=== PATIENT | male | born 1990 | race Caucasian/White ===

== ENCOUNTER 2016-06-01 01:24 | Emergency (ER) | payer SELFPAY ==
[~2016-06-01] VITALS: Ht 172.7 cm; Wt 74.8 kg
[~2016-06-01 01:24] MED LIST: AMOX500C2 PO; CIPR500T78 PO; DOXY100C2 PO; FAMO20TA5 PO; HYDR-757 PO; IBP800T PO; IBUP800T26 PO; NAPR-689 PO; NAPR250T2 PO; NAPR550T PO; ONDA4TAB8 SL; ONDA8TAB13 PO; PHEN100T26 PO; SULF1TAB35 PO; SULF1TAB7 PO; TRAM50TA2 PO; TRIA16.5 NS
[2016-06-01] MEDS ORDERED: KETOROLAC 60 MG/2 ML VIAL IM ONE (02:45)
--- NOTE | 2016-06-01 02:52 | ED General ---
General Chief Complaint: Lower Extremity Stated Complaint: R LEG/KNEE PAIN Nursing Triage Note: C/O RIGHT POSTERIOR KNEE PAIN Nursing Sepsis Screen: No Definite Risk Source of Information: Patient Exam Limitations: No Limitations History of Present Illness Time Seen by Provider: : Initial Comments Patient reports stepping on a rock on May 30 and at that time feeling a pop behind the right knee. His knee became painful and swollen and is still bothering him today. He denies any prior injury. There is no twisting or torque of the knee or ankle. He has not taken any medications. He is ambulatory. Allergies and Home Medications Allergies Coded Allergies: No Known Drug Allergies (Unverified , 10/12/15) Home Medications No Active Prescriptions or Reported Meds Constitutional: no symptoms reported Musculoskeletal: see HPI Skin: no symptoms reported Psychiatric/Neurological: No Symptoms Reported Past Nfhnkiq-Qexfco-Fpfjcw Hx Patient Social History Alcohol Use: Denies Use Recreational Drug Use: No Smoking Status: Never a Smoker Recent Foreign Travel: No Contact w/Someone Who Travel: No Recent Infectious Disease Expo: No Recent Hopitalizations: No Immunizations Up To Date Tetanus Booster (TDap): Unknown Seasonal Allergies Seasonal Allergies: No Surgeries HX Surgeries: No Respiratory Hx Respiratory Disorders: No Cardiovascular Hx Cardiac Disorders: No Neurological Hx Neurological Disorders: No Reproductive System Hx Reproductive Disorders: No Sexually Transmitted Disease: No HIV/AIDS: No Genitourinary Hx Genitourinary Disorders: No Genitourinary Disorders: Kidney Infection Gastrointestinal Hx Gastrointestinal Disorders: No Musculoskeletal Hx Musculoskeletal Disorders: No Endocrine Hx Endocrine Disorders: No HEENT HX ENT Disorders: No Cancer Hx Cancer: No Psychosocial Hx Psychiatric Problems: No Integumentary HX Skin/Integumentary Disorder: No Blood Transfusions Hx Blood Disorders: No Adverse Reaction to a Blood Tr: No Family Medical History Significant Family History: No Pertinent Family Hx Family Medial History: Patient reports no known family medical history. Physical Exam Vital Signs Capillary Refill : Less Than 3 Seconds General Appearance: No Apparent Distress, WD/WN HEENT: Normal ENT Inspection Respiratory: No Respiratory Distress Extremity: Other (Minimal swelling behind the left knee. No tenderness. Mild pain with range of motion. Range of motion full. 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 Orthopedic follow-up was recommended. Diagnostic Imaging Diagonstic Imaging: Xray Plain Films/CT/US/NM/MRI: knee Comments X-ray of the right knee viewed by me. Report not yet available. No acute abnormalities appreciated. Diagonstic Imaging: Ultrasound Plain Films/CT/US/NM/MRI: leg Comments Ultrasound of the right lower extremity demonstrated a probable Kirkland cyst. No other acute abnormalities appreciated. Departure Impression Impression: Primary Impression: Synovial cyst of popliteal space [Kirkland], right knee Disposition: HOME, SELF-CARE Condition: Improved Departure-Patient Inst. Decision time for Depature: 02:30 Referrals: NO,LOCAL PHYSICIAN (PCP/Family) Primary Care Physician Patient Instructions: Kikrland's Cyst Add. Discharge Instructions: You may take ibuprofen up to 800 mg every 8 hours as needed for pain. Add Tylenol up to 1000 mg every 6 hours as needed for additional pain relief. Follow-up with a primary care provider or orthopedist for further evaluation. If you wish to follow-up at [facility], call [phone] for in appointment. Return to care if symptoms worsen or anything changes. All discharge instructions reviewed with patient and/or family. Voiced understanding. Scripts No Active Prescriptions or Reported Meds VIKA CONCEPCION MD Jun 01, 2016 02:52
[2016-06-01 02:56] VITALS: BP 115/70
--- NOTE | 2016-06-01 07:16 | Diagnostic Imaging Report ---
INDICATION: Pain behind right knee. TECHNIQUE: Limited real-time grayscale images were obtained in the popliteal fossa in various projections. FINDINGS: There is a hypoechoic mass in the right popliteal fossa measuring 2.7 x 0.9 x 3.7 cm. This is suspect for complicated Kirkland's cyst. There are no other fluid collections or masses. IMPRESSION: Hypoechoic mass in the popliteal fossa likely relate to popliteal cyst Dictated by: Dictated on workstation # [id number]
--- NOTE | 2016-06-01 07:47 | Diagnostic Imaging Report ---
INDICATION: Knee pain. Three views of the right knee were obtained. FINDINGS: The alignment is normal. There is no fracture or dislocation. The soft tissues are unremarkable. There appears to be a small knee joint effusion. IMPRESSION: Small knee joint effusion, otherwise unremarkable. Dictated by: Dictated on workstation # [id number]
--- OUTSIDE RECORDS SUMMARY | 2016-06-24 11:35 | XMS REPORT ---
Author Author JONES JOHNSON [facility] [place] e[employer] Address Unknown Phone Unavailable Care Team Providers Care Quality Head Name Role Phone JONES JOHNSON Unavailable Allergies No Known Allergies Problems Problem Type Condition Code Onset Dates Condition Status Problem Physical exam Z00.00 Active Medications No Known Medications Results No Known Results Summary Purpose eClinicalWorks Submission
--- OUTSIDE RECORDS SUMMARY | 2016-06-24 11:35 | XMS REPORT ---
Author Author JONES JOHNSON [facility] [place] [employer] Address Unknown Phone Unavailable Care Team Providers Care Field Sales Specialist Name Role Phone JONES JOHNSON CP Unavailable Allergies, Adverse Reactions, Alerts Substance Reaction Event Type N.K.D.A. Info Not Available Non Drug Allergy Problems Problem Type Condition Code Onset Dates Condition Status Assessment Physical exam Z00.00 Active Problem Physical exam Z00.00 Active Medications No Known Medications Procedures Procedure Coding System Code Date COMPREHEN METABOLIC PANEL CPT-4 96079 September 06, 2015 LIPID PANEL CPT-4 74576 September 06, 2015 COMPLETE CBC W/AUTO DIFF WBC CPT-4 10248 September 06, 2015 VENIPUNCT, ROUTINE* CPT-4 14609 September 06, 2015 Preventive Care New Pt. Age 18-39 CPT-4 97174 September 06, 2015 Vital Signs Date/Time: September 06, 2015 Cardiac Monitoring Heart Rate 78 bpm Weight 154.0 lbs Height 68 in Blood Pressure Diastolic 70 mmHg Blood Pressure Systolic 112 mmHg Results No Known Results Summary Purpose eClinicalWorks Submission
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
== END 2016-06-01 02:54 | disposition home or self-care (01) ==
LOC: EDUNIT# 01:24 → ER 01:29
DX: M71.21 Synovial cyst of popliteal space [Baker], right knee (principal); M25.461 Effusion, right knee
CPT/HCPCS: 73562; 76881; 96372; 99283

== ENCOUNTER 2016-06-14 19:18 | Emergency (ER) | payer SELFPAY ==
[~2016-06-14] VITALS: Ht 172.7 cm; Wt 74.8 kg
--- NOTE | 2016-06-14 19:41 | ED Lower Extremity ---
General Chief Complaint: Lower Extremity Stated Complaint: R LEG PAIN Nursing Triage Note: JUMPED A FENCE AND TWISTED FOOT INTO A POT HOLE TWISTING RIGHT KNEE. SAME INJURY 2 WEEKS AGO. C/O DECREASED ROM. Nursing Sepsis Screen: No Definite Risk Source: patient Exam Limitations: no limitations History of Present Illness Time seen by provider: 19:37 Initial Comments To ER with reports of right knee pain. Patient states that he was moving something at his house and he went to jump over a fence. In doing so he landed twisting the right knee he felt a popping sensation and is now unable to bear weight on the right knee. There is no swelling. He states he was here 2 weeks ago for a right knee injury as well. Old records indicate that a synovial cyst was diagnosed. Onset: just prior to arrival Severity: moderate Pain/Injury Location: right knee Modifying Factors: Worse With Movement Allergies and Home Medications Allergies Coded Allergies: No Known Drug Allergies (Unverified , 10/12/15) Home Medications No Active Prescriptions or Reported Meds Constitutional: see HPI EENTM: see HPI Respiratory: no symptoms reported Cardiovascular: no symptoms reported Genitourinary: no symptoms reported Musculoskeletal: see HPI Skin: no symptoms reported Psychiatric/Neurological: No Symptoms Reported Past Omloykp-Yodvpv-Zexzop Hx Patient Social History Alcohol Use: Occasionally Uses Recreational Drug Use: No Smoking Status: Never a Smoker Recent Foreign Travel: No Contact w/Someone Who Travel: No Recent Infectious Disease Expo: No Recent Hopitalizations: No Immunizations Up To Date Tetanus Booster (TDap): Unknown Seasonal Allergies Seasonal Allergies: No Surgeries HX Surgeries: No Respiratory Hx Respiratory Disorders: No Cardiovascular Hx Cardiac Disorders: No Neurological Hx Neurological Disorders: Yes Neurological Disorders: Headaches /Migraines Reproductive System Hx Reproductive Disorders: No Sexually Transmitted Disease: No HIV/AIDS: No Genitourinary Hx Genitourinary Disorders: No Genitourinary Disorders: Kidney Infection Gastrointestinal Hx Gastrointestinal Disorders: No Musculoskeletal Hx Musculoskeletal Disorders: No Endocrine Hx Endocrine Disorders: No HEENT HX ENT Disorders: No Cancer Hx Cancer: No Psychosocial Hx Psychiatric Problems: No Integumentary HX Skin/Integumentary Disorder: No Blood Transfusions Hx Blood Disorders: No Adverse Reaction to a Blood Tr: No Family Medical History Significant Family History: No Pertinent Family Hx Family Medial History: Patient reports no known family medical history. Physical Exam Vital Signs Vital Sign - Last 12Hours 06/14/16 19:24 Temp 97.8 Pulse 85 Resp 20 B/P (MAP) 110/72 Pulse Ox 96 O2 Delivery Room Air Capillary Refill : Less Than 3 Seconds General Appearance: WD/WN, no apparent distress HEENT: PERRL/EOMI, normal ENT inspection Neck: non-tender, full range of motion Respiratory: no respiratory distress, no accessory muscle use Hips: bilateral hip non-tender, bilateral hip normal inspection, bilateral hip normal range of motion Legs: bilateral leg non-tender, bilateral leg normal inspection, bilateral leg normal range of motion Knees: right knee pain, right knee soft tissue tenderness, right knee other ( limited range of motion but no obvious effusion, swelling, erythema or ecchymosis or deformity. Posterior tibial pulses +2.) Ankles: bilateral ankle non-tender, bilateral ankle normal inspection, bilateral ankle normal range of motion Feet: bilateral foot non-tender, bilateral foot normal inspection, bilateral foot normal range of motion Neurologic/Psychiatric: alert, normal mood/affect, oriented x 3 Skin: normal color, warm/dry Laceration Repair : Suture Size: 4-0 Progress/Results/Core Measures Results/Orders My Orders Orders - SHARON LUTHER APRN Knee, Right, 3 Views (06/14/16 19:36) Immobilizer Knee St 19 Inch (06/14/16 19:36) Vital Signs/I&O Vital Sign - Last 12Hours 06/14/16 19:24 Temp 97.8 Pulse 85 Resp 20 B/P (MAP) 110/72 Pulse Ox 96 O2 Delivery Room Air Blood Pressure Mean: 85 Departure Impression Impression: Primary Impression: Internal derangement of right knee Disposition: 01 HOME, SELF-CARE Condition: Stable Departure-Patient Inst. Decision time for Depature: 19:39 Referrals: PAUL LOPEZ MD, JONATHAN MD IPSEN,VALERIA LEDEZMA,LOCAL PHYSICIAN (PCP) Primary Care Physician GEOFFREY FAITH MD,CEDRICK HOGAN,ISAAC Farrell MD Patient Instructions: Ligament Injuries in the Knee (DC) Add. Discharge Instructions: Ice pack to the knee for 30 minutes every 2 hours for the next 1-2 days 2. Wear the knee immobilizer at all times when you're up moving around. Her sitting down or sleeping he may take it off 3. Follow-up with orthopedic surgeon of your choosing. A list of local orthopedic surgeons is been provided for you. Call him on Thursday to make an appointment to be seen All discharge instructions reviewed with patient and/or family. Voiced understanding. Scripts No Active Prescriptions or Reported Meds Work/School Note: Work Release Form Date Seen in the Emergency Department: Jun 15, 2016 Return to Work: Jun 14, 2016 Other Restrictions Listed Below: Must wear knee immobilizer when walking until cleared. 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
--- NOTE | 2016-06-14 19:49 | Diagnostic Imaging Report ---
INDICATION: Right knee pain. [place]inson a pop 3 views of the right knee show no fracture, dislocation or other abnormality. IMPRESSION: Normal right knee. The effusion has resolved since the prior study from 06/01/2016. Dictated by: Dictated on workstation # [id number]
[2016-06-14 20:24] VITALS: BP 110/72
== END 2016-06-14 20:24 | disposition home or self-care (01) ==
LOC: EDUNIT# 19:18 → ER 19:20
DX: M23.91 Unspecified internal derangement of right knee (principal)
CPT/HCPCS: 73562; 99283

== ENCOUNTER 2016-07-14 13:17 | Emergency (ER) | payer SELFPAY ==
[~2016-07-14] VITALS: Ht 172.7 cm; Wt 75.0 kg
[2016-07-14 14:18] VITALS: BP 135/76
[2016-07-14] MEDS ORDERED: HYDR-757 PO (14:46)
--- NOTE | 2016-07-14 14:46 | ED Lower Extremity ---
General Chief Complaint: Lower Extremity Stated Complaint: RIGHT KNEE PAIN Nursing Triage Note: PT REPORTS KNEE PAIN AFTER RUNNING YESTERDAY EVENING. Nursing Sepsis Screen: No Definite Risk Source: patient Exam Limitations: no limitations History of Present Illness Time seen by provider: 14:43 Initial Comments To ER with right knee pain after running yesterday evening. No pain initially but he was running and felt his knee seemed to get "stuck" which caused him to fall to the ground. He's been seen here 3 times for right knee pain. He's never had an MRI. Onset: other Severity: moderate Pain/Injury Location: right knee Modifying Factors: Worse With Movement Allergies and Home Medications Allergies Coded Allergies: No Known Drug Allergies (Unverified , 10/12/15) Home Medications No Active Prescriptions or Reported Meds Constitutional: see HPI EENTM: see HPI Respiratory: no symptoms reported Cardiovascular: no symptoms reported Genitourinary: no symptoms reported Musculoskeletal: see HPI Skin: no symptoms reported Psychiatric/Neurological: No Symptoms Reported Past Wignhhc-Yokuxz-Drvnvp Hx Patient Social History Alcohol Use: Occasionally Uses Recreational Drug Use: No Smoking Status: Never a Smoker 2nd Hand Smoke Exposure: No Recent Foreign Travel: No Contact w/Someone Who Travel: No Recent Infectious Disease Expo: No Recent Hopitalizations: No Immunizations Up To Date Tetanus Booster (TDap): Unknown Seasonal Allergies Seasonal Allergies: No Surgeries HX Surgeries: No Respiratory Hx Respiratory Disorders: No Cardiovascular Hx Cardiac Disorders: No Neurological Hx Neurological Disorders: Yes Neurological Disorders: Headaches /Migraines Reproductive System Hx Reproductive Disorders: No Sexually Transmitted Disease: No HIV/AIDS: No Genitourinary Hx Genitourinary Disorders: No Genitourinary Disorders: Kidney Infection Gastrointestinal Hx Gastrointestinal Disorders: No Musculoskeletal Hx Musculoskeletal Disorders: No Endocrine Hx Endocrine Disorders: No HEENT HX ENT Disorders: No Cancer Hx Cancer: No Psychosocial Hx Psychiatric Problems: No Integumentary HX Skin/Integumentary Disorder: No Blood Transfusions Hx Blood Disorders: No Adverse Reaction to a Blood Tr: No Family Medical History Significant Family History: No Pertinent Family Hx Family Medial History: Patient reports no known family medical history. Physical Exam Vital Signs Vital Sign - Last 12Hours 07/14/16 14:18 Temp 98.1 Pulse 75 Resp 16 B/P (MAP) 135/76 Pulse Ox 98 O2 Delivery Room Air Capillary Refill : Less Than 3 Seconds General Appearance: WD/WN, no apparent distress HEENT: PERRL/EOMI, normal ENT inspection Neck: non-tender, full range of motion Respiratory: no respiratory distress, no accessory muscle use Gastrointestinal: non tender, soft Hips: bilateral hip non-tender, bilateral hip normal inspection, bilateral hip normal range of motion Legs: bilateral leg non-tender, bilateral leg normal inspection, bilateral leg normal range of motion Knees: left knee non-tender, left knee normal inspection, left knee normal range of motion, right knee other (unable to fully extend the knee. There is no obvious joint effusion ecchymosis or erythema.) Ankles: bilateral ankle non-tender, bilateral ankle normal inspection, bilateral ankle normal range of motion Feet: bilateral foot non-tender, bilateral foot normal inspection, bilateral foot normal range of motion Neurologic/Psychiatric: alert, normal mood/affect, oriented x 3 Skin: normal color, warm/dry Laceration Repair : Suture Size: 4-0 Progress/Results/Core Measures Results/Orders Vital Signs/I&O Vital Sign - Last 12Hours 07/14/16 14:18 Temp 98.1 Pulse 75 Resp 16 B/P (MAP) 135/76 Pulse Ox 98 O2 Delivery Room Air Blood Pressure Mean: 95 Departure Impression Impression: Primary Impression: Internal derangement of right knee Disposition: 01 HOME, SELF-CARE Condition: Stable Departure-Patient Inst. Decision time for Depature: 14:44 Referrals: PAUL LOPEZ MD,VALERIA LEDEZMA,LOCAL PHYSICIAN (PCP) Primary Care Physician GEOFFREY FAITH MD,CEDRICK BROOKS,ELY HOGAN,ISAAC Farrell MD Patient Instructions: Meniscal Tear Add. Discharge Instructions: 1. Follow-up with one of the orthopedic surgeons. Call one of the orthopedic surgeons listed today to make an appointment to be seen 2. Crutches and knee immobilizer as needed for pain. You are to have both of these items at home 3. Pain medication as needed. All discharge instructions reviewed with patient and/or family. Voiced understanding. Scripts Hydrocodone/Acetaminophen ([place] 5-325 Tablet) 1 Each Tablet 1 EACH PO Q6H Y for PAIN-MODERATE TO SEVERE, #14 TAB Prov: SHARON LUTHER APRN 07/14/16 SHARON LUTHER APRN July 14, 2016 14:46
== END 2016-07-14 14:51 | disposition home or self-care (01) ==
LOC: EDUNIT# 13:17 → ER 13:20
DX: M23.91 Unspecified internal derangement of right knee (principal)
CPT/HCPCS: 99283

== ENCOUNTER → 2016-07-23 | Outpatient (CLI) | payer OTHER ==
--- NOTE | 2016-07-23 16:26 | Diagnostic Imaging Report ---
PROCEDURE: MRI right joint lower extremity without contrast. TECHNIQUE: Multiplanar, multisequence non contrast-enhanced MRI of the right lower extremity was accomplished. INDICATION: Right knee pain. FINDINGS: There is a small to moderate suprapatellar effusion. There is a Kirkland's cyst, measuring 1.8 x 2.1 x 3.8 cm. The extensor mechanism is intact. There is disruption of the ACL fibers compatible with a full-thickness tear. The PCL is intact. There is increased signal in the posterior horn of the medial meniscus which may relate to degenerative signal with questionable extension into the undersurface of the meniscus as seen on sagittal image numbers 19 raising possibility of a nondisplaced focal tear. The body and anterior horns of the medial meniscus appear intact. The lateral meniscus demonstrate no definite tear. The MCL and lateral collateral ligament complex appear intact. There is bone marrow contusion involving the posterior aspect of the tibial condyles, bilaterally, as well as the lateral and medial femoral condyles. IMPRESSION: 1. Full-thickness tear of the ACL. 2. Increased signal in the posterior horn of the medial meniscus with question of extension into the tibial surface of the meniscus raising possibility of a nondisplaced tear. 3. Kirkland's cyst. Report was faxed to the office of Chey Bee APRN at 4:23 p.m., by mitchel. Dictated by: Dictated on workstation # [id number]
== END ==
LOC: RAD 14:37
PROVIDERS: ATTEND Nurse Practitioner Family
DX: S83.511A Sprain of anterior cruciate ligament of right knee, initial encounter (principal); M71.21 Synovial cyst of popliteal space [Baker], right knee; M25.461 Effusion, right knee; X58.XXXA Exposure to other specified factors, initial encounter; Y99.8 Other external cause status
CPT/HCPCS: 73721

== ENCOUNTER 2017-02-21 13:33 | Emergency (ER) | payer SELFPAY ==
[~2017-02-21] VITALS: Ht 172.7 cm; Wt 80.9 kg
[~2017-02-21 13:33] MED LIST changes: -NAPR250T2 PO; +NAPR250T6 PO
--- NOTE | 2017-02-21 14:02 | ED Integumentary General ---
General Chief Complaint: Skin/Wound Problems Stated Complaint: ENTIRE BODY ITCHING POSS SCABIES Nursing Triage Note: c/o rash to bilat hands Source: patient Exam Limitations: no limitations History of Present Illness Time seen by provider: 14:02 Initial Comments 26-year-old male patient presents to the emergency department with complaints of rash to the bilateral hands. Reports a coworker had scabies several days ago and was not sent home. He is concerned that he has scabies now. Timing/Duration: yesterday, getting worse Location: hands Possible Cause: other (exposure to scabies) Modifying Factors: worse with scratching Allergies and Home Medications Allergies Coded Allergies: No Known Drug Allergies (Unverified , 10/12/15) Home Medications Hydrocodone/Acetaminophen 1 Each Tablet, 1 EACH PO Q6H PRN for PAIN-MODERATE TO SEVERE, #14 Prescribed by: SHARON LUTHER on 07/14/16 1446 Permethrin 60 Gm Cream..g., 60 GM TP ONCE, #1 Ref 1 apply 5% cream once x8h, then wash off. Repeat in 14 days. Prescribed by: JOHAN BELL on 02/21/17 1413 Constitutional: No chills, No fever, No malaise EENTM: no symptoms reported Respiratory: No cough, No short of breath Cardiovascular: no symptoms reported Gastrointestinal: no symptoms reported Musculoskeletal: no symptoms reported Skin: see HPI, pruritus, rash Psychiatric/Neurological: No Symptoms Reported All Other Systems Reviewed Negative Unless Noted: Yes (Negative excepted noted.) Past Xvsymlb-Gljljb-Rrfjro Hx Patient Social History Alcohol Use: Occasionally Uses Number of Drinks Today: AA Alcohol Beverage of Choice: Beer Recreational Drug Use: No Smoking Status: Never a Smoker 2nd Hand Smoke Exposure: No Recent Foreign Travel: No Contact w/Someone Who Travel: No Recent Infectious Disease Expo: No Recent Hopitalizations: No Physical Abuse: No Sexual Abuse: No Mistreated: No Fear: No Immunizations Up To Date Tetanus Booster (TDap): Unknown Seasonal Allergies Seasonal Allergies: No Surgeries History of Surgeries: No Respiratory History of Respiratory Disorde: No Cardiovascular History of Cardiac Disorders: No Neurological History of Neurological Disord: Yes Neurological Disorders: Headaches /Migraines Reproductive System Hx Reproductive Disorders: No Sexually Transmitted Disease: No HIV/AIDS: No Genitourinary Genitourinary Disorders: Kidney Infection Gastrointestinal History of Gastrointestinal Di: No Musculoskeletal History of Musculoskeletal Dis: No Endocrine History of Endocrine Disorders: No Cancer History of Cancer: No Psychosocial History of Psychiatric Problem: No Suicide Risk Score: 1 Integumentary History of Skin or Integumenta: No Blood Transfusions History of Blood Disorders: No Adverse Reaction to a Blood Tr: No Reviewed Nursing Assessment Reviewed/Agree w Nursing PMH: Yes Family Medical History Significant Family History: No Pertinent Family Hx Family Medial History: Patient reports no known family medical history. Physical Exam Vital Signs Vital Sign - Last 12Hours 02/21/17 13:35 Temp 98.8 Pulse 79 Resp 18 B/P (MAP) 140/94 (109) Pulse Ox 98 O2 Delivery Room Air Capillary Refill : Less Than 3 Seconds General Appearance: WD/WN, no apparent distress HEENT: PERRL/EOMI, pharynx normal Neck: supple, normal inspection Cardiovascular: normal peripheral pulses, regular rate, rhythm, no murmur Respiratory: lungs clear, normal breath sounds, no respiratory distress, no accessory muscle use Extremities: non-tender, normal capillary refill, other (linear papular rash of the bilateral hands with greatest focus in the webspaces between the fingers. ) Neurologic/Psychiatric: alert, normal mood/affect, oriented x 3 Skin: normal color, warm/dry, rash (linear papular rash of the hands with greatest focus in the webspaces between the fingers.) Laceration Repair : Suture Size: 4-0 Progress/Results/Core Measures Results/Orders Vital Signs/I&O Vital Sign - Last 12Hours 02/21/17 13:35 Temp 98.8 Pulse 79 Resp 18 B/P (MAP) 140/94 (109) Pulse Ox 98 O2 Delivery Room Air Blood Pressure Mean: 109 Departure Impression Impression: Primary Impression: Scabies Disposition: 01 HOME, SELF-CARE Condition: Improved Departure-Patient Inst. Decision time for Depature: 14:10 Referrals: [facility] (PCP/Family) Primary Care Physician Patient Instructions: Scabies (DC) Add. Discharge Instructions: All discharge instructions reviewed with patient and/or family. Voiced understanding. Medications as instructed. Itching may continue for several days after treatment is completed. Benadryl hyxb-sxt-dusdldt as directed for itching if needed. Wash all bedding and clothing in hot water. Follow-up with your primary care provider if no improvement in symptoms. Return to the emergency department for worsened symptoms or any other concerns. Scripts Permethrin (Permethrin) 60 Gm Cream..g. 60 GM TP ONCE, #1 TUBE 1 Refill apply 5% cream once x8h, then wash off. Repeat in 14 days. Prov: JOHAN BELL 02/21/17 Work/School Note: Work Release Form Date Seen in the Emergency Department: Feb 21, 2017 Return to Work: Feb 22, 2017 JOHAN BELL Feb 21, 2017 14:02
[2017-02-21] MEDS ORDERED: PERM60CR4 TP (14:13)
[2017-02-21 14:28] VITALS: BP 138/86
== END 2017-02-21 14:28 | disposition home or self-care (01) ==
LOC: EDUNIT# 13:33 → ER 13:35
DX: B86 Scabies (principal); G43.909 Migraine, unspecified, not intractable, without status migrainosus
CPT/HCPCS: 99282

== ENCOUNTER 2017-04-24 23:41 | Emergency (ER) | payer SELFPAY ==
[~2017-04-24] VITALS: Ht 172.7 cm; Wt 80.7 kg
[~2017-04-24 23:41] MED LIST changes: +PERM60CR4 TP
--- OUTSIDE RECORDS SUMMARY | 2017-04-24 23:46 | XMS REPORT ---
Author Author ANNIE ASHFORD Organization [facility] Address [address] [place] [address] Care Team Providers Care Dog And Cat Food Cook Name Role Phone ANNIE ASHFORD Unavailable PROBLEMS Type Condition ICD9-CM Code CQL71-NE Code Onset Dates Condition Status SNOMED Code Problem Physical exam Z00.00 Active 502083434 ALLERGIES No Known Allergies SOCIAL HISTORY Never Assessed PLAN OF CARE Activity Details Follow Up 2 Weeks Reason:follow up knee pain VITAL SIGNS Height 68 in 2016-07-14 Weight 170 lbs 2016-07-14 Temperature 98.3 degrees Fahrenheit 2016-07-14 Heart Rate 70 bpm 2016-07-14 Respiratory Rate 20 2016-07-14 BMI 25.85 kg/m2 2016-07-14 Blood pressure systolic 124 mmHg 2016-07-14 Blood pressure diastolic 70 mmHg 2016-07-14 MEDICATIONS Unknown Medications RESULTS Name Result Date Reference Range MRI : Knee, Right w/o contrast 2016-07-23 PROCEDURES No Known procedures IMMUNIZATIONS No Known Immunizations MEDICAL (GENERAL) HISTORY Type Description Date Medical History kidney infection Hospitalization History kidney infection [facility] 2014
--- OUTSIDE RECORDS SUMMARY | 2017-04-24 23:46 | XMS REPORT ---
Author Author JONES JOHNSON Organization [facility] [place] Address [address] [place] [address] Care Team Providers Care Cam Specialist Name Role Phone JONES JOHNSON Unavailable PROBLEMS Type Condition ICD9-CM Code [id number] Code Onset Dates Condition Status SNOMED Code Problem Gastroesophageal reflux disease with esophagitis K21.0 Active 863780742 Problem Physical exam Z00.00 Active [id number] ALLERGIES No Known Allergies SOCIAL HISTORY Never Assessed PLAN OF CARE Activity Details Follow Up 3 Months, prn Reason: VITAL SIGNS Height 68 in 2016-08-05 Weight 170 lbs 2016-08-05 Temperature 98.4 degrees Fahrenheit 2016-08-05 Heart Rate 72 bpm 2016-08-05 Respiratory Rate 18 2016-08-05 BMI 25.85 kg/m2 2016-08-05 Blood pressure systolic 100 mmHg 2016-08-05 Blood pressure diastolic 70 mmHg 2016-08-05 MEDICATIONS Medication Instructions Dosage Frequency Start Date End Date Duration Status Hydrocodone-Acetaminophen 5-325 MG Orally 3 times a day 1 tablet as needed 8h Jul, Active Ibuprofen 800 MG Orally Three times a day 1 tablet with food or milk 8h Jul, Aug, 30 day(s) Active RESULTS No Results PROCEDURES No Known procedures IMMUNIZATIONS No Known Immunizations MEDICAL (GENERAL) HISTORY Type Description Date Medical History kidney infection Hospitalization History kidney infection [facility] 2014
--- OUTSIDE RECORDS SUMMARY | 2017-04-24 23:47 | XMS REPORT ---
Author Author JONES JOHNSON [facility] Address [address] [place] [address] Care Team Providers Care Sleeve Ironer Name Role Phone JONES JOHNSON Unavailable PROBLEMS Type Condition ICD9-CM Code YSN71-MU Code Onset Dates Condition Status SNOMED Code Problem Physical exam Z00.00 Active 351660905 ALLERGIES No Information SOCIAL HISTORY Never Assessed PLAN OF CARE VITAL SIGNS MEDICATIONS Unknown Medications RESULTS No Results PROCEDURES No Known procedures IMMUNIZATIONS No Known Immunizations MEDICAL (GENERAL) HISTORY Type Description Date Medical History kidney infection Hospitalization History kidney infection [facility] 2015
--- OUTSIDE RECORDS SUMMARY | 2017-04-24 23:47 | XMS REPORT ---
Author Author ANNIE ASHFORD [facility] Address [address] [place] [address] Care Team Providers Care Foundry Engineer Name Role Phone ANNIE ASHFORD Unavailable PROBLEMS Type Condition ICD9-CM Code YOH21-OL Code Onset Dates Condition Status SNOMED Code Problem Physical exam Z00.00 Active 327476993 ALLERGIES No Information SOCIAL HISTORY Never Assessed PLAN OF CARE VITAL SIGNS MEDICATIONS Unknown Medications RESULTS No Results PROCEDURES No Known procedures IMMUNIZATIONS No Known Immunizations MEDICAL (GENERAL) HISTORY Type Description Date Medical History kidney infection Hospitalization History kidney infection [facility] 2014
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
[2017-04-25 00:25] LABS: BILIRUBIN,URINE NEGATIVE (NEGATIVE); CLARITY,URINE CLEAR; COLOR,URINE YELLOW; GLUCOSE, URINE (UA) NEGATIVE (NEGATIVE); KETONES,URINE NEGATIVE (NEGATIVE); LEUKOCYTE ESTERASE ,URINE NEGATIVE (NEGATIVE); NITRITE,URINE NEGATIVE (NEGATIVE); PH,URINE 6 (5-9); PROTEIN,URINE NEGATIVE (NEGATIVE); UROBILINOGEN,URINE 4 MG/DL (NORMAL)
[2017-04-25 00:42] LABS: BACTERIA,URINE NEGATIVE /HPF; SQUAMOUS EPITHELIAL CELL,UR RARE /HPF
[2017-04-25] MEDS ORDERED: AZITHROMYCIN 250 MG TAB (ZITHROMAX) PO ONE (01:30)
[2017-04-25] MEDS ORDERED: LIDOCAINE 1% INJ 20 ML (XYLOCAINE) VIAL INJ ONE (01:30)
[2017-04-25] MEDS ORDERED: cefTRIAXone 1 GM (ROCEPHIN) VIAL IM ONE (01:30)
[2017-04-25] MEDS ORDERED: LIDOCAINE 2% 20 ML (XYLOCAINE) VIAL ONE (01:57)
[2017-04-25 02:00] VITALS: BP 127/96
--- NOTE | 2017-04-25 02:00 | ED GU-Male ---
General Chief Complaint: -Male Stated Complaint: DIFFICULTY URINATING Nursing Triage Note: pt verbalized for 2 months having urinary issues. states hard to get starting then feels like hes not empting. Source: patient Exam Limitations: no limitations History of Present Illness Date Seen by Provider: Apr 24, 2017 Time Seen by Provider: 23:49 Initial Comments This 26-year-old young man presents to the emergency room with complaints of urinary symptoms for nearly 2 months. He has had difficulty getting stream started and feels like his weight is incomplete after he finishes. He has penile dysuria. He does sometimes have some urethral discharge as well. He is sexually active. He denies any hematuria. No fevers. He has had a prior history of pyelonephritis by his description. Allergies and Home Medications Allergies Coded Allergies: No Known Drug Allergies (Unverified , 10/12/15) Home Medications Hydrocodone/Acetaminophen 1 Each Tablet, 1 EACH PO Q6H PRN for PAIN-MODERATE TO SEVERE Prescribed by: SHARON LUTHER on 07/14/16 1446 Permethrin 60 Gm Cream..g., 60 GM TP ONCE apply 5% cream once x8h, then wash off. Repeat in 14 days. Prescribed by: JOHAN BELL on 02/21/17 1413 Constitutional: no symptoms reported EENTM: no symptoms reported Respiratory: no symptoms reported Cardiovascular: no symptoms reported Gastrointestinal: no symptoms reported Genitourinary: see HPI Musculoskeletal: no symptoms reported Skin: no symptoms reported Psychiatric/Neurological: No Symptoms Reported Endocrine: No Symptoms Reported Past Ktfauus-Xjtqhw-Rsifxz Hx Patient Social History Alcohol Beverage of Choice: Beer 2nd Hand Smoke Exposure: No Recent Foreign Travel: No Contact w/Someone Who Travel: No Recent Infectious Disease Expo: No Recent Hopitalizations: No Immunizations Up To Date Tetanus Booster (TDap): Unknown Seasonal Allergies Seasonal Allergies: No Surgeries History of Surgeries: No Respiratory History of Respiratory Disorde: No Cardiovascular History of Cardiac Disorders: No Neurological History of Neurological Disord: Yes Neurological Disorders: Headaches /Migraines Reproductive System Hx Reproductive Disorders: No Sexually Transmitted Disease: No HIV/AIDS: No Genitourinary Genitourinary Disorders: Kidney Infection Gastrointestinal History of Gastrointestinal Di: Yes Gastrointestinal Disorders: Gastroesophageal Reflux Musculoskeletal History of Musculoskeletal Dis: No Endocrine History of Endocrine Disorders: No HEENT History of HEENT Disorders: No Cancer History of Cancer: No Psychosocial History of Psychiatric Problem: No Integumentary History of Skin or Integumenta: No Blood Transfusions History of Blood Disorders: No Adverse Reaction to a Blood Tr: No Family Medical History Significant Family History: No Pertinent Family Hx Family Medial History: Patient reports no known family medical history. Physical Exam Vital Signs Vital Signs - First Documented 04/24/17 23:56 Temp 97.3 Pulse 76 Resp 20 B/P (MAP) 127/96 (106) Pulse Ox 98 O2 Delivery Room Air Capillary Refill : Less Than 3 Seconds General Appearance: WD/WN, no apparent distress HEENT: normal ENT inspection Cardiovascular: regular rate, rhythm, no edema, no murmur Respiratory: lungs clear, no respiratory distress Gastrointestinal: non tender, soft Male: normal genitalia, no hernia, No erythema, No inguinal tenderness, No testicular tenderness, other (no evidence of hernia. 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, no motor/sensory deficits, alert, normal mood/affect, oriented x 3 Skin: normal color, warm/dry Laceration Repair : Suture Size: 4-0 Progress/Results/Core Measures Suspected Sepsis Recent Fever Within 48 Hours: No Infection Criteria Present: None New/Unexplained Altered Menta: No Sepsis Screen: No Definite Risk Sepsis Diagnosis: SIRS Temperature:97.3 Pulse: 76 Respiratory Rate: 20 Blood Pressure 127 /96 Mean: 106 Results/Orders Lab Results Laboratory Tests Test 04/24/17 23:57 Range/Units Urine Color YELLOW Urine Clarity CLEAR Urine pH 6 5-9 Urine Specific [place] 1.020 1.016-1.022 Urine Protein NEGATIVE NEGATIVE Urine Glucose (UA) NEGATIVE NEGATIVE Urine Ketones NEGATIVE NEGATIVE Urine Nitrite NEGATIVE NEGATIVE Urine Bilirubin NEGATIVE NEGATIVE Urine Urobilinogen 4 H NORMAL MG/DL Urine Leukocyte Esterase NEGATIVE NEGATIVE Urine RBC (Auto) NEGATIVE NEGATIVE Urine RBC NONE /HPF Urine WBC NONE /HPF Urine Squamous Epithelial Cells RARE /HPF Urine Crystals NONE /LPF Urine Bacteria NEGATIVE /HPF Urine Casts NONE /LPF Urine Mucus NEGATIVE /LPF Urine Culture Indicated NO My Orders Orders - VIKA CONCEPCION MD Ua Culture If Indicated (04/24/17 23:49) Chlamydia Dna Urine Test (04/25/17 00:00) Neis Anival Dna Urine Test (04/25/17 00:00) Bladder Scan (04/25/17 01:23) Ceftriaxone Injection (Rocephin Injectio (04/25/17 01:30) Lidocaine 1% Injection (Xylocaine 1% Inj (04/25/17 01:30) Azithromycin Tablet (Zithromax Tablet) (04/25/17 01:30) Lidocaine 2% Injection 20 Ml (Xylocaine (04/25/17 01:57) Im Injection Antibiotic Ed (04/24/17 ) Vital Signs/I&O Vital Sign - Last 12Hours 04/24/17 04/25/17 23:56 02:00 Temp 97.3 97.3 Pulse 76 76 Resp 20 20 B/P (MAP) 127/96 (106) 127/96 (106) Pulse Ox 98 98 O2 Delivery Room Air Capillary Refill : Less Than 3 Seconds Blood Pressure Mean: 106 Progress Note : Progress Note UA was fairly unremarkable. There is no significant post void residual on bladder scan. Because patient describes pain in the penis with urination, he was treated empirically for urethritis. Rocephin and azithromycin were ordered. Departure Impression Impression: Primary Impression: Urethritis Additional Impression: Dysuria Disposition: 01 HOME, SELF-CARE Condition: Improved Departure-Patient Inst. Decision time for Depature: 01:59 [facility] (PCP/Family) Primary Care Physician Patient Instructions: Urethritis Add. Discharge Instructions: Return to care if symptoms worsen. Follow up with your primary care provider late next week to review culture results. No intercourse until culture results are reviewed with your doctor. All discharge instructions reviewed with patient and/or family. Voiced understanding. Work/School Note: Work Release Form Date Seen in the Emergency Department: Apr 25, 2017 Return to Work: Apr 25, 2017 Other Restrictions Listed Below: Return to work after sufficient rest. VIKA CONCEPCION MD Apr 25, 2017 02:00
== END 2017-04-25 02:10 | disposition home or self-care (01) ==
LOC: EDUNIT# 23:41 → ER 23:43
DX: N34.1 Nonspecific urethritis (principal); G43.909 Migraine, unspecified, not intractable, without status migrainosus; Z87.448 Personal history of other diseases of urinary system
CPT/HCPCS: 36415; 81000; 87491; 87591; 96372

== ENCOUNTER 2017-06-24 16:04 | Emergency (ER) | payer SELFPAY ==
[~2017-06-24] VITALS: Ht 172.7 cm; Wt 78.5 kg
--- OUTSIDE RECORDS SUMMARY | 2017-06-24 16:12 | XMS REPORT | Continuity of Care Document ---
Author Author [facility] Organization [facility] Address Unknown Phone Unavailable Allergies Active Description Code Type Severity Reaction Onset Reported/Identified Relationship to Patient Clinical Status Yes No Known Drug Allergies [id number] Drug Allergy Unknown N/A 10/12/2015 Medications There is no data. Problems Date Dx Coded Attending Type Code Diagnosis Diagnosed By 01/29/1149 JONES JOHNSON Ot Z31.69 ENCOUNTER FOR [facility] GENER[facility] CNSL AND ADVIC 11/07/2009 Ot [...] RENAL URETERAL DIS NOS 10/11/2013 SHARON LUTHER SWITCHBOARD OPERATOR RECEPTIONIST Ot 462 ACUTE PHARYNGITIS 10/11/2013 SHARON LUTHER SWITCHBOARD OPERATOR RECEPTIONIST Ot 780.79 OTH MALAISE FATIGUE 10/11/2013 SHARON LUTHER SWITCHBOARD OPERATOR RECEPTIONIST Ot 784.0 HEADACHE 10/11/2013 SHARON LUTHER SWITCHBOARD OPERATOR RECEPTIONIST Ot 789.09 ABDOMINAL PAIN, OTHER SPECIFIED SITE [...] PAINFUL RESPIRATION 04/04/2014 Ot 789.09 09/05/2014 RAMANDEEP LEIVN MD Ot 724.2 LUMBAGO 04/18/2015 JAMEY ECHOLS, [...] W/O FB OF R IDX FNGR W/O MRYON 07/03/2015 MEREDITH DO, YIFAN K Ot S61.210A [...] K Ot Z23 ENCOUNTER FOR IMMUNIZATION 09/26/2015 SHARNO LUTHER APRN Ot S43.401A UNSPECIFIED SPRAIN OF RIGHT SHOULDER KILLIAN 09/26/2015 SHARON LUTHER SWITCHBOARD OPERATOR RECEPTIONIST Ot X58.XXXA EXPOSURE TO OTHER SPECIFIED FACTORS, INI 09/26/2015 SHARON LUTHER SWITCHBOARD OPERATOR RECEPTIONIST Ot Y92.[address] 09/26/2015 SHARON [...] OTHER EXTERNAL CAUSE STATUS 10/12/2015 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 Ot Z31.69 ENCOUNTER FOR OTH GENERAL CNSL [...] OF POPLITEAL SPACE [GLEZ] 06/14/2016 SHARON LUTHER SWITCHBOARD OPERATOR RECEPTIONIST Ot M23.91 UNSPECIFIED INTERNAL DERANGEMENT OF RIGH 06/14/2016 SHARON LUTHER SWITCHBOARD OPERATOR RECEPTIONIST Ot S89.91XA UNSPECIFIED INJURY OF RIGHT LOWER LEG, I 06/16/2016 SHARON LUTHER SWITCHBOARD OPERATOR RECEPTIONIST Ot M23.91 UNSPECIFIED INTERNAL DERANGEMENT OF RIGH 06/16/2016 SHARON LUTHER SWITCHBOARD OPERATOR RECEPTIONIST Ot S89.91XA UNSPECIFIED INJURY OF RIGHT LOWER LEG, I 07/14/2016 SHARON LUTHER SWITCHBOARD OPERATOR RECEPTIONIST Ot M23.91 UNSPECIFIED INTERNAL DERANGEMENT OF RIGH 07/14/2016 SHARON LUTHER SWITCHBOARD OPERATOR RECEPTIONIST Ot M25.561 PAIN IN RIGHT KNEE 07/25/2016 ANNIE ASHFORD SWITCHBOARD OPERATOR RECEPTIONIST Ot M25.461 EFFUSION, RIGHT KNEE 07/25/2016 ANNIE ASHFORD SWITCHBOARD OPERATOR RECEPTIONIST Ot M71.21 SYNOVIAL CYST OF POPLITEAL SPACE [GLEZ] 07/25/2016 ANNIE ASHFORD SWITCHBOARD OPERATOR RECEPTIONIST Ot S83.511A SPRAIN OF ANTERIOR CRUCIATE LIGAMENT OF 07/25/2016 ANNIE ASHFORD SWITCHBOARD OPERATOR RECEPTIONIST Ot X58.XXXA EXPOSURE TO OTHER SPECIFIED FACTORS, INI 07/25/2016 ANNIE ASHFORD SWITCHBOARD OPERATOR RECEPTIONIST Ot Y99.8 OTHER EXTERNAL CAUSE STATUS 07/31/2016 ANNIE ASHFORD SWITCHBOARD OPERATOR RECEPTIONIST Ot M25.461 EFFUSION, RIGHT KNEE 07/31/2016 ANNIE ASHFORD SWITCHBOARD OPERATOR RECEPTIONIST Ot M71.21 SYNOVIAL CYST OF POPLITEAL SPACE [GLEZ] 07/31/2016 ANNIE ASHFORD SWITCHBOARD OPERATOR RECEPTIONIST Ot S83.511A SPRAIN OF ANTERIOR CRUCIATE LIGAMENT OF 07/31/2016 ANNIE ASHFORD SWITCHBOARD OPERATOR RECEPTIONIST Ot X58.XXXA EXPOSURE TO OTHER SPECIFIED FACTORS, INI 07/31/2016 ANNIE ASHFORD SWITCHBOARD OPERATOR RECEPTIONIST Ot Y99.8 OTHER EXTERNAL CAUSE STATUS 08/07/2016 SHARON LUTHER SWITCHBOARD OPERATOR RECEPTIONIST Ot M23.91 UNSPECIFIED INTERNAL DERANGEMENT OF RIGH 08/07/2016 SHARON LUTHER SWITCHBOARD OPERATOR RECEPTIONIST Ot S89.91XA UNSPECIFIED INJURY OF RIGHT LOWER LEG, I 02/21/2017 JOHAN CHRISTIANSON Ot B86 SCABIES 02/21/2017 JOHAN CHRISTIANSON Ot G43.909 MIGRAINE, UNSP, NOT INTRACTABLE, WITHOUT 02/21/2017 MARCELO CHRISTIANSONEN Jeremiah Ot R21 RASH AND OTHER NONSPECIFIC SKIN ERUPTION 02/24/2017 JOHAN CHRISTIANSON Ot B86 SCABIES 02/24/2017 JOHAN CHRISTIANSON Ot G43.909 MIGRAINE, UNSP, NOT INTRACTABLE, WITHOUT 02/24/2017 JOHAN CHRISTIANSON Ot R21 RASH AND OTHER NONSPECIFIC SKIN ERUPTION 04/16/2017 ANNIE ASHFORD SWITCHBOARD OPERATOR RECEPTIONIST Ot M25.461 EFFUSION, RIGHT KNEE 04/16/2017 ANNIE ASHFORD SWITCHBOARD OPERATOR RECEPTIONIST Ot M71.21 SYNOVIAL CYST OF POPLITEAL SPACE [GLEZ] 04/16/2017 ANNIE ASHFORD SWITCHBOARD OPERATOR RECEPTIONIST Ot S83.511A SPRAIN OF ANTERIOR CRUCIATE LIGAMENT OF 04/16/2017 ANNIE ASHFORD SWITCHBOARD OPERATOR RECEPTIONIST Ot X58.XXXA EXPOSURE TO OTHER SPECIFIED FACTORS, INI 04/16/2017 ANNIE ASHFORD SWITCHBOARD OPERATOR RECEPTIONIST Ot Y99.8 OTHER EXTERNAL CAUSE STATUS 04/25/2017 JAMEY ECHOLS, VIKA Saleh Ot G43.909 MIGRAINE, UNSP, NOT INTRACTABLE, WITHOUT 04/25/2017 JAMEY ECHOLS, VIKA Saleh Ot N34.1 NONSPECIFIC URETHRITIS 04/25/2017 JAMEY ECHOLS, VIKA Saleh Ot R30.0 DYSURIA 04/25/2017 JAMEY ECHOLS, VIKA Saleh Ot Z87.448 PERSONAL HISTORY OF OTHER DISEASES OF UR 04/27/2017 VIKA CONCEPCION MD Ot G43.909 MIGRAINE, UNSP, NOT INTRACTABLE, WITHOUT 04/27/2017 JAMEY ECHOLS, VIKA Saleh Ot N34.1 NONSPECIFIC URETHRITIS 04/27/2017 VIKA CONCEPCION MD, Ot R30.0 DYSURIA 04/27/2017 VIKA CONCEPCION MD, Ot Z87.448 PERSONAL HISTORY OF OTHER DISEASES OF UR 04/30/2017 VIKA CONCEPCION MD, Ot G43.909 MIGRAINE, UNSP, NOT INTRACTABLE, WITHOUT 04/30/2017 VIKA CONCEPCION MD, Ot N34.1 NONSPECIFIC URETHRITIS 04/30/2017 VIKA CONCEPCION MD, Ot R30.0 DYSURIA 04/30/2017 VIKA CONCEPCION MD, Ot Z87.448 PERSONAL HISTORY OF OTHER DISEASES OF UR Procedures There is no data. Results Test [...] - 02/24/16 14:54 Lipase 18 U/L 8-78 Complete urinalysis with reflex to culture - 04/24/17 23:57 Urine color determination YELLOW NRG Urine clarity [...] urobilinogen measurement by automated test strip (mass/volume) 4 mg/dL NORMAL Urine leukocyte esterase detection by dipstick [...] urinalysis with reflex to culture NO NRG Chlamydia DNA amp probe, urine - 04/24/17 23:57 Chlamydia DNA amp probe, urine Not Detected Not Detected Urine Neisseria gonorrhoeae DNA assay - 04/24/17 23:57 Gonorrhea amp DNA-urine Not Detected Not Detected Encounters ACCT No. Visit Date/Time Discharge Status Pt. Type Provider Facility Loc./Unit Complaint [id number] 04/24/2017 23:43:00 04/25/2017 02:10:00 DIS Outpatient JAMEY ECHOLS, VIKA Saleh [facility] ER DIFFICULTY URINATING [id number] 02/21/2017 13:35:00 02/21/2017 14:28:00 DIS Emergency JOHAN CHRISTIANSON [facility] ER ENTIRE BODY ITCHING POSS SCABIES [id number] 07/23/2016 14:37:00 07/23/2016 23:59:59 CLS Outpatient ANNIE ASHFORD SWITCHBOARD OPERATOR RECEPTIONIST [facility] RAD S89.91XA INJ OF RT KNEE [id number] 07/14/2016 13:20:00 07/14/2016 14:51:00 DIS Emergency SHARON LUTHER APRN [facility] ER RIGHT KNEE PAIN [id number] 06/14/2016 19:20:00 06/14/2016 20:24:00 DIS Emergency SHARON LUTHER APRN [facility] ER R LEG PAIN [id number] 06/01/2016 01:29:00 06/01/2016 02:54:00 DIS Emergency VIKA CONCEPCION MD [facility] ER R LEG/KNEE PAIN [id number] 02/24/2016 12:12:00 02/24/2016 16:06:00 DIS Emergency CHRISTINE ECHOLS, JORGE Rojo [facility] ER L LOWER ABD PAIN [id number] 01/22/2016 14:10:00 01/22/2016 15:26:00 DIS Emergency JOHAN CHRISTIANSON [facility] ER VOMITING/ABD PAIN DIARRHEA [id number] 10/12/2015 18:49:00 10/12/2015 19:47:00 DIS Emergency SHARON LUTHER APRN [facility] ER BURN [id number] 10/12/2015 11:33:00 10/12/2015 11:50:00 DIS Outpatient JONES JOHNSON [facility] LAB INFERTILITY COUNSELING [id number] 09/26/2015 11:12:00 09/26/2015 11:57:00 DIS Emergency SHARON LUTHER APRN [facility] ER RIGHT SHOULDER PAIN [id number] 06/23/2015 14:37:00 06/23/2015 14:45:00 DIS Emergency CHRISTINE ECHOLS, JORGE S [facility] ER SUTURE REMOVAL [id number] 06/14/2015 01:05:00 06/14/2015 02:54:00 DIS Emergency YIFAN HARPER DO [facility] ER LAC RT HAND INDEX FINGER [id number] 04/18/2015 16:34:00 04/18/2015 17:47:00 DIS Emergency JAMEY ECHOLS, VIKA Saleh [facility] ER VOMITING;BACK PAIN; DIARRHEA [id number] 09/05/2014 07:14:00 09/05/2014 08:53:00 DIS Emergency POONAM ECHOLS, RAMANDEEP Kraft [facility] ER SIDE/ABD PAIN HEADACHE NAUSEA [id number] 03/14/2014 08:12:00 03/14/2014 09:39:00 DIS Emergency ADRIANE ECOHLS, PAULIE Storm [facility] ER CHEST PAIN [id number] 12/04/2013 14:09:00 12/04/2013 14:58:00 DIS Emergency JOHAN CHRISTIANSON [facility] ER FINGER PAIN [id number] 11/25/2013 21:44:00 11/25/2013 23:03:00 DIS Emergency TY ECHOLS, BARRY Rdz [facility] ER ABD PAIN [id number] 11/20/2013 13:53:00 11/20/2013 15:11:00 DIS Emergency POONAM ECHOLS, RAMANDEEP Kraft [facility] ER R INDEX FINGER GROIN PAIN [id number] 10/11/2013 14:21:00 10/11/2013 17:46:00 DIS Emergency SHARON LUTHER APRN [facility] ER HEADACHE [id number] 09/04/2013 22:51:00 09/05/2013 15:27:00 DIS Inpatient MELA COPELAND DO S [facility] 4TH ACUTE PYELONEPHRITIS , GROSS HEMATURIA [id number] 07/31/2013 12:30:00 07/31/2013 14:29:00 DIS Emergency RAMANDEEP LEVIN MD [facility] ER CHEST PAIN HEADACHE [id number] 07/06/2013 23:15:00 07/07/2013 00:15:00 DIS Emergency YIFAN HARPER DO [facility] ER BLOODY NOSE [id number] 06/24/2017 16:05:00 ACT Emergency RAMANDEEP LEVIN MD [facility] ER CHEST PAIN;FEVER [id number] 05/12/2012 18:10:00 Document Registration [id number] 08/01/2011 15:41:00 Document Registration [id number] 07/27/2011 19:28:00 Document Registration [id number] 05/05/2011 21:38:00 Document Registration [id number] 01/28/2010 08:14:00 Document Registration [id number] 11/07/2009 14:18:00 Document Registration [id number] 05/01/2017 09:40:00 05/01/2017 23:59:59 [facility] Outpatient JONES JOHNSON [facility] F[id number] 09/05/2014 07:15:14 ACT Document Registration
[2017-06-24] MEDS ORDERED: FAMOTIDINE 20 MG (PEPCID) TABLET PO STA (19:10)
[2017-06-24] MEDS ORDERED: LIDOCAINE 2% VISCOUS 15 ML UDC PO ONE (19:15)
[2017-06-24] MEDS ORDERED: ANTACID SUSP 30 ML UDC (MYLANTA) PO ONE (19:15)
--- NOTE | 2017-06-24 19:16 | ED Chest Pain ---
General Chief Complaint: Fever-Adult/Adol Stated Complaint: CHEST PAIN;FEVER Nursing Triage Note: PT HERE WITH C/O FEVER AND FAST HEART RATE FOR 24 HOURS. Nursing Sepsis Screen: No Definite Risk Source: patient Exam Limitations: no limitations History of Present Illness Date Seen by Provider: Jun 24, 2017 Time Seen by Provider: 19:01 Initial Comments The patient presents to ER by private conveyance with a chief complaint that since last night he started experiencing some chest pains he describes as twinges of pressure and gripping in substernal that lasts for just a few seconds then go away and come back 30-60 seconds later and series of or 5. He has a history of GERD for which she uses his antacid daily medicine a PPI and he did take it this morning. He also took some ibuprofen 800 mg this morning and did not feel like it helped his short chest pains. He took 325 mg aspirin this afternoon and it didn't help either. He has not taken any antacids today other than his scheduled daily antacids the morning. He says the pain does not feel the same. He does not have a history of asthma or shortness of breath. He is having no fevers or chills. He has had a cough but is been nonproductive just the last couple days. He does not smoke cigarettes nor did he ever. He has not had any trauma. His pain is not reproduced when pressing on his chest. He has not used either by taking deep inspiration or coughing. He says he has an uncle who had early onset cardiac disease in his 40s as well as diabetes. Patient does not have any other significant medical history is aware of. He denies any nausea, chills, sweats, radiation of pain. Allergies and Home Medications Allergies Coded Allergies: No Known Drug Allergies (Unverified , 10/12/15) Home Medications Hydrocodone/Acetaminophen 1 Each Tablet, 1 EACH PO Q6H PRN for PAIN-MODERATE TO SEVERE Prescribed by: SHARON LUTHER on 07/14/16 1446 Permethrin 60 Gm Cream..g., 60 GM TP ONCE apply 5% cream once x8h, then wash off. Repeat in 14 days. Prescribed by: JOHAN BELL on 02/21/17 1413 Patient Home Medication List Home Medication List Reviewed: Yes Review of Systems Constitutional: No chills, No diaphoresis EENTM: No Blurred Vision, No Double Vision Respiratory: Denies Cough, Denies Shortness of Air Cardiovascular: See HPI, Chest Pain; Denies Edema, Denies Irregular Heart Rate , Denies Lightheadedness, Denies Palpitations, Denies Syncope Gastrointestinal: Denies Abdomen Distended, Denies Abdominal Pain, Denies Constipated, Denies Diarrhea, Denies Difficulty Swallowing, Denies Nausea Genitourinary: Denies Burning, Denies Discharge Musculoskeletal: No back pain, No joint pain Past Avyxtht-Byewtz-Pmswyk Hx Patient Social History Alcohol Use: Occasionally Uses Number of Drinks Today: AA Alcohol Beverage of Choice: Beer Recreational Drug Use: No Smoking Status: Never a Smoker 2nd Hand Smoke Exposure: No Recent Foreign Travel: No Contact w/Someone Who Travel: No Recent Infectious Disease Expo: No Recent Hopitalizations: No Immunizations Up To Date Tetanus Booster (TDap): Unknown Seasonal Allergies Seasonal Allergies: No Past Medical History Surgeries: No Respiratory: No Cardiac: No Neurological: Yes Headaches /Migraines Reproductive Disorders: No Sexually Transmitted Disease: No HIV/AIDS: No Kidney Infection Gastrointestinal: Yes Gastroesophageal Reflux Musculoskeletal: No Endocrine: No HEENT: No Cancer: No Psychosocial: No Integumentary: No Blood Disorders: No Adverse Reaction/Blood Tranf: No Family Medical History Patient reports no known family medical history. No Pertinent Family Hx Physical Exam Vital Signs Vital Signs - First Documented 06/24/17 17:14 Temp 99.3 Pulse 74 Resp 18 B/P (MAP) 113/72 (86) Pulse Ox 98 O2 Delivery Room Air Capillary Refill : Less Than 3 Seconds General Appearance: No Apparent Distress, WD/WN HEENT: PERRL/EOMI, TMs Normal, Normal ENT Inspection, Pharynx Normal Neck: Full Range of Motion, Normal Inspection, Non Tender, Supple Respiratory: Chest Non Tender, Lungs Clear, Normal Breath Sounds, No Accessory Muscle Use, No Respiratory Distress Cardiovascular: Regular Rate, Rhythm, No Edema Gastrointestinal: Normal Bowel Sounds, Non Tender, Soft Neurologic/Psychiatric: Alert, Oriented x3 Skin: Normal Color, Warm/Dry Procedures/Interventions Suture Size: 4-0 Progress/Results/Core Measures Lab Results Laboratory Tests Test 06/24/17 19:33 Range/Units Troponin I < 0.30 <0.30 NG/ML My Orders Orders - CHARY VERA Troponin I (4/25/18 19:10) Lidocaine 2% Viscous 15 Ml (Xylocaine Vi (06/24/17 19:15) Famotidine Tablet (Pepcid Tablet) (06/24/17 19:10) Antacid Suspension (Mylanta Suspension (06/24/17 19:15) Medications Given in ED Current Medications Medications Dose Ordered Sig/Samuel Route Start Time Stop Time Status Last Admin Dose Admin Al Hydrox/Mg Hydrox/Simethicone 30 ml ONCE ONCE PO 06/24/17 19:15 06/24/17 19:16 DC 06/24/17 19:25 30 ML Lidocaine HCl 15 ml ONCE ONCE PO 06/24/17 19:15 06/24/17 19:16 DC 06/24/17 19:25 15 ML Vital Signs/I&O 06/24/17 17:14 Temp 99.3 Pulse 74 Resp 18 B/P (MAP) 113/72 (86) Pulse Ox 98 O2 Delivery Room Air Blood Pressure Mean: 86 Progress Note #1: Time: 19:15 Progress Note Possibility of some cardiac palpitations may explain his symptoms. We'll give him a GI cocktail see if that makes a difference although is not having any symptoms presently. We'll get an EKG, 2 view chest x-ray is lung sound clear and a troponin. If this is unremarkable have him follow-up at [facility] where he sees routinely. Esophagitis, GERD, PUD, cardiac palpitations, chest wall pain. Progress Note #2: Time: 20:18 Progress Note No evidence of anything wrong with the heart. He said the GI cocktail did help his symptoms quite a bit. We'll have him follow up outpatient with [facility] to discuss possibility of antacid suppression or even endoscopy. Initial ECG Impression Date: Jun 24, 2017 Initial ECG Impression Time: 17:22 Initial ECG Rate: 74 Initial ECG Rhythm: Normal Sinus Initial ECG Intervals: Normal Initial ECG Impression: Normal Initial ECG Comparisson: No Previous ECG Available Comment No ST segment elevation or depression. No evidence of pericarditis. Diagonstic Imaging: Xray (2v) Plain Films/CT/US/NM/MRI: chest Comments %(RAD)RES..mtdd.print.filter("cj")[facility]IA [facility] %(RAD)RES..mtdd.print.filter("cj")[place] NAME: VIKA SULLIVAN [facility] REC#: [id number] PT STATUS: REG ER : 1990 PHYSICIAN: SHARON LUTHER APRN ADMIT DATE: 06/24/17/ER Draft Date of Exam:06/24/17 CHEST PA/LAT (2 VIEW) INDICATION: Fever and chest pain. EXAMINATION: Two-view chest dated 06/24/2017. COMPARISON: 03/14/2014. FINDINGS: Lungs are slightly hyperinflated. There are no infiltrates or effusions. No pneumothorax. The heart is unremarkable. Pulmonary vasculature is normal. IMPRESSION: 1. Mild hyperinflation of the lungs. Otherwise negative chest. Dictated on workstation # [id number] Dict: 06/24/171940 Trans: 06/24/171945 [id number] Interpreted by: JO ANN HATFIELD MD Electronically signed by: Reviewed: Reviewed by Me Departure Impression Primary Impression: Chest pain Qualified Codes: R07.9 - Chest pain, unspecified Additional Impression: GERD (gastroesophageal reflux disease) Qualified Codes: K21.9 - Gastro-esophageal reflux disease without esophagitis Disposition: HOME, SELF-CARE Condition: Improved Departure-Patient Inst. Decision time for Depature: 20:20 Referrals: [facility] (PCP/Family) Primary Care Physician Patient Instructions: Chest Pain That Is Not Caused by the Heart (DC) Add. Discharge Instructions: Avoid greasy spicy foods and use antacids as needed for your chest pain to see if this helps. Plan to follow up in 2-4 weeks with your primary care provider if her symptoms do not lalo. All discharge instructions reviewed with patient and/or family. Voiced understanding. Copy Copies To 1: LUBA PORRAS TITUS J Jun 24, 2017 19:16
--- NOTE | 2017-06-24 19:47 | Diagnostic Imaging Report ---
INDICATION: Fever and chest pain. EXAMINATION: Two-view chest dated 06/24/2017. COMPARISON: 03/14/2014. FINDINGS: Lungs are slightly hyperinflated. There are no infiltrates or effusions. No pneumothorax. The heart is unremarkable. Pulmonary vasculature is normal. IMPRESSION: 1. Mild hyperinflation of the lungs. Otherwise negative chest. Dictated by: Dictated on workstation # [id number]
[2017-06-24 20:25] VITALS: BP 115/63
== END 2017-06-24 20:25 | disposition home or self-care (01) ==
LOC: EDUNIT# 16:04 → ER 16:05
DX: K21.9 Gastro-esophageal reflux disease without esophagitis (principal); R07.9 Chest pain, unspecified; G43.909 Migraine, unspecified, not intractable, without status migrainosus; Z87.440 Personal history of urinary (tract) infections
CPT/HCPCS: 36415; 71046; 84484; 93005

== ENCOUNTER 2017-12-21 03:46 | Emergency (ER) | payer SELFPAY ==
[~2017-12-21] VITALS: Ht 172.7 cm; Wt 83.5 kg
[~2017-12-21 03:46] MED LIST changes: +HYDR-4226 PO; -HYDR-757 PO
[2017-12-21] MEDS ORDERED: HYDROcodone/APAP 5 MG/325 MG (LORTAB) TAB PO ONE (04:00)
--- NOTE | 2017-12-21 04:42 | ED Upper Extremity ---
General Chief Complaint: Upper Extremity Stated Complaint: RT THUMB SMASHED W/HAMMER Nursing Triage Note: right thumb pain Nursing Sepsis Screen: No Definite Risk History of Present Illness Date Seen by Provider: Dec 21, 2017 Time Seen by Provider: 03:52 Initial Comments This 27-year-old young man presents to the emergency room with injury to the right thumb. He smashed it with a hammer on a work site yesterday. The distal thumb is very painful, swollen, and erythematous. There is no break in the skin. Over the past several hours he has developed a subungual hematoma. Onset: yesterday Allergies and Home Medications Allergies Coded Allergies: No Known Drug Allergies (Unverified , 10/12/15) Home Medications Hydrocodone/Acetaminophen 1 Each Tablet, 1 EACH PO Q6H PRN for PAIN-MODERATE TO SEVERE Prescribed by: SHARON LUTHER on 07/14/16 1446 Patient Home Medication List Home Medication List Reviewed: Yes Review of Systems Constitutional: no symptoms reported EENTM: no symptoms reported Respiratory: no symptoms reported Cardiovascular: no symptoms reported Gastrointestinal: no symptoms reported Genitourinary: no symptoms reported Musculoskeletal: see HPI Skin: see HPI Psychiatric/Neurological: No Symptoms Reported Past Gfvdzko-Zyuzng-Nzmsqx Hx Past Med/Social Hx: Reviewed Nursing Past Med/Soc Hx Patient Social History Alcohol Use: Past History Number of Drinks Today: AA Alcohol Beverage of Choice: Beer Recreational Drug Use: No Smoking Status: Never a Smoker 2nd Hand Smoke Exposure: No Recent Foreign Travel: No Contact w/Someone Who Travel: No Recent Infectious Disease Expo: No Recent Hopitalizations: No Immunizations Up To Date Tetanus Booster (TDap): Unknown Seasonal Allergies Seasonal Allergies: No Past Medical History Surgeries: No Respiratory: No Cardiac: No Neurological: Yes Headaches /Migraines Reproductive Disorders: No Sexually Transmitted Disease: No HIV/AIDS: No Genitourinary: Yes Kidney Infection Gastrointestinal: Yes Gastroesophageal Reflux Musculoskeletal: No Endocrine: No HEENT: No Cancer: No Psychosocial: No Integumentary: No Blood Disorders: No Adverse Reaction/Blood Tranf: No Family Medical History Reviewed Nursing Family Hx Patient reports no known family medical history. No Pertinent Family Hx Physical Exam Vital Signs Vital Signs - First Documented 12/21/17 03:50 Temp 97.8 Pulse 68 Resp 16 B/P (MAP) 117/84 (95) Pulse Ox 99 O2 Delivery Room Air Capillary Refill : Less Than 3 Seconds Height, Weight, BMI Height: 5'8.00" Weight: 184lbs. 0oz. 83.282967gq; 21.28 BMI Method:Stated General Appearance: WD/WN, mild distress HEENT: normal ENT inspection Respiratory: normal breath sounds, no respiratory distress Wrist: Yes normal inspection, Yes no evidence of injury Hand: Right (The distal thumb is markedly swollen, erythematous, and tender. Sensation intact. There is subungual hematoma. 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 There appears to be very small distal tuft fracture. No other injuries identified on the x-ray. The nail of the thumb was cleaned with alcohol. 3 small holes were drilled into the nail with a 18- gauge hypodermic needle. Blood freely drained from these holes and provided him some relief of pressure. A hydrocodone tablet was given for treatment of pain. An AlumaFoam finger splint was given to help protect the finger. Diagnostic Imaging Diagonstic Imaging: Xray Plain Films/CT/US/NM/MRI: hand Comments X-rays of the thumb viewed by me. Report not yet available. There is suspicion of a small terminal tuft fracture. Departure Impression Primary Impression: Subungual hematoma of right thumb Qualified Codes: S60.111A - Contusion of right thumb with damage to nail, initial encounter Additional Impression: Closed fracture of tuft of distal phalanx of right thumb Disposition: 01 HOME, SELF-CARE Condition: Improved Departure-Patient Inst. Decision time for Depature: 04:41 Referrals: [facility] [place] Primary Care Physician Patient Instructions: Finger Fracture Add. Discharge Instructions: You may soak your thumb in lukewarm water to encourage drainage of the hematoma. Take ibuprofen up to 600 mg every 6 hours as needed for pain. Add Tylenol ( acetaminophen) up to 1000 mg every 6 hours as needed for additional pain relief. Elevation and gentle icing in 10 minute intervals may be helpful for reducing pain and swelling. Use the finger shield provided with an active after bleeding and swelling improves. Return to care if you have worsening symptoms. All discharge instructions reviewed with patient and/or family. Voiced understanding. 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 Wear finger shield. VIKA CONCEPCION MD Dec 21, 2017 04:42
[2017-12-21 04:45] VITALS: BP 117/84
--- NOTE | 2017-12-21 05:50 | Diagnostic Imaging Report ---
INDICATION: Right hand injury with pain AP, oblique and lateral views of the right hand are obtained. There is a probable nondisplaced fracture involving the terminal tuft of the first distal phalanx. Otherwise, no acute fracture or malalignment is identified. Thee is no abnormal lytic or sclerotic focus. IMPRESSION: Probable nondisplaced terminal tuft fracture of the first distal phalanx without other acute abnormality seen. Dictated by: Dictated on workstation # [id number]
== END 2017-12-21 04:44 | disposition home or self-care (01) ==
LOC: EDUNIT# 03:46 → ER 03:49
DX: S62.524A Nondisplaced fracture of distal phalanx of right thumb, initial encounter for closed fracture (principal); G43.909 Migraine, unspecified, not intractable, without status migrainosus; K21.9 Gastro-esophageal reflux disease without esophagitis; Z87.448 Personal history of other diseases of urinary system; W22.8XXA Striking against or struck by other objects, initial encounter
CPT/HCPCS: 73140

== ENCOUNTER 2018-03-27 13:28 | Emergency (ER) | payer SELFPAY ==
[~2018-03-27] VITALS: Ht 172.7 cm; Wt 72.6 kg
--- OUTSIDE RECORDS SUMMARY | 2018-03-27 13:33 | XMS REPORT ---
Author Author RENITA COLLADO Organization [facility] Address [address] [place] [address] Care Team Providers Care Bleach Maker Name Role Phone RENITA COLLADO Unavailable PROBLEMS Type Condition ICD9-CM Code HSY88-CE Code Onset Dates Condition Status SNOMED Code Problem Other chronic pain G89.29 Active 03795680 Problem Gastroesophageal reflux disease with esophagitis K21.0 Active 767963568 Problem Physical exam Z00.00 Active 935264466 ALLERGIES No Information ENCOUNTERS Encounter Location Date Diagnosis [place] [address] [address] 10 Oct, 2017 Other chronic pain G89.29 and Pain in right knee M25.561 [place] [address] [address] Oct, Other chronic pain G89.29 [place] [address] [address] Sep, [place] [address] [place] [id number] [place] [address] Sep, Other chronic pain G89.29 and Pain in right knee M25.561 [facility] [address] [place] [id number] [place] [address] 39371- 8[address] Sep, Other chronic pain G89.29 and Pain in right knee M25.561 [facility] [address] [place] [id number] [place] [address]34- [address]30 Aug, [facility] [address] [place] [id number] [place] [address] 43548- 4[address] Jul, Other chronic pain G89.29 ; Pain in right knee M25.561 ; Sprain of anterior cruciate ligament of right knee, initial encounter S83.511A and Unspecified tear of unspecified meniscus, current injury, right knee, initial encounter S83.206A [facility] [address] [place] [id number] [place] [address] Jul, Strep pharyngitis J02.0 [facility] [address] [place] [id number] [place] [address] 01866- 2550 Apr, Other chronic pain G89.29 and Pain in right knee M25.561 [facility] [address] [place] [id number] [place] [address] 25374- 4427 Apr, [facility] [address] [place] [id number] [place] [address] 99341- 1409 Jan, [facility] [address] [place] [id number] [place] [address] -5448 Dec, Gastroesophageal reflux disease with esophagitis K21.0 [facility] [address] [place] [id number] [place] [address] 84543- 9003 Nov, [facility] [address] [place] [id number] [place] [address] 07436- 1376 Nov, Ingrowing nail with infection L60.0 [facility] [address] [place] [id number] [place] [address] 73941- 3144 Oct, Ingrowing toenail with infection L60.0 [facility] [address] [place] [id number] [place] [address] 63132- 1531 Jul, [facility] [address] [place] [id number] [place] [address] 13469- 0529 Jul, [facility] [address] [place] [id number] [place] [address] 95188- 5931 Jul, Complete tear of anterior cruciate ligament of right knee, subsequent encounter S83.511D [facility] [address] [place] [address] 12000- 3180 June, [facility] [address] [place] [id number] [place] [address] [phone]- 6137 June, [place] [address] [address] June, Injury of right knee, initial encounter S89.91XA [place] [address] [place] [address] May, Normal physical examination Z00.00 [place] [address] [place] [address] 38256- 9135 Sep, [place] [address] [place] [address] 38668- 6767 Sep, Infertility counseling Z31.69 [place] [address] [address] Aug, Physical exam Z00.00 [place] [id number] [place] [address] Aug, IMMUNIZATIONS No Known Immunizations SOCIAL HISTORY Never Assessed REASON FOR VISIT question PLAN OF CARE VITAL SIGNS MEDICATIONS No Known Medications RESULTS No Results PROCEDURES No Known procedures INSTRUCTIONS MEDICATIONS ADMINISTERED No Known Medications MEDICAL (GENERAL) HISTORY Type Description Date Medical History kidney infection Medical History torn right ACL Surgical History No Surgical history information Hospitalization History kidney infection [facility] 2014
--- OUTSIDE RECORDS SUMMARY | 2018-03-27 13:33 | XMS REPORT ---
Author Author RENITA COLLADO Organization [facility] Address [address] [place] [address] Care Team Providers Care Meter Tester Name Role Phone RENITA COLLADO Unavailable PROBLEMS Type Condition ICD9-CM Code UHK07-EM Code Onset Dates Condition Status SNOMED Code Problem Other chronic pain G89.29 Active 97630762 Problem Gastroesophageal reflux disease with esophagitis K21.0 Active 562096174 Problem Physical exam Z00.00 Active 058808670 ALLERGIES No Information ENCOUNTERS Encounter Location Date Diagnosis [place] [address] [address] 10 Oct, 2017 Other chronic pain G89.29 and Pain in right knee M25.561 [place] [address] [address] Oct, Other chronic pain G89.29 [place] [address] [address] Sep, [place] [address] [place] [id number] [place] [address] 80720- [address] Sep, Other chronic pain G89.29 and Pain in right knee M25.561 [facility] [address] [place] [id number] [place] [address] 62415- 9[address] Sep, Other chronic pain G89.29 and Pain in right knee M25.561 [facility] [address] [place] [id number] [place] [address] 73428- 3[address] Aug, [facility] [address] [place] [id number] [place] [address] 97013- 9679 Jul, Other chronic pain G89.29 ; Pain in right knee M25.561 ; Sprain of anterior cruciate ligament of right knee, initial encounter S83.511A and Unspecified tear of unspecified meniscus, current injury, right knee, initial encounter S83.206A [facility] [address] [place] [id number] [place] [address]2369 -[address]8 Jul, Strep pharyngitis J02.0 [facility] [address] [place] [id number] [place] [address] 38536- 7687 Apr, Other chronic pain G89.29 and Pain in right knee M25.561 [facility] [address] [place] [id number] [place] [address] 23214- 9520 Apr, [facility] [address] [place] [id number] [place] [address] 84373- 8255 Jan, [facility] [address] [place] [id number] [place] [address] 86934 -[address] Dec, Gastroesophageal reflux disease with esophagitis K21.0 [facility] [address] [place] [id number] [place] [address] 76431- 5664 Nov, [facility] [address] [place] [id number] [place] [address] 24153- 3758 Nov, Ingrowing nail with infection L60.0 [facility] [address] [place] [id number] [place] [address] 59891- 0269 Oct, Ingrowing toenail with infection L60.0 [facility] [address] [place] [id number] [place] [address] 72178- 1041 Jul, [facility] [address] [place] [id number] [place] [address] 59221- 3797 Jul, [facility] [address] [place] [id number] [place] [address] 08886- 4904 Jul, Complete tear of anterior cruciate ligament of right knee, subsequent encounter S83.511D [facility] [address] [place] [address] 27843- 9762 June, [facility] [address] [place] [id number] [place] [address] 13233- 0721 June, [place] [address] [address] June, Injury of right knee, initial encounter S89.91XA [place] [address] [address] May, Normal physical examination Z00.00 [place] [address] [place] [address] 78205- 3376 Sep, [place] [address] [place] [address] 949546- 8381 Sep, Infertility counseling Z31.69 [place] [address] [address] Aug, Physical exam Z00.00 [place] [address] [place] [address] Aug, IMMUNIZATIONS No Known Immunizations SOCIAL HISTORY Never Assessed REASON FOR VISIT Refill request PLAN OF CARE VITAL SIGNS MEDICATIONS Medication Instructions Dosage Frequency Start Date End Date Duration Status Hydrocodone-Acetaminophen 7.5-325 MG Orally every 6 hrs 1 tablet as needed 6h Oct, Active RESULTS No Results PROCEDURES No Known procedures INSTRUCTIONS MEDICATIONS ADMINISTERED No Known Medications MEDICAL (GENERAL) HISTORY Type Description Date Medical History kidney infection Medical History torn right ACL Surgical History No Surgical history information Hospitalization History kidney infection [facility] 2015
--- OUTSIDE RECORDS SUMMARY | 2018-03-27 13:33 | XMS REPORT ---
Author Author RENITA COLLADO Organization [facility] Address [address] [place] [address] Care Team Providers Care Load Dispatcher Name Role Phone RENITA COLLADO Unavailable PROBLEMS Type Condition ICD9-CM Code LGZ18-HW Code Onset Dates Condition Status SNOMED Code Problem Other chronic pain G89.29 Active 84176320 Problem Gastroesophageal reflux disease with esophagitis K21.0 Active 425302470 Problem Physical exam Z00.00 Active 341716314 ALLERGIES No Information ENCOUNTERS Encounter Location Date Diagnosis [place] [address] [address] Nov, Other chronic pain G89.29 [facility] [address] [address]- 65[address] Nov, Other chronic pain G89.29 [facility] [address] 18751- 5290 Nov, Other chronic pain G89.29 [facility] [address] [place] [id number] [place] [address] 02570- 1176 Oct, Other chronic pain G89.29 and Pain in right knee M25.561 [facility] [address] [place] [id number] [place] [address] 37182- 5225 Oct, Other chronic pain G89.29 [facility] [address] [place] [id number] [place] [address] 21881- 9260 Sep, [facility] [address] 67885- 5082 Sep, Other chronic pain G89.29 and Pain in right knee M25.561 [facility] [address] 15608- 2457 Sep, Other chronic pain G89.29 and Pain in right knee M25.561 [facility] [address] [place] [address] 98376- 6600 Aug, [facility] [address] [place] [id number] [place] [address] 774287- 8448 Jul, Other chronic pain G89.29 ; Pain in right knee M25.561 ; Sprain of anterior cruciate ligament of right knee, initial encounter S83.511A and Unspecified tear of unspecified meniscus, current injury, right knee, initial encounter S83.206A [facility] [address] [place] [address] 16858 -0024 Jul, Strep pharyngitis J02.0 [place] [address] [place] [id number] [place] [address] 66952- 3918 Apr, Other chronic pain G89.29 and Pain in right knee M25.561 [facility] [address] [place] [id number] [place] [address] 37247- 2507 Apr, [facility] [address] [place] [id number] [place] [address] 83398- 5814 Jan, [facility] [address] [place] [id number] [place] [address] 29213 -7533 Dec, Gastroesophageal reflux disease with esophagitis K21.0 [place] [address] [place] [id number] [place] [address] 54922- 9552 Nov, [facility] [address] [place] [id number] [place] [address] 10866- 2400 Nov, Ingrowing nail with infection L60.0 [facility] [address] [place] [id number] [place] [address] 18572- 2132 Oct, Ingrowing toenail with infection L60.0 [facility] [address] [place] [id number] [place] [address] 90376- 3354 Jul, [facility] [address] [place] [id number] [address] Jul, [place] [address] [address] 9206 Jul, Complete tear of anterior cruciate ligament of right knee, subsequent encounter S83.511D [place] [address] [address] 3[address] June, [place] [address] [address] 7016 June, [place] [address] [place] [address] 77168- 7078 June, Injury of right knee, initial encounter S89.91XA [place] [address] [address] 2806 May, Normal physical examination Z00.00 [place] [address], [place] [address]- 7923 Sep, [place] [address] [address] Sep, Infertility counseling Z31.69 [place] [address], [place] [address] 1996 Aug, Physical exam Z00.00 [place] [address] [address]- 8876 Aug, IMMUNIZATIONS No Known Immunizations SOCIAL HISTORY Never Assessed REASON FOR VISIT Controlled Med Refill PLAN OF CARE VITAL SIGNS MEDICATIONS Medication Instructions Dosage Frequency Start Date End Date Duration Status Hydrocodone-Acetaminophen 7.5-325 MG Orally every 6 hrs 1 tablet as needed 6h Nov, Active RESULTS No Results PROCEDURES No Known procedures INSTRUCTIONS MEDICATIONS ADMINISTERED No Known Medications MEDICAL (GENERAL) HISTORY Type Description Date Medical History kidney infection Medical History torn right ACL Surgical History No Surgical history information Hospitalization History kidney infection [facility] 2014
--- OUTSIDE RECORDS SUMMARY | 2018-03-27 13:33 | XMS REPORT ---
Author Author RENITA COLLADO Organization [facility] Address [address] [place] [address] Care Team Providers Care Customer Service Sales Associate Name Role Phone RENITA COLLADO Unavailable PROBLEMS Type Condition ICD9-CM Code UVV80-IM Code Onset Dates Condition Status SNOMED Code Problem Other chronic pain G89.29 Active 17992835 Problem Gastroesophageal reflux disease with esophagitis K21.0 Active 885150501 Problem Physical exam Z00.00 Active 254346713 ALLERGIES No Information ENCOUNTERS Encounter Location Date Diagnosis [facility] [address] [address]- 1527 Jan, Other chronic pain G89.29 [facility] [address] 26357- 9036 Dec, Other chronic pain G89.29 [facility] [address] 48904- 6430 Nov, Other chronic pain G89.29 [facility] [address] [place] [id number] [place] [address] 21343- 6562 Nov, Other chronic pain G89.29 [facility] [address] 28813- 1698 Nov, Other chronic pain G89.29 [facility] [address] [place] [id number] [place] [address] 48328- 8448 Oct, Other chronic pain G89.29 and Pain in right knee M25.561 [facility] [address] [place] [id number] [place] [address] 67363- 7021 Oct, Other chronic pain G89.29 [facility] [address] [place] [id number] [place] [address] 79409- 4318 Sep, [facility] [address] [place] [address] 72584- 3587 Sep, Other chronic pain G89.29 and Pain in right knee M25.561 [facility] [address] [place] [id number] [place] [address] 619688- 8778 Sep, Other chronic pain G89.29 and Pain in right knee M25.561 [facility] [address] [place] [id number] [place] [address] 30440- 0515 Aug, [facility] [address] [place] [id number] [place] [address] 84689- 7622 Jul, Other chronic pain G89.29 ; Pain in right knee M25.561 ; Sprain of anterior cruciate ligament of right knee, initial encounter S83.511A and Unspecified tear of unspecified meniscus, current injury, right knee, initial encounter S83.206A [facility] [address] [place] [id number] [place] [address] 00536 -7901 Jul, Strep pharyngitis J02.0 [place] [address] [place] [id number] [place] [address] 85179- 8262 Apr, Other chronic pain G89.29 and Pain in right knee M25.561 [place] [address] [place] [id number] [place] [address] 90841- 0512 Apr, [facility] [address] [place] [id number] [place] [address] 63760- 4101 Jan, [facility] [address] [place] [id number] [place] [address] 44465 -0040 Dec, Gastroesophageal reflux disease with esophagitis K21.0 [place] [address] [place] [id number] [place] [address] 36086- 5602 Nov, [place] [address] [place] [id number] [place] [address] 27310- 2156 Nov, Ingrowing nail with infection L60.0 [place] [address] [place] [id number] [address]- 5537 Oct, Ingrowing toenail with infection L60.0 [place] [address] [place] [id number] [place] [address] 04487- 8171 Jul, [place] [address] [place] [address] 05334- 3662 Jul, [place] [address] [place] [id number] [place] [address] 54354- 9154 Jul, Complete tear of anterior cruciate ligament of right knee, subsequent encounter S83.511D [place] [address] [place] [id number] [place] [address] 89879- 0668 June, [place] [address] [place] [id number] [place] [address] 64217- 2870 June, [place] [address] [place] [id number] [place] [address] 31745- 7282 June, Injury of right knee, initial encounter S89.91XA [place] [address] [place] [id number] [place] [address] 09645- 2744 May, Normal physical examination Z00.00 [place] [address] [place] [address] 52089- 0133 Sep, [place] [address] [place] [address] 46545- 9282 Sep, Infertility counseling Z31.69 [place] [address] [place] [id number] [place] [address] 69446- 3519 Aug, Physical exam Z00.00 [place] [address] [place] [id number] [place] [address] 01402- 3767 Aug, IMMUNIZATIONS No Known Immunizations SOCIAL HISTORY Never Assessed REASON FOR VISIT Controlled Med Refill PLAN OF CARE VITAL SIGNS MEDICATIONS Medication Instructions Dosage Frequency Start Date End Date Duration Status Hydrocodone-Acetaminophen 7.5-325 MG Orally every 6 hrs 1 tablet as needed 6h Jan, Active RESULTS No Results PROCEDURES No Known procedures INSTRUCTIONS MEDICATIONS ADMINISTERED No Known Medications MEDICAL (GENERAL) HISTORY Type Description Date Medical History kidney infection Medical History torn right ACL Surgical History No Surgical history information Hospitalization History kidney infection [facility] [place] [address]
--- OUTSIDE RECORDS SUMMARY | 2018-03-27 13:33 | XMS REPORT ---
Author Author RENITA COLLADO Organization [facility] [place] Address [address] [place] [address] Care Team Providers Care Top Stop Attacher Name Role Phone RENITA COLLADO Unavailable PROBLEMS Type Condition ICD9-CM Code YML23-FS Code Onset Dates Condition Status SNOMED Code Problem Other chronic pain G89.29 Active 30711904 Problem Gastroesophageal reflux disease with esophagitis K21.0 Active 763787017 Problem Physical exam Z00.00 Active 628186046 ALLERGIES No Information ENCOUNTERS Encounter Location Date Diagnosis [place] [address] [address]- 6123 Nov, Other chronic pain G89.29 [facility] [place] [address] 15373- 5934 Nov, Other chronic pain G89.29 [facility] [place] [address] 57752- 8619 Nov, Other chronic pain G89.29 [facility] [place] [address] [place] [id number] [place] [address] 80313- 6409 Oct, Other chronic pain G89.29 and Pain in right knee M25.561 [facility] [place] [address] [place] [id number] [place] [address] 03055- 0459 Oct, Other chronic pain G89.29 [facility] [place] [address] [place] [id number] [place] [address] 91169- 0847 Sep, [facility] [place] [address] 95312- 8064 Sep, Other chronic pain G89.29 and Pain in right knee M25.561 [facility] [place] [address] 00081- 1415 Sep, Other chronic pain G89.29 and Pain in right knee M25.561 [facility] [place] [address] [place] [address] 63530- 0727 Aug, [facility] [place] [address] [place] [id number] [place] [address] 775961- 1621 Jul, Other chronic pain G89.29 ; Pain in right knee M25.561 ; Sprain of anterior cruciate ligament of right knee, initial encounter S83.511A and Unspecified tear of unspecified meniscus, current injury, right knee, initial encounter S83.206A [facility] [address] [place] [address] 78497 -9400 Jul, Strep pharyngitis J02.0 [place] [address] [place] [id number] [place] [address] 74245- 6107 Apr, Other chronic pain G89.29 and Pain in right knee M25.561 [facility] [place] [address] [place] [id number] [place] [address] 05827- 8954 Apr, [facility] [place] [address] [place] [id number] [place] [address] 39314- 2156 Jan, [facility] [address] [place] [id number] [place] [address] 30179 -0298 Dec, Gastroesophageal reflux disease with esophagitis K21.0 [place] [address] [place] [id number] [place] [address] 22511- 4066 Nov, [facility] [place] [address] [place] [id number] [place] [address] 47490- 3575 Nov, Ingrowing nail with infection L60.0 [facility] [place] [address] [place] [id number] [place] [address] 84712- 4011 Oct, Ingrowing toenail with infection L60.0 [facility] [place] [address] [place] [id number] [place] [address] 68013- 0127 Jul, [facility] [place] [address] [place] [address] [address]- 0406 Jul, [place] [address] [address]- 7366 Jul, Complete tear of anterior cruciate ligament of right knee, subsequent encounter S83.511D [place] [address] [address]- 9576 June, [place] [address] [address]- 2286 June, [place] [address] [place] [address] 35674- 5264 June, Injury of right knee, initial encounter S89.91XA [place] [address] [address]- 2716 May, Normal physical examination Z00.00 [place] [address] [address]- 9526 Sep, [place] [address] [address] Sep, Infertility counseling Z31.69 [place] [address] [address]- 0876 Aug, Physical exam Z00.00 [place] [address] [address]- 7376 Aug, IMMUNIZATIONS No Known Immunizations SOCIAL HISTORY [...]
--- OUTSIDE RECORDS SUMMARY | 2018-03-27 13:33 | XMS REPORT ---
Author Author RENITA COLLADO Organization [facility] Address [address] [place] [address] Care Team Providers Care Training And Development Coordinator Name Role Phone RENITA COLLADO Unavailable PROBLEMS Type Condition ICD9-CM Code EDM27-EM Code Onset Dates Condition Status SNOMED Code Problem Other chronic pain G89.29 Active 42851595 Problem Gastroesophageal reflux disease with esophagitis K21.0 Active 523901070 Problem Physical exam Z00.00 Active 526275412 ALLERGIES No Known Allergies ENCOUNTERS Encounter Location Date Diagnosis [place] [address] [address]- 130[address] 10 Oct, 2017 Other chronic pain G89.29 and Pain in right knee M25.561 [place] [address] [place] [id number] [place] [address] 32496- 4372 Oct, Other chronic pain G89.29 [place] [address] 18024- 1731 Sep, [place] [address] [place] [id number] [place] [address] 84016- 2837 Sep, Other chronic pain G89.29 and Pain in right knee M25.561 [facility] [address] [place] [id number] [place] [address] 01973- 9895 Sep, Other chronic pain G89.29 and Pain in right knee M25.561 [facility] [address] [place] [id number] [place] [address] 03113- 2522 Aug, [facility] [address] [place] [id number] [place] [address] 95221- 7275 Jul, Other chronic pain G89.29 ; Pain in right knee M25.561 ; Sprain of anterior cruciate ligament of right knee, initial encounter S83.511A and Unspecified tear of unspecified meniscus, current injury, right knee, initial encounter S83.206A [facility] [address] [place] [id number] [place] [address] 10917 -1357 Jul, Strep pharyngitis J02.0 [facility] [address] [place] [address] 79282- 3538 Apr, Other chronic pain G89.29 and Pain in right knee M25.561 [facility] [address] [place] [id number] [place] [address] 68325- 7737 Apr, [facility] [address] [place] [id number] [place] [address] 75856- 9030 Jan, [facility] [address] [place] [id number] [place] [address] 32124 -2015 Dec, Gastroesophageal reflux disease with esophagitis K21.0 [facility] [address] [place] [id number] [place] [address] 61732- 9206 Nov, [facility] [address] [place] [id number] [place] [address] 58066- 2510 Nov, Ingrowing nail with infection L60.0 [facility] [address] [place] [id number] [place] [address] 22915- 1059 Oct, Ingrowing toenail with infection L60.0 [facility] [address] [place] [address] 41814- 7880 Jul, [facility] [address] [place] [id number] [place] [address] 55445- 8314 Jul, [facility] [address] [place] [id number] [place] [address] 34709- 7964 Jul, Complete tear of anterior cruciate ligament of right knee, subsequent encounter S83.511D [facility] [address] [place] [address] 36805- 9880 June, [facility] [address] [place] [address] [address] June, [place] [address] [address]- 9817 June, Injury of right knee, initial encounter S89.91XA [place] [address] [address]- 2770 May, Normal physical examination Z00.00 [place] [address] [address]- 5493 16 Oct, 2015 [place] [address] [place] [address] 79395- 8905 12 Oct, 2015 Infertility counseling Z31.69 [place] [address] [place] [address] 65320- 6921 07 Aug, 2015 Physical exam Z00.00 [place] [address] [place] [address] 40282- 8203 06 Aug, 2015 IMMUNIZATIONS No Known Immunizations SOCIAL HISTORY Never Assessed REASON FOR VISIT injection, Right knee is getting an injection today -Carlito P[facility] PLAN OF CARE Activity Details Future/Pending Procedure JOINT INJECTION-LARGE JOINT VITAL SIGNS Height 68 in 2017-10-13 Weight 184 lbs 2017-10-13 Temperature 98.3 degrees Fahrenheit 2017-10-13 Heart Rate 96 bpm 2017-10-13 Respiratory Rate 20 2017-10-13 Oximetry 97 % 2017-10-13 BMI 27.97 kg/m2 2017-10-13 Blood pressure systolic 118 mmHg 2017-10-13 Blood pressure diastolic 72 mmHg 2017-10-13 MEDICATIONS Medication Instructions Dosage Frequency Start Date End Date Duration Status Hydrocodone-Acetaminophen 7.5-325 MG Orally every 6 hrs 1 tablet as needed 6h Sep, Active Ibuprofen 800 MG Orally Three times a day 1 tablet with food or milk as needed 8h Active RESULTS No Results PROCEDURES Procedure Date Ordered Result Body Site DRAIN/INJECT, JOINT/BURSA Oct 13, 2017 INSTRUCTIONS MEDICATIONS ADMINISTERED No Known Medications MEDICAL (GENERAL) HISTORY Type Description Date Medical History kidney infection Medical History torn right ACL Surgical History No Surgical history information Hospitalization History kidney infection [facility] 2014
--- OUTSIDE RECORDS SUMMARY | 2018-03-27 13:33 | XMS REPORT ---
Author Author RENITA COLLADO Organization [facility] Address [address] [place] [address] Care Team Providers Care Branch Employment Coordinator Name Role Phone RENITA COLLADO Unavailable PROBLEMS Type Condition ICD9-CM Code OVF97-CR Code Onset Dates Condition Status SNOMED Code Problem Other chronic pain G89.29 Active 60970614 Problem Gastroesophageal reflux disease with esophagitis K21.0 Active 547253401 Problem Physical exam Z00.00 Active 154637064 ALLERGIES No Known Allergies ENCOUNTERS Encounter Location Date Diagnosis [place] [address] [address] 10 Oct, 2017 Other chronic pain G89.29 and Pain in right knee M25.561 [place] [address] [place] [id number] [place] [address] 41528- 7591 Oct, Other chronic pain G89.29 [place] [address] 6[address]- 1025 Sep, [place] [address] [place] [id number] [place] [address] 84144- 7799 Sep, Other chronic pain G89.29 and Pain in right knee M25.561 [facility] [address] [place] [id number] [place] [address] 88149- 9164 Sep, Other chronic pain G89.29 and Pain in right knee M25.561 [facility] [address] [place] [id number] [place] [address] 01920- 8089 Aug, [facility] [address] [place] [id number] [place] [address] 92743- 8061 Jul, Other chronic pain G89.29 ; Pain in right knee M25.561 ; Sprain of anterior cruciate ligament of right knee, initial encounter S83.511A and Unspecified tear of unspecified meniscus, current injury, right knee, initial encounter S83.206A [facility] [address] [place] [id number] [place] [address] 87303 -2122 Jul, Strep pharyngitis J02.0 [facility] [address] [place] [address] 15824- 9438 Apr, Other chronic pain G89.29 and Pain in right knee M25.561 [facility] [address] [place] [id number] [place] [address] 96862- 7592 Apr, [facility] [address] [place] [id number] [place] [address] 23823- 8037 Jan, [facility] [address] [place] [id number] [place] [address] 63078 -2328 Dec, Gastroesophageal reflux disease with esophagitis K21.0 [facility] [address] [place] [id number] [place] [address] 70783- 7086 Nov, [facility] [address] [place] [id number] [place] [address] 20477- 6831 Nov, Ingrowing nail with infection L60.0 [facility] [address] [place] [id number] [place] [address] 71734- 1760 Oct, Ingrowing toenail with infection L60.0 [facility] [address] [place] [address] 71865- 3926 Jul, [facility] [address] [place] [id number] [place] [address] 41257- 5882 Jul, [facility] [address] [place] [id number] [place] [address] 06653- 5789 Jul, Complete tear of anterior cruciate ligament of right knee, subsequent encounter S83.511D [facility] [address] [place] [address] 08344- 8998 June, [facility] [address] [place] [id number] [address] 5326 June, [place] [address] [address]- 1086 June, Injury of right knee, initial encounter S89.91XA [place] [address] [address] 8443 May, Normal physical examination Z00.00 [place] [address] [place] [address] 95229- 1229 Sep, [place] [address] [place] [id number] [place] [address] 04123- 0380 Sep, Infertility counseling Z31.69 [place] [address] [place] [address] 95870- 9840 Aug, Physical exam Z00.00 [place] [address] [place] [address] 15761- 8485 Aug, IMMUNIZATIONS No Known Immunizations SOCIAL HISTORY Never Assessed REASON FOR VISIT Pain management (chronic), PT reports he was told he was only supposed to have his hydrocodone temporarily but wants it monthly. -Carlito PENNINGTON PLAN OF CARE VITAL SIGNS Height 68 in 2017-11-09 Weight 184.6 lbs 2017-11-09 Temperature 97.7 degrees Fahrenheit 2017-11-09 Heart Rate 72 bpm 2017-11-09 Respiratory Rate 20 2017-11-09 Oximetry 98 % 2017-11-09 BMI 28.07 kg/m2 2017-11-09 Blood pressure systolic 122 mmHg 2017-11-09 Blood pressure diastolic 72 mmHg 2017-11-09 MEDICATIONS Medication Instructions Dosage Frequency Start Date End Date Duration Status Hydrocodone-Acetaminophen 7.5-325 MG Orally every 6 hrs 1 tablet as needed 6h Oct, Active Ibuprofen 800 MG Orally Three times a day 1 tablet with food or milk as needed 8h Active RESULTS No Results PROCEDURES No Known procedures INSTRUCTIONS MEDICATIONS ADMINISTERED No Known Medications MEDICAL (GENERAL) HISTORY Type Description Date Medical History kidney infection Medical History torn right ACL Surgical History No Surgical history information Hospitalization History kidney infection [facility] 2014
--- OUTSIDE RECORDS SUMMARY | 2018-03-27 13:33 | XMS REPORT ---
Author Author RENITA COLLADO Organization [facility] Address [address] [place] [address] Care Team Providers Care Envelope Sealer Operator Name Role Phone RENITA COLLADO Unavailable PROBLEMS Type Condition ICD9-CM Code HCQ20-KA Code Onset Dates Condition Status SNOMED Code Problem Other chronic pain G89.29 Active 74914904 Problem Gastroesophageal reflux disease with esophagitis K21.0 Active 787282417 Problem Physical exam Z00.00 Active 889403416 ALLERGIES No Information ENCOUNTERS Encounter Location Date Diagnosis [place] [address] [address]- 79[address] Nov, Other chronic pain G89.29 [facility] [address] 46642- 0250 Nov, Other chronic pain G89.29 [facility] [address] 60727- 1533 Nov, Other chronic pain G89.29 [facility] [address] [place] [id number] [place] [address] 40681- 1713 Oct, Other chronic pain G89.29 and Pain in right knee M25.561 [facility] [address] [place] [id number] [place] [address] 23350- 1816 Oct, Other chronic pain G89.29 [facility] [address] [place] [id number] [place] [address] 97104- 7904 Sep, [facility] [address] 29884- 8813 Sep, Other chronic pain G89.29 and Pain in right knee M25.561 [facility] [address] 25477- 3081 Sep, Other chronic pain G89.29 and Pain in right knee M25.561 [facility] [address] [place] [address] 00640- 1785 Aug, [facility] [address] [place] [id number] [place] [address] 511961- 7472 Jul, Other chronic pain G89.29 ; Pain in right knee M25.561 ; Sprain of anterior cruciate ligament of right knee, initial encounter S83.511A and Unspecified tear of unspecified meniscus, current injury, right knee, initial encounter S83.206A [facility] [address] [place] [address] 22292 -1131 Jul, Strep pharyngitis J02.0 [place] [address] [place] [id number] [place] [address] 57867- 7123 Apr, Other chronic pain G89.29 and Pain in right knee M25.561 [facility] [address] [place] [id number] [place] [address] 93166- 0289 Apr, [facility] [address] [place] [id number] [place] [address] 78859- 1021 Jan, [facility] [address] [place] [id number] [place] [address] 47679 -5810 Dec, Gastroesophageal reflux disease with esophagitis K21.0 [place] [address] [place] [id number] [place] [address] 36728- 0305 Nov, [facility] [address] [place] [id number] [place] [address] 90898- 5629 Nov, Ingrowing nail with infection L60.0 [facility] [address] [place] [id number] [place] [address] 30053- 9364 Oct, Ingrowing toenail with infection L60.0 [facility] [address] [place] [id number] [place] [address] 06046- 9012 Jul, [facility] [address] [place] [id number] [address]- 1576 Jul, [facility] [address]- 9637 Jul, Complete tear of anterior cruciate ligament of right knee, subsequent encounter S83.511D [facility] [address], [place] [address]- 0244 June, [facility] [address], [place] [address]- 5950 June, [facility] [address], [place] [address]- 9112 June, Injury of right knee, initial encounter S89.91XA [place] [address] [address]- 2460 May, Normal physical examination Z00.00 [place] [address] 0[address] Sep, [place] [address]- 4684 Sep, Infertility counseling Z31.69 [place] [address] [address]281 Aug, Physical exam Z00.00 [place] [address]- 4661 Aug, IMMUNIZATIONS No Known Immunizations SOCIAL HISTORY Never Assessed REASON FOR VISIT Lab PLAN OF CARE Activity Details Pending Test PDM - 09 PANEL (PROFILE 1) VITAL SIGNS MEDICATIONS Unknown Medications RESULTS No Results PROCEDURES Procedure Date Ordered Result Body Site 09 PANEL (PROFILE 1) Dec 08, 2017 INSTRUCTIONS MEDICATIONS ADMINISTERED No Known Medications MEDICAL (GENERAL) HISTORY Type Description Date Medical History kidney infection Medical History torn right ACL Surgical History No Surgical history information Hospitalization History kidney infection [facility] 2014
--- OUTSIDE RECORDS SUMMARY | 2018-03-27 13:33 | XMS REPORT ---
Author Author RENITA COLLADO Organization [facility] Address [address] [place] [address] Care Team Providers Care Vision Therapist Name Role Phone RENITA COLLADO Unavailable PROBLEMS Type Condition ICD9-CM Code GCS99-QM Code Onset Dates Condition Status SNOMED Code Problem Other chronic pain G89.29 Active 05673890 Problem Gastroesophageal reflux disease with esophagitis K21.0 Active 828542050 Problem Physical exam Z00.00 Active 766070704 ALLERGIES No Information ENCOUNTERS Encounter Location Date Diagnosis [place] [address] [address]- [address] Dec, Other chronic pain G89.29 [facility] [address] 35[address]- 2660 Nov, Other chronic pain G89.29 [facility] [address] [place] [id number] [place] [address] 66930- 5314 Nov, Other chronic pain G89.29 [facility] [address] [place] [id number] [place] [address] 07291- 8159 Nov, Other chronic pain G89.29 [facility] [address] [place] [id number] [place] [address] 34487- 9409 Oct, Other chronic pain G89.29 and Pain in right knee M25.561 [facility] [address] [place] [id number] [place] [address] 90035- 4460 Oct, Other chronic pain G89.29 [facility] [address] [place] [id number] [place] [address] 63287- 9608 Sep, [facility] [address] [place] [id number] [place] [address] 33440- 0897 Sep, Other chronic pain G89.29 and Pain in right knee M25.561 [facility] [address] [place] [id number] [place] [address] 99166- 4896 Sep, Other chronic pain G89.29 and Pain in right knee M25.561 [facility] [address] [place] [id number] [place] [address] 93196 2546 Aug, [facility] [address] [place] [id number] [place] [address] 44633 2549 Jul, Other chronic pain G89.29 ; Pain in right knee M25.561 ; Sprain of anterior cruciate ligament of right knee, initial encounter S83.511A and Unspecified tear of unspecified meniscus, current injury, right knee, initial encounter S83.206A [facility] [address] [place] [address] 69442 -2116 Jul, Strep pharyngitis J02.0 [facility] [address] [place] [id number] [place] [address] 90091- 0297 Apr, Other chronic pain G89.29 and Pain in right knee M25.561 [facility] [address] [place] [id number] [place] [address] 22586- 1188 Apr, [facility] [address] [place] [id number] [place] [address] 81021- 7481 Jan, [facility] [address] [place] [address] 28334 -8388 Dec, Gastroesophageal reflux disease with esophagitis K21.0 [facility] [address] [place] [id number] [place] [address] 94365- 3098 Nov, [facility] [address] [place] [id number] [place] [address] 12683- 9575 Nov, Ingrowing nail with infection L60.0 [facility] [address] [place] [address] 09300- 5998 Oct, Ingrowing toenail with infection L60.0 [facility] [address] [address]- 7726 Jul, [place] [address], [place] [address]- 9496 Jul, [facility] [address], [place] [address]- 3546 Jul, Complete tear of anterior cruciate ligament of right knee, subsequent encounter S83.511D [place] [address], [place] [address]- 9769 June, [place] [address] [place] [address] 615491- 0567 June, [place] [address] [place] [id number] [place] [address] 744432- 7116 June, Injury of right knee, initial encounter S89.91XA [place] [address] [place] [id number] [place] [address] 577021- 1185 May, Normal physical examination Z00.00 [place] [address], [place] [address]- 5175 Sep, [place] [address] [place] [address] 508247- 6290 Sep, Infertility counseling Z31.69 [place] [address] 8731 Aug, Physical exam Z00.00 [place] [address] 4967 Aug, IMMUNIZATIONS No Known Immunizations SOCIAL HISTORY Never Assessed REASON FOR VISIT Medication refill request PLAN OF CARE VITAL SIGNS MEDICATIONS Medication Instructions Dosage Frequency Start Date End Date Duration Status Hydrocodone-Acetaminophen 7.5-325 MG Orally every 6 hrs 1 tablet as needed 6h Dec, Active RESULTS No Results PROCEDURES No Known procedures INSTRUCTIONS MEDICATIONS ADMINISTERED No Known Medications MEDICAL (GENERAL) HISTORY Type Description Date Medical History kidney infection Medical History torn right ACL Surgical History No Surgical history information Hospitalization History kidney infection [facility] 2014
--- OUTSIDE RECORDS SUMMARY | 2018-03-27 13:34 | XMS REPORT ---
Author Author HALIMA JURADO [facility] Address [address] [place] [address] Care Team Providers Care Trim Crew Supervisor Name Role Phone HALIMA JURADO Unavailable PROBLEMS Type Condition ICD9-CM Code WIG03-CT Code Onset Dates Condition Status SNOMED Code Problem Other chronic pain G89.29 Active 06452794 Problem Gastroesophageal reflux disease with esophagitis K21.0 Active 609162703 Problem Physical exam Z00.00 Active 843351177 ALLERGIES No Known Allergies ENCOUNTERS Encounter Location Date Diagnosis [facility] [address] [address]- 9521 Apr, Other chronic pain G89.29 and Pain in right knee M25.561 [facility] [address] [place] [id number] [place] [address] 71446- 7297 Apr, [facility] [address] 00276- 1742 Jan, [facility] [address] [place] [id number] [place] [address] 36483 -1409 Dec, Gastroesophageal reflux disease with esophagitis K21.0 [facility] [address] [place] [id number] [place] [address] 94184- 9674 Nov, [facility] [address] [place] [id number] [place] [address] 41012- 3470 Nov, Ingrowing nail with infection L60.0 [facility] [address] 42466- 9425 Oct, Ingrowing toenail with infection L60.0 [facility] [address] [place] [id number] [place] [address] 17199- 4772 Jul, [place] [address] [address]- 2586 Jul, [place] [address] [place] [id number] [place] [address] 96725- 2537 Jul, Complete tear of anterior cruciate ligament of right knee, subsequent encounter S83.511D [place] [address] [place] [id number] [place] [address] 38041- 8613 June, [place] [address] [place] [id number] [place] [address] 49444- 2846 June, [place] [address] [place] [id number] [place] [address] 98314- 9052 June, Injury of right knee, initial encounter S89.91XA [place] [address] [place] [id number] [place] [address] 88763- 6634 May, Normal physical examination Z00.00 [place] [address] [place] [id number] [place] [address] 64069- 1722 Sep, [place] [address] [place] [id number] [place] [address] 86132- 7730 Sep, Infertility counseling Z31.69 [place] [address] [place] [id number] [place] [address] 49328- 0460 Aug, Physical exam Z00.00 [place] [address] [place] [address] 41824- 6081 Aug, IMMUNIZATIONS No Known Immunizations SOCIAL HISTORY Never Assessed REASON FOR VISIT Right big toe swollen for a week- Juanito PENNINGTON PLAN OF CARE Activity Details Follow Up 5 d Reason: VITAL SIGNS Height 68 in 2016-11-27 Weight 176.5 lbs 2016-11-27 Temperature 98.3 degrees Fahrenheit 2016-11-27 Heart Rate 64 bpm 2016-11-27 Respiratory Rate 18 2016-11-27 BMI 26.83 kg/m2 2016-11-27 Blood pressure systolic 124 mmHg 2016-11-27 Blood pressure diastolic 86 mmHg 2016-11-27 MEDICATIONS Medication Instructions Dosage Frequency Start Date End Date Duration Status Bactrim DS 800-160 MG Orally 2 times a day 1 tablet 12h 28 Oct, 2016Nov 07 days Active RESULTS No Results PROCEDURES No Known procedures INSTRUCTIONS MEDICATIONS ADMINISTERED No Known Medications MEDICAL (GENERAL) HISTORY Type Description Date Medical History kidney infection Hospitalization History kidney infection [facility] 2014
--- OUTSIDE RECORDS SUMMARY | 2018-03-27 13:34 | XMS REPORT ---
Author Author RENITA COLLADO Organization [facility] Address [address] [place] [address] Care Team Providers Care Grid Trimmer Name Role Phone RENITA COLLADO Unavailable PROBLEMS Type Condition ICD9-CM Code FLD59-TN Code Onset Dates Condition Status SNOMED Code Problem Other chronic pain G89.29 Active 09729213 Problem Gastroesophageal reflux disease with esophagitis K21.0 Active 884791421 Problem Physical exam Z00.00 Active 511617198 ALLERGIES No Known Allergies ENCOUNTERS Encounter Location Date Diagnosis [place] [address] [address]- [address] 10 Oct, 2017 Other chronic pain G89.29 and Pain in right knee M25.561 [place] [address] [place] [id number] [place] [address] 16333- 1576 Oct, Other chronic pain G89.29 [place] [address] 98523- 1340 Sep, [place] [address] [place] [id number] [place] [address] 69586- 5397 Sep, Other chronic pain G89.29 and Pain in right knee M25.561 [facility] [address] [place] [id number] [place] [address] 48115- 7127 Sep, Other chronic pain G89.29 and Pain in right knee M25.561 [facility] [address] [place] [id number] [place] [address] 72539- 3786 Aug, [facility] [address] [place] [id number] [place] [address] 40797- 3868 Jul, Other chronic pain G89.29 ; Pain in right knee M25.561 ; Sprain of anterior cruciate ligament of right knee, initial encounter S83.511A and Unspecified tear of unspecified meniscus, current injury, right knee, initial encounter S83.206A [facility] [address] [place] [id number] [place] [address] 51148 -8827 Jul, Strep pharyngitis J02.0 [facility] [address] [place] [address] 38417- 9891 Apr, Other chronic pain G89.29 and Pain in right knee M25.561 [facility] [address] [place] [id number] [place] [address] 23902- 1752 Apr, [facility] [address] [place] [id number] [place] [address] 35538- 5379 Jan, [facility] [address] [place] [id number] [place] [address] 25934 -3746 Dec, Gastroesophageal reflux disease with esophagitis K21.0 [facility] [address] [place] [id number] [place] [address] 48767- 8666 Nov, [facility] [address] [place] [id number] [place] [address] 16033- 0747 Nov, Ingrowing nail with infection L60.0 [facility] [address] [place] [id number] [place] [address] 33316- 1610 Oct, Ingrowing toenail with infection L60.0 [facility] [address] [place] [address] 00039- 1287 Jul, [facility] [address] [place] [id number] [place] [address] 99142- 1588 Jul, [facility] [address] [place] [id number] [place] [address] 62991- 3763 Jul, Complete tear of anterior cruciate ligament of right knee, subsequent encounter S83.511D [facility] [address] [place] [address] 93998- 0862 June, [facility] [address] [place] [id number] [address]- 2133 June, [place] [address] [address]- 6406 June, Injury of right knee, initial encounter S89.91XA [place] [address] [address]- 4386 May, Normal physical examination Z00.00 [place] [address] [place] [id number] [place] [address] 84392- 8320 Sep, [place] [address] [place] [id number] [place] [address] 43172- 3147 Sep, Infertility counseling Z31.69 [place] [address] [place] [address] 51337- 1645 07 Aug, 2015 Physical exam Z00.00 [place] [address] [place] [address] 62954- 1062 Aug, IMMUNIZATIONS No Known Immunizations SOCIAL HISTORY Never Assessed REASON FOR VISIT Pain management (chronic)-GORGE stone, needs refill on pain meds PLAN OF CARE VITAL SIGNS Height 68 in 2017-10-07 Weight 179.5 lbs 2017-10-07 Temperature 98.6 degrees Fahrenheit 2017-10-07 Heart Rate 64 bpm 2017-10-07 Respiratory Rate 18 2017-10-07 BMI 27.29 kg/m2 2017-10-07 Blood pressure systolic 108 mmHg 2017-10-07 Blood pressure diastolic 80 mmHg 2017-10-07 MEDICATIONS Medication Instructions Dosage Frequency Start Date [...]
--- OUTSIDE RECORDS SUMMARY | 2018-03-27 13:34 | XMS REPORT ---
Author Author RENITA COLLADO Organization [facility] Address [address] [place] [address] Care Team Providers Care Consumer Educator Name Role Phone RENITA COLLADO Unavailable PROBLEMS Type Condition ICD9-CM Code QFU28-DK Code Onset Dates Condition Status SNOMED Code Problem Other chronic pain G89.29 Active 59975993 Problem Gastroesophageal reflux disease with esophagitis K21.0 Active 513032243 Problem Physical exam Z00.00 Active 678531750 ALLERGIES No Information ENCOUNTERS Encounter Location Date Diagnosis [place] [address] [address] Apr, Other chronic pain G89.29 and Pain in right knee M25.561 [facility] [address] [address] Apr, [facility] [address] [address] Jan, [facility] [address] [place] [id number] [place] [address]42 -3563 Dec, Gastroesophageal reflux disease with esophagitis K21.0 [facility] [address] [id number] [place] [address] 07769- 1351 Nov, [facility] [address] [id number] [place] [address] 21933- 6663 Nov, Ingrowing nail with infection L60.0 [facility] [address] [address] Oct, Ingrowing toenail with infection L60.0 [facility] [address] [id number] [place] [address] 19550- 4475 Jul, [facility] [address] [address] Jul, [place] [address] [address] 5[address] Jul, Complete tear of anterior cruciate ligament of right knee, subsequent encounter S83.511D [place] [address] [address] 8[address] June, [place] [address] [address] June, [place] [address] [address] 5690 June, Injury of right knee, initial encounter S89.91XA [place] [address] [address] 65[address] May, Normal physical examination Z00.00 [place] [address] [address] 7[address] 16 Oct, 2015 [place] [address] [address] Sep, Infertility counseling Z31.69 [place] [address] [address] Aug, Physical exam Z00.00 [place] [address] Aug, IMMUNIZATIONS No Known Immunizations SOCIAL HISTORY Never Assessed REASON FOR VISIT Requests return call PLAN OF CARE VITAL SIGNS MEDICATIONS Medication Instructions Dosage Frequency Start Date End Date Duration Status Keflex 500 mg Orally 4 times a day 1 capsule 6h Nov, Nov, 10 day(s) Active RESULTS No Results PROCEDURES No Known procedures INSTRUCTIONS MEDICATIONS ADMINISTERED No Known Medications MEDICAL (GENERAL) HISTORY Type Description Date Medical History kidney infection Hospitalization History kidney infection [facility] 2014
--- OUTSIDE RECORDS SUMMARY | 2018-03-27 13:34 | XMS REPORT ---
Author Author RENITA COLLADO Organization [facility] Address [address] [place] [address] Care Team Providers Care Shelving Supervisor Name Role Phone RENITA COLLADO Unavailable PROBLEMS Type Condition ICD9-CM Code GHT27-WI Code Onset Dates Condition Status SNOMED Code Problem Other chronic pain G89.29 Active 19169434 Problem Gastroesophageal reflux disease with esophagitis K21.0 Active 399647570 Problem Physical exam Z00.00 Active 592772545 ALLERGIES No Information ENCOUNTERS Encounter Location Date Diagnosis [place] [address] [address] Oct, [place] [address] [address] Oct, Other chronic pain G89.29 [place] [address] [place] [id number] [place] [address] 51582- 6927 Sep, [place] [address] [place] [id number] [place] [address] 47890- 0565 Sep, Other chronic pain G89.29 and Pain in right knee M25.561 [place] [address] [place] [id number] [place] [address] 96345- 9256 Sep, Other chronic pain G89.29 and Pain in right knee M25.561 [place] [address] [place] [id number] [place] [address] 42645- 0733 Aug, [place] [address] [place] [id number] [place] [address] 58123- 0392 Jul, Other chronic pain G89.29 ; Pain in right knee M25.561 ; Sprain of anterior cruciate ligament of right knee, initial encounter S83.511A and Unspecified tear of unspecified meniscus, current injury, right knee, initial encounter S83.206A [facility] [address] [place] [address] 17229 -7922 Jul, Strep pharyngitis J02.0 [facility] [address] [id number] [place] [address] 62542- 3265 Apr, Other chronic pain G89.29 and Pain in right knee M25.561 [facility] [address] [place] [id number] [place] [address] 26004- 6998 Apr, [facility] [address] [place] [id number] [place] [address] 87054- 2734 Jan, [facility] [address] [place] [address] [id number] [place] [address] 28700 -5988 Dec, Gastroesophageal reflux disease with esophagitis K21.0 [facility] [address] [place] [id number] [place] [address] 82279- 3644 Nov, [facility] [address] [id number] [place] [address] 92960- 9904 Nov, Ingrowing nail with infection L60.0 [facility] [address] [place] [address] [place] [address] 61413- 5343 Oct, Ingrowing toenail with infection L60.0 [facility] [address] [place] [address] 78634- 8731 Jul, [facility] [address] [place] [id number] [place] [address] 22908- 0499 Jul, [facility] [address] [place] [id number] [place] [address] 38334- 9252 Jul, Complete tear of anterior cruciate ligament of right knee, subsequent encounter S83.511D [facility] [address] [place] [address] 69066- 1666 June, [facility] [address] [place] [address] [place] [address] 22537- 7913 June, [place] [address], [place] [address] June, Injury of right knee, initial encounter S89.91XA [place] [address], [place] [address] 6[address] May, Normal physical examination Z00.00 [place] [address], [place] [address]- 2865 16 Oct, 2015 [place] [address] [place] [address] 54041- 1316 12 Oct, 2015 Infertility counseling Z31.69 [place] [address] [id number] [place] [address] 64254- 2164 07 Aug, 2015 Physical exam Z00.00 [place] [address], [place] [address] 06 Aug, 2015 IMMUNIZATIONS No Known Immunizations SOCIAL HISTORY Never Assessed REASON FOR VISIT refill request PLAN OF CARE VITAL SIGNS MEDICATIONS Unknown Medications RESULTS No Results PROCEDURES No Known procedures INSTRUCTIONS MEDICATIONS ADMINISTERED No Known Medications MEDICAL (GENERAL) HISTORY Type Description Date Medical History kidney infection Medical History torn right ACL Hospitalization History kidney infection [facility] 2014
--- OUTSIDE RECORDS SUMMARY | 2018-03-27 13:34 | XMS REPORT ---
Author Author RENITA COLLADO Organization [facility] Address [address] [place] [address] Care Team Providers Care Ware Tester Name Role Phone RENITA COLLDAO Unavailable PROBLEMS Type Condition ICD9-CM Code QIV23-FZ Code Onset Dates Condition Status SNOMED Code Problem Other chronic pain G89.29 Active 15488538 Problem Gastroesophageal reflux disease with esophagitis K21.0 Active 296564113 Problem Physical exam Z00.00 Active 839462787 ALLERGIES No Known Allergies ENCOUNTERS Encounter Location Date Diagnosis [facility] [address] [address] Apr, Other chronic pain G89.29 and Pain in right knee M25.561 [facility] [address] [address] 69[address] Apr, [facility] [address] [address]- [address]97 Jan, [facility] [address] [place] [id number] [place] [address]371 -4749 Dec, Gastroesophageal reflux disease with esophagitis K21.0 [facility] [address] [address]- 38[address] Nov, [facility] [address] [place] [id number] [place] [address] 31153- 0793 Nov, Ingrowing nail with infection L60.0 [facility] [address] [address]- 30[address] Oct, Ingrowing toenail with infection L60.0 [facility] [address] [id number] [place] [address]- 1076 Jul, [place] [address] [address]- [address] Jul, [place] [address] [place] [id number] [place] [address] 84657- 9171 Jul, Complete tear of anterior cruciate ligament of right knee, subsequent encounter S83.511D [place] [address] [address]- 28[address] June, [place] [address] [place] [id number] [place] [address] 12909- 6671 June, [place] [address] [place] [id number] [place] [address] 10517- 4816 June, Injury of right knee, initial encounter S89.91XA [place] [address] [address]- 4976 May, Normal physical examination Z00.00 [place] [address] [place] [id number] [place] [address] 42271- 5071 Sep, [place] [address] [place] [id number] [place] [address] 79183- 3034 Sep, Infertility counseling Z31.69 [place] [address] [place] [address] 41509- 1233 07 Aug, 2015 Physical exam Z00.00 [place] [address] [address]- 8566 Aug, IMMUNIZATIONS No Known Immunizations SOCIAL HISTORY Never Assessed REASON FOR VISIT Toe nail removal per robe right great toe. CBrumbackRN PLAN OF CARE VITAL SIGNS Height 68 in 2016-12-02 Weight 176.8 lbs 2016-12-02 Temperature 98.2 degrees Fahrenheit 2016-12-02 Heart Rate 76 bpm 2016-12-02 Respiratory Rate 16 2016-12-02 BMI 26.88 kg/m2 2016-12-02 Blood pressure systolic 114 mmHg 2016-12-02 Blood pressure diastolic 70 mmHg 2016-12-02 MEDICATIONS Medication Instructions Dosage Frequency Start Date End Date Duration Status Bactrim DS 800-160 MG Orally 2 times a day 1 tablet 12h 28 Oct, 2016Nov 07 days Active RESULTS No Results PROCEDURES Procedure Date Ordered Result Body Site NAIL REMOVAL PERMANENT (PARTIAL OR COMPLETE) 2016-12-02 N/A REMOVAL OF NAIL BED Dec 02, 2016 INSTRUCTIONS MEDICATIONS ADMINISTERED No Known Medications MEDICAL (GENERAL) HISTORY Type Description Date Medical History kidney infection Hospitalization History kidney infection [facility] 2014
--- OUTSIDE RECORDS SUMMARY | 2018-03-27 13:34 | XMS REPORT ---
Author Author RENITA COLLADO Organization [facility] [place] Address [address] [place] [address] Care Team Providers Care Wood Pile Driver Operator Name Role Phone RENITA COLLADO Unavailable PROBLEMS Type Condition ICD9-CM Code LRM11-PB Code Onset Dates Condition Status SNOMED Code Problem Other chronic pain G89.29 Active 61737328 Problem Gastroesophageal reflux disease with esophagitis K21.0 Active 089581989 Problem Physical exam Z00.00 Active 754034781 ALLERGIES No Information ENCOUNTERS Encounter Location Date Diagnosis [place] [address] [address] Apr, Other chronic pain G89.29 and Pain in right knee M25.561 [facility] [place] [address] [address]- [address] Apr, [facility] [place] [address] [address]- 4798 Jan, [facility] [address] [place] [id number] [place] [address] 99335 -4574 Dec, Gastroesophageal reflux disease with esophagitis K21.0 [facility] [place] [address] [id number] [place] [address] 91180- 3104 Nov, [facility] [place] [address] [place] [id number] [place] [address] 41005- 4996 Nov, Ingrowing nail with infection L60.0 [facility] [place] [address] [address]- 7736 Oct, Ingrowing toenail with infection L60.0 [facility] [place] [address] [id number] [place] [address] 18043- 3131 Jul, [facility] [place] [address] [address]- 9666 Jul, [place] [address] [address]- 3043 Jul, Complete tear of anterior cruciate ligament of right knee, subsequent encounter S83.511D [facility] [place] [address] June, [place] [address] [place] [address] 098322- 4707 June, [place] [address] [address]- 5077 June, Injury of right knee, initial encounter S89.91XA [place] [address] [address]- 8789 May, Normal physical examination Z00.00 [place] [address] [address]- 9719 16 Oct, 2015 [place] [address] [address]- 7288 Sep, Infertility counseling Z31.69 [place] [address] [address]- 4483 Aug, Physical exam Z00.00 [place] [address] [address]- 8960 Aug, IMMUNIZATIONS No Known Immunizations SOCIAL HISTORY Never Assessed REASON FOR VISIT med refill PLAN OF CARE VITAL SIGNS MEDICATIONS No Known Medications RESULTS No Results PROCEDURES No Known procedures INSTRUCTIONS MEDICATIONS ADMINISTERED No Known Medications MEDICAL (GENERAL) HISTORY Type Description Date Medical History kidney infection Hospitalization History kidney infection [facility] 2014
--- OUTSIDE RECORDS SUMMARY | 2018-03-27 13:34 | XMS REPORT ---
Author Author KEATON CHRISTIANSEN [facility] Address [address] [place] [address] Care Team Providers Care Ditch Repairer Name Role Phone KEATON CHRISTIANSEN Unavailable PROBLEMS Type Condition ICD9-CM Code CPK60-TC Code Onset Dates Condition Status SNOMED Code Problem Other chronic pain G89.29 Active 45746907 Problem Gastroesophageal reflux disease with esophagitis K21.0 Active 987225437 Problem Physical exam Z00.00 Active 783718770 ALLERGIES No Known Allergies ENCOUNTERS Encounter Location Date Diagnosis [place] [address] [place] [id number] [place] [address] 17586- 1208 Sep, [place] [address] [place] [id number] [place] [address] 75811- 0029 Sep, Other chronic pain G89.29 and Pain in right knee M25.561 [place] [address] [place] [id number] [place] [address] 90048- 4320 Sep, Other chronic pain G89.29 and Pain in right knee M25.561 [place] [address] [place] [id number] [place] [address] 01035- 6401 Aug, [place] [address] [address]- 68[address] Jul, Other chronic pain G89.29 ; Pain in right knee M25.561 ; Sprain of anterior cruciate ligament of right knee, initial encounter S83.511A and Unspecified tear of unspecified meniscus, current injury, right knee, initial encounter S83.206A [facility] [address] [place] [address] 67840 -4961 Jul, Strep pharyngitis J02.0 [facility] [address] [place] [address] 23456- 3908 Apr, Other chronic pain G89.29 and Pain in right knee M25.561 [facility] [address] [place] [id number] [place] [address] 828649- 5326 Apr, [facility] [address] [place] [address] 32889- 0598 Jan, [facility] [address] [place] [id number] [place] [address] 83988 -1328 Dec, Gastroesophageal reflux disease with esophagitis K21.0 [facility] [address] [place] [id number] [place] [address] 12637- 9391 Nov, [facility] [address] [place] [id number] [place] [address] 63864- 5584 Nov, Ingrowing nail with infection L60.0 [facility] [address] [place] [id number] [place] [address] 79052- 6716 Oct, Ingrowing toenail with infection L60.0 [facility] [address] [place] [address] 40683- 3200 Jul, [facility] [address] [place] [id number] [place] [address] 55980- 7150 Jul, [facility] [address] [place] [address] 58408- 9972 Jul, Complete tear of anterior cruciate ligament of right knee, subsequent encounter S83.511D [facility] [address] [place] [address] 60962- 6511 June, [facility] [address] [place] [id number] [place] [address] 18709- 1536 June, [facility] [address] [place] [address] 67237- 9243 June, Injury of right knee, initial encounter S89.91XA [facility] [address] [place] [address] [address] 4526 May, Normal physical examination Z00.00 [facility] [address] [facility] [id number] [address]- 63[address] Sep, [facility] [address] [place] [id number] [address] 12 Oct, 2015 Infertility counseling Z31.69 [place] [address] [place] [id number], [place] [address]- 3371 Aug, Physical exam Z00.00 [place] [address] [facility] [id number] [address] 06 Aug, 2015 IMMUNIZATIONS Vaccine Route Administration Date Status BICILLIN LA/PENICILLIN G BENZATHINE IM Intramuscular August 24, 2017 Administered SOCIAL HISTORY Never Assessed REASON FOR VISIT Sore throat, Sore throat and cough x 2 days. Feels like he is going to throw up but can't. Girlfriend had strep last week._ _GORGE Martinez PLAN OF CARE Activity Details Follow Up prn Reason: VITAL SIGNS Height 68 in 2017-08-24 Weight 176.4 lbs 2017-08-24 Temperature 98.4 degrees Fahrenheit 2017-08-24 Heart Rate 76 bpm 2017-08-24 Respiratory Rate 18 2017-08-24 BMI 26.82 kg/m2 2017-08-24 Blood pressure systolic 110 mmHg 2017-08-24 Blood pressure diastolic 68 mmHg 2017-08-24 MEDICATIONS Unknown Medications RESULTS Name Result Date Reference Range STREP A (IN HOUSE) 2017-08-24 STREP A POSITIVE Control + Lot # [id number] Exp date 01/29/2018 PROCEDURES Procedure Date Ordered Result Body Site STREP A ASSAY W/OPTIC August 24, 2017 THER/PROPH/DIAG INJ, SC/IM August 24, 2017 BICILLIN LA/PENICILLIN G BENZATHINE August 24, 2017 INSTRUCTIONS MEDICATIONS ADMINISTERED No Known Medications MEDICAL (GENERAL) HISTORY Type Description Date Medical History kidney infection Medical History torn right ACL Hospitalization History kidney infection [facility] 2014
--- OUTSIDE RECORDS SUMMARY | 2018-03-27 13:34 | XMS REPORT ---
Author Author RENITA COLLADO Organization [facility] Address [address] [place] [address] Care Team Providers Care Apartment Manager Name Role Phone RENITA COLLADO Unavailable PROBLEMS Type Condition ICD9-CM Code NIN12-BI Code Onset Dates Condition Status SNOMED Code Problem Other chronic pain G89.29 Active 47232716 Problem Gastroesophageal reflux disease with esophagitis K21.0 Active 672729417 Problem Physical exam Z00.00 Active 869501096 ALLERGIES No Known Allergies ENCOUNTERS Encounter Location Date Diagnosis [place] [address] [address] Sep, [facility] [address] [address] Sep, Other chronic pain G89.29 and Pain in right knee M25.561 [place] [address] [address] Sep, Other chronic pain G89.29 and Pain in right knee M25.561 [place] [address] [address] Aug, [facility] [address] [address] Jul, Other chronic pain G89.29 ; Pain in right knee M25.561 ; Sprain of anterior cruciate ligament of right knee, initial encounter S83.511A and Unspecified tear of unspecified meniscus, current injury, right knee, initial encounter S83.206A [facility] [address] [place] [id number] [place] [address] Jul, Strep pharyngitis J02.0 [facility] [address] [address] Apr, Other chronic pain G89.29 and Pain in right knee M25.561 [facility] [address] [place] [id number] [place] [address]203[address] Apr, [facility] [address] [place] [id number] [place] [address] Jan, [facility] [address] [place] [id number] [place] [address] Dec, Gastroesophageal reflux disease with esophagitis K21.0 [facility] [address] [place] [id number] [place] [address] Nov, [facility] [address] [place] [id number] [place] [address] Nov, Ingrowing nail with infection L60.0 [facility] [address] [place] [id number] [place] [address] Oct, Ingrowing toenail with infection L60.0 [facility] [address] [place] [id number] [place] [address] Jul, [facility] [address] [place] [id number] [place] [address] Jul, [facility] [address] [place] [id number] [place] [address] Jul, Complete tear of anterior cruciate ligament of right knee, subsequent encounter S83.511D [facility] [address] [place] [address] June, [facility] [address] [place] [id number] [place] [address] June, [facility] [address] [place] [id number] [place] [address] [phone][address] June, Injury of right knee, initial encounter S89.91XA [facility] [address] [place] [id number] [place] [address] May, Normal physical examination Z00.00 [facility] [address] [facility] [id number] [place] [address] Sep, [facility] [address] [facility] [id number] [address] Sep, Infertility counseling Z31.69 [place] [address] [address] [facility] [id number] [address] 07 Aug, 2015 Physical exam Z00.00 [facility] [address] [facility] [id number] [address] 06 Aug, 2015 IMMUNIZATIONS No Known Immunizations SOCIAL HISTORY Never Assessed REASON FOR VISIT knee pain, has torn right ACL as of 2016, and is waiting on surgery SShidleNandoA/ CBrumbackRCaryn PLAN OF CARE VITAL SIGNS Height 68 in 2017-08-28 Weight 177.8 lbs 2017-08-28 Temperature 98.4 degrees Fahrenheit 2017-08-28 Heart Rate 70 bpm 2017-08-28 Respiratory Rate 20 2017-08-28 Oximetry 97 % 2017-08-28 BMI 27.03 kg/m2 2017-08-28 Blood pressure systolic 130 mmHg 2017-08-28 Blood pressure diastolic 68 mmHg 2017-08-28 MEDICATIONS Medication Instructions Dosage Frequency Start Date End Date Duration Status Ibuprofen 800 MG Orally Three times a day 1 tablet with food or milk as needed 8h Active RESULTS No Results PROCEDURES No Known procedures INSTRUCTIONS MEDICATIONS ADMINISTERED No Known Medications MEDICAL (GENERAL) HISTORY Type Description Date Medical History kidney infection Medical History torn right ACL Hospitalization History kidney infection [facility]
--- OUTSIDE RECORDS SUMMARY | 2018-03-27 13:34 | XMS REPORT ---
Author Author RENITA COLLADO Organization [facility] Address [address] [place] [address] Care Team Providers Care Compliance Aide Name Role Phone RENITA COLLADO Unavailable PROBLEMS Type Condition ICD9-CM Code YPH61-BB Code Onset Dates Condition Status SNOMED Code Problem Other chronic pain G89.29 Active 82376507 Problem Gastroesophageal reflux disease with esophagitis K21.0 Active 460004301 Problem Physical exam Z00.00 Active 966941450 ALLERGIES No Information ENCOUNTERS Encounter Location Date Diagnosis [place] [id number] [address] Jul, Other chronic pain G89.29 ; Pain in right knee M25.561 ; Sprain of anterior cruciate ligament of right knee, initial encounter S83.511A and Unspecified tear of unspecified meniscus, current injury, right knee, initial encounter S83.206A [facility] [address] [address] 25 Jul, 2017 Strep pharyngitis J02.0 [facility] [address] [address] Apr, Other chronic pain G89.29 and Pain in right knee M25.561 [facility] [address] [address] Apr, [facility] [address] [address] Jan, [facility] [address] [address] Dec, Gastroesophageal reflux disease with esophagitis K21.0 [facility] [address] [address] Nov, [facility] [address] [address] Nov, Ingrowing nail with infection L60.0 [facility] [address] [address] Oct, Ingrowing toenail with infection L60.0 [facility] [address] [place] [address] 9[address]102[address] Jul, [facility] [address] [place] [address] 938217- [address] Jul, [facility] [address] [place] [id number] [place] [address] 220335- [address] Jul, Complete tear of anterior cruciate ligament of right knee, subsequent encounter S83.511D [place] [address] [place] [address] 376710- [address] June, [facility] [address] [place] [id number] [place] [address]- [address] June, [facility] [address] [place] [id number] [place] [address] June, Injury of right knee, initial encounter S89.91XA [facility] [address] [address] May, Normal physical examination Z00.00 [place] [address] [address] Sep, [place] [address] [address] Sep, Infertility counseling Z31.69 [place] [address] [place] [address] 071325- [address] Aug, Physical exam Z00.00 [place] [address] [address] Aug, IMMUNIZATIONS No Known Immunizations SOCIAL HISTORY Never Assessed REASON FOR VISIT Medication refill request PLAN OF CARE VITAL SIGNS MEDICATIONS No Known Medications RESULTS No Results PROCEDURES No Known procedures INSTRUCTIONS MEDICATIONS ADMINISTERED No Known Medications MEDICAL (GENERAL) HISTORY Type Description Date Medical History kidney infection Medical History torn right ACL Hospitalization History kidney infection [facility] 2014
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
--- NOTE | 2018-03-27 13:43 | ED Abdominal Pain ---
General Chief Complaint: Abdominal/GI Problems Stated Complaint: PAIN AROUND [place] AREA Nursing Triage Note: ARRIVED VIA AMB TO ROOM 10 WITHOUT DIFFICULTY. COMPLAINS OF UMBILICAL PAIN THAT RADIATES TO LOWER ABD SINCE THU. Sepsis Screen: No Definite Risk Source of Information: Patient Exam Limitations: No Limitations History of Present Illness Date Seen by Provider: Mar 27, 2018 Time Seen by Provider: 13:32 Initial Comments The patient presents to ER by private conveyance walking in with chief complaint of abdominal pain starts around the umbilicus and radiates down to the suprapubic region. He says he feels it somewhat he is bearing a knife in his stomach. He has no dysuria but every time he eats it causes him to have some loose stools. Having stools do not make his pain any better or worse. He has no known medical history or surgical history. No recent trauma. No fevers chills nausea vomiting or constipation. He took some Tylenol for the pain but it did not help. The pain started on Thursday, 65 days ago and is only progressively gotten worse. Moving around makes it worse resting makes it better. He has not seen anybody about this yet. He denies any discharge or dyspareunia. He tried Pepto-Bismol several times with no relief of his symptoms. Allergies and Home Medications Allergies Coded Allergies: No Known Drug Allergies (Unverified , 10/12/15) Home Medications No Active Prescriptions or Reported Meds Patient Home Medication List Home Medication List Reviewed: Yes Review of Systems Review of Systems Constitutional: No chills, No diaphoresis EENTM: No Blurred Vision, No Double Vision Respiratory: Denies Cough, Denies Shortness of Air Gastrointestinal: See HPI; Denies Abdomen Distended; Abdominal Pain; Denies Constipated; Diarrhea; Denies Nausea, Denies Poor Appetite, Denies Poor Fluid Intake Genitourinary: Denies Burning, Denies Discharge Musculoskeletal: No back pain, No joint pain Past Bfmgnoc-Itcjtt-Skhciw Hx Patient Social History Alcohol Use: Denies Use Recreational Drug Use: No Smoking Status: Never a Smoker 2nd Hand Smoke Exposure: No Recent Foreign Travel: No Contact w/Someone Who Travel: No Recent Infectious Disease Expo: No Recent Hopitalizations: No Immunizations Up To Date Tetanus Booster (TDap): Unknown Seasonal Allergies Seasonal Allergies: No Past Medical History Surgeries: No Respiratory: No Cardiac: No Neurological: Yes Headaches /Migraines Reproductive Disorders: No Sexually Transmitted Disease: No HIV/AIDS: No Genitourinary: Yes Kidney Infection Gastrointestinal: Yes Gastroesophageal Reflux Musculoskeletal: No Endocrine: No HEENT: No Cancer: No Psychosocial: No Integumentary: No Blood Disorders: No Adverse Reaction/Blood Tranf: No Family Medical History Patient reports no known family medical history. No Pertinent Family Hx Physical Exam Vital Signs Vital Signs - First Documented 03/27/18 13:32 Temp 96.9 Pulse 80 Resp 16 B/P (MAP) 123/100 (108) Pulse Ox 99 O2 Delivery Room Air Capillary Refill : Less Than 3 Seconds Height/Weight/BMI Height: 8'8.00" Weight: 160lbs. 0oz. [id number]; 21.28 BMI Method:Estimated General Appearance: WD/WN, mild distress HEENT: PERRL/EOMI, normal ENT inspection, pharynx normal Respiratory: no respiratory distress, no accessory muscle use Cardiovascular: normal peripheral pulses, regular rate, rhythm, no edema Peripheral Pulses: 2+ Radial Pulses (R), 2+ Radial Pulses (L) Gastrointestinal: normal bowel sounds (quiescent), soft, no organomegaly, tenderness (mildly tender in the suprapubic region. No guarding or rebound tenderness. No Rovsing sign, psoas sign or tenderness over McBurney's point. Negative for Stearns sign.) Extremities: non-tender, no pedal edema, normal capillary refill Neurologic/Psychiatric: alert, normal mood/affect, oriented x 3 Skin: normal color, warm/dry Procedures/Interventions Suture Size: 4-0 Progress/Results/Core Measures Results/Orders Lab Results Laboratory Tests Test 03/27/18 13:41 03/27/18 14:06 Range/Units White Blood Count 5.3 4.3-11.0 10^3/uL Red Blood Count 5.13 4.35-5.85 10^6/uL Hemoglobin 14.7 13.3-17.7 G/DL Hematocrit 43 40-54 % Mean Corpuscular Volume 85 80-99 FL Mean Corpuscular Hemoglobin 29 25-34 PG Mean Corpuscular Hemoglobin Concent 34 32-36 G/DL Red Cell Distribution Width 13.4 10.0-14.5 % Platelet Count 308 130-400 10^3/uL Mean Platelet Volume 9.1 7.4-10.4 FL Neutrophils (%) (Auto) 56 42-75 % Lymphocytes (%) (Auto) 32 12-44 % Monocytes (%) (Auto) 11 0-12 % Eosinophils (%) (Auto) 1 0-10 % Basophils (%) (Auto) 1 0-10 % Neutrophils # (Auto) 3.0 1.8-7.8 X 10^3 Lymphocytes # (Auto) 1.7 1.0-4.0 X 10^3 Monocytes # (Auto) 0.6 0.0-1.0 X 10^3 Eosinophils # (Auto) 0.1 0.0-0.3 10^3/uL Basophils # (Auto) 0.0 0.0-0.1 10^3/uL Sodium Level 140 135-145 MMOL/L Potassium Level 3.9 3.6-5.0 MMOL/L Chloride Level 108 H 98-107 MMOL/L Carbon Dioxide Level 23 21-32 MMOL/L Anion Gap 9 5-14 MMOL/L Blood Urea Nitrogen 12 7-18 MG/DL Creatinine 1.08 0.60-1.30 MG/DL Estimat Glomerular Filtration Rate > 60 BUN/Creatinine Ratio 11 Glucose Level 92 70-105 MG/DL Calcium Level 9.2 8.5-10.1 MG/DL Corrected Calcium 9.0 8.5-10.1 MG/DL Magnesium Level 2.5 H 1.8-2.4 MG/DL Total Bilirubin 0.5 0.1-1.0 MG/DL Aspartate Amino Transf (AST/SGOT) 16 5-34 U/L Alanine Aminotransferase (ALT/SGPT) 14 0-55 U/L Alkaline Phosphatase 68 40-136 U/L C-Reactive Protein High Sensitivity 1.19 H 0.00-0.50 MG/DL Total Protein 7.2 6.4-8.2 GM/DL Albumin 4.3 3.2-4.5 GM/DL Urine Color YELLOW Urine Clarity CLEAR Urine pH 7 5-9 Urine Specific [place] 1.015 L 1.016-1.022 Urine Protein NEGATIVE NEGATIVE Urine Glucose (UA) NEGATIVE NEGATIVE Urine Ketones NEGATIVE NEGATIVE Urine Nitrite NEGATIVE NEGATIVE Urine Bilirubin NEGATIVE NEGATIVE Urine Urobilinogen NORMAL NORMAL MG/DL Urine Leukocyte Esterase NEGATIVE NEGATIVE Urine RBC (Auto) NEGATIVE NEGATIVE Urine RBC NONE /HPF Urine WBC NONE /HPF Urine Squamous Epithelial Cells NONE /HPF Urine Crystals PRESENT H /LPF Urine Amorphous Sediment LARGE AMANDA PHOSPHATE H /LPF Urine Bacteria MODERATE H /HPF Urine Casts NONE /LPF Urine Mucus NEGATIVE /LPF Urine Culture Indicated NO My Orders Orders - CHARY VERA Cbc With Automated Diff (03/27/18 13:38) Comprehensive Metabolic Panel (03/27/18 13:38) Hs C Reactive Protein (03/27/18 13:38) Magnesium (03/27/18 13:38) Ua Culture If Indicated (03/27/18 13:38) Ketorolac Injection (Toradol Injection) (03/27/18 13:45) Abdomen/Kub 1view (03/27/18 13:43) Medications Given in ED Current Medications Medications Dose Ordered Sig/Samuel Route Start Time Stop Time Status Last Admin Dose Admin Ketorolac Tromethamine 30 mg ONCE ONCE IM 03/27/18 13:45 03/27/18 13:46 DC 03/27/18 13:48 30 MG Vital Signs/I&O 03/27/18 13:32 Temp 96.9 Pulse 80 Resp 16 B/P (MAP) 123/100 (108) Pulse Ox 99 O2 Delivery Room Air Blood Pressure Mean: 108 Progress Progress Note #1: Time: 13:46 Progress Note KUB 1 view of the abdomen. Toradol for his pain. The lab draw to look at the electrolytes and leukocytes as well as a urinalysis. At this point he does not have an acute abdomen. If any of his lab work is out of range we can consider looking further with a CT. If his pain is not significantly improved with some Toradol and consider something more potent. Colitis, UTI, much less likely appendicitis. Progress Note #2: Time: 14:33 Progress Note Encourage him to get some MiraLAX cleanout over the next couple days and follow- up with a primary care provider next week if he's not seeing some improvement. We'll give him strict return precautions if he has intractable pain nausea vomiting or fever. Diagnostic Imaging Diagonstic Imaging: Xray Plain Films/CT/US/NM/MRI: abdomen ([id number]) Comments NAME: VIKA SULLIVAN [facility] REC#: [id number] PHYSICIAN: CHARY VERA MD CC: LISA OLVERA; CHARY VERA Page 1 of 1 RADIOLOGY REPORT [facility] [place], [place] CC: LISA OLVERA; CHARY VERA Page 1 of 1 RADIOLOGY REPORT NAME: VIKA SULLIVAN [facility] REC#: [id number] PT STATUS: REG ER : 1990 PHYSICIAN: CHARY VERA MD ADMIT DATE: 03/27/18/ER Signed Date of Exam: 03/27/18 ABDOMEN/KUB 1VIEW INDICATION: Abdominal pain, nausea, vomiting. COMPARISON: None. Two views of abdomen demonstrate nondistended bowel gas pattern. Minimal constipation is seen. There is no free air. Osseous structures normal. IMPRESSION: Minimal constipation. Dictated by: Dictated on workstation # [id number] Dict: 03/27/18 1419 Trans: 03/27/18 1425 Interpreted by: LISA OLVERA Electronically signed by: LISA OLVERA 03/27/18 1425 Reviewed: Reviewed by Me Departure Impression Primary Impression: Constipation Qualified Codes: K59.00 - Constipation, unspecified Additional Impression: Abdominal pain Qualified Codes: R10.33 - Periumbilical pain Disposition: 01 HOME, SELF-CARE Condition: Stable Departure-Patient Inst. Decision time for Depature: 14:35 Referrals: [facility] (PCP/Family) Primary Care Physician Patient Instructions: Constipation, Adult (DC) Add. Discharge Instructions: Drink plenty of fluids. Mix 1 capful of MiraLAX, polyethylene glycol in 6-8 ounces of fluids of your choice anywhere from 1-4 times a day until you feel you 've had adequate bowel movements. You can also use an enema once a day for the next 2-3 days to help break things loose. If by Thursday you are still having pain you should follow-up with your primary doctor at your scheduled appointment at 8 AM. If you have severe intractable pain, intractable nausea vomiting or other worrisome symptoms such as fever then you can return to the ER. Tylenol 1000 mg every 8 hours in addition to ibuprofen 800 mg every 8 hours in addition to warm heating pads or baths can be helpful. All discharge instructions reviewed with patient and/or family. Voiced understanding. Scripts No Active Prescriptions or Reported Meds CHARY VERA Mar 27, 2018 13:43
[2018-03-27] MEDS ORDERED: KETOROLAC 30 MG/ML VIAL IM ONE (13:45)
[2018-03-27 13:48] LABS: BASOPHILS % (AUTO) 1 % (0-10); EOSINOPHILS # (AUTO) 0.1 10^3/uL (0.0-0.3); EOSINOPHILS % (AUTO) 1 % (0-10); HEMATOCRIT 43 % (40-54); HEMOGLOBIN 14.7 G/DL (13.3-17.7); LYMPHOCYTES # (AUTO) 1.7 X 10^3 (1.0-4.0); LYMPHOCYTES % (AUTO) 32 % (12-44); MEAN CORPUSCULAR HEMOGLOBIN 29 PG (25-34); MEAN CORPUSCULAR HGB CONC 34 G/DL (32-36); MEAN CORPUSCULAR VOLUME 85 FL (80-99); MEAN PLATELET VOLUME 9.1 FL (7.4-10.4); MONOCYTES # (AUTO) 0.6 X 10^3 (0.0-1.0); MONOCYTES % (AUTO) 11 % (0-12); NEUTROPHILS % (AUTO) 56 % (42-75); PLATELET COUNT 308 10^3/uL (130-400); RED CELL DISTRIBUTION WIDTH 13.4 % (10.0-14.5); WHITE BLOOD COUNT 5.3 10^3/uL (4.3-11.0)
[2018-03-27 14:08] LABS: ALKALINE PHOSPHATASE 68 U/L (40-136); BILIRUBIN,TOTAL 0.5 MG/DL (0.1-1.0); BUN/CREATININE RATIO 11; CALCIUM 9.2 MG/DL (8.5-10.1); CARBON DIOXIDE 23 MMOL/L (21-32); CHLORIDE 108 MMOL/L (98-107); CREATININE SERUM 1.08 MG/DL (0.60-1.30); GFR ESTIMATED > 60; GLUCOSE 92 MG/DL (70-105); MAGNESIUM 2.5 MG/DL (1.8-2.4); POTASSIUM 3.9 MMOL/L (3.6-5.0); SODIUM 140 MMOL/L (135-145)
[2018-03-27 14:09] LABS: ALANINE AMINOTRANSFERASE 14 U/L (0-55); ALBUMIN 4.3 GM/DL (3.2-4.5); TOTAL PROTEIN 7.2 GM/DL (6.4-8.2)
[2018-03-27 14:11] LABS: BILIRUBIN,URINE NEGATIVE (NEGATIVE); CLARITY,URINE CLEAR; COLOR,URINE YELLOW; GLUCOSE, URINE (UA) NEGATIVE (NEGATIVE); KETONES,URINE NEGATIVE (NEGATIVE); LEUKOCYTE ESTERASE ,URINE NEGATIVE (NEGATIVE); NITRITE,URINE NEGATIVE (NEGATIVE); PH,URINE 7 (5-9); PROTEIN,URINE NEGATIVE (NEGATIVE); UROBILINOGEN,URINE NORMAL (NORMAL)
[2018-03-27 14:20] LABS: AMORPHOUS SEDIMENT,UR LARGE AMOR PHOSPHATE /LPF; BACTERIA,URINE MODERATE /HPF
--- NOTE | 2018-03-27 14:23 | Diagnostic Imaging Report ---
INDICATION: Abdominal pain, nausea, vomiting. COMPARISON: None. Two views of abdomen demonstrate nondistended bowel gas pattern. Minimal constipation is seen. There is no free air. Osseous structures normal. IMPRESSION: Minimal constipation. Dictated by: Dictated on workstation # [id number]
[2018-03-27 14:48] VITALS: BP 126/78
--- NOTE | 2018-03-27 14:48 | NUR ---
PT HAD COAT ON WHEN I WENT TO DISHCARGE HIM. ASKED HIM IF HE WOULD LIKE HIS VITALS RETAKEN ET HE STATED "NO".
== END 2018-03-27 14:48 | disposition home or self-care (01) ==
LOC: EDUNIT# 13:28 → ER 13:29
DX: K59.00 Constipation, unspecified (principal); G43.909 Migraine, unspecified, not intractable, without status migrainosus; K21.9 Gastro-esophageal reflux disease without esophagitis; Z87.448 Personal history of other diseases of urinary system
CPT/HCPCS: 36415; 74018; 80053; 81000; 83735; 85025; 86141; 96372

== ENCOUNTER 2018-06-05 22:30 | Emergency (ER) | payer SELFPAY ==
[~2018-06-05] VITALS: Ht 172.7 cm; Wt 83.0 kg
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
--- NOTE | 2018-06-05 22:47 | ED Chest Pain ---
General Stated Complaint: PAIN IN STERNUM Source: patient Exam Limitations: no limitations History of Present Illness Date Seen by Provider: Jun 05, 2018 Time Seen by Provider: 22:44 Initial Comments To ER with reports of left sternal border chest pain since awakening this morning. The pain is worsened by deep breathing and coughing sneezing or movement. Soak worsened by moving such as raising his arms up over his head. He has had a nonproductive cough since earlier today. The area is tender to push on he reports. He is a nonsmoker. No fevers or chills. No shortness of breath. He has ibuprofen and hydrocodone at home for a right anterior cruciate ligament injury and he took one of the hydrocodone for this pain in his chest and it didn 't seem to help much. Timing/Duration: 12 hours Severity/Quality: moderate Location: central Radiation: no radiation Activities at Onset: none ASA po LINUX SOLARIS ADMINISTRATOR: No NTG SL LINUX SOLARIS ADMINISTRATOR: No Associated Symptoms: shortness of breath Allergies and Home Medications Allergies Coded Allergies: No Known Drug Allergies (Unverified , 10/12/15) Home Medications No Active Prescriptions or Reported Meds Patient Home Medication List Home Medication List Reviewed: Yes Review of Systems Review of Systems Constitutional: see HPI; No chills, No fever EENTM: No Symptoms Reported Respiratory: See HPI, Cough; Denies Orthopnea, Denies Shortness of Air Cardiovascular: No Symptoms Reported Gastrointestinal: No Symptoms Reported Genitourinary: No Symptoms Reported Musculoskeletal: no symptoms reported Skin: no symptoms reported Psychiatric/Neurological: No Symptoms Reported Endocrine: No Symptoms Reported Hematologic/Lymphatic: No Symptoms Reported Past Nafdplt-Whtdny-Xikpmr Hx Patient Social History 2nd Hand Smoke Exposure: No Recent Foreign Travel: No Contact w/Someone Who Travel: No Recent Hopitalizations: No Immunizations Up To Date Tetanus Booster (TDap): Unknown Seasonal Allergies Seasonal Allergies: No Past Medical History Surgeries: No Respiratory: No Cardiac: No Neurological: Yes Headaches /Migraines Reproductive Disorders: No Sexually Transmitted Disease: No HIV/AIDS: No Genitourinary: Yes Kidney Infection Gastrointestinal: Yes Gastroesophageal Reflux Musculoskeletal: No Endocrine: No HEENT: No Cancer: No Psychosocial: No Integumentary: No Blood Disorders: No Adverse Reaction/Blood Tranf: No Family Medical History Patient reports no known family medical history. No Pertinent Family Hx Physical Exam Vital Signs Vital Signs - First Documented 06/05/18 22:49 Temp 97.6 Pulse 60 Resp 18 B/P (MAP) 117/84 (95) Pulse Ox 99 O2 Delivery Room Air Capillary Refill : Height, Weight, BMI Height: 5'8.00" Weight: 160lbs. 0oz. 72.529059ps; 21.28 BMI Method:Estimated General Appearance: No Apparent Distress, WD/WN HEENT: PERRL/EOMI, TMs Normal Neck: Full Range of Motion, Normal Inspection Respiratory: No Accessory Muscle Use, No Respiratory Distress, Other (left sternal border lower chest is tender to palpation) Cardiovascular: Regular Rate, Rhythm, Normal Peripheral Pulses Gastrointestinal: Non Tender, Soft Extremity: Normal Capillary Refill, Normal Inspection Neurologic/Psychiatric: Alert, Oriented x3 Skin: Normal Color, Warm/Dry Procedures/Interventions Suture Size: 4-0 Progress/Results/Core Measures Results/Orders My Orders Orders - SHARON LUTHER APRN Chest Pa/Lat (2 View) (06/05/18 22:43) Ekg Tracing (06/05/18 22:47) Vital Signs/I&O 06/05/18 22:49 Temp 97.6 Pulse 60 Resp 18 B/P (MAP) 117/84 (95) Pulse Ox 99 O2 Delivery Room Air Departure Impression Primary Impression: Chest wall pain Additional Impression: Pleuritic chest pain Disposition: 01 HOME, SELF-CARE Condition: Stable Departure-Patient Inst. Decision time for Depature: 22:47 Referrals: [facility] (PCP/Family) Primary Care Physician Patient Instructions: Chest Pain, Pleuritic Chest Pain (DC) Add. Discharge Instructions: 1. Continue with the ibuprofen 2. Steroids as directed 3. Follow-up with your doctor next week Scripts Prednisone (Prednisone) 20 Mg Tab 40 MG PO DAILY, #6 TAB Prov: SHARON LUTHER APRN 06/05/18 SHARON LUTHER APRN Jun 05, 2018 22:47
[2018-06-05] MEDS ORDERED: PRD20T PO (22:57)
[2018-06-05 23:07] VITALS: BP 117/84
--- NOTE | 2018-06-06 07:36 | Diagnostic Imaging Report ---
INDICATION: Chest pain. PA and lateral views were obtained. FINDINGS: The heart size, mediastinal configuration, and pulmonary vascularity are within normal limits. There is no pleural effusion, pneumothorax, or pneumonia. The osseous structures are unremarkable. IMPRESSION: No acute cardiopulmonary abnormality. Dictated by: Dictated on workstation # [id number]
== END 2018-06-05 23:07 | disposition home or self-care (01) ==
LOC: EDUNIT# 22:30 → ER 22:32
DX: R07.81 Pleurodynia (principal); G43.909 Migraine, unspecified, not intractable, without status migrainosus; K21.9 Gastro-esophageal reflux disease without esophagitis; Z87.448 Personal history of other diseases of urinary system
CPT/HCPCS: 71046; 93005

== ENCOUNTER 2018-07-03 20:22 | Emergency (ER) | payer SELFPAY ==
[~2018-07-03] VITALS: Ht 172.7 cm; Wt 81.2 kg
[~2018-07-03 20:22] MED LIST changes: +PRD20T PO
[2018-07-03] MEDS ORDERED: LIDOCAINE 2% VISCOUS 15 ML UDC PO ONE (20:45)
[2018-07-03] MEDS ORDERED: ANTACID SUSP 30 ML UDC (MYLANTA) PO ONE (20:45)
--- NOTE | 2018-07-03 20:48 | ED Abdominal Pain ---
General Chief Complaint: Abdominal/GI Problems Stated Complaint: LOSING WEIGHT, TIRED Nursing Triage Note: PT STATES HE HAS BEEN EXPERIENCING L & R UPPER QUAD. ABDOMINAL PAIN OVER THE LAST WEEK WITH INTERMITTENT NAUSEA, DENIES VOMITING. PT STATES HE HAS A HX OF GERD, STATES THIS PAIN FEELS SIMILAR TO PAST FLARE UPS. PT VERBALIZED A RECENT PERCIEVED LOSS IN WEIGHT AND INCREASED MALAISE Sepsis Screen: No Definite Risk Source of Information: Patient Exam Limitations: No Limitations History of Present Illness Date Seen by Provider: July 03, 2018 Time Seen by Provider: 20:46 Initial Comments To ER per private vehicle with reports of epigastric abdominal pain 1 week no nausea vomiting bowel changes. He reports general fatigue for the past week as well. Timing/Duration: 1 Week Severity/Quality: Moderate Location: Epigastric Radiation: No Radiation Activities at Onset: None Associated Symptoms: Denies Symptoms Allergies and Home Medications Allergies Coded Allergies: No Known Drug Allergies (Unverified , 10/12/15) Home Medications Prednisone 20 Mg Tab, 40 MG PO DAILY Prescribed by: SHARON LUTHER on 06/05/18 2782 Patient Home Medication List Home Medication List Reviewed: Yes Review of Systems Review of Systems Constitutional: see HPI, malaise EENTM: No Symptoms Reported Respiratory: No Symptoms Reported Cardiovascular: No Symptoms Reported Gastrointestinal: See HPI, Abdominal Pain Genitourinary: No Symptoms Reported Musculoskeletal: no symptoms reported Skin: no symptoms reported Psychiatric/Neurological: No Symptoms Reported Endocrine: No Symptoms Reported Hematologic/Lymphatic: No Symptoms Reported Past Bmapexn-Pyuibz-Fzcxef Hx Patient Social History Alcohol Use: Occasionally Uses Number of Drinks Today: AA Alcohol Beverage of Choice: Beer Recreational Drug Use: No 2nd Hand Smoke Exposure: No Recent Foreign Travel: No Contact w/Someone Who Travel: No Recent Infectious Disease Expo: No Recent Hopitalizations: No Immunizations Up To Date Tetanus Booster (TDap): Unknown PED Vaccines UTD: No Seasonal Allergies Seasonal Allergies: No Past Medical History Surgeries: No Respiratory: No Cardiac: No Neurological: Yes Headaches /Migraines Reproductive Disorders: No Sexually Transmitted Disease: No HIV/AIDS: No Genitourinary: Yes Kidney Infection Gastrointestinal: Yes Gastroesophageal Reflux Musculoskeletal: No (R ACL tear) Endocrine: No HEENT: No Cancer: No Psychosocial: No Integumentary: No Blood Disorders: No Adverse Reaction/Blood Tranf: No Family Medical History Patient reports no known family medical history. No Pertinent Family Hx Physical Exam Vital Signs Vital Signs - First Documented 07/03/18 20:27 Temp 98.6 Pulse 81 Resp 20 B/P (MAP) 119/78 (92) Pulse Ox 99 O2 Delivery Room Air Capillary Refill : Less Than 3 Seconds Height/Weight/BMI Height: 5'8.00" Weight: 179lbs. 0oz. 81.154805ow; 21.28 BMI Method:Stated General Appearance: WD/WN, no apparent distress, other (alert and oriented talking laughing and joking with us.) HEENT: PERRL/EOMI, normal ENT inspection Neck: non-tender, full range of motion; No lymphadenopathy (R), No lymphadenopathy (L) Respiratory: normal breath sounds, no respiratory distress, no accessory muscle use Cardiovascular: regular rate, rhythm, no murmur Gastrointestinal: normal bowel sounds, non tender, soft Extremities: normal range of motion, non-tender Neurologic/Psychiatric: alert, normal mood/affect, oriented x 3 Skin: normal color, warm/dry Procedures/Interventions Suture Size: 4-0 Progress/Results/Core Measures Results/Orders My Orders Orders - SHARON LUTHER APRN Cbc With Automated Diff (07/03/18 20:44) Comprehensive Metabolic Panel (07/03/18 20:44) Lipase (07/03/18 20:44) Ua Culture If Indicated (07/03/18 20:44) Antacid Suspension (Mylanta Suspension (07/03/18 20:45) Lidocaine 2% Viscous 15 Ml (Xylocaine Vi (07/03/18 20:45) Vital Signs/I&O 07/03/18 20:27 Temp 98.6 Pulse 81 Resp 20 B/P (MAP) 119/78 (92) Pulse Ox 99 O2 Delivery Room Air Blood Pressure Mean: 92 Departure Impression Primary Impression: Epigastric pain Disposition: 01 HOME, SELF-CARE Condition: Stable Departure-Patient Inst. Decision time for Depature: 20:48 Referrals: [facility] [place] (PCP/Family) Primary Care Physician Patient Instructions: No Instuctions Given Add. Discharge Instructions: 1. Follow-up with your doctor next week for recheck 2. Return to ER for any concerns. All discharge instructions reviewed with patient and/or family. Voiced understanding. SHARON LUTHER APRN July 03, 2018 20:48
[2018-07-03 20:50] LABS: BILIRUBIN,URINE NEGATIVE (NEGATIVE); CLARITY,URINE CLEAR; COLOR,URINE YELLOW; GLUCOSE, URINE (UA) NEGATIVE (NEGATIVE); KETONES,URINE NEGATIVE (NEGATIVE); LEUKOCYTE ESTERASE ,URINE NEGATIVE (NEGATIVE); NITRITE,URINE NEGATIVE (NEGATIVE); PH,URINE 7 (5-9); PROTEIN,URINE NEGATIVE (NEGATIVE); UROBILINOGEN,URINE NORMAL (NORMAL)
[2018-07-03 20:57] LABS: AMORPHOUS SEDIMENT,UR LARGE AMOR PHOSPHATE /LPF; BACTERIA,URINE NEGATIVE /HPF
[2018-07-03 21:00] LABS: BASOPHILS % (AUTO) 0 % (0-10); EOSINOPHILS # (AUTO) 0.1 10^3/uL (0.0-0.3); EOSINOPHILS % (AUTO) 1 % (0-10); HEMATOCRIT 48 % (40-54); LYMPHOCYTES # (AUTO) 2.3 X 10^3 (1.0-4.0); LYMPHOCYTES % (AUTO) 24 % (12-44); MEAN CORPUSCULAR HEMOGLOBIN 28 PG (25-34); MEAN CORPUSCULAR HGB CONC 33 G/DL (32-36); MEAN CORPUSCULAR VOLUME 85 FL (80-99); MEAN PLATELET VOLUME 9.4 FL (7.4-10.4); MONOCYTES # (AUTO) 0.8 X 10^3 (0.0-1.0); MONOCYTES % (AUTO) 8 % (0-12); NEUTROPHILS # (AUTO) 6.3 X 10^3 (1.8-7.8); NEUTROPHILS % (AUTO) 66 % (42-75); PLATELET COUNT 324 10^3/uL (130-400); WHITE BLOOD COUNT 9.6 10^3/uL (4.3-11.0)
[2018-07-03 21:17] LABS: ALANINE AMINOTRANSFERASE 16 U/L (0-55); ALBUMIN 4.9 GM/DL (3.2-4.5); ALKALINE PHOSPHATASE 78 U/L (40-136); BILIRUBIN,TOTAL 0.4 MG/DL (0.1-1.0); BUN/CREATININE RATIO 13; CALCIUM 10.1 MG/DL (8.5-10.1); CARBON DIOXIDE 22 MMOL/L (21-32); CHLORIDE 106 MMOL/L (98-107); CREATININE SERUM 1.19 MG/DL (0.60-1.30); GFR ESTIMATED > 60; GLUCOSE 91 MG/DL (70-105); LIPASE 26 U/L (8-78); POTASSIUM 4.1 MMOL/L (3.6-5.0); SODIUM 139 MMOL/L (135-145); TOTAL PROTEIN 8.2 GM/DL (6.4-8.2)
[2018-07-03 21:44] VITALS: BP 128/73
== END 2018-07-03 21:46 | disposition home or self-care (01) ==
LOC: EDUNIT# 20:22 → ER 20:24
DX: R10.13 Epigastric pain (principal); G43.909 Migraine, unspecified, not intractable, without status migrainosus; K21.9 Gastro-esophageal reflux disease without esophagitis; Z87.448 Personal history of other diseases of urinary system; Z79.52 Long term (current) use of systemic steroids
CPT/HCPCS: 36415; 80053; 81000; 83690; 85025

== ENCOUNTER 2018-07-11 23:32 | Emergency (ER) | payer SELFPAY ==
[~2018-07-11] VITALS: Ht 172.7 cm; Wt 80.3 kg
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
[2018-07-12] MEDS ORDERED: LIDOCAINE 2% VISCOUS 15 ML UDC PO ONE
[2018-07-12] MEDS ORDERED: ANTACID SUSP 30 ML UDC (MYLANTA) PO ONE
--- NOTE | 2018-07-12 00:06 | NUR ---
ROUNDED ON PT, PT STATES PAIN IS NOW A 5/10, PT DENIES ANY OTHER NEEDS AT THIS TIME, WILL CONTINUE TO MONITOR
[2018-07-12] MEDS ORDERED: OMEP20CA12 PO (00:40)
--- NOTE | 2018-07-12 00:41 | ED Abdominal Pain ---
General Chief Complaint: Abdominal/GI Problems Stated Complaint: WANTING TO CHECK FOR INFECTIONS Nursing Triage Note: PT STATES HE HAS HAD EPIGASTRIC PAIN X 2 WEEKS, STATES HE THOUGHT HE NEEDED TO GET IT CHECKED OUT TO MAKE SURE HE DOES NOT HAVE AN INFECTION, STATES LAST BM WAS TODAY Sepsis Screen: No Definite Risk Source of Information: Patient, Old Records Exam Limitations: No Limitations History of Present Illness Date Seen by Provider: July 11, 2018 Time Seen by Provider: 23:44 Initial Comments This 28-year-old young man presents to the emergency room with about 2 weeks of epigastric pain. Eating makes it worse. He has had a small about of diarrhea or loose stools associated with it. 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 He was seen here about one week ago with similar complaints. He was treated with a GI cocktail. He has not followed that with any antacid therapy or dietary changes. He reports a prior history of acid reflux which he treated with medications. He has not taken medications for acid reflux for 7 or 8 months by his report. He denies any nausea or vomiting. Allergies and Home Medications Allergies Coded Allergies: No Known Drug Allergies (Unverified , 10/12/15) Home Medications Omeprazole 20 Mg Capsule.dr, 20 MG PO BID Prescribed by: VIKA DE on 07/12/18 0040 Patient Home Medication List Home Medication List Reviewed: Yes Review of Systems Review of Systems Constitutional: no symptoms reported EENTM: No Symptoms Reported Respiratory: No Symptoms Reported Cardiovascular: No Symptoms Reported Gastrointestinal: See HPI Genitourinary: No Symptoms Reported Musculoskeletal: no symptoms reported Skin: no symptoms reported Psychiatric/Neurological: No Symptoms Reported Endocrine: No Symptoms Reported Hematologic/Lymphatic: No Symptoms Reported Past Insbwkk-Htkine-Nxuoaq Hx Patient Social History Alcohol Use: Denies Use Number of Drinks Today: AA Alcohol Beverage of Choice: Beer Recreational Drug Use: No 2nd Hand Smoke Exposure: No Recent Foreign Travel: No Contact w/Someone Who Travel: No Recent Infectious Disease Expo: No Recent Hopitalizations: No Immunizations Up To Date Tetanus Booster (TDap): Unknown PED Vaccines UTD: No Seasonal Allergies Seasonal Allergies: No Past Medical History Surgeries: No Respiratory: No Cardiac: No Neurological: Yes Headaches /Migraines Reproductive Disorders: No Sexually Transmitted Disease: No HIV/AIDS: No Genitourinary: Yes Kidney Infection Gastrointestinal: Yes Gastroesophageal Reflux Musculoskeletal: No (R ACL tear) Endocrine: No HEENT: No Cancer: No Psychosocial: No Integumentary: No Blood Disorders: No Adverse Reaction/Blood Tranf: No Family Medical History Patient reports no known family medical history. No Pertinent Family Hx Physical Exam Vital Signs Vital Signs - First Documented 07/11/18 23:42 Temp 97.9 Pulse 66 Resp 16 B/P (MAP) 130/79 (96) Pulse Ox 98 O2 Delivery Room Air Capillary Refill : Less Than 3 Seconds Height/Weight/BMI Height: 5'8.00" Weight: 177lbs. 0oz. 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, no motor/sensory deficits, alert, normal mood/affect, oriented x 3 Skin: normal color, warm/dry Procedures/Interventions Suture Size: 4-0 Progress/Results/Core Measures Results/Orders My Orders Orders - VIKA CONCEPCION MD Lidocaine 2% Viscous 15 Ml (Xylocaine Vi (07/12/18 00:00) Antacid Suspension (Mylanta Suspension (07/12/18 00:00) Medications Given in ED Current Medications Medications Dose Ordered Sig/Samuel Route Start Time Stop Time Status Last Admin Dose Admin Al Hydrox/Mg Hydrox/Simethicone 30 ml ONCE ONCE PO 07/12/18 00:00 07/12/18 00:01 DC 07/11/18 23:58 30 ML Lidocaine HCl 15 ml ONCE ONCE PO 07/12/18 00:00 07/12/18 00:01 DC 07/11/18 23:58 15 ML Vital Signs/I&O 07/11/18 07/12/18 23:42 00:46 Temp 97.9 98.0 Pulse 66 67 Resp 16 16 B/P (MAP) 130/79 (96) 128/80 (96) Pulse Ox 98 99 O2 Delivery Room Air Room Air Blood Pressure Mean: 96 Progress Progress Note : Progress Note Patient received a GI cocktail with improvement. We discussed taking an antacid medication until he follows up with Rui Pradhan. Dietary modifications were also suggested. See discharge instructions. Departure Impression Primary Impression: Epigastric pain Additional Impression: Gastroesophageal reflux Qualified Codes: K21.9 - Gastro-esophageal reflux disease without esophagitis Disposition: HOME, SELF-CARE Condition: Improved Departure-Patient Inst. Decision time for Depature: 00:38 Referrals: [facility] (PCP/Family) Primary Care Physician Patient Instructions: Acid Reflux (Gastroesophageal Reflux Disease) in Adults, Gastritis Add. Discharge Instructions: Take omeprazole twice daily as prescribed until you've follow-up with Rui Pradhan at [facility]. Avoid the following: Eating large meals, eating close to bedtime, caffeine, carbonation, chocolate, citrus fruits and juices, tomato products, alcohol, tobacco products, spicy foods, fatty or greasy foods, mints, NSAID medications such as ibuprofen or naproxen, or anything else that irritates your stomach. Return to care if you have worsening symptoms. If you follow the dietary guidelines above and take omeprazole as prescribed, your symptoms should gradually improve over the next 1-2 weeks. All discharge instructions reviewed with patient and/or family. Voiced understanding. Scripts Omeprazole (Omeprazole) 20 Mg Capsule. 20 MG PO BID, #60 CAP Prov: VIKA CONCEPCION MD 07/12/18 Copy Copies To 1: LUBA PORRAS JOSHUA T MD July 12, 2018 00:41
[2018-07-12 00:46] VITALS: BP 128/80
== END 2018-07-12 00:48 | disposition home or self-care (01) ==
LOC: EDUNIT# 23:32 → ER 23:34
DX: K21.9 Gastro-esophageal reflux disease without esophagitis (principal); G43.909 Migraine, unspecified, not intractable, without status migrainosus; Z87.448 Personal history of other diseases of urinary system
CPT/HCPCS: 99283

== ENCOUNTER 2018-07-17 07:10 | Emergency (ER) | payer SELFPAY ==
[~2018-07-17] VITALS: Ht 172.7 cm; Wt 80.3 kg
[~2018-07-17 07:10] MED LIST changes: +OMEP20CA12 PO
[2018-07-17] MEDS ORDERED: NS IV 1000 ML 1,000 ML IV SCH (07:30)
[2018-07-17] MEDS ORDERED: KETOROLAC 30 MG/ML VIAL IVP ONE (07:30)
[2018-07-17 07:34] LABS: BASOPHILS % (AUTO) 0 % (0-10); EOSINOPHILS # (AUTO) 0.1 10^3/uL (0.0-0.3); EOSINOPHILS % (AUTO) 2 % (0-10); HEMATOCRIT 47 % (40-54); HEMOGLOBIN 15.9 G/DL (13.3-17.7); LYMPHOCYTES # (AUTO) 2.1 X 10^3 (1.0-4.0); LYMPHOCYTES % (AUTO) 28 % (12-44); MEAN CORPUSCULAR HEMOGLOBIN 29 PG (25-34); MEAN CORPUSCULAR HGB CONC 34 G/DL (32-36); MEAN CORPUSCULAR VOLUME 86 FL (80-99); MEAN PLATELET VOLUME 9.6 FL (7.4-10.4); MONOCYTES # (AUTO) 0.6 X 10^3 (0.0-1.0); MONOCYTES % (AUTO) 7 % (0-12); NEUTROPHILS # (AUTO) 4.8 X 10^3 (1.8-7.8); NEUTROPHILS % (AUTO) 63 % (42-75); PLATELET COUNT 289 10^3/uL (130-400); RED CELL DISTRIBUTION WIDTH 13.8 % (10.0-14.5); WHITE BLOOD COUNT 7.6 10^3/uL (4.3-11.0)
--- NOTE | 2018-07-17 07:36 | ED Abdominal Pain ---
General Chief Complaint: Abdominal/GI Problems Stated Complaint: ABD PAIN Source of Information: Patient Exam Limitations: No Limitations History of Present Illness Date Seen by Provider: July 17, 2018 Time Seen by Provider: 07:30 Initial Comments 28-year-old male presents with a complaint of persistent epigastric pain. Patient was seen in the emergency department roughly 2 weeks ago and treated with a GI cocktail. Patient states that the medication did not improve his discomfort. The patient has not followed up with . The patient has taken no medications since. He denies associated nausea, vomiting, black or tarry stools, radiation of the sharp moderately severe epigastric pain, shortness of breath, cough, fever or chills, dysuria, frequency, or flank pain. Family history diabetes. The patient denies smoking drinking or drugs. Patient denies significant past medical history. He's had no previous surgery. Allergies and Home Medications Allergies Coded Allergies: No Known Drug Allergies (Unverified , 10/12/15) Home Medications Omeprazole 20 Mg Capsule.dr, 20 MG PO BID Prescribed by: VIKA DE on 07/12/18 0040 Patient Home Medication List Home Medication List Reviewed: Yes Review of Systems Review of Systems Constitutional: No chills, No fever EENTM: No Blurred Vision Respiratory: Denies Cough Cardiovascular: Denies Chest Pain Gastrointestinal: See HPI, Abdominal Pain; Denies Diarrhea, Denies Nausea, Denies Vomiting Genitourinary: Denies Drainage, Denies Frequency, Denies Flank Pain Musculoskeletal: No back pain Skin: No change in color Psychiatric/Neurological: No Symptoms Reported Endocrine: No Symptoms Reported Hematologic/Lymphatic: No Symptoms Reported Past Gqmuwvx-Osojqf-Hiwvtx Hx Past Med/Social Hx: Reviewed Nursing Past Med/Soc Hx Patient Social History Alcohol Beverage of Choice: Beer 2nd Hand Smoke Exposure: No Recent Foreign Travel: No Contact w/Someone Who Travel: No Recent Hopitalizations: No Immunizations Up To Date Tetanus Booster (TDap): Unknown PED Vaccines UTD: No Seasonal Allergies Seasonal Allergies: No Past Medical History Surgeries: No Respiratory: No Cardiac: No Neurological: Yes Headaches /Migraines Reproductive Disorders: No Sexually Transmitted Disease: No HIV/AIDS: No Genitourinary: Yes Kidney Infection Gastrointestinal: Yes Gastroesophageal Reflux Musculoskeletal: No (R ACL tear) Endocrine: No HEENT: No Cancer: No Psychosocial: No Integumentary: No Blood Disorders: No Adverse Reaction/Blood Tranf: No Family Medical History Patient reports no known family medical history. No Pertinent Family Hx Physical Exam Vital Signs Vital Signs - First Documented 07/17/18 07:48 Temp 96.9 Pulse 64 Resp 18 B/P (MAP) 114/85 (95) Pulse Ox 100 Capillary Refill : Height/Weight/BMI Height: 5'8.00" Weight: 177lbs. 0oz. 80.592736ck; 21.28 BMI Method:Stated General Appearance: WD/WN, no apparent distress HEENT: normal ENT inspection Neck: full range of motion, normal inspection Respiratory: lungs clear Cardiovascular: regular rate, rhythm, no murmur Gastrointestinal: normal bowel sounds, soft, tenderness (moderate) Extremities: normal range of motion, non-tender Back: normal inspection Neurologic/Psychiatric: no motor/sensory deficits, alert, normal mood/affect Skin: normal color, warm/dry Procedures/Interventions Suture Size: 4-0 Progress/Results/Core Measures Results/Orders Lab Results Laboratory Tests Test 07/17/18 07:26 07/17/18 09:01 Range/Units White Blood Count 7.6 4.3-11.0 10^3/uL Red Blood Count 5.52 4.35-5.85 10^6/uL Hemoglobin 15.9 13.3-17.7 G/DL Hematocrit 47 40-54 % Mean Corpuscular Volume 86 80-99 FL Mean Corpuscular Hemoglobin 29 25-34 PG Mean Corpuscular Hemoglobin Concent 34 32-36 G/DL Red Cell Distribution Width 13.8 10.0-14.5 % Platelet Count 289 130-400 10^3/uL Mean Platelet Volume 9.6 7.4-10.4 FL Neutrophils (%) (Auto) 63 42-75 % Lymphocytes (%) (Auto) 28 12-44 % Monocytes (%) (Auto) 7 0-12 % Eosinophils (%) (Auto) 2 0-10 % Basophils (%) (Auto) 0 0-10 % Neutrophils # (Auto) 4.8 1.8-7.8 X 10^3 Lymphocytes # (Auto) 2.1 1.0-4.0 X 10^3 Monocytes # (Auto) 0.6 0.0-1.0 X 10^3 Eosinophils # (Auto) 0.1 0.0-0.3 10^3/uL Basophils # (Auto) 0.0 0.0-0.1 10^3/uL Sodium Level 138 135-145 MMOL/L Potassium Level 4.2 3.6-5.0 MMOL/L Chloride Level 106 98-107 MMOL/L Carbon Dioxide Level 19 L 21-32 MMOL/L Anion Gap 13 5-14 MMOL/L Blood Urea Nitrogen 15 7-18 MG/DL Creatinine 1.16 0.60-1.30 MG/DL Estimat Glomerular Filtration Rate > 60 BUN/Creatinine Ratio 13 Glucose Level 92 70-105 MG/DL Calcium Level 9.8 8.5-10.1 MG/DL Corrected Calcium 8.5-10.1 MG/DL Total Bilirubin 0.6 0.1-1.0 MG/DL Aspartate Amino Transf (AST/SGOT) 20 5-34 U/L Alanine Aminotransferase (ALT/SGPT) 15 0-55 U/L Alkaline Phosphatase 60 40-136 U/L Total Protein 7.8 6.4-8.2 GM/DL Albumin 4.6 H 3.2-4.5 GM/DL Lipase 24 8-78 U/L Urine Color YELLOW Urine Clarity SLIGHTLY CLOUDY Urine pH 7 5-9 Urine Specific [place] 1.005 L 1.016-1.022 Urine Protein NEGATIVE NEGATIVE Urine Glucose (UA) NEGATIVE NEGATIVE Urine Ketones NEGATIVE NEGATIVE Urine Nitrite NEGATIVE NEGATIVE Urine Bilirubin NEGATIVE NEGATIVE Urine Urobilinogen NORMAL NORMAL MG/DL Urine Leukocyte Esterase NEGATIVE NEGATIVE Urine RBC (Auto) NEGATIVE NEGATIVE Urine RBC NONE /HPF Urine WBC RARE /HPF Urine Crystals NONE /LPF Urine Bacteria NEGATIVE /HPF Urine Casts NONE /LPF Urine Mucus NEGATIVE /LPF Urine Culture Indicated NO My Orders Orders - JORGE KING MD Cbc With Automated Diff (07/17/18 07:26) Comprehensive Metabolic Panel (07/17/18 07:26) Lipase (07/17/18 07:26) Ua Culture If Indicated (07/17/18 07:26) Ct Abdomen/Pelvis W (07/17/18 07:26) Ns Iv 1000 Ml (Sodium Chloride 0.9%) (07/17/18 07:30) Ketorolac Injection (Toradol Injection) (07/17/18 07:30) Helicobacter Pylori Maddi Igg (07/17/18 07:56) Medications Given in ED Current Medications Medications Dose Ordered Sig/Samuel Route Start Time Stop Time Status Last Admin Dose Admin Ketorolac Tromethamine 30 mg ONCE ONCE IVP 07/17/18 07:30 07/17/18 07:31 DC 07/17/18 07:48 30 MG Vital Signs/I&O 07/17/18 07:48 Temp 96.9 Pulse 64 Resp 18 B/P (MAP) 114/85 (95) Pulse Ox 100 Progress Progress Note : Time: 09:[address] Barajas looked at the patient's CAT scan and felt that it was potentially consistent with thickened gallbladder wall colitis. He will evaluate patient in the office early next week. Departure Impression Primary Impression: UNSPECIFIED ABDOMINAL PAIN Disposition: HOME, SELF-CARE Condition: Improved Departure-Patient Inst. Decision time for Depature: 09:42 Referrals: [facility] (PCP/Family) Primary Care Physician KATIE BARAJAS DO Patient Instructions: Acute Abdomen (Belly Pain), Adult (DC) Add. Discharge Instructions: All discharge instructions reviewed with patient and/or family. Voiced understanding. Follow-up with Dr. Alberto next week. Call the office Thursday morning. Return for any problems or questions. Given her pain. Scripts Hydrocodone/Acetaminophen (Vicodin 5-300 mg Tablet) 1 Each Tablet 1-2 EACH PO Q6H PRN for PAIN-MODERATE MDD 10 for 7 Days, TAB Prov: JORGE KING MD 07/17/18 JORGE KING MD July 17, 2018 07:36
[2018-07-17 07:57] LABS: ALANINE AMINOTRANSFERASE 15 U/L (0-55); ALBUMIN 4.6 GM/DL (3.2-4.5); ALKALINE PHOSPHATASE 60 U/L (40-136); BILIRUBIN,TOTAL 0.6 MG/DL (0.1-1.0); BUN/CREATININE RATIO 13; CALCIUM 9.8 MG/DL (8.5-10.1); CARBON DIOXIDE 19 MMOL/L (21-32); CHLORIDE 106 MMOL/L (98-107); CREATININE SERUM 1.16 MG/DL (0.60-1.30); GFR ESTIMATED > 60; GLUCOSE 92 MG/DL (70-105); LIPASE 24 U/L (8-78); POTASSIUM 4.2 MMOL/L (3.6-5.0); SODIUM 138 MMOL/L (135-145); TOTAL PROTEIN 7.8 GM/DL (6.4-8.2)
[2018-07-17 09:09] LABS: BILIRUBIN,URINE NEGATIVE (NEGATIVE); CLARITY,URINE SLIGHTLY CLOUDY; COLOR,URINE YELLOW; GLUCOSE, URINE (UA) NEGATIVE (NEGATIVE); KETONES,URINE NEGATIVE (NEGATIVE); LEUKOCYTE ESTERASE ,URINE NEGATIVE (NEGATIVE); NITRITE,URINE NEGATIVE (NEGATIVE); PH,URINE 7 (5-9); PROTEIN,URINE NEGATIVE (NEGATIVE); UROBILINOGEN,URINE NORMAL (NORMAL)
--- NOTE | 2018-07-17 09:12 | Diagnostic Imaging Report ---
PROCEDURE: CT abdomen and pelvis with contrast. TECHNIQUE: Multiple contiguous axial images were obtained through the abdomen and pelvis after administration of intravenous contrast. Auto Exposure Controls were utilized during the CT exam to meet ALARA standards for radiation dose reduction. INDICATION: Abdominal pain and chest pain. Comparison is made with CT abdomen and pelvis from 02/24/2016. FINDINGS: The visualized lung bases demonstrate no focal infiltrate or evidence of effusion. Liver demonstrates no evidence of a focal intrahepatic abnormality. The gallbladder is nondistended without radiodense gallstone or biliary dilatation. The portal veins are patent. Pancreas unremarkable. The spleen is normal in size. There is no adrenal mass. The kidneys enhance normally and are nonobstructed. Stomach unremarkable. There is a normal duodenal sweep. The small and large bowel are normal in caliber without evidence of obstruction. There is no focal abnormal bowel thickening demonstrated. There is no inflammatory induration or free fluid within the mesentery. There are no findings of appendicitis. There is no free air or abscess. There are no pathologically enlarged abdominopelvic lymph nodes. Urinary bladder unremarkable. Aorta is normal in caliber. There is no acute or suspicious osseous abnormality. IMPRESSION: 1. No CT evidence of an acute inflammatory or obstructive process within the abdomen or pelvis. 2. There is no bowel obstruction. The appendix is normal. 3. No focal inflammation within the omentum or mesentery. There is no free fluid. Dictated by: Dictated on workstation # [id number]
[2018-07-17 09:16] LABS: BACTERIA,URINE NEGATIVE /HPF; WBC,URINE RARE /HPF
[2018-07-17] MEDS ORDERED: HYDR-3455 PO (09:43)
[2018-07-17 09:57] VITALS: BP 120/87
== END 2018-07-17 09:57 | disposition home or self-care (01) ==
LOC: EDUNIT# 07:10 → ER 07:11
DX: R10.13 Epigastric pain (principal); G43.909 Migraine, unspecified, not intractable, without status migrainosus; K21.9 Gastro-esophageal reflux disease without esophagitis; Z87.448 Personal history of other diseases of urinary system
CPT/HCPCS: 36415; 74177; 80053; 81000; 83690; 85025; 86677

== ENCOUNTER 2018-07-20 21:51 | Emergency (ER) | payer SELFPAY ==
[~2018-07-20] VITALS: Ht 172.7 cm; Wt 78.9 kg
[~2018-07-20 21:51] MED LIST changes: +HYDR-3455 PO
[2018-07-20] MEDS ORDERED: PSEU-137 PO (22:20)
--- NOTE | 2018-07-20 22:20 | ED EENT ---
History of Present Illness General Chief Complaint: Oral/Throat Problems Stated Complaint: THROAT AND EAR PAIN Nursing Triage Note: sore throat/bilateral ear pain x2 days Source: patient Exam Limitations: no limitations History of Present Illness Date Seen by Provider: July 20, 2018 Time Seen by Provider: 22:18 Initial Comments Sore throat bilateral ear pain 3 days no fevers slight cough Timing/Duration: abrupt Severity: mild Associated Symptoms: cough Allergies and Home Medications Allergies Coded Allergies: No Known Drug Allergies (Unverified , 10/12/15) Home Medications Hydrocodone/Acetaminophen 1 Each Tablet, 1-2 EACH PO Q6H PRN for PAIN-MODERATE Prescribed by: JORGE KING MD on 07/17/18 0943 Omeprazole 20 Mg Capsule.dr, 20 MG PO BID Prescribed by: VIKA DE on 07/12/18 0040 Patient Home Medication List Home Medication List Reviewed: Yes Review of Systems Review of Systems Constitutional: see HPI Eyes: No Symptoms Reported Ears: No Symptoms Reported Nose: no symptoms reported Mouth: no symptoms reported Throat: see HPI Respiratory: no symptoms reported Cardiovascular: no symptoms reported Musculoskeletal: no symptoms reported Skin: no symptoms reported Past Fugnjvc-Dsxxqu-Vneojp Hx Patient Social History Alcohol Use: Denies Use Number of Drinks Today: AA Alcohol Beverage of Choice: Beer Recreational Drug Use: No Smoking Status: Never a Smoker 2nd Hand Smoke Exposure: No Recent Foreign Travel: No Contact w/Someone Who Travel: No Recent Infectious Disease Expo: No Recent Hopitalizations: No Immunizations Up To Date Tetanus Booster (TDap): Unknown PED Vaccines UTD: No Seasonal Allergies Seasonal Allergies: No Past Medical History Surgeries: No Respiratory: No Cardiac: No Neurological: Yes Headaches /Migraines Reproductive Disorders: No Sexually Transmitted Disease: No HIV/AIDS: No Genitourinary: Yes Kidney Infection Gastrointestinal: Yes Gastroesophageal Reflux Musculoskeletal: Yes (R ACL tear) Endocrine: No HEENT: No Cancer: No Psychosocial: No Integumentary: No Blood Disorders: No Adverse Reaction/Blood Tranf: No Family Medical History Patient reports no known family medical history. No Pertinent Family Hx Physical Exam Vital Signs Vital Signs - First Documented 07/20/18 22:00 Temp 97.6 Pulse 65 Resp 16 B/P (MAP) 127/75 (92) Pulse Ox 97 O2 Delivery Room Air Height, Weight, BMI Height: 5'8.00" Weight: 174lbs. 0oz. 78.910216ot; 21.28 BMI Method:Stated General Appearance: WD/WN, no apparent distress Eyes: bilateral eye normal inspection, bilateral eye PERRL, bilateral eye EOMI Ears: bilateral ear auricle normal, bilateral ear canal normal, bilateral ear TM normal Mouth/Throat: other (slight pharyngeal erythema) Neck: non-tender, full range of motion; No lymphadenopathy (R), No lymphadenopathy (L) Respiratory: no respiratory distress, no accessory muscle use Neurologic/Psychiatric: alert, normal mood/affect Skin: normal color, warm/dry Procedures/Interventions Suture Size: 4-0 Progress/Results/Core Measures Results/Orders My Orders Orders - SHARON LUTHER APRN Dexamethasone Injection (Decadron Inject (07/20/18 22:30) Vital Signs/I&O 07/20/18 22:00 Temp 97.6 Pulse 65 Resp 16 B/P (MAP) 127/75 (92) Pulse Ox 97 O2 Delivery Room Air Blood Pressure Mean: 92 Departure Impression Primary Impression: Viral URI Disposition: 01 HOME, SELF-CARE Condition: Stable Departure-Patient Inst. Decision time for Depature: 22:19 Referrals: [facility] (PCP/Family) Primary Care Physician Patient Instructions: Viral Upper Respiratory Infection, Adult (DC) Add. Discharge Instructions: All discharge instructions reviewed with patient and/or family. Voiced understanding. Scripts Pseudoephedrine HCl (Sudafed) 30 Mg Tablet 30 MG PO Q6H PRN for CONGESTION, #10 TAB Prov: SHARON LUTHER APRN 07/20/18 SHARON LUTHER APRN July 20, 2018 22:20
[2018-07-20 22:27] VITALS: BP 127/75
[2018-07-20] MEDS ORDERED: DEXAMETHASONE 10 MG/ML (DECADRON) 1 ML VIAL IM ONE (22:30)
== END 2018-07-20 22:26 | disposition home or self-care (01) ==
LOC: EDUNIT# 21:51 → ER 21:52
DX: J06.9 Acute upper respiratory infection, unspecified (principal); G43.909 Migraine, unspecified, not intractable, without status migrainosus; K21.9 Gastro-esophageal reflux disease without esophagitis; Z87.448 Personal history of other diseases of urinary system
CPT/HCPCS: 99284

== ENCOUNTER → 2018-07-28 | Outpatient (CLI) | payer OTHER ==
[~2018-07-28] MED LIST changes: +PSEU-137 PO
--- NOTE | 2018-07-28 08:27 | Diagnostic Imaging Report ---
PROCEDURE: US Gallbladder. TECHNIQUE: Multiple real-time grayscale images were obtained over the right upper quadrant in various projections. INDICATION: Epigastric pain Liver parenchyma is homogeneous with normal echotexture. Gallbladder is clear with no stones or wall thickening. The portal vein is patent with hepatopetal flow. Common duct is not dilated. Pancreas is obscured by bowel gas. Right kidney measures 10.6 cm in length and appears normal. There is no ascites. IMPRESSION: Negative gallbladder sonogram. Dictated by: Dictated on workstation # [id number]
== END ==
LOC: RAD 06:47
PROVIDERS: ATTEND Surgery
DX: R10.13 Epigastric pain (principal)
CPT/HCPCS: 76705

== ENCOUNTER → 2018-08-09 | Outpatient (CLI) | payer OTHER ==
[~2018-08-09] MED LIST changes: +CATHETER FLUSH 10 ML SYR IV PRN
--- NOTE | 2018-08-09 23:06 | Diagnostic Imaging Report ---
Hepatobiliary scan with ejection fraction. INDICATION: Abdominal pain. This study was performed following the administration of 5.48 mCi of Choletec and 8 ounces of Ensure. There are no prior nuclear medicine hepatobiliary scans available for comparison. FINDINGS: The gallbladder ultrasound exam of 07/28/2018 failed to show any sign of cholelithiasis or acute cholecystitis. On this exam, there is uptake of the radiotracer about the gallbladder before 30 minutes. This would weight against a diagnosis of acute cholecystitis. There is also extension of the radiotracer into the small bowel indicating the common duct is not obstructed. Ejection fraction is 8.8% (normal greater than 35%) IMPRESSION: 1. There is no evidence for acute cholecystitis or for obstruction of the common bile duct. 2. The ejection fraction is 80.8% and well within normal limits. Dictated by: Dictated on workstation # [id number]
== END ==
LOC: CARD 12:03
PROVIDERS: ATTEND Surgery
DX: R10.13 Epigastric pain (principal)
CPT/HCPCS: 78227

== ENCOUNTER 2018-08-24 05:31 | Outpatient (CLI) | payer OTHER ==
[~2018-08-24] VITALS: Ht 172.7 cm; Wt 79.8 kg
[~2018-08-24 05:31] MED LIST changes: -CATHETER FLUSH 10 ML SYR IV PRN
[2018-08-24] MEDS ORDERED: HYDR-3816 PO (14:21)
[2018-08-24] MEDS ORDERED: IBUP-1780 PO (14:21)
[2018-08-24] MEDS ORDERED: OMEP20TA7 PO (14:21)
== END 2018-08-24 14:27 | disposition home or self-care (01) ==
LOC: PREOP 05:31
PROVIDERS: ATTEND Surgery
DX: Z01.818 Encounter for other preprocedural examination (principal)

== ENCOUNTER 2018-09-01 06:28 | Day surgery (SDC) | payer OTHER ==
[~2018-09-01] VITALS: Ht 172.7 cm; Wt 79.8 kg
[2018-09-01] VITALS (11 sets, daily range): BP systolic 107–134; BP diastolic 55–92
[~2018-09-01 06:28] MED LIST changes: +HYDR-3816 PO; +IBUP-1780 PO; +OMEP20TA7 PO
--- OUTSIDE RECORDS SUMMARY | 2018-09-01 06:36 | XMS REPORT | Continuity of Care Document ---
Author Organization Unknown Address Unknown Allergies Active Description Code Type Severity Reaction Onset Reported/Identified Relationship to Patient Clinical Status Yes No Known Drug Allergies [id number] Drug Allergy Unknown N/A 10/12/2015 Medications There [...] RENAL URETERAL DIS NOS 10/11/2013 SHARON LUTHER SPARERIBS TRIMMER Ot 462 ACUTE PHARYNGITIS 10/11/2013 SHARON LUTHER SPARERIBS TRIMMER Ot 780.79 OTH MALAISE FATIGUE 10/11/2013 SHARON LUTHER SPARERIBS TRIMMER Ot 784.0 HEADACHE 10/11/2013 SHARON LUTHER SPARERIBS TRIMMER Ot 789.09 ABDOMINAL PAIN, OTHER SPECIFIED SITE [...] OF RIGHT SHOULDER KILLIAN 09/26/2015 SHARON LUTHER SPARERIBS TRIMMER Ot X58.XXXA EXPOSURE TO OTHER SPECIFIED FACTORS, INI 09/26/2015 SHARON LUTHER SPARERIBS TRIMMER Ot Y92.[address] 09/26/2015 SHARON LUTHER SPARERIBS TRIMMER Ot Y93.64 ACTIVITY, BASEBALL 09/26/2015 SHARON LUTHER [...] OTHER EXTERNAL CAUSE STATUS 10/12/2015 JONES JOHNSON 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 Ot Z31.69 ENCOUNTER FOR OTH GENERAL CNSL [...] OF POPLITEAL SPACE [GLEZ] 06/14/2016 SHARON LUTHER SPARERIBS TRIMMER Ot M23.91 UNSPECIFIED INTERNAL DERANGEMENT OF RIGH 06/14/2016 SHARON LUTHER SPARERIBS TRIMMER Ot S89.91XA UNSPECIFIED INJURY OF RIGHT LOWER LEG, I 06/16/2016 SHARON LUTHER SPARERIBS TRIMMER Ot M23.91 UNSPECIFIED INTERNAL DERANGEMENT OF RIGH 06/16/2016 SHARON LUTHER SPARERIBS TRIMMER Ot S89.91XA UNSPECIFIED INJURY OF RIGHT LOWER LEG, I 07/14/2016 SHARON LUTHER SPARERIBS TRIMMER Ot M23.91 UNSPECIFIED INTERNAL DERANGEMENT OF RIGH 07/14/2016 SHARON LUTHER SPARERIBS TRIMMER Ot M25.561 PAIN IN RIGHT KNEE 07/25/2016 ANNIE ASHFORD SPARERIBS TRIMMER Ot M25.461 EFFUSION, RIGHT KNEE 07/25/2016 ANNIE ASHFORD SPARERIBS TRIMMER Ot M71.21 SYNOVIAL CYST OF POPLITEAL SPACE [GLEZ] 07/25/2016 ANNIE ASHFORD SPARERIBS TRIMMER Ot S83.511A SPRAIN OF ANTERIOR CRUCIATE LIGAMENT OF 07/25/2016 ANNIE ASHFORD SPARERIBS TRIMMER Ot X58.XXXA EXPOSURE TO OTHER SPECIFIED FACTORS, INI 07/25/2016 ANNIE ASHFORD SPARERIBS TRIMMER Ot Y99.8 OTHER EXTERNAL CAUSE STATUS 07/31/2016 ANNIE ASHFORD SPARERIBS TRIMMER Ot M25.461 EFFUSION, RIGHT KNEE 07/31/2016 ANNIE ASHFORD SPARERIBS TRIMMER Ot M71.21 SYNOVIAL CYST OF POPLITEAL SPACE [GLEZ] 07/31/2016 ANNIE ASHFORD SPARERIBS TRIMMER Ot S83.511A SPRAIN OF ANTERIOR CRUCIATE LIGAMENT OF 07/31/2016 ANNIE ASHFORD SPARERIBS TRIMMER Ot X58.XXXA EXPOSURE TO OTHER SPECIFIED FACTORS, INI 07/31/2016 ANNIE ASHFORD SPARERIBS TRIMMER Ot Y99.8 OTHER EXTERNAL CAUSE STATUS 08/07/2016 SHARON LUTHER SPARERIBS TRIMMER Ot M23.91 UNSPECIFIED INTERNAL DERANGEMENT OF RIGH 08/07/2016 SHARON LUTHER SPARERIBS TRIMMER Ot S89.91XA UNSPECIFIED INJURY OF RIGHT LOWER [...] OTHER NONSPECIFIC SKIN ERUPTION 04/16/2017 ANNIE ASHFORD SPARERIBS TRIMMER Ot M25.461 EFFUSION, RIGHT KNEE 04/16/2017 ANNIE ASHFORD SPARERIBS TRIMMER Ot M71.21 SYNOVIAL CYST OF POPLITEAL SPACE [GLEZ] 04/16/2017 ANNIE ASHFORD SPARERIBS TRIMMER Ot S83.511A SPRAIN OF ANTERIOR CRUCIATE LIGAMENT OF 04/16/2017 ANNIE ASHFORD SPARERIBS TRIMMER Ot X58.XXXA EXPOSURE TO OTHER SPECIFIED FACTORS, INI 04/16/2017 ANNIE ASHFORD SPARERIBS TRIMMER Ot Y99.8 OTHER EXTERNAL CAUSE STATUS 04/25/2017 [...] Z87.440 PERSONAL HISTORY OF URINARY (TRACT) INFE 12/21/2017 HOLDEN CONCEPCION MD Ot G43.909 MIGRAINE, UNSP, NOT INTRACTABLE, WITHOUT 12/21/2017 HOLDEN CONCEPCION MD Ot K21.9 GASTRO-ESOPHAGEAL REFLUX DISEASE WITHOUT 12/21/2017 HOLDEN CONCEPCION MD Ot M79.644 PAIN IN RIGHT FINGER(S) 12/21/2017 HOLDEN CONCEPCION MD Ot S62.524A NONDISP FX OF DISTAL PHALANX OF RIGHT TH 12/21/2017 JAMEY ECHOLS, HOLDEN Saleh Ot W22.8XXA STRIKING AGAINST OR STRUCK BY OTHER OBJE 12/21/2017 JAMEY ECHOLS, HOLDEN Saleh Ot Z87.448 PERSONAL HISTORY OF OTHER DISEASES OF UR 03/27/2018 CHARY VERA MD Ot G43.909 MIGRAINE, UNSP, NOT INTRACTABLE, WITHOUT 03/27/2018 JODY ECHOLS, CHARY J Ot K21.9 GASTRO-ESOPHAGEAL REFLUX DISEASE WITHOUT 03/27/2018 JODY ECHOLS, CHARY J Ot K59.00 CONSTIPATION, UNSPECIFIED 03/27/2018 JODY ECHOLS, CHARY J Ot R10.33 PERIUMBILICAL PAIN 03/27/2018 JODY ECHOLS, CHARY Cotto Ot Z87.448 PERSONAL HISTORY OF OTHER DISEASES OF UR 03/30/2018 CHARY VERA MD J Ot G43.909 MIGRAINE, UNSP, NOT INTRACTABLE, WITHOUT 03/30/2018 BRIJESH VERA MDUS J Ot K21.9 GASTRO-ESOPHAGEAL REFLUX DISEASE WITHOUT 03/30/2018 CHARY VERA MD J Ot K59.00 CONSTIPATION, UNSPECIFIED 03/30/2018 CHARY VERA MD J Ot R10.33 PERIUMBILICAL PAIN 03/30/2018 CHARY VERA MD Ot Z87.448 PERSONAL HISTORY OF OTHER DISEASES OF UR 06/05/2018 SHARON LUTHER APRN Ot G43.909 MIGRAINE, UNSP, NOT INTRACTABLE, WITHOUT 06/05/2018 SHARON LUTHER SPARERIBS TRIMMER Ot K21.9 GASTRO-ESOPHAGEAL REFLUX DISEASE WITHOUT 06/05/2018 SHARON LUTHER SPARERIBS TRIMMER Ot R07.81 PLEURODYNIA 06/05/2018 SHARON LUTHER SPARERIBS TRIMMER Ot Z87.448 PERSONAL HISTORY OF OTHER DISEASES OF UR 06/08/2018 SHARON LUTHER SPARERIBS TRIMMER Ot G43.909 MIGRAINE, UNSP, NOT INTRACTABLE, WITHOUT 06/08/2018 SHARON LUTHER APRN Ot K21.9 GASTRO-ESOPHAGEAL REFLUX DISEASE WITHOUT 06/08/2018 SHARON LUTHER APRN Ot R07.81 PLEURODYNIA 06/08/2018 SHARON LUTHER SPARERIBS TRIMMER Ot Z87.448 PERSONAL HISTORY OF OTHER DISEASES OF UR 07/03/2018 SHARON LUTHER SPARERIBS TRIMMER Ot G43.909 MIGRAINE, UNSP, NOT INTRACTABLE, WITHOUT 07/03/2018 SHARON LUTHER APRN Ot K21.9 GASTRO-ESOPHAGEAL REFLUX DISEASE WITHOUT 07/03/2018 SHARON LUTHER APRN Ot R10.13 EPIGASTRIC PAIN 07/03/2018 SHARNO LUTHER APRN Ot Z79.52 ASSISTED (CURRENT) USE OF SYSTEMIC STER 07/03/2018 SHARON LUTHER APRN Ot Z87.448 PERSONAL HISTORY OF OTHER DISEASES OF UR 07/09/2018 SHARON LUTHER APRN Ot G43.909 MIGRAINE, UNSP, NOT INTRACTABLE, WITHOUT 07/09/2018 SHARON LUTHER APRN Ot K21.9 GASTRO-ESOPHAGEAL REFLUX DISEASE WITHOUT 07/09/2018 SHARON LUTHER APRN Ot R10.13 EPIGASTRIC PAIN 07/09/2018 SHARON LUTHER APRN Ot Z79.52 GILL BOX OPERATOR (CURRENT) USE OF SYSTEMIC STER 07/09/2018 SHARON LUTHER APRN Ot Z87.448 PERSONAL HISTORY OF OTHER DISEASES OF UR 07/12/2018 HOLDEN CONCEPCION MD Ot G43.909 MIGRAINE, UNSP, NOT INTRACTABLE, WITHOUT 07/12/2018 HOLDEN CONCEPCION MD Ot K21.9 GASTRO-ESOPHAGEAL REFLUX DISEASE WITHOUT 07/12/2018 HOLDEN CONCEPCION MD Ot R10.13 EPIGASTRIC PAIN 07/12/2018 HOLDEN CONCEPCION MD Ot Z87.448 PERSONAL HISTORY OF OTHER DISEASES OF UR 07/13/2018 HOLDEN CONCEPCION MD Ot G43.909 MIGRAINE, UNSP, NOT INTRACTABLE, WITHOUT 07/13/2018 HOLDEN CONCEPCION MD Ot K21.9 GASTRO-ESOPHAGEAL REFLUX DISEASE WITHOUT 07/13/2018 HOLDEN CONCEPCION MD Ot R10.13 EPIGASTRIC PAIN 07/13/2018 HOLDEN CONCEPCION MD Ot Z87.448 PERSONAL HISTORY OF OTHER DISEASES OF UR 07/17/2018 JORGE KING MD Ot G43.909 MIGRAINE, UNSP, NOT INTRACTABLE, WITHOUT 07/17/2018 JORGE KING MD Ot K21.9 GASTRO-ESOPHAGEAL REFLUX DISEASE WITHOUT 07/17/2018 JORGE KING MD Ot R10.13 EPIGASTRIC PAIN 07/17/2018 CHRISTINE ECHOLS, JORGE Rojo Ot Z87.448 PERSONAL HISTORY OF OTHER DISEASES OF UR 07/20/2018 JORGE KING MD Ot G43.909 MIGRAINE, UNSP, NOT INTRACTABLE, WITHOUT 07/20/2018 JORGE KING MD Ot K21.9 GASTRO-ESOPHAGEAL REFLUX DISEASE WITHOUT 07/20/2018 JORGE KING MD Ot R10.13 EPIGASTRIC PAIN 07/20/2018 JORGE KING MD Ot Z87.448 PERSONAL HISTORY OF OTHER DISEASES OF UR 07/20/2018 SHARON LUTHER APRN Ot G43.909 MIGRAINE, UNSP, NOT INTRACTABLE, WITHOUT 07/20/2018 SHARON LUTHER APRN Ot J02.9 ACUTE PHARYNGITIS, UNSPECIFIED 07/20/2018 SHARON LUTHER APRN Ot J06.9 ACUTE UPPER RESPIRATORY INFECTION, UNSPE 07/20/2018 SHARON LUTHER APRN Ot K21.9 GASTRO-ESOPHAGEAL REFLUX DISEASE WITHOUT 07/20/2018 SHARON LUTHER APRN Ot Z87.448 PERSONAL HISTORY OF OTHER DISEASES OF UR 07/22/2018 SHARON LUTHER APRN Ot G43.909 MIGRAINE, UNSP, NOT INTRACTABLE, WITHOUT 07/22/2018 SHARON LUTHER APRN Ot J02.9 ACUTE PHARYNGITIS, UNSPECIFIED 07/22/2018 SHARON LUTHER APRN Ot J06.9 ACUTE UPPER RESPIRATORY INFECTION, UNSPE 07/22/2018 SHARON LUTHER APRN Ot K21.9 GASTRO-ESOPHAGEAL REFLUX DISEASE WITHOUT 07/22/2018 SHARON LUTHER APRN Ot Z87.448 PERSONAL HISTORY OF OTHER DISEASES OF UR 07/28/2018 ANNIE ASHFORD SPARERIBS TRIMMER Ot M25.461 EFFUSION, RIGHT KNEE 07/28/2018 ANNIE ASHFORD SPARERIBS TRIMMER Ot M71.21 SYNOVIAL CYST OF POPLITEAL SPACE [GLEZ] 07/28/2018 ANNIE ASHFORD SPARERIBS TRIMMER Ot S83.511A SPRAIN OF ANTERIOR CRUCIATE LIGAMENT OF 07/28/2018 ANNIE ASHFORD SPARERIBS TRIMMER Ot X58.XXXA EXPOSURE TO OTHER SPECIFIED FACTORS, INI 07/28/2018 ANNIE ASHFORD SPARERIBS TRIMMER Ot Y99.8 OTHER EXTERNAL CAUSE STATUS 07/29/2018 CHARY VEAR MD Ot G43.909 MIGRAINE, UNSP, NOT INTRACTABLE, WITHOUT 07/29/2018 CHARY VERA MD Ot K21.9 GASTRO-ESOPHAGEAL REFLUX DISEASE WITHOUT 07/29/2018 CHARY VERA MD Ot R07.9 CHEST PAIN, UNSPECIFIED 07/29/2018 CHARY VERA MD Ot R50.9 FEVER, UNSPECIFIED 07/29/2018 CHARY VERA MD Ot Z87.440 PERSONAL HISTORY OF URINARY (TRACT) INFE 07/29/2018 HOLDEN CONCEPCION MD, Ot G43.909 MIGRAINE, UNSP, NOT INTRACTABLE, WITHOUT 07/29/2018 HOLDEN CONCEPCION MD, Ot K21.9 GASTRO-ESOPHAGEAL REFLUX DISEASE WITHOUT 07/29/2018 HOLDEN CONCEPCION MD, Ot M79.644 PAIN IN RIGHT FINGER(S) 07/29/2018 HOLDEN CONCEPCION MD, Ot S62.524A NONDISP FX OF DISTAL PHALANX OF RIGHT TH 07/29/2018 HOLDEN CONCEPCION MD, Ot W22.8XXA STRIKING AGAINST OR STRUCK BY OTHER OBJE 07/29/2018 HOLDEN CONCEPCION MD, Ot Z87.448 PERSONAL HISTORY OF OTHER DISEASES OF UR 07/29/2018 SHARON LUTHER APRN Ot G43.909 MIGRAINE, UNSP, NOT INTRACTABLE, WITHOUT 07/29/2018 SHARON LUTHER APRN Ot K21.9 GASTRO-ESOPHAGEAL REFLUX DISEASE WITHOUT 07/29/2018 SHARON LUTHER APRN Ot R10.13 EPIGASTRIC PAIN 07/29/2018 SHARON LUTHER APRN Ot Z79.52 GILL BOX OPERATOR (CURRENT) USE OF SYSTEMIC STER 07/29/2018 SHARON LUTHER APRN Ot Z87.448 PERSONAL HISTORY OF OTHER DISEASES OF UR 08/09/2018 KATIE BARAJAS DO B Ot R10.13 EPIGASTRIC PAIN 08/12/2018 DAVID BARAJAS DOIC B Ot R10.13 EPIGASTRIC PAIN 08/24/2018 KATIE BARAJAS DO B Ot Z01.818 ENCOUNTER FOR OTHER PREPROCEDURAL EXAMIN 08/25/2018 KATIE BARAJAS DO Ot Z01.818 ENCOUNTER FOR OTHER PREPROCEDURAL EXAMIN Procedures There is no data. Results Test [...] Automated erythrocyte mean corpuscular hemoglobin concentration measurement (mass/volume) 34 g/dL 32-36 Automated erythrocyte distribution width ratio 13.4 % 10.0- 14.5 Automated blood platelet count (count/volume) 257 10*3/uL [...] Blood monocytes automated count (number/volume) 0.8 10*3 0.0- 1.0 Automated eosinophil count 0.1 10*3/uL 0.0-0.3 Automated [...] Serum or plasma aspartate aminotransferase measurement (enzymatic activity/volume) 17 U/L 5-34 Serum or plasma alanine aminotransferase measurement (enzymatic activity/volume) 10 U/L 0-55 Serum or plasma protein [...] sediment leukocyte count by microscopy (number/high power field) NONE NRG Bacteria detection in urine sediment [...] sediment leukocyte count by microscopy (number/high power field) NONE NRG Bacteria detection in urine sediment [...] Automated erythrocyte mean corpuscular hemoglobin concentration measurement (mass/volume) 34 g/dL 32-36 Automated erythrocyte distribution width ratio 13.0 % 10.0- 14.5 Automated blood platelet count (count/volume) 245 10*3/uL [...] Blood monocytes automated count (number/volume) 0.6 10*3 0.0- 1.0 Automated eosinophil count 0.1 10*3/uL 0.0-0.3 Automated [...] Serum or plasma aspartate aminotransferase measurement (enzymatic activity/volume) 15 U/L 5-34 Serum or plasma alanine aminotransferase measurement (enzymatic activity/volume) 12 U/L 0-55 Serum or plasma protein [...] sediment leukocyte count by microscopy (number/high power field) NONE NRG Bacteria detection in urine sediment [...] or plasma troponin i.cardiac measurement (mass/volume) < ng/mL <0.30 PDM - 09 PANEL (PROFILE 1) [...] Automated erythrocyte mean corpuscular hemoglobin concentration measurement (mass/volume) 34 g/dL 32-36 Automated erythrocyte distribution width ratio 13.4 % 10.0- 14.5 Automated blood platelet count (count/volume) 308 10*3/uL [...] Blood monocytes automated count (number/volume) 0.6 10*3 0.0- 1.0 Automated eosinophil count 0.1 10*3/uL 0.0-0.3 Automated [...] Serum or plasma aspartate aminotransferase measurement (enzymatic activity/volume) 16 U/L 5-34 Serum or plasma alanine aminotransferase measurement (enzymatic activity/volume) 14 U/L 0-55 Serum or plasma protein measurement (mass/volume) 7.2 g/dL 6.4-8.2 Serum or plasma albumin measurement (mass/volume) 4.3 g/dL 3.2-4.5 CALCIUM CORRECTED 9.0 mg/dL 8.5-10.1 Magnesium - 03/27/18 13:41 Magnesium 2.5 mg/dL 1.8-2.4 Serum or plasma C reactive protein measurement (mass/volume) - 03/27/18 13:41 Serum or plasma C reactive protein measurement (mass/volume) 1.19 mg/dL 0.00-0.50 Complete urinalysis with reflex to culture [...] sediment leukocyte count by microscopy (number/high power field) NONE NRG Bacteria detection in urine sediment [...] sediment leukocyte count by microscopy (number/high power field) NONE NRG Bacteria detection in urine sediment [...] Automated erythrocyte mean corpuscular hemoglobin concentration measurement (mass/volume) 33 g/dL 32-36 Automated erythrocyte distribution width ratio 14.0 % 10.0- 14.5 Automated blood platelet count (count/volume) 324 10*3/uL [...] Blood monocytes automated count (number/volume) 0.8 10*3 0.0- 1.0 Automated eosinophil count 0.1 10*3/uL 0.0-0.3 Automated [...] Serum or plasma aspartate aminotransferase measurement (enzymatic activity/volume) 15 U/L 5-34 Serum or plasma alanine aminotransferase measurement (enzymatic activity/volume) 16 U/L 0-55 Serum or plasma protein measurement (mass/volume) 8.2 g/dL 6.4-8.2 Serum or plasma albumin measurement (mass/volume) 4.9 g/dL 3.2-4.5 Lipase - 07/03/18 20:50 Lipase 26 U/L 8-78 Complete blood count (CBC) with automated white blood cell (WBC) differential - 07/17/18 07:26 Blood leukocytes automated count (number/volume) 7.6 10*3/uL 4.3-11.0 Blood erythrocytes automated count (number/volume) 5.52 10*6/uL 4.35-5.85 Venous blood hemoglobin measurement (mass/volume) 15.9 g/dL 13.3-17.7 Blood hematocrit (volume fraction) 47 % 40-54 Automated erythrocyte mean corpuscular volume 86 [foz_us] 80-99 Automated erythrocyte mean corpuscular hemoglobin (mass per erythrocyte) 29 pg 25-34 Automated erythrocyte mean corpuscular hemoglobin concentration measurement (mass/volume) 34 g/dL 32-36 Automated erythrocyte distribution width ratio 13.8 % 10.0- 14.5 Automated blood platelet count (count/volume) 289 10*3/uL 130-400 Automated blood platelet mean volume measurement 9.6 [foz_us] 7.4-10.4 Automated blood neutrophils/100 leukocytes 63 % 42-75 Automated blood lymphocytes/100 leukocytes 28 % 12-44 Blood monocytes/100 leukocytes 7 % 0-12 Automated blood eosinophils/100 leukocytes 2 % 0-10 Automated blood basophils/100 leukocytes 0 % 0-10 Blood neutrophils automated count (number/volume) 4.8 10*3 1.8-7.8 Blood lymphocytes automated count (number/volume) 2.1 10*3 1.0-4.0 Blood monocytes automated count (number/volume) 0.6 10*3 0.0- 1.0 Automated eosinophil count 0.1 10*3/uL 0.0-0.3 Automated blood basophil count (count/volume) 0.0 10*3/uL 0.0-0.1 Comprehensive metabolic panel - 07/17/18 07:26 Serum or plasma sodium measurement (moles/volume) 138 mmol/L 135-145 Serum or plasma potassium measurement (moles/volume) 4.2 mmol/L 3.6-5.0 Serum or plasma chloride measurement (moles/volume) 106 mmol/L 98-107 Carbon dioxide 19 mmol/L 21-32 Serum or plasma anion gap determination (moles/volume) 13 mmol/L 5-14 Serum or plasma urea nitrogen measurement (mass/volume) 15 mg/dL 7-18 Serum or plasma creatinine measurement (mass/volume) 1.16 mg/dL 0.60-1.30 Serum or plasma urea nitrogen/creatinine mass ratio 13 NRG Serum or plasma creatinine measurement with calculation of estimated glomerular filtration rate > NRG Serum or plasma glucose measurement (mass/volume) 92 mg/dL 70-105 Serum or plasma calcium measurement (mass/volume) 9.8 mg/dL 8.5-10.1 Serum or plasma total bilirubin measurement (mass/volume) 0.6 mg/dL 0.1-1.0 Serum or plasma alkaline phosphatase measurement (enzymatic activity/volume) 60 U/L 40-136 Serum or plasma aspartate aminotransferase measurement (enzymatic activity/volume) 20 U/L 5-34 Serum or plasma alanine aminotransferase measurement (enzymatic activity/volume) 15 U/L 0-55 Serum or plasma protein measurement (mass/volume) 7.8 g/dL 6.4-8.2 Serum or plasma albumin measurement (mass/volume) 4.6 g/dL 3.2-4.5 Lipase - 07/17/18 07:26 Lipase 24 U/L 8-78 Serum Helicobacter pylori antibody assay (units/volume) - 07/17/18 07:26 Helicobacter pylori ab [units/volume] in serum 0.21 u[iU]/mL 0.00-0.79 Interpretation of Helicobacter pylori IgG antibody assay Negative Negative Complete urinalysis with reflex to culture - 07/17/18 09:01 Urine color determination YELLOW NRG Urine clarity determination SLIGHTLY CLOUDY NRG Urine pH measurement by test strip 7 5-9 Specific gravity of urine by test strip 1.005 1.016-1.022 Urine protein assay by test strip, [...] sediment leukocyte count by microscopy (number/high power field) RARE NRG Bacteria detection in urine sediment by light microscopy NEGATIVE NRG Crystals detection in urine sediment by light microscopy NONE NRG Casts detection in urine sediment by light microscopy NONE NRG Mucus detection in urine sediment by light microscopy NEGATIVE NRG Complete urinalysis with reflex to culture NO NRG Encounters ACCT No. Visit Date/Time Discharge Status Pt. Type Provider Facility Loc./Unit Complaint [id number] 07/15/2018 14:55:00 07/15/2018 23:59:59 [facility] Outpatient RENITA COLLADO APRN [facility] [id number] 12/08/2017 14:00:00 Document Registration [id number] 08/24/2018 05:31:00 08/24/2018 14:27:00 DIS Outpatient KATIE BARAJAS DO [facility] PREOP HYPER DYSKINESIA [id number] 08/09/2018 12:03:00 08/09/2018 23:59:59 [facility] Outpatient KATIE BARAJAS DO [facility] CARD EPIGASTRIC ABD PAIN [id number] 07/28/2018 06:47:00 07/28/2018 23:59:59 CLS Outpatient KATIE BARAJAS DO B [facility] RAD EPIGASTRIC ABDOMINAL PAIN [id number] 07/20/2018 21:52:00 07/20/2018 22:26:00 DIS Emergency SHARON LUTHER APRN [facility] ER THROAT AND EAR PAIN [id number] 07/17/2018 07:11:00 07/17/2018 09:57:00 DIS Emergency CHRISTINE ECHOLS, JORGE S [facility] ER ABD PAIN [id number] 07/11/2018 23:34:00 07/12/2018 00:48:00 DIS Emergency JAMEY ECHOLS, HOLDEN Saleh [facility] ER WANTING TO CHECK FOR INFECTIONS [id number] 07/03/2018 20:24:00 07/03/2018 21:46:00 DIS Emergency SHARON LUTHER APRN [facility] ER LOSING WEIGHT, TIRED [id number] 06/05/2018 22:32:00 06/05/2018 23:07:00 DIS Emergency SHARON LUTHER APRN [facility] ER PAIN IN STERNUM [id number] 03/27/2018 13:29:00 03/27/2018 14:48:00 DIS Emergency CHARY VERA MD [facility] ER PAIN AROUND BELLY BUTTON AREA [id number] 12/21/2017 03:49:00 12/21/2017 04:44:00 DIS Emergency JAMEY ECHOLS, HOLDEN Saleh [facility] ER RT THUMB SMASHED W/HAMMER [id number] 06/24/2017 16:05:00 06/24/2017 20:25:00 DIS Emergency CHARY VERA MD [facility] ER CHEST PAIN;FEVER [id number] 04/24/2017 23:43:00 04/25/2017 02:10:00 DIS Emergency HOLDEN CONCEPCION MD [facility] ER DIFFICULTY URINATING [id number] 02/21/2017 13:35:00 02/21/2017 14:28:00 DIS Emergency JOHAN CHRISTIANSON [facility] ER ENTIRE BODY ITCHING POSS SCABIES [id number] 07/23/2016 14:37:00 07/23/2016 23:59:59 CLS Outpatient ANNIE ASHFORD APRN [facility] RAD S89.91XA INJ OF RT KNEE [id number] 07/14/2016 13:20:00 07/14/2016 14:51:00 DIS Emergency SHARON LUTHER APRN [facility] ER RIGHT KNEE PAIN [id number] 06/14/2016 19:20:00 06/14/2016 20:24:00 DIS Emergency SHARON LUTHER APRN [facility] ER R LEG PAIN [id number] 06/01/2016 01:29:00 06/01/2016 02:54:00 DIS Emergency HOLDEN CONCECPION MD [facility] ER R LEG/KNEE PAIN [id number] 02/24/2016 12:12:00 02/24/2016 16:06:00 DIS Emergency JORGE KING MD [facility] ER L LOWER ABD PAIN [id number] 01/22/2016 14:10:00 01/22/2016 15:26:00 DIS Emergency JOHAN CHRISTIANSON [facility] ER VOMITING/ABD PAIN DIARRHEA [id number] 10/12/2015 18:49:00 10/12/2015 19:47:00 DIS Emergency SHARON LUTHER APRN [facility] ER BURN [id number] 10/12/2015 11:33:00 10/12/2015 11:50:00 DIS Outpatient JONES JOHNSON [facility] LAB INFERTILITY COUNSELING [id number] 09/26/2015 11:12:00 09/26/2015 11:57:00 DIS Emergency SHARON LUTHER APRN [facility] ER RIGHT SHOULDER PAIN [id number] 06/23/2015 14:37:00 06/23/2015 14:45:00 DIS Emergency JORGE KING MD [facility] ER SUTURE REMOVAL [id number] 06/14/2015 01:05:00 06/14/2015 02:54:00 DIS Emergency YIFAN HARPER DO [facility] ER LAC RT HAND INDEX FINGER [id number] 04/18/2015 16:34:00 04/18/2015 17:47:00 DIS Emergency HOLDEN CONCEPCION MD [facility] ER VOMITING;BACK PAIN;DIARRHEA [id number] 09/05/2014 07:14:00 09/05/2014 08:53:00 DIS Emergency POONAM ECHOLS, RAMANDEEP Kraft [facility] ER SIDE/ABD PAIN HEADACHE NAUSEA [id number] 03/14/2014 08:12:00 03/14/2014 09:39:00 DIS Emergency ADRINAE ECHOLS, PAULIE Storm [facility] ER CHEST PAIN [id number] 12/04/2013 14:09:00 12/04/2013 14:58:00 DIS Emergency JOHAN CHRISTIANSON [facility] ER FINGER PAIN [id number] 11/25/2013 21:44:00 11/25/2013 23:03:00 DIS Emergency TY ECHOLS, BARRY Rdz [facility] ER ABD PAIN [id number] 11/20/2013 13:53:00 11/20/2013 15:11:00 DIS Emergency POONAM ECHOLS, RAMANDEEP Kraft [facility] ER R INDEX FINGER GROIN PAIN [id number] 10/11/2013 14:21:00 10/11/2013 17:46:00 DIS Emergency SHARON LUTHER APRN [facility] ER HEADACHE [id number] 09/04/2013 22:51:00 09/05/2013 15:27:00 DIS Inpatient MELA COPELAND DO S [facility] 4TH ACUTE PYELONEPHRITIS, GROSS HEMATURIA [id number] 07/31/2013 12:30:00 07/31/2013 14:29:00 DIS Emergency RAMANDEEP LEVIN MD [facility] ER CHEST PAIN HEADACHE [id number] 07/06/2013 23:15:00 07/07/2013 00:15:00 DIS Emergency YIFAN HARPER DO [facility] ER BLOODY NOSE [id number] 09/01/2018 08:00:00 [facility] [id number] 05/12/2012 18:10:00 Document Registration [id number] 08/01/2011 15:41:00 Document Registration [id number] 07/27/2011 19:28:00 Document Registration [id number] 05/05/2011 21:38:00 Document Registration [id number] 01/28/2010 08:14:00 Document Registration [id number] 11/07/2009 14:18:00 Document Registration
[2018-09-01] MEDS ORDERED: BUP/EPI 0.5% 1:200,000 (SENSORCAINE) 30 ML VIAL ONE (06:50)
[2018-09-01] MEDS ORDERED: IOPAMIDOL 61% 30 ML (ISOVUE 300) VIAL IV ONE (06:50)
[2018-09-01] MEDS ORDERED: DEXAMETHASONE 10 MG/ML (DECADRON) 1 ML VIAL ONE (07:20)
[2018-09-01] MEDS ORDERED: proPOfol 200 MG/20 ML (DIPRIVAN) VIAL IV ONE (07:20)
[2018-09-01] MEDS ORDERED: LIDOCAINE PF 2% 5 ML (XYLOCAINE) VIAL ONE (07:20)
[2018-09-01] MEDS ORDERED: MIDAZOLAM 2 MG/2 ML (VERSED) VIAL ONE (07:20)
[2018-09-01] MEDS ORDERED: ONDANSETRON 4 MG/2 ML (SDV) Z0FRAN ONE (07:21)
[2018-09-01] MEDS ORDERED: fentaNYL INJECTION 100 MCG/2 ML AMP ONE ×2 (07:21→08:54)
[2018-09-01] MEDS ORDERED: NEOSTIGMINE 3 MG/3 ML VIAL ONE ×2 (07:21→09:21)
[2018-09-01] MEDS ORDERED: GLYCOPYRROLATE 0.2 MG/ML (ROBINUL) 2 ML VIAL ONE (07:21)
[2018-09-01] MEDS ORDERED: ROCURONIUM 10 MG/ML 5 ML SYRINGE IV ONE ×2 (07:21→09:17)
[2018-09-01] MEDS ORDERED: DESFLURANE (SUPRANE) 15 ML INHAL SOLN ONE ×2 (07:26→09:17)
[2018-09-01] MEDS: LACTATED RINGERS 1,000 ML IV PRN ×2 (07:27→09:26)
[2018-09-01] MEDS ORDERED: FAMOTIDINE 20MG/2ML IV (PEPCID) IV ONE (07:45)
[2018-09-01] MEDS ORDERED: ceFAZolin 2 GM/50 ML NS 50 ML IV ONE (07:45)
--- NOTE | 2018-09-01 08:29 | Progress Note-Pre Operative ---
Pre-Operative Progress Note H&P Reviewed The H&P was reviewed, patient examined and no changes noted. Time Seen by Provider: 08:18 Date H&P Reviewed: Sep 01, 2018 Time H&P Reviewed: 08:19 Pre-Operative Diagnosis: Biliary Dyskinesia KATIE BARAJAS DO Sep 01, 2018 08:29
[2018-09-01] MEDS ORDERED: MEPERIDINE (DEMEROL) INJ 50 MG/ML IVP ONE (08:45)
[2018-09-01] MEDS ORDERED: ONDANSETRON 4 MG/2 ML (SDV) Z0FRAN IVP PRN (08:45)
[2018-09-01] MEDS ORDERED: fentaNYL INJECTION 100 MCG/2 ML AMP IVP ONE (08:45)
[2018-09-01] MEDS ORDERED: morphine INJ 10 MG/ML 1ML (SYR OR VIAL) IVP ONE (08:45)
[2018-09-01] MEDS ORDERED: HYDROmorphone 2 MG/ML VIAL (DILAUDID) IV ONE (08:45)
--- NOTE | 2018-09-01 09:23 | Progress Note-Post Operative ---
Post-Operative Progess Note Surgeon (s)/Big Data Lead (s) Surgeon KATIE BARAJAS DO Big Data Lead: Asher Pre-Operative Diagnosis Biliary Dyskinesia Post-Operative Diagnosis Same plus Epiploica Appendigitis Procedure & Operative Findings Date of Procedure 09/01/18 Procedure Performed/Findings Lap Sophia with IOC Anesthesia Type GET Estimated Blood Loss Estimated blood loss (mL): scant Specimens/Packing Specimens Removed GB and contents KATIE BARAJAS DO Sep 01, 2018 09:23
[2018-09-01] MEDS ORDERED: HYDR-3816 PO (09:24)
--- NOTE | 2018-09-01 09:26 | Discharge Inst-Surgical ---
Discharge Inst-Surgical Depart Medication/Instructions New, Converted or Re-Newed RX: RX Given to Pt/Family Patient Instructions Follow up Appt: Make appointment for 1 week. [phone] Instructions: No lifting greater than 20 pounds. No strenuous activity. May shower in 24 hours, no tub bath or soaking. Use incentive spirometer at home as directed. No Smoking Skin/Wound Care: May remove bandages in am. You need to leave the Dermabond on incision it will fall off on it's own. Symptoms to Report: Appetite Changes, Extremity Discoloration, Numbness/Tingling, Swelling Increased, Bleeding Excessive, Eyesight Changes, Pain Increased, Urine Color Change, Constipation(Persistent), Fever over 101 degree F, Pain/Pressure in chest, Urinating Difficulty, Cough Up/Vomit Blood, Heart Beat Irreg/Pounding, Pain/Pressure in jaw, Cramps in feet or legs, Lightheadedness, Pain/Pressure in shoulder, Diarrhea(Persistent), Memory Changes Suddenly, Questions/Concerns, Weight gain consecutive days, Dizziness/Fainting, Nausea/Vomiting, Shortness of Breath, Weight gain over 2 pounds If questions or concerns contact your physician Or seek help at emergency department. Activity Activity as Tolerated: Yes Activity Instructions: Avoid Stress to Incision Driving Instructions: No Driving/Refer to Diet Discharge Diet: Avoid Fatty Foods, Low Fat/Low Cholesterol Diet After 24 Hours: Clear Liquid if Nauseous If Any Problems/Questions/Issu: Contact Your Physician, Go to Emergency Room Skin/Wound Care Infection Signs and Symptoms: Increased Redness, Foul Odor of Wound, Increased Drainage, Skin Itchy or Has a Rash, Increased Swelling, Temperature Above 101 F Wound Care Comment: Heating pad to shoulder or neck tonight for pain Bathing Instructions: Shower Stitches/Andres/Dermabond Dis: Dermabond Ice Pack: Ice On and Off Site (as needed at incision sites) KATIE BARAJAS DO Sep 01, 2018 09:26
--- NOTE | 2018-09-01 12:04 | Diagnostic Imaging Report ---
EXAMINATION: Fluoroscopy. INDICATION: Abdominal pain. Fluoroscopic assistance was provided for Dr. Femi Duke during his laparoscopic cholecystectomy. 10 seconds of fluoroscopy time was utilized. 53 images of the right upper quadrant were obtained. There are laparoscopic devices in place. The common bile duct has been opacified via a cystic duct catheter. There is no defect within the duct to suggest a retained calculus. Contrast is seen extending into the small bowel and into the main pancreatic duct. IMPRESSION: Fluoroscopic assistance was provided for Dr. Femi Duke. Dictated by: Dictated on workstation # [id number]
--- NOTE | 2018-09-01 13:34 | Anesthesia-General Post-Op ---
General Patient Condition Mental Status/LOC: Same as Preop Cardiovascular: Satisfactory Nausea/Vomiting: Absent Respiratory: Satisfactory Pain: Controlled Complications: Absent Post Op Complications Complications None Follow Up Care/Instructions Patient Instructions None needed. Anesthesia/Patient Condition Patient Condition Patient is doing well, no complaints, stable vital signs, no apparent adverse anesthesia problems. No complications reported per nursing. JEN CALVO CRNA Sep 01, 2018 13:34
--- NOTE | 2018-09-01 13:35 | OPERATIVE REPORT ---
DATE OF SERVICE: PREOPERATIVE DIAGNOSIS: Biliary dyskinesia. POSTOPERATIVE DIAGNOSES: 1. Biliary dyskinesia. 2. Necrotic appearing epiploica appendagitis. PROCEDURE: Laparoscopic cholecystectomy, intraoperative cholangiogram. SURGEON: Femi Duke DO REGISTERED SALES ASSISTANT: Ronaldo Sterling DO. ANESTHESIA: General endotracheal tube. SPECIMEN: Gallbladder and contents. BLOOD LOSS: Scant. FLUIDS: Per anesthesia. POSTOPERATIVE CONDITION: Stable. INDICATION FOR PROCEDURE: The patient is a 28-year-old male who has been having some abdominal pain with eating, right upper quadrant mostly, found consistent with cholecystitis and he had ultrasound showed no stones but HIDA scan showed actually hyperactive gallbladder, which is a form of biliary dyskinesia. FINDINGS: The patient had some adhesions around the gallbladder that is usually indicative of previous gallbladder attacks, gallbladder removed without any difficulty. PROCEDURE NOTE: After informed consent was obtained, the patient was brought to the operating room, placed on the table in supine position, sterilely prepped and draped in usual fashion. Local lidocaine was used to infiltrate the skin above the umbilicus. Made an incision with #11 blade, carried down through the skin into the subcutaneous tissue, deepened down to subcutaneous tissue with Bovie electrocautery down to the fascia. Fascia was incised with Bovie electrocautery and bluntly entered the abdomen, swept a finger around, placed 0 Vicryl [id number]-tc-[id number] suture, then placed 11 mm trocar port under direct visualization. Created pneumoperitoneum and then placed 3 more ports in normal fashion using local lidocaine, 11 blade for stab incision and VersaStep system, all done under direct visualization, one subxiphoid and two in the right upper quadrant. The patient then placed in reverse Trendelenburg, slightly rotated left, able to grasp the gallbladder at the fundus, noted some adhesions of the liver that is usually indicative of previous gallbladder attacks and then able to grasp down the Yin's pouch and pulled in inferolateral direction, started dissecting out cystic duct and cystic artery. Able to get around the cystic duct and the cystic artery, placed 1 clip distally on the cystic duct and then 1 distally and 2 proximally in the cystic artery. Cut the cystic duct chcf through Metzenbaum scissors. Placed a cholangiogram catheter and shot a cholangiogram. Good spillage of dye down the cystic duct and common bile duct and down in small intestine as well as actually up into common hepatic and right and left hepatics and actually started showing up the pancreatic duct. At this point, then removed the cholangiogram catheter, placed 2 clips proximally on the cystic duct and cut the cystic duct and cystic artery with Metzenbaum scissors. Removed the gallbladder from the liver with L-hook cautery. Once this was completely removed, placed a bag in the abdomen, placed the gallbladder in the bag and then removed this through the supraumbilical incision. Placed the port back in the abdomen, copiously irrigated with normal saline. No bleeding from the bed of liver. Elected to look around the abdomen and saw what looked like an epiploic appendagitis, took a picture of this. No other obvious pathology. At this point, then placed the patient supine, removed all ports under direct visualization, allowed pneumoperitoneum to escape. Closed the supraumbilical incision, closing the fascia with the 0 Vicryl suture previously placed. Copiously irrigated all incisions with normal saline. Closed the 3 small 5 mm incisions with single interrupted 4-0 undyed Monocryl subcuticular stitch. Closed the supraumbilical incision with 3 interrupted 4-0 undyed Monocryl subcuticular stitches. Area was cleaned and dried and Dermabond placed as well as Band-Aids. The patient then transferred to recovery room in stable condition. Sponge, instrument and needle count correct at the end of the case. Dr. Sterling assisted in this case helping to make incisions, close incisions, hold the anatomy out of the way and identify anatomy. Job ID: [id number] DocumentID: [id number] Dictated Date: 09/01/2018 09:22:14 Investment Associate Date: 09/01/2018 13:34:34 Dictated By: DO DIMITRI GEORGES
== END 2018-09-01 12:00 | disposition home or self-care (01) ==
LOC: SDC 06:28
PROVIDERS: ATTEND Surgery
DX: K81.1 Chronic cholecystitis (principal); K82.8 Other specified diseases of gallbladder; K63.89 Other specified diseases of intestine; Q43.8 Other specified congenital malformations of intestine; K29.50 Unspecified chronic gastritis without bleeding; R19.7 Diarrhea, unspecified; R13.12 Dysphagia, oropharyngeal phase; K21.9 Gastro-esophageal reflux disease without esophagitis; G43.909 Migraine, unspecified, not intractable, without status migrainosus
CPT/HCPCS: 87081; 88304

== ENCOUNTER 2018-11-18 20:35 | Emergency (ER) | payer OTHER ==
[~2018-11-18] VITALS: Ht 172.7 cm; Wt 85.0 kg
[~2018-11-18 20:35] MED LIST changes: -OMEP20CA12 PO; +OMEP20CA13 PO
[2018-11-18] MEDS ORDERED: BUPIVACAINE 0.5% 30 ML (SENSORCAINE) VIAL INJ ONE (21:00)
[2018-11-18] MEDS ORDERED: SODIUM BICARB 8.4% 50 MEQ/50 ML VIAL IR ONE (21:00)
--- NOTE | 2018-11-18 21:00 | ED Headache ---
General Chief Complaint: Head/Cervical Problems Stated Complaint: BACK OF NECK PAIN/HEADACHE Source: patient Exam Limitations: no limitations History of Present Illness Date Seen by Provider: Nov 18, 2018 Time Seen by Provider: 20:58 Initial Comments To ER with pain at the base of his neck and a headache that radiates around to the front of his head from the back of his head. This is been intermittent for about 3 weeks, Tylenol and Motrin doesn't seem to help, he is already on hydrocodone and ibuprofen daily at home. Timing/Duration: other (intermittent) Severity/Quality: moderate Location: occipital Prior Headaches/Recent Trauma: no recent headache/trauma Associated Symptoms: denies symptoms Allergies and Home Medications Allergies Coded Allergies: No Known Drug Allergies (Unverified , 10/12/15) Home Medications Hydrocodone/Acetaminophen 1 Each Tablet, 1 TAB PO Q6H PRN for PAIN-MILD TO MODERATE Prescribed by: KATIE BARAJAS on 09/01/18 0924 Omeprazole 20 Mg Tablet.dr, 20 MG PO BID, (Reported) Patient Home Medication List Home Medication List Reviewed: Yes Review of Systems Review of Systems Constitutional: see HPI; No chills, No fever Eyes: No Symptoms Reported Ears, Nose, Mouth, Throat: no symptoms reported Respiratory: no symptoms reported Cardiovascular: no symptoms reported Genitourinary: no symptoms reported Musculoskeletal: no symptoms reported Skin: no symptoms reported Psychiatric/Neurological: No Symptoms Reported Past Eeydlbo-Dggzfs-Ywqmtv Hx Patient Social History Alcohol Beverage of Choice: Beer 2nd Hand Smoke Exposure: No Recent Foreign Travel: No Contact w/Someone Who Travel: No Recent Hopitalizations: No Immunizations Up To Date Tetanus Booster (TDap): Unknown PED Vaccines UTD: No Seasonal Allergies Seasonal Allergies: No Past Medical History Surgeries: No Respiratory: No Cardiac: No Neurological: Yes Headaches /Migraines Reproductive Disorders: No Sexually Transmitted Disease: No HIV/AIDS: No Genitourinary: Yes Kidney Infection Gastrointestinal: Yes Gastroesophageal Reflux, Gall Bladder Disease Musculoskeletal: Yes (R ACL tear) Endocrine: No HEENT: No Cancer: No Psychosocial: No Integumentary: No Blood Disorders: No Adverse Reaction/Blood Tranf: No Family Medical History Patient reports no known family medical history. No Pertinent Family Hx Physical Exam Vital Signs Vital Signs - First Documented 11/18/18 20:52 Temp 36.5 Pulse 81 Resp 18 B/P (MAP) 124/85 (98) Capillary Refill : Height, Weight, BMI Height: 5'8.00" Weight: 176lbs. 0.0oz. 79.278737fx; 26.8 BMI Method:Stated General Appearance: WD/WN, no apparent distress HEENT: PERRL/EOMI, normal ENT inspection, TMs normal Neck: non-tender, full range of motion Respiratory: no respiratory distress, no accessory muscle use Extremities: normal range of motion, non-tender Psychiatric: alert, oriented x 3 Crainal Nerves: normal hearing, normal speech, PERRL Skin: normal color, warm/dry Procedures/Interventions Suture Size: 4-0 Progress/Results/Core Measures Results/Orders My Orders Orders - SHARON LUTHER APRN Bupivacaine 0.5% Injection (Sensorcaine (11/18/18 21:00) Sodium Bicarbonate 8.4% Vial (Sodium Bic (11/18/18 21:00) Medications Given in ED Current Medications Medications Dose Ordered Sig/Samuel Route Start Time Stop Time Status Last Admin Dose Admin Sodium Bicarbonate 50 meq ONCE ONCE IR 11/18/18 21:00 11/18/18 21:01 DC 11/18/18 20:55 5 MEQ Vital Signs/I&O 11/18/18 20:52 Temp 36.5 Pulse 81 Resp 18 B/P (MAP) 124/85 (98) Departure Communication (Admissions) 2057-occipital nerve block done using a total of 4 mL of 2% lidocaine with epinephrine 2117-headaches except 10 on arrival, 2 out of 10 currently. We will discharge to home Impression Primary Impression: Tension type headache Qualified Codes: G44.209 - Tension-type headache, unspecified, not intractable Disposition: 01 HOME, SELF-CARE Condition: Improved Departure-Patient Inst. Decision time for Depature: 21:18 Referrals: [facility] (PCP/Family) Primary Care Physician Patient Instructions: Headache, Adult SHARON LUTHER APRN Nov 18, 2018 21:00
[2018-11-18 21:20] VITALS: BP 120/82
== END 2018-11-18 21:23 | disposition home or self-care (01) ==
LOC: EDUNIT# 20:35 → ER 20:36
DX: G44.209 Tension-type headache, unspecified, not intractable (principal); G43.909 Migraine, unspecified, not intractable, without status migrainosus; K21.9 Gastro-esophageal reflux disease without esophagitis
CPT/HCPCS: 99284

== ENCOUNTER → 2018-11-30 | Outpatient (CLI) | payer OTHER ==
--- NOTE | 2018-11-30 09:43 | Diagnostic Imaging Report ---
PROCEDURE: CT head without contrast. TECHNIQUE: Multiple contiguous axial images were obtained through the brain without the use of intravenous contrast. Auto Exposure Controls were utilized during the CT exam to meet ALARA standards for radiation dose reduction. INDICATION: Frontal headache since Spring. History of previous head injury 7 years ago. COMPARISON: None FINDINGS: There is no midline shift or mass effect. The ventricles and sulci are unremarkable. No evidence for acute intracranial hemorrhage, abnormal extra-axial fluid collections or cerebral edema is present. The basilar cisterns are unremarkable. The bony calvarium is intact. The visualized paranasal sinuses and mastoid air cells are clear. IMPRESSION: Negative appearing noncontrast CT of the head. Given prolonged symptoms, if follow-up imaging evaluation desired, MRI would be recommended. Dictated by: Dictated on workstation # [id number]
== END ==
LOC: RAD 07:59
PROVIDERS: ATTEND Nurse Practitioner Community Health
DX: G43.109 Migraine with aura, not intractable, without status migrainosus (principal); Z87.828 Personal history of other (healed) physical injury and trauma
CPT/HCPCS: 70450

== ENCOUNTER 2019-03-10 18:39 | Emergency (ER) | payer BC, OTHER ==
[~2019-03-10] VITALS: Ht 172.7 cm; Wt 86.3 kg
[~2019-03-10 18:39] MED LIST changes: +OMEP-280 PO; -OMEP20CA13 PO
--- NOTE | 2019-03-10 19:05 | ED General ---
General Chief Complaint: Cough/Cold/Flu Symptoms Stated Complaint: HOT FLASHES,ACHY Nursing Triage Note: WAS HAVNG HOT FLASHES WHEN HE GOT OFF WORK LAST NIGHT . CAME BACK TODAY. Nursing Sepsis Screen: No Definite Risk Source of Information: Patient Exam Limitations: No Limitations History of Present Illness Date Seen by Provider: Mar 10, 2019 Time Seen by Provider: 18:42 Initial Comments This 28-year-old man presents to the emergency room with complaints of achiness, hot flashes, and mild cough since last night after returning home from work. He has headache when he coughs. 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 He states the air quality at work is good. He is afebrile but feels a little warm to the touch. He would like influenza screening. Allergies and Home Medications Allergies Coded Allergies: No Known Drug Allergies (Unverified , 10/12/15) Home Medications Hydrocodone/Acetaminophen 1 Each Tablet, 1 TAB PO Q6H PRN for PAIN-MILD TO MODERATE Prescribed by: KATIE BARAJAS on 09/01/18 0924 Omeprazole 20 Mg Tablet.dr, 20 MG PO BID, (Reported) Patient Home Medication List Home Medication List Reviewed: Yes Review of Systems Review of Systems Constitutional: see HPI EENTM: no symptoms reported Respiratory: see HPI Cardiovascular: no symptoms reported Gastrointestinal: no symptoms reported Genitourinary: no symptoms reported Musculoskeletal: see HPI Skin: no symptoms reported Psychiatric/Neurological: No Symptoms Reported Hematologic/Lymphatic: No Symptoms Reported Past Dwgyvsk-Wnpjwg-Ysvsxy Hx Patient Social History Alcohol Use: Denies Use Number of Drinks Today: AA Alcohol Beverage of Choice: Beer Recreational Drug Use: No Smoking Status: Never a Smoker 2nd Hand Smoke Exposure: No Recent Foreign Travel: No Contact w/Someone Who Travel: No Recent Infectious Disease Expo: No Recent Hopitalizations: No Immunizations Up To Date Tetanus Booster (TDap): Unknown PED Vaccines UTD: No Seasonal Allergies Seasonal Allergies: No Past Medical History Surgeries: Yes Gallbladder Respiratory: No Cardiac: No Neurological: Yes Headaches /Migraines Reproductive Disorders: No Sexually Transmitted Disease: No HIV/AIDS: No Genitourinary: No Kidney Infection Gastrointestinal: No Gastroesophageal Reflux, Gall Bladder Disease Musculoskeletal: Yes (CHRONIC KNEE PAIN) Endocrine: No HEENT: No Cancer: No Psychosocial: No Integumentary: No Blood Disorders: No Adverse Reaction/Blood Tranf: No Family Medical History Patient reports no known family medical history. No Pertinent Family Hx Physical Exam Vital Signs Vital Signs - First Documented 03/10/19 18:45 Temp 37.2 Pulse 88 Resp 18 B/P (MAP) 150/96 (114) Pulse Ox 97 O2 Delivery Room Air Capillary Refill : Less Than 3 Seconds Height, Weight, BMI Height: 5'8.00" Weight: 176lbs. 0.0oz. 79.133330ok; 28.00 BMI Method:Stated General Appearance: No Apparent Distress, WD/WN HEENT: PERRL/EOMI, TMs Normal, Normal ENT Inspection, Other (oropharynx somewhat dry) Neck: Normal Inspection Respiratory: Lungs Clear, Normal Breath Sounds, No Accessory Muscle Use, No Respiratory Distress Cardiovascular: Regular Rate, Rhythm, No Edema, No Murmur Extremity: Normal Inspection, No Pedal Edema Neurologic/Psychiatric: Alert, Oriented x3, No Motor/Sensory Deficits, Normal Mood/Affect, new account interviewer II-XII Norm as Tested Skin: Normal Color, Warm/Dry Procedures/Interventions Suture Size: 4-0 Progress/Results/Core Measures Suspected Sepsis Recent Fever Within 48 Hours: No Infection Criteria Present: None New/Unexplained Altered Menta: No Sepsis Screen: No Definite Risk SIRS Temperature: Pulse: 88 Respiratory Rate: 18 Blood Pressure 150 /96 Mean: 114 Results/Orders Micro Results Microbiology 03/10/19 Influenza Types A,B Antigen (LUIS) - Final, Complete Vital Signs/I&O 03/10/19 18:45 Temp 37.2 Pulse 88 Resp 18 B/P (MAP) 150/96 (114) Pulse Ox 97 O2 Delivery Room Air Capillary Refill : Less Than 3 Seconds Blood Pressure Mean: 114 Departure Impression Primary Impression: Cough Additional Impression: Myalgia Disposition: 01 HOME, SELF-CARE Condition: Stable Departure-Patient Inst. Decision time for Depature: 19:26 Referrals: [facility] (PCP/Family) Primary Care Physician Patient Instructions: VIRAL SYNDROME Add. Discharge Instructions: Your symptoms may be related to viral illness such as one of the common cold viruses. You may take Tylenol (acetaminophen) and/or ibuprofen for aches and pains. For cough and congestion you may use scyk-uur-txuwvml medications. Please be careful not to double up on active ingredients if you're taking more than one medication. If cough persist more than a week or worsens, consider following up with your primary care provider for repeat evaluation. If you have significantly worsening symptoms despite treatment, he may return to the emergency room. Your flu screening was negative. All discharge instructions reviewed with patient and/or family. Voiced understanding. VIKA CONCEPCION MD Mar 10, 2019 19:05
[2019-03-10 19:33] VITALS: BP 150/96
== END 2019-03-10 19:33 | disposition home or self-care (01) ==
LOC: EDUNIT# 18:39 → ER 18:41
DX: R05 Cough (principal); M79.18 Myalgia, other site; G43.909 Migraine, unspecified, not intractable, without status migrainosus; K21.9 Gastro-esophageal reflux disease without esophagitis
CPT/HCPCS: 87804

== ENCOUNTER 2019-05-08 16:10 | Emergency (ER) | payer SELFPAY ==
[~2019-05-08] VITALS: Ht 172.7 cm; Wt 84.1 kg
[~2019-05-08 16:10] MED LIST changes: +HYDR-34 PO; -HYDR-3816 PO; -OMEP-280 PO; +OMEP20CA18 PO
[2019-05-08 16:24] VITALS: BP 115/72
--- NOTE | 2019-05-08 16:56 | ED Integumentary General ---
General Chief Complaint: Laceration Stated Complaint: R HAND MIDDLE FINGER LAC Nursing Triage Note: Pt amb to triage with c/o laceration to R third finger. 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 Pt reports to be unaware of last known tetanus vaccine. A&OX4. Source: patient Exam Limitations: no limitations History of Present Illness Date Seen by Provider: May 08, 2019 Time Seen by Provider: 16:53 Initial Comments 28-year-old male patient presents with complaints of laceration to the right distal third finger. Reports smashing the finger between a cinder block and ground. Reports only mild pain. Incident occurred just prior to arrival. Denies taking any fxxi-mfb-naxqtox ibuprofen or Tylenol. Last tetanus vaccination unknown. Location Injury Occurred: home Timing/Duration: just prior to arrival Location: hands (right third finger) Possible Cause: other (direct blow) Modifying Factors: worse with other (increased tenderness with palpation) Allergies and Home Medications Allergies Coded Allergies: No Known Drug Allergies (Unverified , 10/12/15) Home Medications Hydrocodone Bit/Acetaminophen 1 Each Tablet, 1 TAB PO Q6H PRN for PAIN-MILD TO MODERATE Prescribed by: KATIE BARAJAS on 09/01/18 0924 Omeprazole 20 Mg Tablet., 20 MG PO BID, (Reported) Patient Home Medication List Home Medication List Reviewed: Yes Review of Systems Review of Systems Constitutional: no symptoms reported Respiratory: no symptoms reported Cardiovascular: no symptoms reported Musculoskeletal: No joint pain, No joint swelling Skin: see HPI Psychiatric/Neurological: Denies Numbness, Denies Paresthesia, Denies Tingling, Denies Weakness All Other Systems Reviewed Negative Unless Noted: Yes (Negative excepted noted.) Past Cwuvhlr-Yxfazo-Ibufdk Hx Past Med/Social Hx: Reviewed Nursing Past Med/Soc Hx Patient Social History Alcohol Use: Denies Use Number of Drinks Today: AA Alcohol Beverage of Choice: Beer Recreational Drug Use: No Smoking Status: Never a Smoker 2nd Hand Smoke Exposure: No Recent Foreign Travel: No Contact w/Someone Who Travel: No Recent Infectious Disease Expo: No Recent Hopitalizations: No Immunizations Up To Date Tetanus Booster (TDap): Unknown PED Vaccines UTD: No Seasonal Allergies Seasonal Allergies: No Past Medical History Surgeries: Yes Gallbladder Respiratory: No Cardiac: No Neurological: Yes Headaches /Migraines Reproductive Disorders: No Sexually Transmitted Disease: No HIV/AIDS: No Genitourinary: No Kidney Infection Gastrointestinal: No Gastroesophageal Reflux, Gall Bladder Disease Musculoskeletal: Yes (CHRONIC KNEE PAIN) Endocrine: No HEENT: No Cancer: No Psychosocial: No Integumentary: No Blood Disorders: No Adverse Reaction/Blood Tranf: No Family Medical History Reviewed Nursing Family Hx Patient reports no known family medical history. No Pertinent Family Hx Physical Exam Vital Signs Vital Signs - First Documented 05/08/19 16:24 Temp 36.8 Pulse 58 Resp 17 B/P (MAP) 115/72 (86) Pulse Ox 98 O2 Delivery Room Air Capillary Refill : Less Than 3 Seconds General Appearance: WD/WN, no apparent distress Cardiovascular: normal peripheral pulses, regular rate, rhythm, no murmur Respiratory: lungs clear, normal breath sounds, no respiratory distress, no accessory muscle use Extremities: normal range of motion, normal capillary refill, other (superficial laceration to the distal right lateral nail fold without damage to the nail. No bleeding, ecchymosis, or foreign body noted. No bony tenderness.) Neurologic/Psychiatric: no motor/sensory deficits, alert, normal mood/affect, oriented x 3 Skin: normal color, warm/dry, other (superficial laceration to the distal right lateral nail fold without damage to the nail. No bleeding, ecchymosis, or foreign body noted. No bony tenderness.) Procedures/Interventions Suture Size: 4-0 Progress/Results/Core Measures Results/Orders My Orders Orders - JOHAN BELL Dipht,Pertuss(Acell),Tet Adult (Boostrix (05/08/19 17:00) Medications Given in ED Current Medications Medications Dose Ordered Sig/Samuel Route Start Time Stop Time Status Last Admin Dose Admin Diphtheria/ Tetanus/Acell Pertussis 0.5 ml ONCE ONCE IM 05/08/19 17:00 05/08/19 17:01 DC 05/08/19 17:06 0.5 ML Vital Signs/I&O 05/08/19 16:24 Temp 36.8 Pulse 58 Resp 17 B/P (MAP) 115/72 (86) Pulse Ox 98 O2 Delivery Room Air Blood Pressure Mean: 86 Departure Communication (Admissions) Patient seen and evaluated. Wound cleansed with chlorhexidine and sterile saline. Mastisol and Steri-Strips applied to the distal right third finger. Wound dressed with tube gauze. Plan for discharge to home with follow-up as an outpatient with his primary care provider if needed. Impression Primary Impression: Laceration of right index finger Qualified Codes: S61.210A - Laceration without foreign body of right index finger without damage to nail, initial encounter Disposition: HOME, SELF-CARE Condition: Improved Departure-Patient Inst. Decision time for Depature: 16:55 Referrals: [facility] [place] ([place]) Primary Care Physician Patient Instructions: Wound Care Add. Discharge Instructions: All discharge instructions reviewed with patient and/or family. Voiced understanding. Tylenol extra strength dhoc-pej-ywgfjvu as directed for pain. Ibuprofen 800 mg by mouth every 8 hours as needed for pain. Elevate the right hand on pillows. Ice pack for 20 minute intervals as needed. Keep the wound clean and dry. Follow-up with your family practitioner for recheck as an outpatient if no improvement in symptoms. Return in the emergency department for increased pain, redness, fever, drainage, or any other concerns. Work/School Note: Work Release Form Date Seen in the Emergency Department: May 08, 2019 Return to Work: May 10, 2019 JOHAN BELL May 08, 2019 16:56
[2019-05-08] MEDS ORDERED: TETANUS,DIPTH,PERTUSS P/F (BOOSTRIX) 0.5 ML VIAL IM ONE (17:00)
== END 2019-05-08 17:07 | disposition home or self-care (01) ==
LOC: EDUNIT# 16:10 → ER 16:11
DX: S61.212A Laceration without foreign body of right middle finger without damage to nail, initial encounter (principal); K21.9 Gastro-esophageal reflux disease without esophagitis; Z23 Encounter for immunization; W22.8XXA Striking against or struck by other objects, initial encounter; Y92.009 Unspecified place in unspecified non-institutional (private) residence as the place of occurrence of the external cause
CPT/HCPCS: 12011; 90715

== ENCOUNTER 2019-12-19 00:33 | Emergency (ER) | payer SELFPAY ==
[~2019-12-19] VITALS: Ht 172.7 cm; Wt 86.1 kg
[2019-12-19 00:45] VITALS: BP 134/86
--- NOTE | 2019-12-19 01:03 | ED Integumentary General ---
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 HAS HAD THIS MULTIPLE TIMES AND NOT HAD PROBLEMS. HAD SANDWICH FOR LUNCH AROUND NOON. NO NEW PRODUCTS OR NEW FOODS OR DRINKS PT DID GET STARTED ON UNKNOWN MUSCLE RELAXANT ABOUT A WEEK AGO FOR "MUSCLE SPASMS IN MY RIGHT KNEE" HAS CHRONIC RIGHT KNEE PAIN AND TAKES HYDROCODONE DAILY FOR KNEE PAIN STATES HE HAS HAD HIVES ONE TIME A CHILD--CAUSE UNKNOWN. HAS NOT TAKEN ANYTHING FOR SYMPTOMS [facility] JHOANA COLLADO Allergies and Home Medications Allergies Coded Allergies: No Known Drug Allergies (Unverified , 10/12/15) Home Medications Hydrocodone Bit/Acetaminophen 1 Each Tablet, 1 TAB PO Q6H PRN for PAIN-MILD TO MODERATE Prescribed by: KATIE BARAJAS on 09/01/18 0924 Omeprazole 20 Mg Tablet., 20 MG PO BID, (Reported) Patient Home Medication List Home Medication List Reviewed: Yes Review of Systems Review of Systems Constitutional: no symptoms reported; No dizziness EENTM: no symptoms reported; No nose congestion, No throat swelling Respiratory: no symptoms reported; No cough, No short of breath, No wheezing Cardiovascular: no symptoms reported Gastrointestinal: no symptoms reported Genitourinary: no symptoms reported Musculoskeletal: see HPI Skin: see HPI, pruritus, rash Psychiatric/Neurological: No Symptoms Reported Endocrine: No Symptoms Reported Hematologic/Lymphatic: No Symptoms Reported Past Jgfczmk-Cvgjul-Inpkgg Hx Past Med/Social Hx: Reviewed and Corrections made Patient Social History Alcohol Use: Rarely Uses Alcohol Beverage of Choice: Beer Recreational Drug Use: No Smoking Status: Never a Smoker 2nd Hand Smoke Exposure: No Recent Foreign Travel: No Contact w/Someone Who Travel: No Recent Hopitalizations: No Immunizations Up To Date Tetanus Booster (TDap): Unknown PED Vaccines UTD: No Seasonal Allergies Seasonal Allergies: No Past Medical History Surgeries: Yes Gallbladder Respiratory: No Cardiac: No Neurological: Yes Headaches /Migraines Reproductive Disorders: No Sexually Transmitted Disease: No HIV/AIDS: No Genitourinary: Yes Kidney Infection Gastrointestinal: Yes Gastroesophageal Reflux, Gall Bladder Disease Musculoskeletal: Yes (CHRONIC RIGHT KNEE PAIN) Endocrine: No HEENT: No Cancer: No Psychosocial: No Integumentary: No Blood Disorders: No Adverse Reaction/Blood Tranf: No Family Medical History Patient reports no known family medical history. No Pertinent Family Hx Physical Exam Vital Signs Vital Signs - First Documented 12/19/19 00:45 Temp 36.0 Pulse 75 Resp 18 B/P (MAP) 134/86 (102) Pulse Ox 98 Capillary Refill : General Appearance: WD/WN, no apparent distress HEENT: normal ENT inspection, pharynx normal Neck: normal inspection Cardiovascular: normal peripheral pulses, regular rate, rhythm, no murmur Respiratory: normal breath sounds, no respiratory distress, no accessory muscle use Gastrointestinal: soft Extremities: normal inspection, no pedal edema Neurologic/Psychiatric: no motor/sensory deficits, alert, normal mood/affect, oriented x 3 Skin: normal color, warm/dry, rash (PATCHY SMALL URTICARIAL WHEALS ON TRUN K--MOSTLY ON FRONT, FEW ON BACK, AND TOPS OF FEET AND ANTERIOR ANKLES. ) Procedures/Interventions Suture Size: 4-0 Progress/Results/Core Measures Results/Orders My Orders Orders - YIFAN HARPER DO Methylprednisolone Sod Succ (Solu-Medrol (12/19/19 01:15) Famotidine Tablet (Pepcid Tablet) (12/19/19 01:15) Famotidine Tablet (Pepcid Tablet) (12/19/19 01:09) Medications Given in ED Current Medications Medications Dose Ordered Sig/Samuel Route Start Time Stop Time Status Last Admin Dose Admin Methylprednisolone Sodium Succinate 125 mg ONCE ONCE IM 12/19/19 01:15 12/19/19 01:16 DC 12/19/19 01:12 125 MG Vital Signs/I&O 12/19/19 00:45 Temp 36.0 Pulse 75 Resp 18 B/P (MAP) 134/86 (102) Pulse Ox 98 Progress Progress Note : Progress Note GIVEN SOLU-MEDROL AND PEPCID PT ADVISED TO TAKE BENADRYL WHEN HE GETS HOME, HE DROVE HIMSELF HERE. Departure Impression Primary Impression: Hives of unknown origin Disposition: HOME, SELF-CARE Condition: Stable Departure-Patient Inst. Referrals: [facility] (PCP/Family) Primary Care Physician Patient Instructions: Ravin (DC) Add. Discharge Instructions: AVOID ANY NEW FOODS, DRINKS, PRODUCTS OR MEDICATIONS KEEP FOOD DIARY OF EVERYTHING YOU HAD TO EAT OR DRINK TODAY, AND OF ALL MEDICATIONS YOU TOOK TODAY TAKE BENADRYL 50 MG EVERY 4 HOURS NEEDED FOR RASH AND ITCHING FOLLOW UP WITH YOUR DR IN 2 DAYS IF NO BETTER, RETURN TO ER IF WORSE All discharge instructions reviewed with patient and/or family. Voiced understa nding. YIFAN HARPER DO Dec 19, 2019 01:03
[2019-12-19] MEDS ORDERED: FAMOTIDINE 20 MG (PEPCID) TABLET ONE (01:09)
[2019-12-19] MEDS ORDERED: methylPREDNISolone 125 MG (Solu-MEDROL) VIAL IM ONE (01:15)
[2019-12-19] MEDS ORDERED: FAMOTIDINE 40 MG (PEPCID) TABLET PO SCH (01:15)
== END 2019-12-19 01:29 | disposition home or self-care (01) ==
LOC: EDUNIT# 00:33 → ER 00:37
DX: L50.8 Other urticaria (principal); K21.9 Gastro-esophageal reflux disease without esophagitis
CPT/HCPCS: 99284

== ENCOUNTER 2020-02-22 14:48 | Emergency (ER) | payer SELFPAY ==
[~2020-02-22] VITALS: Ht 172.7 cm; Wt 86.4 kg
[2020-02-22] MEDS ORDERED: KETOROLAC 30 MG/ML VIAL IVP ONE (15:00)
--- NOTE | 2020-02-22 15:00 | ED General ---
General Stated Complaint: RIGHT SIDE PAIN Source of Information: Patient Exam Limitations: No Limitations History of Present Illness Date Seen by Provider: Feb 22, 2020 Time Seen by Provider: 14:58 Initial Comments To ER with right sided lower abdominal pain worse with standing up and better when sitting down. This began at 11 AM yesterday. No fever no chills no nausea no vomiting no dysuria or bowel changes. Last food intake was at 2 PM. Timing/Duration: 1-2 Days Severity: Moderate Associated Systoms: No Fever/Chills, No Nausea/Vomiting Allergies and Home Medications Allergies Coded Allergies: No Known Drug Allergies (Unverified , 10/12/15) Home Medications Hydrocodone Bit/Acetaminophen 1 Each Tablet, 1 TAB PO Q6H PRN for PAIN-MILD TO MODERATE Prescribed by: KATIE BARAJAS on 09/01/18 0924 Omeprazole 20 Mg Tablet.dr, 20 MG PO BID, (Reported) Patient Home Medication List Home Medication List Reviewed: Yes Review of Systems Review of Systems Constitutional: see HPI EENTM: see HPI Respiratory: no symptoms reported Cardiovascular: no symptoms reported Gastrointestinal: RLQ Genitourinary: no symptoms reported Musculoskeletal: no symptoms reported Skin: no symptoms reported Psychiatric/Neurological: No Symptoms Reported Hematologic/Lymphatic: No Symptoms Reported Immunological/Allergic: no symptoms reported Past Kvdovsa-Qcpqlt-Irkpkf Hx Patient Social History Alcohol Beverage of Choice: Beer 2nd Hand Smoke Exposure: No Recent Foreign Travel: No Contact w/Someone Who Travel: No Recent Hopitalizations: No Immunizations Up To Date Tetanus Booster (TDap): Unknown PED Vaccines UTD: No Seasonal Allergies Seasonal Allergies: No Past Medical History Surgeries: Yes Gallbladder Respiratory: No Cardiac: No Neurological: Yes Headaches /Migraines Reproductive Disorders: No Sexually Transmitted Disease: No HIV/AIDS: No Genitourinary: Yes Kidney Infection Gastrointestinal: Yes Gastroesophageal Reflux, Gall Bladder Disease Musculoskeletal: Yes (CHRONIC RIGHT KNEE PAIN) Endocrine: No HEENT: No Cancer: No Psychosocial: No Integumentary: No Blood Disorders: No Adverse Reaction/Blood Tranf: No Family Medical History Patient reports no known family medical history. No Pertinent Family Hx Physical Exam Vital Signs Vital Signs - First Documented 02/22/20 14:52 Temp 36.7 Pulse 81 Resp 16 B/P (MAP) 118/94 (102) Pulse Ox 99 O2 Delivery Room Air Capillary Refill : Height, Weight, BMI Height: 5'8.00" Weight: 176lbs. 0.0oz. [id number]; 28.00 BMI Method:Stated General Appearance: No Apparent Distress, WD/WN Eyes: Bilateral Eye Normal Inspection, Bilateral Eye PERRL, Bilateral Eye EOMI Neck: Full Range of Motion, Normal Inspection Respiratory: No Accessory Muscle Use, No Respiratory Distress Cardiovascular: Regular Rate, Rhythm, Normal Peripheral Pulses Gastrointestinal: Normal Bowel Sounds, Soft, Tenderness Extremity: Normal Capillary Refill, Normal Inspection Neurologic/Psychiatric: Alert, Oriented x3 Skin: Normal Color, Warm/Dry Procedures/Interventions Suture Size: 4-0 Progress/Results/Core Measures Suspected Sepsis SIRS Temperature: Pulse: Respiratory Rate: Laboratory Tests 02/22/20 15:02: White Blood Count 10.5 Blood Pressure / Mean: Laboratory Tests 02/22/20 15:02: Creatinine 1.01, Platelet Count 323, Total Bilirubin 0.4 Results/Orders Lab Results Laboratory Tests Test 02/22/20 14:55 02/22/20 15:02 Range/Units Urine Color YELLOW Urine Clarity CLEAR Urine pH 6.0 5-9 Urine Specific [place] 1.025 H 1.016-1.022 Urine Protein NEGATIVE NEGATIVE Urine Glucose (UA) NEGATIVE NEGATIVE Urine Ketones NEGATIVE NEGATIVE Urine Nitrite NEGATIVE NEGATIVE Urine Bilirubin NEGATIVE NEGATIVE Urine Urobilinogen 0.2 < = 1.0 MG/DL Urine Leukocyte Esterase NEGATIVE NEGATIVE Urine RBC (Auto) NEGATIVE NEGATIVE Urine RBC NONE /HPF Urine WBC NONE /HPF Urine Squamous Epithelial Cells RARE /HPF Urine Crystals NONE /LPF Urine Bacteria NEGATIVE /HPF Urine Casts NONE /LPF Urine Mucus NEGATIVE /LPF Urine Culture Indicated NO White Blood Count 10.5 4.3-11.0 10^3/uL Red Blood Count 5.47 4.30-5.52 10^6/uL Hemoglobin 15.8 13.3-17.7 g/dL Hematocrit 49 40-54 % Mean Corpuscular Volume 89 80-99 fL Mean Corpuscular Hemoglobin 29 25-34 pg Mean Corpuscular Hemoglobin Concent 32 32-36 g/dL Red Cell Distribution Width 12.9 10.0-14.5 % Platelet Count 323 130-400 10^3/uL Mean Platelet Volume 9.4 9.0-12.2 fL Immature Granulocyte % (Auto) 1 % Neutrophils (%) (Auto) 67 42-75 % Lymphocytes (%) (Auto) 22 12-44 % Monocytes (%) (Auto) 9 0-12 % Eosinophils (%) (Auto) 1 0-10 % Basophils (%) (Auto) 1 0-10 % Neutrophils # (Auto) 7.0 1.8-7.8 10^3/uL Lymphocytes # (Auto) 2.3 1.0-4.0 10^3/uL Monocytes # (Auto) 0.9 0.0-1.0 10^3/uL Eosinophils # (Auto) 0.1 0.0-0.3 10^3/uL Basophils # (Auto) 0.1 0.0-0.1 10^3/uL Immature Granulocyte # (Auto) 0.1 0.0-0.1 10^3/uL Sodium Level 140 135-145 MMOL/L Potassium Level 3.8 3.6-5.0 MMOL/L Chloride Level 105 98-107 MMOL/L Carbon Dioxide Level 23 21-32 MMOL/L Anion Gap 12 5-14 MMOL/L Blood Urea Nitrogen 10 7-18 MG/DL Creatinine 1.01 0.60-1.30 MG/DL Estimat Glomerular Filtration Rate > 60 BUN/Creatinine Ratio 10 Glucose Level 86 70-105 MG/DL Calcium Level 9.3 8.5-10.1 MG/DL Corrected Calcium 8.9 8.5-10.1 MG/DL Total Bilirubin 0.4 0.1-1.0 MG/DL Aspartate Amino Transf (AST/SGOT) 13 5-34 U/L Alanine Aminotransferase (ALT/SGPT) 15 0-55 U/L Alkaline Phosphatase 91 40-136 U/L Total Protein 7.6 6.4-8.2 GM/DL Albumin 4.5 3.2-4.5 GM/DL My Orders Orders - SHARON LUTHER APRN Cbc With Automated Diff (02/22/20 14:56) Comprehensive Metabolic Panel (02/22/20 14:56) Ua Culture If Indicated (02/22/20 14:56) Ed Iv/Invasive Line Start (02/22/20 14:56) Ct Abd/Pelvis Wo(Kidney Stone) (02/22/20 14:56) Ketorolac Injection (Toradol Injection) (02/22/20 15:00) Medications Given in ED Current Medications Medications Dose Ordered Sig/Samuel Route Start Time Stop Time Status Last Admin Dose Admin Ketorolac Tromethamine 15 mg ONCE ONCE IVP 02/22/20 15:00 02/22/20 15:01 DC 02/22/20 15:20 15 MG Vital Signs/I&O 02/22/20 14:52 Temp 36.7 Pulse 81 Resp 16 B/P (MAP) 118/94 (102) Pulse Ox 99 O2 Delivery Room Air Capillary Refill : Diagnostic Imaging Diagonstic Imaging: CT Comments NAME: VIKA SULLIVAN [facility] REC#: [id number] PT STATUS: REG ER : 1990 PHYSICIAN: SHARON LUTHER TECHNICAL ASSISTANT ADMIT DATE: 02/22/20/ER Draft Date of Exam:02/22/20 CT ABD/PELVIS WO(KIDNEY STONE) PROCEDURE: CT urinary tract, rule out kidney stone. TECHNIQUE: Multiple contiguous axial images were obtained through the abdomen and pelvis without the use of intravenous contrast. Auto Exposure Controls were utilized during the CT exam to meet ALARA standards for radiation dose reduction. INDICATION: Right lower quadrant pain. COMPARISON: Correlation is made with prior CT from 07/17/2018. FINDINGS: The lung bases are clear. The liver is unremarkable. Gallbladder is surgically absent. No biliary ductal dilatation is seen. Pancreas and spleen are unremarkable. No adrenal mass is identified. No renal calculi are seen. There is no hydronephrosis. Aorta is nonaneurysmal. Bowel loops appear to be normal in caliber. No obstruction is seen. The appendix is visualized in the right lower quadrant and appears unremarkable. No free fluid or fluid collection is identified. The bladder is decompressed. Prostate is unremarkable. A small fat-containing umbilical hernia is noted. IMPRESSION: Essentially unremarkable noncontrast CT of the abdomen and pelvis. There is no CT evidence of acute appendicitis. No urinary tract calculi or obstruction is identified. Dictated on workstation # [id number] Dict: 02/22/20 1535 Trans: 02/22/20 1543 [id number] [id number] Interpreted by: TATO RESTREPO MD Electronically signed by: Departure Impression Primary Impression: Abdominal wall pain Disposition: HOME, SELF-CARE Condition: Stable Departure-Patient Inst. Decision time for Depature: 15:33 Referrals: [facility] (PCP/Family) Primary Care Physician Patient Instructions: Abdominal Pain, Adult ED Add. Discharge Instructions: 1. Return to ER for any concerns or worsening symptoms, follow-up with your doctor next week. SHARON LUTHER TECHNICAL ASSISTANT Feb 22, 2020 15:00
[2020-02-22 15:11] LABS: BASOPHILS # (AUTO) 0.1 10^3/uL (0.0-0.1); BASOPHILS % (AUTO) 1 % (0-10); EOSINOPHILS # (AUTO) 0.1 10^3/uL (0.0-0.3); EOSINOPHILS % (AUTO) 1 % (0-10); HEMATOCRIT 49 % (40-54); HEMOGLOBIN 15.8 g/dL (13.3-17.7); LYMPHOCYTES # (AUTO) 2.3 10^3/uL (1.0-4.0); LYMPHOCYTES % (AUTO) 22 % (12-44); MEAN CORPUSCULAR HEMOGLOBIN 29 pg (25-34); MEAN CORPUSCULAR HGB CONC 32 g/dL (32-36); MEAN CORPUSCULAR VOLUME 89 fL (80-99); MEAN PLATELET VOLUME 9.4 fL (9.0-12.2); MONOCYTES # (AUTO) 0.9 10^3/uL (0.0-1.0); MONOCYTES % (AUTO) 9 % (0-12); NEUTROPHILS % (AUTO) 67 % (42-75); PLATELET COUNT 323 10^3/uL (130-400); WHITE BLOOD COUNT 10.5 10^3/uL (4.3-11.0)
[2020-02-22 15:12] LABS: BILIRUBIN,URINE NEGATIVE (NEGATIVE); CLARITY,URINE CLEAR; COLOR,URINE YELLOW; GLUCOSE, URINE (UA) NEGATIVE (NEGATIVE); KETONES,URINE NEGATIVE (NEGATIVE); LEUKOCYTE ESTERASE ,URINE NEGATIVE (NEGATIVE); NITRITE,URINE NEGATIVE (NEGATIVE); PROTEIN,URINE NEGATIVE (NEGATIVE)
[2020-02-22 15:18] LABS: BACTERIA,URINE NEGATIVE /HPF; SQUAMOUS EPITHELIAL CELL,UR RARE /HPF
[2020-02-22 15:24] LABS: ALBUMIN 4.5 GM/DL (3.2-4.5); CHLORIDE 105 MMOL/L (98-107); POTASSIUM 3.8 MMOL/L (3.6-5.0); SODIUM 140 MMOL/L (135-145)
[2020-02-22 15:25] LABS: CALCIUM 9.3 MG/DL (8.5-10.1)
[2020-02-22 15:27] LABS: GLUCOSE 86 MG/DL (70-105); TOTAL PROTEIN 7.6 GM/DL (6.4-8.2)
[2020-02-22 15:28] LABS: BILIRUBIN,TOTAL 0.4 MG/DL (0.1-1.0); CARBON DIOXIDE 23 MMOL/L (21-32)
[2020-02-22 15:30] LABS: ALKALINE PHOSPHATASE 91 U/L (40-136); CREATININE SERUM 1.01 MG/DL (0.60-1.30); GFR ESTIMATED > 60
[2020-02-22 15:31] LABS: BUN/CREATININE RATIO 10
[2020-02-22 15:33] LABS: ALANINE AMINOTRANSFERASE 15 U/L (0-55)
--- NOTE | 2020-02-22 15:43 | Diagnostic Imaging Report ---
PROCEDURE: CT urinary tract, rule out kidney stone. TECHNIQUE: Multiple contiguous axial images were obtained through the abdomen and pelvis without the use of intravenous contrast. Auto Exposure Controls were utilized during the CT exam to meet ALARA standards for radiation dose reduction. INDICATION: Right lower quadrant pain. COMPARISON: Correlation is made with prior CT from 07/17/2018. FINDINGS: The lung bases are clear. The liver is unremarkable. Gallbladder is surgically absent. No biliary ductal dilatation is seen. Pancreas and spleen are unremarkable. No adrenal mass is identified. No renal calculi are seen. There is no hydronephrosis. Aorta is nonaneurysmal. Bowel loops appear to be normal in caliber. No obstruction is seen. The appendix is visualized in the right lower quadrant and appears unremarkable. No free fluid or fluid collection is identified. The bladder is decompressed. Prostate is unremarkable. A small fat-containing umbilical hernia is noted. IMPRESSION: Essentially unremarkable noncontrast CT of the abdomen and pelvis. There is no CT evidence of acute appendicitis. No urinary tract calculi or obstruction is identified. Dictated by: Dictated on workstation # [id number]
[2020-02-22 15:55] VITALS: BP 133/81
== END 2020-02-22 15:55 | disposition home or self-care (01) ==
LOC: EDUNIT# 14:48 → ER 14:51
DX: R10.31 Right lower quadrant pain (principal); K21.9 Gastro-esophageal reflux disease without esophagitis
CPT/HCPCS: 36415; 74176; 80053; 81000; 85025

== ENCOUNTER 2020-03-10 13:28 | Emergency (ER) | payer SELFPAY ==
[~2020-03-10] VITALS: Ht 172.7 cm; Wt 86.3 kg
--- NOTE | 2020-03-10 13:50 | NUR ---
PATIENT MADE PUI CARE OF PATIENT OVER TO Darrel ORTEGA RN.
[2020-03-10] MEDS ORDERED: IBUPROFEN 800 MG (MOTRIN) TAB PO ONE (14:00)
--- NOTE | 2020-03-10 14:15 | NUR ---
COVID AND FLU OBTAINED BY Bud LUTHER APRN.
[2020-03-10 14:20] LABS: BASOPHILS # (AUTO) 0.1 10^3/uL (0.0-0.1); BASOPHILS % (AUTO) 1 % (0-10); EOSINOPHILS # (AUTO) 0.1 10^3/uL (0.0-0.3); EOSINOPHILS % (AUTO) 1 % (0-10); HEMATOCRIT 49 % (40-54); HEMOGLOBIN 15.8 g/dL (13.3-17.7); LYMPHOCYTES # (AUTO) 2.6 10^3/uL (1.0-4.0); LYMPHOCYTES % (AUTO) 28 % (12-44); MEAN CORPUSCULAR HEMOGLOBIN 29 pg (25-34); MEAN CORPUSCULAR HGB CONC 33 g/dL (32-36); MEAN CORPUSCULAR VOLUME 89 fL (80-99); MEAN PLATELET VOLUME 9.3 fL (9.0-12.2); MONOCYTES # (AUTO) 0.8 10^3/uL (0.0-1.0); MONOCYTES % (AUTO) 9 % (0-12); NEUTROPHILS # (AUTO) 5.5 10^3/uL (1.8-7.8); NEUTROPHILS % (AUTO) 61 % (42-75); PLATELET COUNT 302 10^3/uL (130-400); WHITE BLOOD COUNT 9.2 10^3/uL (4.3-11.0)
--- NOTE | 2020-03-10 14:39 | ED Headache ---
General Chief Complaint: Head/Cervical Problems Stated Complaint: HEAD PAIN Nursing Triage Note: AMB TO ROOM C/O HEADACHE X 1 WEEK DENIES ANY COVID SYMPTOMS. REPORTS THAT HYDROCODONE NOT HELPING Nursing Sepsis Screen: No Definite Risk Source: patient Exam Limitations: no limitations History of Present Illness Date Seen by Provider: Mar 10, 2020 Time Seen by Provider: 14:36 Initial Comments To ER with a headache for 1 week. Denies any other symptoms no cough no sore throat no rhinorrhea. No known fevers. Timing/Duration: 1 week Severity/Quality: moderate Location: global Prior Headaches/Recent Trauma: no recent headache/trauma Associated Symptoms: No stiff neck Allergies and Home Medications Allergies Coded Allergies: No Known Drug Allergies (Unverified , 10/12/15) Home Medications Hydrocodone Bit/Acetaminophen 1 Each Tablet, 1 TAB PO Q6H PRN for PAIN-MILD TO MODERATE Prescribed by: KATIE BARAJAS on 09/01/18 0924 Omeprazole 20 Mg Tablet.dr, 20 MG PO BID, (Reported) Patient Home Medication List Home Medication List Reviewed: Yes Review of Systems Review of Systems Constitutional: see HPI; No chills, No fever Eyes: No Symptoms Reported Ears, Nose, Mouth, Throat: no symptoms reported; denies nose discharge Respiratory: see HPI; No cough, No short of breath Cardiovascular: no symptoms reported; No palpitations Gastrointestinal: No abdominal pain, No dysphagia, No nausea, No vomiting Genitourinary: no symptoms reported; No dysuria, No pain Musculoskeletal: no symptoms reported Skin: no symptoms reported Psychiatric/Neurological: Headache Past Mnymvlg-Klzsaa-Ysylpo Hx Patient Social History Alcohol Use: Denies Use Number of Drinks Today: AA Alcohol Beverage of Choice: Beer Recreational Drug Use: No Smoking Status: Never a Smoker 2nd Hand Smoke Exposure: No Recent Foreign Travel: No Contact w/Someone Who Travel: No Recent Infectious Disease Expo: No Recent Hopitalizations: No Immunizations Up To Date Tetanus Booster (TDap): Unknown PED Vaccines UTD: No Seasonal Allergies Seasonal Allergies: No Past Medical History Surgeries: Yes Gallbladder Respiratory: No Cardiac: No Neurological: Yes Headaches /Migraines Reproductive Disorders: No Sexually Transmitted Disease: No HIV/AIDS: No Genitourinary: Yes Kidney Infection Gastrointestinal: Yes Gastroesophageal Reflux, Gall Bladder Disease Musculoskeletal: Yes (CHRONIC RIGHT KNEE PAIN) Endocrine: No HEENT: No Cancer: No Psychosocial: No Integumentary: No Blood Disorders: No Adverse Reaction/Blood Tranf: No Family Medical History Patient reports no known family medical history. No Pertinent Family Hx Physical Exam Vital Signs Vital Signs - First Documented 03/10/20 13:48 Temp 39.3 Pulse 70 Resp 18 B/P (MAP) 121/81 (94) Pulse Ox 99 O2 Delivery Room Air Capillary Refill : Less Than 3 Seconds Height, Weight, BMI Height: 5'8.00" Weight: 176lbs. 0.0oz. 79.479877du; 28.00 BMI Method:Stated General Appearance: WD/WN, no apparent distress, other (Alert and oriented, flexes chin to chest without any pain. No cough no shortness of breath. Despite no chills or reports of fever at home he is febrile at 102.8 on arrival here.) HEENT: PERRL/EOMI, normal ENT inspection, TMs normal Neck: non-tender, full range of motion Respiratory: no respiratory distress, no accessory muscle use Extremities: normal range of motion, non-tender Psychiatric: alert, oriented x 3 Crainal Nerves: normal hearing, normal speech, PERRL Skin: normal color, warm/dry Procedures/Interventions Suture Size: 4-0 Progress/Results/Core Measures Results/Orders Lab Results Laboratory Tests Test 03/10/20 14:13 Range/Units White Blood Count 9.2 4.3-11.0 10^3/uL Red Blood Count 5.46 4.30-5.52 10^6/uL Hemoglobin 15.8 13.3-17.7 g/dL Hematocrit 49 40-54 % Mean Corpuscular Volume 89 80-99 fL Mean Corpuscular Hemoglobin 29 25-34 pg Mean Corpuscular Hemoglobin Concent 33 32-36 g/dL Red Cell Distribution Width 12.9 10.0-14.5 % Platelet Count 302 130-400 10^3/uL Mean Platelet Volume 9.3 9.0-12.2 fL Immature Granulocyte % (Auto) 1 % Neutrophils (%) (Auto) 61 42-75 % Lymphocytes (%) (Auto) 28 12-44 % Monocytes (%) (Auto) 9 0-12 % Eosinophils (%) (Auto) 1 0-10 % Basophils (%) (Auto) 1 0-10 % Neutrophils # (Auto) 5.5 1.8-7.8 10^3/uL Lymphocytes # (Auto) 2.6 1.0-4.0 10^3/uL Monocytes # (Auto) 0.8 0.0-1.0 10^3/uL Eosinophils # (Auto) 0.1 0.0-0.3 10^3/uL Basophils # (Auto) 0.1 0.0-0.1 10^3/uL Immature Granulocyte # (Auto) 0.1 0.0-0.1 10^3/uL C-Reactive Protein High Sensitivity 0.99 H 0.00-0.50 MG/DL Procalcitonin 0.03 <0.10 NG/ML Coronavirus 2019 ([facility]HYA) Negative Negative Monoscreen NEGATIVE NEGATIVE Micro Results Microbiology 03/10/20 Influenza Types A,B Antigen (LUIS) - Final, Complete My Orders Orders - SHARON LUTHER APRN Covid 19 Inhouse Test (03/10/20 13:54) Influenza A And B Antigens (03/10/20 13:54) Cbc With Automated Diff (03/10/20 13:54) Ibuprofen Tablet (Motrin Tablet) (03/10/20 14:00) Monotest (03/10/20 14:39) Hs C Reactive Protein (03/10/20 14:40) Procalcitonin (Pct) (03/10/20 14:40) Medications Given in ED Current Medications Medications Dose Ordered Sig/Samuel Route Start Time Stop Time Status Last Admin Dose Admin Ibuprofen 800 mg ONCE ONCE PO 03/10/20 14:00 03/10/20 14:01 DC 03/10/20 14:00 800 MG Vital Signs/I&O 03/10/20 13:48 Temp 39.3 Pulse 70 Resp 18 B/P (MAP) 121/81 (94) Pulse Ox 99 O2 Delivery Room Air Blood Pressure Mean: 94 Departure Impression Primary Impression: Viral syndrome Disposition: 01 HOME, SELF-CARE Condition: Stable Departure-Patient Inst. Decision time for Depature: 15:32 Referrals: [facility] (PCP/Family) Primary Care Physician Patient Instructions: Viral Syndrome (DC) Add. Discharge Instructions: 1. Go home and quarantine until the Covid send out test comes back. Return to ER for any worsening. Tylenol and ibuprofen for fevers. All discharge instructions reviewed with patient and/or family. Voiced understanding. SHARON LUTHER POLICE CLERK Mar 10, 2020 14:39
--- NOTE | 2020-03-10 15:33 | NUR ---
SHARON TO ROOM W/ PT.
[2020-03-10] MEDS ORDERED: PROCHLORPERAZINE 10 MG/2ML INJ (COMPAZINE) IV ONE (15:45)
[2020-03-10] MEDS ORDERED: diphenhydrAMINE 50 MG/ML INJ (BENADRYL) IVP ONE (15:45)
[2020-03-10] MEDS ORDERED: NS IV 1000 ML 1,000 ML IV SCH (15:45)
[2020-03-10 15:58] VITALS: BP 129/84
--- NOTE | 2020-03-10 15:58 | NUR ---
PT DISCHARGED TO HOME W/ INSTR. PT REPORTED IMPROVEMENT IN PAIN. NO OTHER C/O AT THIS TIME. PT VOICED UNDERSTANDING IN INSTRUCTION.
== END 2020-03-10 15:58 | disposition home or self-care (01) ==
LOC: EDUNIT# 13:28 → ER 13:30
DX: B34.9 Viral infection, unspecified (principal); K21.9 Gastro-esophageal reflux disease without esophagitis; Z20.828 Contact with and (suspected) exposure to other viral communicable diseases
CPT/HCPCS: 84145; 85025; 86141; 86308; 87804; 99284; U0002; 36415; 87635

== ENCOUNTER 2020-03-15 19:26 | Emergency (ER) | payer SELFPAY ==
[~2020-03-15] VITALS: Ht 172.7 cm; Wt 87.1 kg
--- NOTE | 2020-03-15 20:02 | ED General ---
General Chief Complaint: Neurological Problems Stated Complaint: NUMBNESS - ALL OVER BODY Nursing Triage Note: PT AMBULATE TO TRIAGE WITH C/O NUMBNESS ALL OVER X2 DAYS. PT REPORTS HE HAS NOT CONTACTED HIS PCP FOR THIS C/O. Nursing Sepsis Screen: No Definite Risk Source of Information: Patient Exam Limitations: No Limitations History of Present Illness Date Seen by Provider: Mar 15, 2020 Time Seen by Provider: 20:02 Initial Comments To ER with whole body numbness for 2 days, burning to the center of his face for 2 days. His future [id number]-vk-xlt suggested he might have anxiety. He reports to me that he is going to propose to his girlfriend and has a baby on the way and wants to make sure that everything is okay with his health. Timing/Duration: 1-2 Days Severity: Moderate Associated Systoms: No Headaches Allergies and Home Medications Allergies Coded Allergies: No Known Drug Allergies (Unverified , 10/12/15) Home Medications Hydrocodone Bit/Acetaminophen 1 Each Tablet, 1 TAB PO Q6H PRN for PAIN-MILD TO MODERATE Prescribed by: KATIE BARAJAS on 09/01/18 0924 Omeprazole 20 Mg Tablet., 20 MG PO BID, (Reported) Patient Home Medication List Home Medication List Reviewed: Yes Review of Systems Review of Systems Constitutional: see HPI EENTM: see HPI Respiratory: no symptoms reported Cardiovascular: no symptoms reported Genitourinary: no symptoms reported Musculoskeletal: no symptoms reported Skin: no symptoms reported Psychiatric/Neurological: No Symptoms Reported Hematologic/Lymphatic: No Symptoms Reported Past Kbxpdfu-Ynehnw-Atnpih Hx Patient Social History Alcohol Beverage of Choice: Beer 2nd Hand Smoke Exposure: No Recent Infectious Disease Expo: No Recent Hopitalizations: No Immunizations Up To Date Tetanus Booster (TDap): Unknown PED Vaccines UTD: No Seasonal Allergies Seasonal Allergies: No Past Medical History Surgeries: Yes Gallbladder Respiratory: No Cardiac: No Neurological: Yes Headaches /Migraines Reproductive Disorders: No Sexually Transmitted Disease: No HIV/AIDS: No Genitourinary: Yes Kidney Infection Gastrointestinal: Yes Gastroesophageal Reflux, Gall Bladder Disease Musculoskeletal: Yes (CHRONIC RIGHT KNEE PAIN) Endocrine: No HEENT: No Cancer: No Psychosocial: No Integumentary: No Blood Disorders: No Adverse Reaction/Blood Tranf: No Family Medical History Patient reports no known family medical history. No Pertinent Family Hx Physical Exam Vital Signs Vital Signs - First Documented 03/15/20 19:57 Temp 36.8 Pulse 98 Resp 18 B/P (MAP) 152/89 (110) O2 Delivery Room Air Capillary Refill : Less Than 3 Seconds Height, Weight, BMI Height: 5'8.00" Weight: 176lbs. 0.0oz. [id number]; 29.00 BMI Method:Stated General Appearance: No Apparent Distress, WD/WN, Anxious Eyes: Bilateral Eye Normal Inspection, Bilateral Eye PERRL HEENT: PERRL/EOMI, TMs Normal Neck: Full Range of Motion, Normal Inspection Respiratory: No Accessory Muscle Use, No Respiratory Distress Cardiovascular: Regular Rate, Rhythm, Normal Peripheral Pulses Gastrointestinal: Normal Bowel Sounds, Non Tender, Soft Extremity: Normal Capillary Refill, Normal Inspection Neurologic/Psychiatric: Alert, Oriented x3 Skin: Normal Color, Warm/Dry Procedures/Interventions Suture Size: 4-0 Progress/Results/Core Measures Suspected Sepsis Recent Fever Within 48 Hours: No Infection Criteria Present: None New/Unexplained Altered Menta: No Sepsis Screen: No Definite Risk SIRS Temperature: Pulse: 98 Respiratory Rate: 18 Laboratory Tests 03/15/20 20:24: White Blood Count 8.9 Blood Pressure 152 /89 Mean: 110 Laboratory Tests 03/15/20 20:24: Creatinine 1.06, Platelet Count 314, Total Bilirubin 0.3 Results/Orders Lab Results Laboratory Tests Test 03/15/20 20:00 03/15/20 20:24 Range/Units Urine Color YELLOW Urine Clarity CLEAR Urine pH 6.5 5-9 Urine Specific [place] <=1.005 1.016-1.022 Urine Protein NEGATIVE NEGATIVE Urine Glucose (UA) NEGATIVE NEGATIVE Urine Ketones NEGATIVE NEGATIVE Urine Nitrite NEGATIVE NEGATIVE Urine Bilirubin NEGATIVE NEGATIVE Urine Urobilinogen 0.2 < = 1.0 MG/DL Urine Leukocyte Esterase NEGATIVE NEGATIVE Urine RBC (Auto) NEGATIVE NEGATIVE Urine RBC NONE /HPF Urine WBC RARE /HPF Urine Crystals PRESENT H /LPF Urine Amorphous Sediment FEW AMANDA URATES H /LPF Urine Bacteria TRACE /HPF Urine Casts NONE /LPF Urine Mucus NEGATIVE /LPF Urine Culture Indicated NO Urine Opiates Screen NEGATIVE NEGATIVE Urine Oxycodone Screen NEGATIVE NEGATIVE Urine Methadone Screen NEGATIVE NEGATIVE Urine Propoxyphene Screen NEGATIVE NEGATIVE Urine Barbiturates Screen NEGATIVE NEGATIVE Ur Tricyclic Antidepressants Screen NEGATIVE NEGATIVE Urine Phencyclidine Screen NEGATIVE NEGATIVE Urine Amphetamines Screen NEGATIVE NEGATIVE Urine Methamphetamines Screen NEGATIVE NEGATIVE Urine Benzodiazepines Screen NEGATIVE NEGATIVE Urine Cocaine Screen NEGATIVE NEGATIVE Urine Cannabinoids Screen NEGATIVE NEGATIVE White Blood Count 8.9 4.3-11.0 10^3/uL Red Blood Count 5.28 4.30-5.52 10^6/uL Hemoglobin 15.3 13.3-17.7 g/dL Hematocrit 47 40-54 % Mean Corpuscular Volume 88 80-99 fL Mean Corpuscular Hemoglobin 29 25-34 pg Mean Corpuscular Hemoglobin Concent 33 32-36 g/dL Red Cell Distribution Width 12.8 10.0-14.5 % Platelet Count 314 130-400 10^3/uL Mean Platelet Volume 9.4 9.0-12.2 fL Immature Granulocyte % (Auto) 0 % Neutrophils (%) (Auto) 73 42-75 % Lymphocytes (%) (Auto) 18 12-44 % Monocytes (%) (Auto) 7 0-12 % Eosinophils (%) (Auto) 1 0-10 % Basophils (%) (Auto) 1 0-10 % Neutrophils # (Auto) 6.5 1.8-7.8 10^3/uL Lymphocytes # (Auto) 1.6 1.0-4.0 10^3/uL Monocytes # (Auto) 0.6 0.0-1.0 10^3/uL Eosinophils # (Auto) 0.1 0.0-0.3 10^3/uL Basophils # (Auto) 0.1 0.0-0.1 10^3/uL Immature Granulocyte # (Auto) 0.0 0.0-0.1 10^3/uL Sodium Level 139 135-145 MMOL/L Potassium Level 3.8 3.6-5.0 MMOL/L Chloride Level 108 H 98-107 MMOL/L Carbon Dioxide Level 20 L 21-32 MMOL/L Anion Gap 11 5-14 MMOL/L Blood Urea Nitrogen 14 7-18 MG/DL Creatinine 1.06 0.60-1.30 MG/DL Estimat Glomerular Filtration Rate > 60 BUN/Creatinine Ratio 13 Glucose Level 107 H 70-105 MG/DL Calcium Level 9.5 8.5-10.1 MG/DL Corrected Calcium 9.2 8.5-10.1 MG/DL Total Bilirubin 0.3 0.1-1.0 MG/DL Aspartate Amino Transf (AST/SGOT) 37 H 5-34 U/L Alanine Aminotransferase (ALT/SGPT) 77 H 0-55 U/L Alkaline Phosphatase 110 40-136 U/L C-Reactive Protein High Sensitivity 1.21 H 0.00-0.50 MG/DL Total Protein 7.5 6.4-8.2 GM/DL Albumin 4.4 3.2-4.5 GM/DL My Orders Orders - SHARON LUTHER APRN Cbc With Automated Diff (03/15/20 19:48) Comprehensive Metabolic Panel (03/15/20 19:48) Hs C Reactive Protein (03/15/20 19:48) Ua Culture If Indicated (03/15/20 19:52) Drug Screen Stat (Urine) (03/15/20 19:52) Alprazolam Tablet (Xanax Tablet) (03/15/20 20:15) Medications Given in ED Current Medications Medications Dose Ordered Sig/Samuel Route Start Time Stop Time Status Last Admin Dose Admin Alprazolam 0.25 mg ONCE ONCE PO 03/15/20 20:15 03/15/20 20:16 DC 03/15/20 20:10 0.25 MG Vital Signs/I&O 03/15/20 19:57 Temp 36.8 Pulse 98 Resp 18 B/P (MAP) 152/89 (110) O2 Delivery Room Air Capillary Refill : Less Than 3 Seconds Blood Pressure Mean: 110 Departure Impression Primary Impression: Paresthesia Disposition: 01 HOME, SELF-CARE Condition: Stable Departure-Patient Inst. Decision time for Depature: 20:51 Referrals: [facility] (PCP/Family) Primary Care Physician Patient Instructions: Paresthesia (DC) Add. Discharge Instructions: 1. Follow-up with your doctor within 1 week for recheck. Return to ER for any concerns. All discharge instructions reviewed with patient and/or family. Voiced understanding. SHARON LUTHER APRN Mar 15, 2020 20:02
[2020-03-15 20:15] LABS: BILIRUBIN,URINE NEGATIVE (NEGATIVE); CLARITY,URINE CLEAR; COLOR,URINE YELLOW; GLUCOSE, URINE (UA) NEGATIVE (NEGATIVE); KETONES,URINE NEGATIVE (NEGATIVE); LEUKOCYTE ESTERASE ,URINE NEGATIVE (NEGATIVE); NITRITE,URINE NEGATIVE (NEGATIVE); PH,URINE 6.5 (5-9); PROTEIN,URINE NEGATIVE (NEGATIVE)
[2020-03-15] MEDS ORDERED: ALPRAZolam 0.25 MG (XANAX) TAB PO ONE (20:15)
[2020-03-15 20:27] LABS: BASOPHILS # (AUTO) 0.1 10^3/uL (0.0-0.1); BASOPHILS % (AUTO) 1 % (0-10); EOSINOPHILS # (AUTO) 0.1 10^3/uL (0.0-0.3); EOSINOPHILS % (AUTO) 1 % (0-10); HEMATOCRIT 47 % (40-54); HEMOGLOBIN 15.3 g/dL (13.3-17.7); LYMPHOCYTES # (AUTO) 1.6 10^3/uL (1.0-4.0); LYMPHOCYTES % (AUTO) 18 % (12-44); MEAN CORPUSCULAR HEMOGLOBIN 29 pg (25-34); MEAN CORPUSCULAR HGB CONC 33 g/dL (32-36); MEAN CORPUSCULAR VOLUME 88 fL (80-99); MEAN PLATELET VOLUME 9.4 fL (9.0-12.2); MONOCYTES # (AUTO) 0.6 10^3/uL (0.0-1.0); MONOCYTES % (AUTO) 7 % (0-12); NEUTROPHILS # (AUTO) 6.5 10^3/uL (1.8-7.8); NEUTROPHILS % (AUTO) 73 % (42-75); PLATELET COUNT 314 10^3/uL (130-400); WHITE BLOOD COUNT 8.9 10^3/uL (4.3-11.0)
[2020-03-15 20:36] LABS: AMPHETAMINE SCREEN, URINE NEGATIVE (NEGATIVE); BARBITURATE SCREEN URINE NEGATIVE (NEGATIVE); BENZODIAZEPINES SCREEN URINE NEGATIVE (NEGATIVE); CANNABINOID SCREEN, URINE NEGATIVE (NEGATIVE); COCAINE SCREEN URINE NEGATIVE (NEGATIVE); METHADONE STAT NEGATIVE (NEGATIVE); METHAMPHETAMINE SCREEN URINE S NEGATIVE (NEGATIVE); OPIATE SCREEN URINE NEGATIVE (NEGATIVE); OXYCODONE STAT NEGATIVE (NEGATIVE); PROPOXYPHENE STAT NEGATIVE (NEGATIVE); TRICYCLIC ANTIDEPRESSANTS SCRE NEGATIVE (NEGATIVE)
[2020-03-15 20:39] LABS: AMORPHOUS SEDIMENT,UR FEW AMOR URATES /LPF; BACTERIA,URINE TRACE /HPF; WBC,URINE RARE /HPF
[2020-03-15 20:49] LABS: ALANINE AMINOTRANSFERASE 77 U/L (0-55); ALBUMIN 4.4 GM/DL (3.2-4.5); ALKALINE PHOSPHATASE 110 U/L (40-136); BILIRUBIN,TOTAL 0.3 MG/DL (0.1-1.0); BUN/CREATININE RATIO 13; CARBON DIOXIDE 20 MMOL/L (21-32); CHLORIDE 108 MMOL/L (98-107); CREATININE SERUM 1.06 MG/DL (0.60-1.30); GFR ESTIMATED > 60; GLUCOSE 107 MG/DL (70-105); POTASSIUM 3.8 MMOL/L (3.6-5.0); SODIUM 139 MMOL/L (135-145); TOTAL PROTEIN 7.5 GM/DL (6.4-8.2)
[2020-03-15 20:55] VITALS: BP 161/80
[2020-03-16 02:08] LABS: CALCIUM 10.3 MG/DL (8.5-10.1)
== END 2020-03-15 20:55 | disposition home or self-care (01) ==
LOC: EDUNIT# 19:26 → ER 19:29
DX: R20.2 Paresthesia of skin (principal); F41.9 Anxiety disorder, unspecified; K21.9 Gastro-esophageal reflux disease without esophagitis
CPT/HCPCS: 36415; 80053; 80306; 81000; 85025; 86141

== ENCOUNTER 2020-03-28 17:48 | Emergency (ER) | payer SELFPAY ==
[~2020-03-28] VITALS: Ht 172.7 cm; Wt 87.1 kg
[2020-03-28 17:57] VITALS: BP 124/82
--- NOTE | 2020-03-28 18:29 | ED Integumentary General ---
General Chief Complaint: Laceration Stated Complaint: R HAND 2ND FINGER LACERATION Nursing Triage Note: PT AMB TO TRIAGE WITH COMPLAINT OF LACERATION TO RIGHT MIDDLE FINGER. STATES WAS SHARPENING KNIFE AND CUT HIMSELF. UNKNOWN LAST TETANUS SHOT. Source: patient Exam Limitations: no limitations History of Present Illness Date Seen by Provider: Mar 28, 2020 Time Seen by Provider: 18:24 Initial Comments 29-year-old male with laceration to right middle finger. Reports that he was sharpening a knife when he slipped and cut himself. He reports that his tetanus shot was 1 year ago. Timing/Duration: just prior to arrival Allergies and Home Medications Allergies Coded Allergies: No Known Drug Allergies (Unverified , 10/12/15) Home Medications Hydrocodone Bit/Acetaminophen 1 Each Tablet, 1 TAB PO Q6H PRN for PAIN-MILD TO MODERATE Prescribed by: KATIE BARAJAS on 09/01/18 0924 Omeprazole 20 Mg Tablet.dr, 20 MG PO BID, (Reported) Patient Home Medication List Home Medication List Reviewed: Yes Review of Systems Review of Systems Constitutional: see HPI; No chills, No fever Skin: see HPI, other (Laceration to right middle finger) All Other Systems Reviewed Negative Unless Noted: Yes Past Rrcyaqd-Iqbrrb-Mjyyid Hx Past Med/Social Hx: Reviewed Nursing Past Med/Soc Hx Patient Social History Alcohol Use: Occasionally Uses Number of Drinks Today: AA Alcohol Beverage of Choice: Beer Smoking Status: Never a Smoker 2nd Hand Smoke Exposure: No Recent Infectious Disease Expo: No Recent Hopitalizations: No Immunizations Up To Date Tetanus Booster (TDap): Unknown PED Vaccines UTD: No Seasonal Allergies Seasonal Allergies: No Past Medical History Surgeries: Yes Gallbladder Respiratory: No Cardiac: No Neurological: Yes Headaches /Migraines Reproductive Disorders: No Sexually Transmitted Disease: No HIV/AIDS: No Genitourinary: Yes Kidney Infection Gastrointestinal: Yes Gastroesophageal Reflux, Gall Bladder Disease Musculoskeletal: Yes (CHRONIC RIGHT KNEE PAIN) Endocrine: No HEENT: No Cancer: No Psychosocial: No Integumentary: No Blood Disorders: No Adverse Reaction/Blood Tranf: No Family Medical History Reviewed Nursing Family Hx Patient reports no known family medical history. No Pertinent Family Hx Physical Exam Vital Signs Vital Signs - First Documented 03/28/20 17:57 Temp 36.8 Pulse 86 Resp 17 B/P (MAP) 124/82 (96) Pulse Ox 99 O2 Delivery Room Air Capillary Refill : Less Than 3 Seconds General Appearance: WD/WN, no apparent distress Cardiovascular: normal peripheral pulses, regular rate, rhythm, no edema, no gallop, no JVD, no murmur Respiratory: chest non-tender, lungs clear, normal breath sounds, no respirato ry distress, no accessory muscle use Neurologic/Psychiatric: alert, normal mood/affect, oriented x 3 Skin: normal color, warm/dry, other (0.5 cm laceration to the right middle finger.) Procedures/Interventions Other Wound Location Dorsal surface of right middle finger Wound Length (cm): .5 Wound's Depth, Shape: superficial Progress Wound was thoroughly cleaned and irrigated with normal saline and Betasept. Wound was approximated and closed with Dermabond. Progress/Results/Core Measures Results/Orders Vital Signs/I&O 03/28/20 17:57 Temp 36.8 Pulse 86 Resp 17 B/P (MAP) 124/82 (96) Pulse Ox 99 O2 Delivery Room Air Blood Pressure Mean: 96 Departure Impression Primary Impression: Laceration of right middle finger Disposition: 01 HOME, SELF-CARE Condition: Stable/Unchanged Departure-Patient Inst. Decision time for Depature: 18:27 Referrals: [facility] (PCP/Family) Primary Care Physician Patient Instructions: Laceration Repair With Glue (DC) Add. Discharge Instructions: Let the glue fall off on its own. Watch for signs of infection. Follow up with PCP as needed. Return back to ER for worsening symptoms or concerns as needed. All discharge instructions reviewed with patient and/or family. Voiced understanding. DAKOTA MAR Mar 28, 2020 18:29
== END 2020-03-28 19:01 | disposition home or self-care (01) ==
LOC: EDUNIT# 17:48 → ER 17:51
DX: S61.212A Laceration without foreign body of right middle finger without damage to nail, initial encounter (principal); K21.9 Gastro-esophageal reflux disease without esophagitis; W26.0XXA Contact with knife, initial encounter
CPT/HCPCS: 99282

== ENCOUNTER 2020-07-15 15:49 | Emergency (ER) | payer SELFPAY ==
[~2020-07-15] VITALS: Ht 172.7 cm; Wt 88.0 kg
[~2020-07-15 15:49] MED LIST changes: +NAPR-1088 PO; -NAPR250T6 PO
[2020-07-15 16:21] LABS: BILIRUBIN,URINE NEGATIVE (NEGATIVE); CLARITY,URINE CLEAR; COLOR,URINE YELLOW; GLUCOSE, URINE (UA) NEGATIVE (NEGATIVE); KETONES,URINE NEGATIVE (NEGATIVE); LEUKOCYTE ESTERASE ,URINE NEGATIVE (NEGATIVE); NITRITE,URINE NEGATIVE (NEGATIVE); PROTEIN,URINE NEGATIVE (NEGATIVE)
[2020-07-15 16:28] LABS: BACTERIA,URINE NEGATIVE /HPF
--- NOTE | 2020-07-15 16:28 | ED General ---
General Chief Complaint: General Problems/Pain Stated Complaint: R SIDE PAIN/TIGHTNESS Nursing Triage Note: AMB TO ED REPORTS WAS WORKING OUT AND METAL BAR HIT HIS R SIDE NO BRUSING NOTED.CON'T TO BE TENDER IN AREA. Nursing Sepsis Screen: No Definite Risk Source of Information: Patient Exam Limitations: No Limitations (TIMOTHY ZULUAGA STUDENT) History of Present Illness Date Seen by Provider: July 15, 2020 Time Seen by Provider: 16:05 Initial Comments Pt presents to ED via private conveyance with complaints of R rib pain. He sta leena that on Thursday afternoon he was doing some work around his home when a spring-loaded metal bar swung around and hit him on his R side lower ribs. Rates the pain at 6/10, denies radiation, worse with movement and laying on either side, and is most comfortable when sitting upright. He is taking Hydrocodone and Ibuprofen for a prior ACL tear, last dose taken last night with minimal relief. Denies other symptoms of chest pain, SOB, N/V. Location Injury Occurred: Home Timing/Duration: 2-3 Days Severity: Moderate Modifying Factors: improves with Medication (minimal relief with Ibuprofen/Hydrocodone), improves with Movement (worse with movement), improves with Other (comfortable sitting upright) Associated Systoms: No Chest Pain, No Fever/Chills, No Nausea/Vomiting, No Shortness of Air (TIMOTHY ZULUAGA STUDENT) Allergies and Home Medications Allergies Coded Allergies: No Known Drug Allergies (Unverified , 10/12/15) Home Medications Cyclobenzaprine HCl 10 Mg Tablet, 10 MG PO Q8H PRN for SPASMS Prescribed by: CHARY VERA on 07/15/20 1709 Hydrocodone Bit/Acetaminophen 1 Each Tablet, 1 TAB PO Q6H PRN for PAIN-MILD TO MODERATE Prescribed by: KATIE BARAJAS on 09/01/18 0924 Omeprazole 20 Mg Tablet., 20 MG PO BID, (Reported) Patient Home Medication List Home Medication List Reviewed: Yes (TIMOTHY ZULUAGA STUDENT) Review of Systems Review of Systems Constitutional: No chills, No fever, No weakness EENTM: No hearing loss, No blurred vision, No double vision, No vision loss Respiratory: No cough, No hemoptysis, No short of breath Cardiovascular: No chest pain, No edema, No palpitations Gastrointestinal: No abdominal pain, No constipation, No diarrhea, No nausea, No vomiting Genitourinary: No dysuria, No frequency, No hematuria Musculoskeletal: other (pain to R lower ribs) Skin: No lesions, No rash Psychiatric/Neurological: Denies Headache, Denies Numbness, Denies Paresthesia, Denies Tingling (TIMOTHY ZULUAGA) All Other Systems Reviewed Negative Unless Noted: Yes (TIMOTHY ZULUAGA) Past Uefdjeq-Efdkkn-Gnlyot Hx Past Med/Social Hx: Reviewed Nursing Past Med/Soc Hx (TIMOTHY ZULUAGA) Patient Social History Alcohol Use: Denies Use Number of Drinks Today: AA Smoking Status: Never a Smoker (tried cigarettes 10yrs ago but quit with no regular use) 2nd Hand Smoke Exposure: No Recent Infectious Disease Expo: No Recent Hopitalizations: No (TIMOTHY ZULUAGA) Immunizations Up To Date Tetanus Booster (TDap): Unknown PED Vaccines UTD: No (TIMOTHY ZULUAGA) Seasonal Allergies Seasonal Allergies: No (TIMOTHY ZULUAGA) Past Medical History Surgeries: Yes Gallbladder Respiratory: No Cardiac: No Neurological: Yes Headaches /Migraines Reproductive Disorders: No Sexually Transmitted Disease: No HIV/AIDS: No Genitourinary: Yes Kidney Infection Gastrointestinal: Yes Gastroesophageal Reflux, Gall Bladder Disease Musculoskeletal: Yes (CHRONIC RIGHT KNEE PAIN) Endocrine: No HEENT: No Cancer: No Psychosocial: No Integumentary: No Blood Disorders: No Adverse Reaction/Blood Tranf: No (TIMOTHY ZULUAGA) Family Medical History Patient reports no known family medical history. No Pertinent Family Hx (TIMOTHY ZULUAGA) Physical Exam Vital Signs Vital Signs - First Documented 07/15/20 15:52 Temp 36.6 Pulse 87 Resp 18 B/P (MAP) 139/94 (109) Pulse Ox 99 (JODY,CHARY J) Vital Signs Capillary Refill : Less Than 3 Seconds (TIMOTHY ZULUAGA STUDENT) Height, Weight, BMI Height: 5'8.00" Weight: 176lbs. 0.0oz. 79.006617ro; 29.00 BMI Method:Stated General Appearance: No Apparent Distress, WD/WN Eyes: Bilateral Eye Normal Inspection, Bilateral Eye PERRL HEENT: PERRL/EOMI, Normal ENT Inspection Neck: Full Range of Motion, Normal Inspection, Non Tender, Supple Respiratory: Lungs Clear, Normal Breath Sounds, No Accessory Muscle Use, No Respiratory Distress, Other (tenderness to R lower ribs midaxillary) Cardiovascular: Regular Rate, Rhythm, No Edema, Normal Peripheral Pulses Gastrointestinal: Normal Bowel Sounds, Non Tender, Soft; No Distended, No Guarding Rectal: Deferred Back: Normal Inspection, No CVA Tenderness, No Vertebral Tenderness Extremity: Normal Capillary Refill, Normal Inspection, Normal Range of Motion, Non Tender Neurologic/Psychiatric: Alert, Oriented x3, No Motor/Sensory Deficits, Normal Mood/Affect Skin: Normal Color, Warm/Dry, Other (no obvious deformity, erythema, or ecc hymosis to R flank) Lymphatic: No Adenopathy (TIMOTHY ZULUAGA [facility] STUDENT) Procedures/Interventions Ultrasound: normal (no free intraperitoneal fluid observed in Morrisons pouch) (TIMOTHY ZULUAGA [facility] STUDENT) Progress/Results/Core Measures Suspected Sepsis Recent Fever Within 48 Hours: No Infection Criteria Present: None New/Unexplained Altered Menta: No Sepsis Screen: No Definite Risk SIRS Temperature: Pulse: 87 Respiratory Rate: 18 Blood Pressure 139 /94 Mean: 109 (TIMOTHY ZULUAGA [facility] STUDENT) Results/Orders Lab Results Laboratory Tests Test 07/15/20 16:12 Range/Units Urine Color YELLOW Urine Clarity CLEAR Urine pH 6.0 5-9 Urine Specific [place] 1.010 L 1.016-1.022 Urine Protein NEGATIVE NEGATIVE Urine Glucose (UA) NEGATIVE NEGATIVE Urine Ketones NEGATIVE NEGATIVE Urine Nitrite NEGATIVE NEGATIVE Urine Bilirubin NEGATIVE NEGATIVE Urine Urobilinogen 0.2 < = 1.0 MG/DL Urine Leukocyte Esterase NEGATIVE NEGATIVE Urine RBC (Auto) NEGATIVE NEGATIVE Urine RBC NONE /HPF Urine WBC NONE /HPF Urine Crystals NONE /LPF Urine Bacteria NEGATIVE /HPF Urine Casts NONE /LPF Urine Mucus NEGATIVE /LPF Urine Culture Indicated NO (CHARY VERA) My Orders Orders - CHARY VERA Ua Culture If Indicated (07/15/20 15:52) Ribs, Right 2-3 Views (07/15/20 16:22) (CHARY VERA) Vital Signs/I&O 07/15/20 15:52 Temp 36.6 Pulse 87 Resp 18 B/P (MAP) 139/94 (109) Pulse Ox 99 (CHARY VERA) Vital Signs/I&O Capillary Refill : Less Than 3 Seconds (TIMOTHY ZULUAGA MED STUDENT) Blood Pressure Mean: 109 Progress Note : Time: 17:05 Progress Note I attest that I saw this patient alongside the medical student and agree with his documented history, physical exam and review of systems except as otherwise noted. Bedside ultrasound did not reveal any free fluid around the liver or kidney. Urinalysis does not reveal any blood in the urine. Rib x-ray does not reveal any fractured rib. We gave him conservative management for bruised ribs and will give him some Flexeril for the muscle spasms he sometimes feels. We will have him follow-up with primary care if he is not seeing improvement in 1 to 2 weeks. (CHARY VERA) Diagnostic Imaging Diagonstic Imaging: Xray Plain Films/CT/US/NM/MRI: chest Comments [facility] [place] [place] NAME: VIKA SULLIVAN [facility] REC#: [id number] PT STATUS: REG ER : 1990 PHYSICIAN: CHARY VERA MD ADMIT DATE: 07/15/20/ER Draft Date of Exam:07/15/20 RIBS, RIGHT 2-3 VIEWS Patient History: Right-sided rib pain. Trauma. Technique: Three views of the right ribs were obtained. Comparison: 06/05/2018. Findings: No acute displaced right-sided rib fracture is seen. No evidence of pneumothorax or pleural effusion. Impression: No acute displaced right-sided rib fracture. Dictated on workstation # [id number] Dict: 07/15/201656 Trans: 07/15/201658 [facility] [id number] Interpreted by: ANNE BECK DO Electronically signed by: Reviewed: Reviewed by Me (CHARY VERA) Departure Impression Primary Impression: Bruised ribs Qualified Codes: S20.211A - Contusion of right front wall of thorax, initial encounter Disposition: 01 HOME, SELF-CARE Condition: Stable Departure-Patient Inst. Decision time for Depature: 17:07 (CHARY VERA) Referrals: [facility] (PCP/Family) Primary Care Physician Patient Instructions: Bruised Rib (DC) Add. Discharge Instructions: Heat applied directly to the side can help with pain. Icy hot, Biofreeze or similar creams can be helpful. Tylenol 1000 mg every 8 hours as necessary for pain. Ibuprofen 800 mg every 8 hours necessary for pain. If you have muscle spasms then you can use the Flexeril/cyclobenzaprine 1 tablet every 8 hours as necessary. Cyclobenzaprine will cause drowsiness and should n ot be mixed with alcohol nor should you operate heavy machinery under its influence. Expect to see improvement over the next 1 to 2 weeks. If you are not seeing adequate improvement then you can follow-up with your primary care doctor and discuss physical therapy and other appropriate management techniques. All discharge instructions reviewed with patient and/or family. Voiced und erstanding. Scripts Cyclobenzaprine HCl (Cyclobenzaprine HCl) 10 Mg Tablet 10 MG PO Q8H PRN for SPASMS, #15 TAB 0 Refills Prov: CHARY VERA 07/15/20 Work/School Note: Work Release Form Date Seen in the Emergency Department: July 15, 2020 Return to Work: July 19, 2020 Restrictions: Need Release from Doctor Other Restrictions Listed Below: Do not lift greater than 40 pounds until 07/23/2020. TIMOTHY ZULUAGA MED STUDENT July 15, 2020 16:28 CHARY VERA July 15, 2020 17:10
--- NOTE | 2020-07-15 16:59 | Diagnostic Imaging Report ---
Patient History: Right-sided rib pain. Trauma. Technique: Three views of the right ribs were obtained. Comparison: 06/05/2018. Findings: No acute displaced right-sided rib fracture is seen. No evidence of pneumothorax or pleural effusion. Impression: No acute displaced right-sided rib fracture. Dictated by: Dictated on workstation # [id number]
[2020-07-15] MEDS ORDERED: CYCL10TA9 PO (17:09)
[2020-07-15 17:14] VITALS: BP 139/94
== END 2020-07-15 17:14 | disposition home or self-care (01) ==
LOC: EDUNIT# 15:49 → ER 15:50
DX: S20.211A Contusion of right front wall of thorax, initial encounter (principal); G43.909 Migraine, unspecified, not intractable, without status migrainosus; K21.9 Gastro-esophageal reflux disease without esophagitis; G89.29 Other chronic pain; M25.561 Pain in right knee; Z79.891 Long term (current) use of opiate analgesic; Z79.899 Other long term (current) drug therapy; W22.8XXA Striking against or struck by other objects, initial encounter; Y92.009 Unspecified place in unspecified non-institutional (private) residence as the place of occurrence of the external cause
CPT/HCPCS: 71100; 81000

== ENCOUNTER 2020-11-03 07:55 | Emergency (ER) | payer SELFPAY ==
[~2020-11-03] VITALS: Ht 172 cm; Wt 88.4 kg
[~2020-11-03 07:55] MED LIST changes: +CYCL10TA9 PO; -SULF1TAB35 PO; +SULF1TAB38 PO
--- NOTE | 2020-11-03 09:08 | ED Headache ---
General Chief Complaint: Head/Cervical Problems Stated Complaint: HEADACHE, DIZZINESS Nursing Triage Note: PT PRESENTS TO ED WITH COMPLAINTS OF HAX 2 MONTHS AND NAUSEA LIGHTHEADEDNESS STARTING TODAY. PT DENIES FEVER AND COUGH. Source: patient Exam Limitations: no limitations History of Present Illness Date Seen by Provider: Nov 03, 2020 Time Seen by Provider: 08:04 Initial Comments This 30-year-old young man presents to the emergency room with complaints of headaches for the past 6 months. Headaches have been constant over the last month. He describes occasional blurry vision tends to improve with blinking. Pain is usually on the left starting in the frontal area and sometimes radiating around to the neck. He denies any obvious neurologic deficits. He has had occasional nausea and dizziness or lightheadedness. He reports nausea, lightheadedness and dizziness this morning. He went to the [facility] walk-in clinic and requested a CT scan. He reports it was not deemed necessary yet at that point, so he presents to the ER today because symptoms are persistent and wors ening. He has visited the chiropractor due to the neck pain. He reports the headaches persisted even when the neck pain improved with treatment. He is specifically concerned about brain tumor. Patient denies drug, alcohol, and tobacco use. Allergies and Home Medications Allergies Coded Allergies: No Known Drug Allergies (Unverified , 10/12/15) Patient Home Medication List Home Medication List Reviewed: Yes Cyclobenzaprine HCl (Cyclobenzaprine HCl) 10 Mg Tablet, 10 MG PO Q8H PRN for SPASMS Prescribed by: CHARY VERA on 07/15/20 1709 Cyclobenzaprine HCl (Cyclobenzaprine HCl) 10 Mg Tablet, 10 MG PO HS PRN for SPASMS Prescribed by: VIKA DE on 11/03/20 1021 Hydrocodone Bit/Acetaminophen (HYDROcodone/APAP 7.5/325 TAB) 1 Each Tablet, 1 TAB PO Q6H PRN for PAIN-MILD TO MODERATE Prescribed by: KATIE BARAJAS on 09/01/18 0924 Omeprazole (Omeprazole) 20 Mg Tablet.dr, 20 MG PO BID, (Reported) Entered as Reported by: BILLY RUDOLPH on 08/24/18 1421 Review of Systems Review of Systems Constitutional: no symptoms reported Eyes: See HPI Ears, Nose, Mouth, Throat: no symptoms reported Respiratory: no symptoms reported Cardiovascular: no symptoms reported Gastrointestinal: see HPI Genitourinary: no symptoms reported Musculoskeletal: see HPI Skin: no symptoms reported Psychiatric/Neurological: See HPI Past Hhxhlfo-Uakmmc-Kucpoy Hx Patient Social History Tobacco Use?: No Substance use?: No Alcohol Use?: No Pt feels they are or have been: No Immunizations Up To Date Tetanus Booster (TDap): Unknown PED Vaccines UTD: No Seasonal Allergies Seasonal Allergies: No Past Medical History Surgery/Hospitalization HX: sx: gallbladder pmh: gerd Surgeries: Yes Gallbladder Respiratory: No Cardiac: No Neurological: Yes Headaches /Migraines Reproductive Disorders: No Sexually Transmitted Disease: No HIV/AIDS: No Genitourinary: Yes Kidney Infection Gastrointestinal: Yes Gastroesophageal Reflux, Gall Bladder Disease Musculoskeletal: Yes (CHRONIC RIGHT KNEE PAIN) Endocrine: No HEENT: No Cancer: No Psychosocial: No Integumentary: No Blood Disorders: No Adverse Reaction/Blood Tranf: No Family Medical History Patient reports no known family medical history. No Pertinent Family Hx Physical Exam Vital Signs Vital Signs - First Documented 11/03/20 08:04 Temp 35.8 Pulse 64 Resp 18 B/P (MAP) 135/90 (105) Pulse Ox 97 Capillary Refill : Less Than 3 Seconds Height, Weight, BMI Height: 5'8.00" Weight: 176lbs. 0.0oz. 79.199015iz; 29.00 BMI Method:Stated General Appearance: WD/WN, no apparent distress HEENT: PERRL/EOMI, normal ENT inspection, TMs normal, pharynx normal Neck: normal inspection Cardiovascular: regular rate, rhythm, no edema, no murmur Respiratory: lungs clear, normal breath sounds, no respiratory distress, no accessory muscle use Gastrointestinal: non tender, soft Extremities: normal inspection, no pedal edema Psychiatric: alert, oriented x 3 Crainal Nerves: normal hearing, normal speech, PERRL Coordination/Gait: normal finger to nose (Normal aecg-bm-ebli) Motor/Sensory: no motor deficit, no sensory deficit Skin: normal color, warm/dry Progress/Results/Core Measures Results/Orders Lab Results Laboratory Tests Test 11/03/20 08:07 11/03/20 09:20 Range/Units Influenza Type A (RT-PCR) Not Detected Not Detecte Influenza Type B (RT-PCR) Not Detected Not Detecte SARS-CoV-2 RNA (RT-PCR) Not Detected Not Detecte White Blood Count 7.8 4.3-11.0 10^3/uL Red Blood Count 5.38 4.30-5.52 10^6/uL Hemoglobin 15.6 13.3-17.7 g/dL Hematocrit 48 40-54 % Mean Corpuscular Volume 90 80-99 fL Mean Corpuscular Hemoglobin 29 25-34 pg Mean Corpuscular Hemoglobin Concent 32 32-36 g/dL Red Cell Distribution Width 12.8 10.0-14.5 % Platelet Count 302 130-400 10^3/uL Mean Platelet Volume 9.2 9.0-12.2 fL Immature Granulocyte % (Auto) 0 % Neutrophils (%) (Auto) 71 42-75 % Lymphocytes (%) (Auto) 20 12-44 % Monocytes (%) (Auto) 8 0-12 % Eosinophils (%) (Auto) 1 0-10 % Basophils (%) (Auto) 1 0-10 % Neutrophils # (Auto) 5.5 1.8-7.8 10^3/uL Lymphocytes # (Auto) 1.6 1.0-4.0 10^3/uL Monocytes # (Auto) 0.6 0.0-1.0 10^3/uL Eosinophils # (Auto) 0.1 0.0-0.3 10^3/uL Basophils # (Auto) 0.0 0.0-0.1 10^3/uL Immature Granulocyte # (Auto) 0.0 0.0-0.1 10^3/uL Sodium Level 140 135-145 MMOL/L Potassium Level 4.1 3.6-5.0 MMOL/L Chloride Level 107 98-107 MMOL/L Carbon Dioxide Level 21 21-32 MMOL/L Anion Gap 12 5-14 MMOL/L Blood Urea Nitrogen 16 7-18 MG/DL Creatinine 1.26 0.60-1.30 MG/DL Estimat Glomerular Filtration Rate 68 BUN/Creatinine Ratio 13 Glucose Level 94 70-105 MG/DL Calcium Level 9.7 8.5-10.1 MG/DL Corrected Calcium 9.4 8.5-10.1 MG/DL Magnesium Level 2.2 1.6-2.4 MG/DL Total Bilirubin 0.8 0.1-1.0 MG/DL Aspartate Amino Transf (AST/SGOT) 14 5-34 U/L Alanine Aminotransferase (ALT/SGPT) 15 0-55 U/L Alkaline Phosphatase 79 40-136 U/L Total Protein 7.8 6.4-8.2 GM/DL Albumin 4.4 3.2-4.5 GM/DL My Orders Orders - VIKA CONCEPCION MD Covid 19 Inhouse Test (11/03/20 08:04) Influenza A And B By Pcr (11/03/20 08:04) Ct Head Wo (11/03/20 08:42) Cbc With Automated Diff (11/03/20 09:09) Comprehensive Metabolic Panel (11/03/20 09:09) Magnesium (11/03/20 09:09) Ed Iv/Invasive Line Start (11/03/20 09:09) Vitamin D 25-Hydroxy (11/03/20 10:19) Vital Signs/I&O 11/03/20 11/03/20 08:04 10:41 Temp 35.8 35.8 Pulse 64 60 Resp 18 20 B/P (MAP) 135/90 (105) 132/87 Pulse Ox 97 98 Blood Pressure Mean: 105 Progress Progress Note #1: Time: 09:12 Progress Note I discussed options for further evaluation with the patient. I explained CT scan could be obtained today to evaluate for causes of his worsening headache which might include sinusitis, brain mass, etc. Since he is neurologically intact, an alternative would be to attempt MRI in the outpatient setting. This may be difficult due to his insurance status. I did explain the MRI would be s afer and likely more sensitive for the pathology in question. Patient elects to proceed with CT scan today after discussion of risks and benefits. COVID-19 swab was obtained and was negative. Progress Note #2: Progress Note CT of the head is unremarkable. There is no evidence of mass or sinus disease. Cause of headaches is undetermined. This may be impart a post Covid syndrome. Vitamin D level was ordered. See discharge instructions. These headaches may be also in part tension headaches. We discussed relaxation techniques and use of cyclobenzaprine. Diagnostic Imaging Diagonstic Imaging: CT Plain Films/CT/US/NM/MRI: head Comments CT head viewed by me in preliminary report reviewed. See report below: NAME: VIKA SULLIVAN [facility] REC#: [id number] PT STATUS: REG ER : 1990 PHYSICIAN: VIKA CONCEPCION MD ADMIT DATE: 11/03/20/ER Draft Date of Exam:11/03/20 CT HEAD WO PROCEDURE: CT head without contrast. TECHNIQUE: Multiple contiguous axial images were obtained through the brain without the use of intravenous contrast. Auto Exposure Controls were utilized during the CT exam to meet ALARA standards for radiation dose reduction. DATE: November 03, 2020. COMPARISON: CT head November 30, 2018. INDICATION: 30-year-old male, headache for approximately 6 months. FINDINGS: The ventricles and cerebral spinal fluid spaces are of normal size and configuration for the patient's age. There is no mass effect or midline shift. There is no acute intracranial hemorrhage. There is no abnormal extra-axial fluid collection. The right frontal sinus is hypoplastic. The additional paranasal sinuses, mastoid air cells, and middle ears are well-aerated. IMPRESSION: 1. No identified acute intracranial abnormality. Dictated on workstation # [id number] Dict: 11/03/20920 Trans: 11/03/20927 [facility] [id number] Interpreted by: CORINA ORTIZ MD Departure Impression Primary Impression: Chronic headache Qualified Codes: R51.9 - Headache, unspecified; G89.29 - Other chronic pain Disposition: 01 HOME, SELF-CARE Condition: Stable Departure-Patient Inst. Decision time for Depature: 10:20 Referrals: [facility] (PCP/Family) Primary Care Physician Patient Instructions: Headache, Adult (DC), Tension Headache Add. Discharge Instructions: Follow-up with your primary care provider in the next couple of weeks. A vitamin D level was ordered on the blood at the hospital. The results of this test should be available next week. Vitamin D deficiency can be a trigger for headaches. Muscle tension in the neck can also be a trigger for headaches. Exercise gentle neck stretching frequently. You may also use gentle heat such as a heating pad on a low setting or warm moist towels to help relax the muscles in your neck. Avoid unnecessary activities that cause muscle tension in the neck and back including tamra. Be attentive to your posture as poor posture can also cause neck strain. Your headaches may also be part of post-Covid syndrome. You may use the cyclobenzaprine muscle relaxer at bedtime. This may help improve your muscle tension in the night and prevent headaches the next day. Call with questions or concerns. Return to the ER if you have worsening symptoms. All discharge instructions reviewed with patient and/or family. Voiced understanding. Scripts Cyclobenzaprine HCl (Cyclobenzaprine HCl) 10 Mg Tablet 10 MG PO HS PRN for SPASMS, #10 TAB 0 Refills Prov: VIKA CONCEPCION MD 11/03/20 Copy Copies To 1: LUBA PORRAS JOSHUA T MD Nov 03, 2020 09:08
[2020-11-03 09:25] LABS: BASOPHILS % (AUTO) 1 % (0-10); EOSINOPHILS # (AUTO) 0.1 10^3/uL (0.0-0.3); EOSINOPHILS % (AUTO) 1 % (0-10); HEMATOCRIT 48 % (40-54); HEMOGLOBIN 15.6 g/dL (13.3-17.7); LYMPHOCYTES # (AUTO) 1.6 10^3/uL (1.0-4.0); LYMPHOCYTES % (AUTO) 20 % (12-44); MEAN CORPUSCULAR HEMOGLOBIN 29 pg (25-34); MEAN CORPUSCULAR HGB CONC 32 g/dL (32-36); MEAN CORPUSCULAR VOLUME 90 fL (80-99); MEAN PLATELET VOLUME 9.2 fL (9.0-12.2); MONOCYTES # (AUTO) 0.6 10^3/uL (0.0-1.0); MONOCYTES % (AUTO) 8 % (0-12); NEUTROPHILS # (AUTO) 5.5 10^3/uL (1.8-7.8); NEUTROPHILS % (AUTO) 71 % (42-75); PLATELET COUNT 302 10^3/uL (130-400); WHITE BLOOD COUNT 7.8 10^3/uL (4.3-11.0)
--- NOTE | 2020-11-03 09:28 | Diagnostic Imaging Report ---
PROCEDURE: CT head without contrast. TECHNIQUE: Multiple contiguous axial images were obtained through the brain without the use of intravenous contrast. Auto Exposure Controls were utilized during the CT exam to meet ALARA standards for radiation dose reduction. DATE: November 03, 2020. COMPARISON: CT head November 30, 2018. INDICATION: 30-year-old male, headache for approximately 6 months. FINDINGS: The ventricles and cerebral spinal fluid spaces are of normal size and configuration for the patient's age. There is no mass effect or midline shift. There is no acute intracranial hemorrhage. There is no abnormal extra-axial fluid collection. The right frontal sinus is hypoplastic. The additional paranasal sinuses, mastoid air cells, and middle ears are well-aerated. IMPRESSION: 1. No identified acute intracranial abnormality. Dictated by: Dictated on workstation # [id number]
[2020-11-03 09:34] LABS: ALBUMIN 4.4 GM/DL (3.2-4.5); POTASSIUM 4.1 MMOL/L (3.6-5.0)
[2020-11-03 09:35] LABS: CALCIUM 9.7 MG/DL (8.5-10.1)
[2020-11-03 09:37] LABS: TOTAL PROTEIN 7.8 GM/DL (6.4-8.2)
[2020-11-03 09:38] LABS: BILIRUBIN,TOTAL 0.8 MG/DL (0.1-1.0)
[2020-11-03 09:40] LABS: CREATININE SERUM 1.26 MG/DL (0.60-1.30)
[2020-11-03 09:43] LABS: MAGNESIUM 2.2 MG/DL (1.6-2.4)
[2020-11-03] MEDS ORDERED: CYCL10TA9 PO (10:21)
[2020-11-03 10:41] VITALS: BP 132/87
== END 2020-11-03 10:40 | disposition home or self-care (01) ==
LOC: EDUNIT# 07:55 → ER 07:57
DX: G89.29 Other chronic pain (principal); R51.9 Headache, unspecified; K21.9 Gastro-esophageal reflux disease without esophagitis; M25.561 Pain in right knee; Z20.822 Contact with and (suspected) exposure to COVID-19; Z79.899 Other long term (current) drug therapy; Z79.891 Long term (current) use of opiate analgesic
CPT/HCPCS: 36415; 70450; 80053; 82306; 83735; 85025; 87636

== ENCOUNTER 2021-01-09 06:59 | Emergency (ER) | payer SELFPAY ==
[~2021-01-09] VITALS: Ht 172.7 cm; Wt 89.0 kg
[~2021-01-09 06:59] MED LIST changes: -PSEU-137 PO; +PSEU-182 PO
--- NOTE | 2021-01-09 07:31 | ED Neck-Back Pain/Injury ---
General Chief Complaint: Head/Cervical Problems Stated Complaint: PT STS PINCHED NERVE ON BACK OF NECK Nursing Triage Note: AMB TO ED REPORTS HAS HAD NECK PAIN FOR 2 MONTHS WAS SEEN IN ED AT THAT TIME HAD NEG CT SCAN. LAST SEVERAL WEEK AT TIMES HAS TINGLING IN HIS HAND. NO C/O NUMBNESS ON ADMIT. GOOD CMS IN R ARM RADIAL PULSE STRONG. Source of Information: Patient Exam Limitations: No Limitations History of Present Illness Date Seen by Provider: Jan 09, 2021 Time Seen by Provider: 07:15 Initial Comments Patient is a 30-year-old male who presents to the emergency department today with a chief complaint of posterior midline neck pain, numbness and tingling down his right arm to the back of his hand. Patient states that he started having these issues in March 2020, over the last couple of months his symptoms have gotten worse. Patient is left-hand dominant. Patient denies any history of trauma. He states he occasionally takes ibuprofen for the discomfort. He states that last night he had a little numbness in his forearm and in his hand. He has no paresthesia or numbness currently. He denies weakness to the right upper extremity. He has a history of GERD and takes medication for this. No other complaints of recent illness or injury. He states he has been to a chiropractor which helped "a little". He said a friend told him that he might have a "pinched nerve" and told him he probably needs an MRI. All other review of systems reviewed and negative except as stated. Location: C-Spine Timing/Duration: Constant Severity: Moderate Pain/Injury Location: Upper Extremity Associated Symptoms: tingling in legs/feet, sensory/motor loss ("numbness" in hand) Allergies and Home Medications Allergies Coded Allergies: No Known Drug Allergies (Unverified , 10/12/15) Patient Home Medication List Home Medication List Reviewed: Yes Cyclobenzaprine HCl (Cyclobenzaprine HCl) 10 Mg Tablet, 10 MG PO Q8H PRN for SPASMS Prescribed by: CHARY VERA on 07/15/20 1709 Cyclobenzaprine HCl (Cyclobenzaprine HCl) 10 Mg Tablet, 10 MG PO HS PRN for SPASMS Prescribed by: VIKA DE on 11/03/20 1021 Hydrocodone Bit/Acetaminophen (HYDROcodone/APAP 7.5/325 TAB) 1 Each Tablet, 1 TAB PO Q6H PRN for PAIN-MILD TO MODERATE Prescribed by: KATIE BARAJAS on 09/01/18 0924 Omeprazole (Omeprazole) 20 Mg Tablet.dr, 20 MG PO BID, (Reported) Entered as Reported by: BILLY RUDOLPH on 08/24/18 1421 Prednisone (Prednisone) 50 Mg Tab, 50 MG PO DAILY Prescribed by: VICKI ZIMMERMAN on 01/09/21 0732 Review of Systems Constitutional: see HPI EENTM: no symptoms reported Respiratory: no symptoms reported Cardiovascular: no symptoms reported Gastrointestinal: no symptoms reported Genitourinary: no symptoms reported Musculoskeletal: neck pain Skin: no symptoms reported Psychiatric/Neurological: Numbness (right middle fingers, back of hand), Paresthesia Past Gzpzxdy-Djdcbg-Qcitec Hx Patient Social History Tobacco Use?: No Substance use?: No Pt feels they are or have been: No Immunizations Up To Date Tetanus Booster (TDap): Unknown PED Vaccines UTD: No Seasonal Allergies Seasonal Allergies: No Past Medical History Surgery/Hospitalization HX: sx: gallbladder pmh: gerd Surgeries: Yes Gallbladder Respiratory: No Cardiac: No Neurological: Yes Headaches /Migraines Reproductive Disorders: No Sexually Transmitted Disease: No HIV/AIDS: No Genitourinary: Yes Kidney Infection Gastrointestinal: Yes Gastroesophageal Reflux, Gall Bladder Disease Musculoskeletal: Yes (CHRONIC RIGHT KNEE PAIN) Endocrine: No HEENT: No Cancer: No Psychosocial: No Integumentary: No Blood Disorders: No Adverse Reaction/Blood Tranf: No Family Medical History Patient reports no known family medical history. No Pertinent Family Hx Physical Exam Vital Signs Vital Signs - First Documented 01/09/21 07:14 Temp 36.4 Pulse 88 Resp 18 B/P (MAP) 111/76 (88) Pulse Ox 96 O2 Delivery Room Air Capillary Refill : Less Than 3 Seconds Height, Weight, BMI Height: 5'8.00" Weight: 176lbs. 0.0oz. 79.742173kq; 29.00 BMI Method:Stated General Appearance: No Apparent Distress, WD/WN HEENT: PERRL/EOMI Neck: Full Range of Motion, Normal Inspection, Non Tender, Supple Cardiovascular: Regular Rate, Rhythm Respiratory: Lungs Clear, Normal Breath Sounds, No Accessory Muscle Use, No Respiratory Distress Extremity: Normal Capillary Refill, Normal Inspection, Normal Range of Motion, Non Tender, No Calf Tenderness Neurologic/Psychiatric: Alert, Oriented x3, No Motor/Sensory Deficits, Normal Mood/Affect, 3d animator II-XII Norm as Tested, Other (negative Tinel's, negative Phalens; Negative Tromner's/Alejandre's sign - all for the right hand/UE) Skin: Normal Color, Warm/Dry Progress/Results/Core Measures Results/Orders Vital Signs/I&O 01/09/21 07:14 Temp 36.4 Pulse 88 Resp 18 B/P (MAP) 111/76 (88) Pulse Ox 96 O2 Delivery Room Air Blood Pressure Mean: 88 Progress Progress Note : Time: 07:32 Progress Note Patient seen and examined, 30-year-old male with neck pain and paresthesias/numbness to the right upper extremity. Patient has no current findings of numbness or loss of function in the left upper extremity. He demonstrates good strength and sensation, normal reflexes. He has no indications for emergent MRI at this time. I have encouraged the patient to follow-up with his primary care doctor through [facility]. We will put him on a round of steroids and encouraged naproxen for pain. Patient is on Prilosec twice daily as and is encouraged to continue this medication to protect his stomach while on the NSAIDs and steroids. He verbalizes understanding, is comfortable with plan of care. All questions are sought and answered. Departure Impression Primary Impression: Cervical radiculopathy Disposition: 01 HOME, SELF-CARE Condition: Stable Departure-Patient Inst. Decision time for Depature: 07:28 Referrals: [facility] (PCP/Family) Primary Care Physician Patient Instructions: Radiculopathy Add. Discharge Instructions: Take over the counter Aleve, 2 tablets, twice a day with food for the next week. This will decreased inflammation and help with pain. I have written you a prescription for some steroids which will also decrease Inflammation around the discs in your neck and help with the "nerve pain". Make sure you continue to take the medications for your acid reflux, as the Aleve and prednisone could upset your stomach and worsen acid reflux if you're not taking it. Come back to the Emergency Department if you have any worsening symptoms, such as loss of function of your right arm, or numbness in your hand/fingers that is not going away. Scripts Prednisone (Prednisone) 50 Mg Tab 50 MG PO DAILY, #5 TAB Prov: VICKI ZIMMERMAN MD 01/09/21 Work/School Note: Work Release Form Date Seen in the Emergency Department: Jan 09, 2021 Return to Work: Jan 09, 2021 VICKI ZIMMERMAN MD Jan 09, 2021 07:31
[2021-01-09] MEDS ORDERED: PRD50T PO (07:32)
[2021-01-09 07:41] VITALS: BP 111/76
== END 2021-01-09 07:41 | disposition home or self-care (01) ==
LOC: EDUNIT# 06:59 → ER 07:05
DX: M54.12 Radiculopathy, cervical region (principal); K21.9 Gastro-esophageal reflux disease without esophagitis; Z79.899 Other long term (current) drug therapy
CPT/HCPCS: 99281

== ENCOUNTER 2021-04-04 09:13 | Emergency (ER) | payer BC ==
[~2021-04-04] VITALS: Ht 172.7 cm; Wt 90.7 kg
[~2021-04-04 09:13] MED LIST changes: +CYCL10TA25 PO; -CYCL10TA9 PO; +PRD50T PO
--- NOTE | 2021-04-04 10:59 | Diagnostic Imaging Report ---
INDICATION: Pain in the sternum. TIME OF EXAM: 10:50 AM Comparison is made with prior chest from 06/05/2018. The heart size normal. The lungs are clear. The pulmonary vascularity is normal. No infiltrate, effusion or pneumothorax is detected. IMPRESSION: No acute cardiopulmonary process is detected. Dictated by: Dictated on workstation # [id number]
--- NOTE | 2021-04-04 11:23 | ED General ---
General Chief Complaint: Chest Wall Stated Complaint: STERNUM PAIN Nursing Triage Note: PT AMB TO RM 4 WITH COMPLAINT OF STERNUM PAIN. STATES HE WOKE UP THIS MORNING AT 6AM WITH A TIGHTNESS. STATES HE WAS LIFTING WEIGHTS YESTERDAY AND STATES FEELS LIKE A MUSCLE STRAIN. Allergies and Home Medications Allergies Coded Allergies: No Known Drug Allergies (Unverified , 10/12/15) Patient Home Medication List Cyclobenzaprine HCl (Cyclobenzaprine HCl) 10 Mg Tablet, 10 MG PO Q8H PRN for SPASMS Prescribed by: CHARY VERA on 07/15/20 1709 Cyclobenzaprine HCl (Cyclobenzaprine HCl) 10 Mg Tablet, 10 MG PO HS PRN for SPASMS Prescribed by: VIKA DE on 11/03/20 1021 Hydrocodone Bit/Acetaminophen (HYDROcodone/APAP 7.5/325 TAB) 1 Each Tablet, 1 TAB PO Q6H PRN for PAIN-MILD TO MODERATE Prescribed by: KATIE BARAJAS on 09/01/18 0924 Omeprazole (Omeprazole) 20 Mg Tablet.dr, 20 MG PO BID, (Reported) Entered as Reported by: BILLY RUDOLPH on 08/24/18 1421 Prednisone (Prednisone) 50 Mg Tab, 50 MG PO DAILY Prescribed by: VICKI ZIMMERMAN on 01/09/21 0732 Past Ruzrvrh-Hbtbcs-Yfljod Hx Patient Social History Tobacco Use?: No Use of E-Cig and/or Vaping dev: No Substance use?: No Alcohol Use?: No Pt feels they are or have been: No Immunizations Up To Date Tetanus Booster (TDap): Unknown PED Vaccines UTD: No Influenza Vaccine Up-to-Date: Yes; Up-to-Date First/Initial COVID19 Vaccinat: NO Second COVID19 Vaccination Zeeshan: NO Seasonal Allergies Seasonal Allergies: No Past Medical History Surgery/Hospitalization HX: sx: gallbladder pmh: gerd Surgeries: Yes Gallbladder Respiratory: No Cardiac: No Neurological: Yes Headaches /Migraines Reproductive Disorders: No Sexually Transmitted Disease: No HIV/AIDS: No Genitourinary: Yes Kidney Infection Gastrointestinal: Yes Gastroesophageal Reflux, Gall Bladder Disease Musculoskeletal: Yes (CHRONIC RIGHT KNEE PAIN) Endocrine: No HEENT: No Cancer: No Psychosocial: No Integumentary: No Blood Disorders: No Adverse Reaction/Blood Tranf: No Family Medical History Patient reports no known family medical history. No Pertinent Family Hx Physical Exam Vital Signs Vital Signs - First Documented 04/04/21 09:20 Temp 36.3 Pulse 64 Resp 16 B/P (MAP) 140/92 (108) Pulse Ox 98 O2 Delivery Room Air Capillary Refill : Less Than 3 Seconds Height, Weight, BMI Height: 5'8.00" Weight: 176lbs. 0.0oz. 79.846764ok; 30.00 BMI Method:Stated Progress/Results/Core Measures Suspected Sepsis SIRS Temperature: Pulse: 64 Respiratory Rate: 16 Blood Pressure 140 /92 Mean: 108 Results/Orders My Orders Orders - VIKA CONCEPCION MD Chest Pa/Lat (2 View) (04/04/21 10:28) Vital Signs/I&O 04/04/21 09:20 Temp 36.3 Pulse 64 Resp 16 B/P (MAP) 140/92 (108) Pulse Ox 98 O2 Delivery Room Air Capillary Refill : Less Than 3 Seconds Blood Pressure Mean: 108 Departure Impression Primary Impression: Epigastric pain Disposition: 01 HOME, SELF-CARE Condition: Stable Departure-Patient Inst. Decision time for Depature: 11:20 Referrals: [facility] (PCP/Family) Primary Care Physician KATIE BARAJAS JULIE A MD Patient Instructions: Gastritis (DC), Acid Reflux and GERD in Adults (DC) Add. Discharge Instructions: Continue taking your antacid medication daily. For the next 2 weeks add Pepcid (famotidine) 20 mg twice daily. This is inexpensive and can be purchased [id number]. Avoid the following: Eating large meals, eating close to bedtime, caffeine, carbonation, chocolate, citrus fruits and juices, mints, tomato products, spicy foods, fatty or greasy foods, NSAID medications such as ibuprofen or naproxen, alcohol, tobacco, or anything else you know irritates your stomach. Consider sleeping with your head elevated either with multiple pillows or by raising the head of your bed with blocks or bricks under the feet of your bed. Follow-up with Dr. Espinal or Dr. Barajas to discuss endoscopy (scoping of your stomach and esophagus). This should be done on any patient who requires long- term antiacid therapy. Call with questions or concerns. Return to the ER if you have any worsening of symptoms. All discharge instructions reviewed with patient and/or family. Voiced understanding. Copy Copies To 1: KATIE BARAJAS DO Copies To 2: KATIE BARAJAS DO VIKA CONCEPCION MD Apr 04, 2021 11:23
[2021-04-04 11:29] VITALS: BP 128/84
== END 2021-04-04 11:29 | disposition home or self-care (01) ==
LOC: EDUNIT# 09:13 → ER 09:16
DX: R10.13 Epigastric pain (principal); K21.9 Gastro-esophageal reflux disease without esophagitis; Z79.899 Other long term (current) drug therapy
CPT/HCPCS: 71046

== ENCOUNTER 2021-04-11 05:30 | Outpatient (RCR) | payer BC ==
[~2021-04-11] VITALS: Ht 172.7 cm; Wt 88.9 kg
== END 2021-04-12 08:57 | disposition home or self-care (01) ==
LOC: PREOP 05:30
PROVIDERS: ATTEND Surgery
DX: Z01.818 Encounter for other preprocedural examination (principal)

== ENCOUNTER → 2021-04-11 | Outpatient (CLI) | payer BC | LOC: LABNPT 06:03 | PROVIDERS: ATTEND Surgery | DX: Z20.822 Contact with and (suspected) exposure to COVID-19 (principal) | CPT/HCPCS: 87635 ==

== ENCOUNTER 2021-04-15 09:11 | Day surgery (SDC) | payer BC ==
[~2021-04-15] VITALS: Ht 172.7 cm; Wt 89.3 kg
[2021-04-15] MEDS ORDERED: LACTATED RINGERS 1,000 ML IV ONE (09:21)
[2021-04-15 09:30] VITALS: BP 121/78
[2021-04-15] MEDS ORDERED: LACTATED RINGERS 1,000 ML IV STA (09:31)
--- NOTE | 2021-04-15 09:44 | Progress Note-Pre Operative ---
Pre-Operative Progress Note H&P Reviewed The H&P was reviewed, patient examined and no changes noted. Time Seen by Provider: 09:44 Date H&P Reviewed: Apr 15, 2021 Time H&P Reviewed: 09:44 Pre-Operative Diagnosis: GERD, Abdominal pain KATIE BARAJAS DO Apr 15, 2021 09:44
[2021-04-15] MEDS ORDERED: HURRICAINE EXT TUBE (BENZOCAINE) XX PRN (09:45)
[2021-04-15] MEDS ORDERED: MIDAZOLAM 2 MG/2 ML (VERSED) VIAL ONE (10:57)
[2021-04-15] MEDS ORDERED: proPOfol 200 MG/20 ML (DIPRIVAN) VIAL IV ONE (10:57)
[2021-04-15] MEDS ORDERED: PROPOFOL INJECTION 50 ML IV ONE (10:58)
--- NOTE | 2021-04-15 11:11 | Progress Note-Post Operative ---
Post-Operative Progess Note Surgeon (s)/Gas Pump Attendant (s) Surgeon KATIE BARAJAS DO Gas Pump Attendant: none Pre-Operative Diagnosis GERD, Abdominal pain Post-Operative Diagnosis Gastritis Esophagitis Hiatal hernia Procedure & Operative Findings Date of Procedure 04/15/21 Procedure Performed/Findings EGD with bx PROCEDURE NOTE: After informed consent was obtained, the patient was brought to the endoscopy suite, placed in bed in left lateral decubitus position. He was administered IV sedation by the MATRIX INSPECTOR who then monitored vitals the entire time, heart rate, blood pressure and pulse ox and the scope was inserted down the mouth through the esophagus into the stomach. On the way down, noted some mild esophagitis, took a picture, pushed into the stomach, pushed past the antrum into the duodenum. Duodenum looked good. Pulled back and did a biopsy of antrum and noted moderate gastritis throughout the stomach. Retroflexed the scope and saw a very small hiatal hernia, took a picture of this and then pulled the scope into the GE junction and then did a biopsy of the GE junction. Pushed the scope back into the stomach, suctioned all the air out of the stomach. At this point pulled the scope up the esophagus and out the mouth. The patient tolerated the procedure, and he recovered in endoscopy suite. Anesthesia Type IV sedation by MATRIX INSPECTOR Estimated Blood Loss Estimated blood loss (mL): scant Specimens/Packing Specimens Removed antral bx body of stomach bx GE jxn bx KATIE BARAJAS DO Apr 15, 2021 11:11
--- NOTE | 2021-04-15 11:12 | Endoscopy Discharge Instruct ---
Endo Procedure/Findings Findings 1.: Gastritis 2.: Hiatal Hernia 3.: Other Findings (esophagitis) Discharge Instructions - Activity: You might feel a little sleepy until tomorrow. This is due to the medicine you received to relax you. Until tomorrow, you should: NOT drive a car, operate machinery or power tools. NOT drink any alcoholic beverages. NOT make any important decisions or sign importortant papers. Do not return to work until tomorrow, unless otherwise instructed. Resume previous activities tomorrow. Diet: Start by taking liquids. If you tolerate liquids, advance to solid food. 1.: EGD in 3 years Notify Physician - If you experience excessive bleeding, unusual abdominal pain, fever, or chest pain, contact your doctor immediately. KATIE BARAJAS DO Apr 15, 2021 11:12
[2021-04-15 11:14] VITALS: BP 110/66
[2021-04-15 11:19] VITALS: BP 113/62
[2021-04-15 11:25] VITALS: BP 113/58
[2021-04-15 11:55] VITALS: BP 118/68
[2021-04-15 12:02] VITALS: BP 118/68
--- NOTE | 2021-04-15 12:18 | Anesthesia-General Post-Op ---
MAC Patient Condition Mental Status/LOC: Same as Preop Cardiovascular: Satisfactory Nausea/Vomiting: Absent Respiratory: Satisfactory Pain: Controlled Complications: Absent Post Op Complications Complications None Follow Up Care/Instructions Patient Instructions None needed. Anesthesiology Discharge Order Discharge Order Patient is doing well, no complaints, stable vital signs, no apparent adverse anesthesia problems. No complications reported per nursing. NATHANIEL BUSH CRNA Apr 15, 2021 12:18
== END 2021-04-15 12:20 | disposition home or self-care (01) ==
LOC: ENDO 09:11
PROVIDERS: ATTEND Surgery
DX: K21.00 Gastro-esophageal reflux disease with esophagitis, without bleeding (principal); K29.70 Gastritis, unspecified, without bleeding; K44.9 Diaphragmatic hernia without obstruction or gangrene; Z86.16 Personal history of COVID-19

== ENCOUNTER 2021-04-25 19:14 | Emergency (ER) | payer BC ==
--- NOTE | 2021-04-25 19:42 | ED EENT ---
History of Present Illness General Chief Complaint: Oral/Throat Problems Stated Complaint: THROAT PAIN Source: patient Exam Limitations: no limitations History of Present Illness Date Seen by Provider: Apr 25, 2021 Time Seen by Provider: 19:38 Initial Comments To ER with a 3-week history of intermittent spasms in the lower throat just above the sternal notch. He had an EGD with Dr. Duke last week for this without cause identified. He is scheduled for a swallow study next week. His only medication is pantoprazole. He denies any cough, denies any wheezing or shortness of breath. Denies any difficulty swallowing. These symptoms come at random during the day and tend to last the rest of the day. He denies any anxiety. Timing/Duration: abrupt Severity: moderate Location: throat Associated Symptoms: denies symptoms, sore throat Allergies and Home Medications Allergies Coded Allergies: No Known Drug Allergies (Unverified , 10/12/15) Patient Home Medication List Home Medication List Reviewed: Yes Cyclobenzaprine HCl (Cyclobenzaprine HCl) 10 Mg Tablet, 10 MG PO HS PRN for SPASMS Prescribed by: VIKA DE on 11/03/20 1021 Omeprazole (Omeprazole) 20 Mg Tablet., 20 MG PO BID, (Reported) Entered as Reported by: BILLY RUDOLPH on 08/24/18 1421 Review of Systems Review of Systems Constitutional: see HPI Eyes: No Symptoms Reported Ears: No Symptoms Reported Nose: no symptoms reported Mouth: no symptoms reported Throat: see HPI Respiratory: no symptoms reported Cardiovascular: no symptoms reported Musculoskeletal: no symptoms reported Skin: no symptoms reported Neurological: No Symptoms Reported Hematologic/Lymphatic: No Symptoms Reported Immunological/Allergic: no symptoms reported Past Vslfzgu-Yqccof-Uwbmbc Hx Immunizations Up To Date Tetanus Booster (TDap): Unknown PED Vaccines UTD: No First/Initial COVID19 Vaccinat: NO Second COVID19 Vaccination Zeeshan: NO Third COVID19 Vaccination Date: NO Seasonal Allergies Seasonal Allergies: No Past Medical History Surgery/Hospitalization HX: sx: gallbladder pmh: gerd Surgeries: Yes Gallbladder Respiratory: No Cardiac: No Neurological: Yes Headaches /Migraines Reproductive Disorders: No Sexually Transmitted Disease: No HIV/AIDS: No Genitourinary: Yes Kidney Infection Gastrointestinal: Yes Gastroesophageal Reflux, Gall Bladder Disease Musculoskeletal: Yes (CHRONIC RIGHT KNEE PAIN) Endocrine: No HEENT: No Cancer: No Psychosocial: No Integumentary: No Blood Disorders: No Adverse Reaction/Blood Tranf: No Family Medical History Patient reports no known family medical history. No Pertinent Family Hx Physical Exam Height, Weight, BMI Height: 5'8.00" Weight: 176lbs. 0.0oz. [id number]; 29.94 BMI Method:Stated General Appearance: WD/WN, no apparent distress Eyes: bilateral eye normal inspection, bilateral eye PERRL, bilateral eye EOMI Ears: bilateral ear auricle normal, bilateral ear canal normal, bilateral ear TM normal Mouth/Throat: normal mouth inspection, pharynx normal Neck: non-tender, full range of motion; No lymphadenopathy (R), No lymphadenopathy (L), No thyromegaly Cardiovascular: regular rate, rhythm, no murmur Respiratory: normal breath sounds, no respiratory distress, no accessory muscle use Gastrointestinal: normal bowel sounds, non tender, soft Neurologic/Psychiatric: alert, normal mood/affect, oriented x 3 Skin: normal color, warm/dry Progress/Results/Core Measures Results/Orders My Orders Orders - SHARON LUTHER APRN Antacid Suspension (Mylanta Suspension (04/25/21 19:45) Lidocaine 2% Viscous 15 Ml (Xylocaine Vi (04/25/21 19:45) Departure Impression Primary Impression: Throat discomfort Disposition: 01 HOME, SELF-CARE Condition: Stable Departure-Patient Inst. Decision time for Depature: 19:40 Referrals: [facility] (PCP/Family) Primary Care Physician Patient Instructions: NO INSTRUCTIONS GIVEN Add. Discharge Instructions: . Call Dr. Kirkland from ear nose [facility] throat to make an appointment to be seen. All discharge instructions reviewed with patient and/or family. Voiced underst anding. SHARON ULTHER APRN Apr 25, 2021 19:41
[2021-04-25] MEDS ORDERED: ANTACID SUSP 30 ML UDC (MYLANTA) PO ONE (19:45)
[2021-04-25] MEDS ORDERED: LIDOCAINE 2% VISCOUS 15 ML UDC PO ONE (19:45)
[2021-04-25 19:47] VITALS: BP 129/89
== END 2021-04-25 19:47 | disposition home or self-care (01) ==
LOC: EDUNIT# 19:14 → ER 19:16
DX: R07.0 Pain in throat (principal)
CPT/HCPCS: 99283

== ENCOUNTER → 2021-04-29 | Outpatient (CLI) | payer BC ==
[~2021-04-29] MED LIST changes: +BARIUM for suspension 96% w/w (Vanilla Silq Medium Density) PO ONE; +BARIUM for suspension 98% w/w (Vanilla Silq High Density) PO ONE
--- NOTE | 2021-04-29 12:57 | Diagnostic Imaging Report ---
INDICATION: Dysphagia. TECHNIQUE: The patient ingested effervescent crystals as well as thin and thick barium and imaging of the esophagus was performed in multiple obliquities. 0.9 minutes of fluoroscopic time were utilized. FINDINGS: The preliminary radiograph of the chest is unremarkable. The esophagus has a smooth contour. No mass or stricture is identified. No gastroesophageal reflux or hiatal hernia was demonstrated. IMPRESSION: Unremarkable esophagram. Dictated by: Dictated on workstation # [id number]
== END ==
LOC: RAD 09:45
PROVIDERS: ATTEND Surgery
DX: R13.11 Dysphagia, oral phase (principal)
CPT/HCPCS: 74220

== ENCOUNTER 2021-06-24 10:09 | Emergency (ER) | payer BC ==
[~2021-06-24] VITALS: Ht 172.7 cm; Wt 88.5 kg
[~2021-06-24 10:09] MED LIST changes: -BARIUM for suspension 96% w/w (Vanilla Silq Medium Density) PO ONE; -BARIUM for suspension 98% w/w (Vanilla Silq High Density) PO ONE
[2021-06-24 10:19] VITALS: BP 125/74
--- NOTE | 2021-06-24 11:04 | ED Lower Extremity ---
General Chief Complaint: Lower Extremity Stated Complaint: R KNEE PAIN Nursing Triage Note: PT AMB TO FT 3 W PERSONAL CRUTCHES C/O RIGHT KNEE PAIN SX YESTERDAY WHEN HE STEPPED IN A HOLE AND TWISTED KNEE. PT REPORTS HX OF TORN ACL X2 YEARS W/O INTERVENTION. PT A&OX4. (ULISES EMMANUEL MED STUDENT) History of Present Illness Date Seen by Provider: Jun 24, 2021 Time Seen by Provider: 10:26 Initial Comments Holden Sullivan is a 31 y/o male with PMHx of L knee ACL injury 2 years ago who presents today for L knee injury occuring about 20 hours ago. Patient states he stepped into a pothole outside of his house and twisted his knee, hearing a pop and falling to his right side after which he heard a second pop. Patient was unable to ambulate subsequent to the incident secondary to pain. Bystanders assisted patient to a chair and he has been using crutches since then. Patient now reports for continued pain which is primarily around the anterolateral knee, worse with weight bearing and distraction. No radiation of pain, no weakness, numbness, tingling, bleeding, head injury, LOC or other complaints at this time. Patient follows with Dr. Chris for his chronic ACL injury, no interventions taken. (ULISES EMMANUEL MED STUDENT) Allergies and Home Medications Allergies Coded Allergies: No Known Drug Allergies (Unverified , 10/12/15) Patient Home Medication List Home Medication List Reviewed: Yes (CHARY VERA) Cyclobenzaprine HCl (Cyclobenzaprine HCl) 10 Mg Tablet, 10 MG PO HS PRN for SPASMS Prescribed by: HOLDEN DE on 11/03/20 1021 Omeprazole (Omeprazole) 20 Mg Tablet., 20 MG PO BID, (Reported) Entered as Reported by: BILLY RUDOLPH on 08/24/18 1421 Review of Systems Constitutional: No diaphoresis, No fever Respiratory: No dyspnea on exertion, No short of breath Cardiovascular: No chest pain, No palpitations Musculoskeletal: joint pain (R knee), joint swelling Psychiatric/Neurological: Denies Anxiety, Denies Depressed (ULISES EMMANUEL MED STUDENT) All Other Systems Reviewed Negative Unless Noted: Yes (CHARY VERA) Past Xcuoqlb-Zkymuy-Aykcuq Hx Patient Social History Tobacco Use?: No Use of E-Cig and/or Vaping dev: No Substance use?: No Alcohol Use?: No (ULISES EMMANUEL) Tobacco Use?: No (CHARY VERA) Immunizations Up To Date Tetanus Booster (TDap): Unknown PED Vaccines UTD: No Influenza Vaccine Up-to-Date: Yes; Up-to-Date First/Initial COVID19 Vaccinat: NO Second COVID19 Vaccination Zeeshan: NO Third COVID19 Vaccination Date: NO (ULISES EMMANUEL) Seasonal Allergies Seasonal Allergies: No (ULISES EMMANUEL) Past Medical History Surgery/Hospitalization HX: sx: gallbladder pmh: gerd Surgeries: Yes Gallbladder Respiratory: No Cardiac: No Neurological: Yes Headaches /Migraines Reproductive Disorders: No Sexually Transmitted Disease: No HIV/AIDS: No Genitourinary: Yes Kidney Infection Gastrointestinal: Yes Gastroesophageal Reflux, Gall Bladder Disease Musculoskeletal: Yes (CHRONIC RIGHT KNEE PAIN) Endocrine: No HEENT: No Cancer: No Psychosocial: No Integumentary: No Blood Disorders: No Adverse Reaction/Blood Tranf: No (ULISES EMMANUEL) Family Medical History Patient reports no known family medical history. No Pertinent Family Hx (ULISES EMMANUEL) Physical Exam Vital Signs Vital Signs - First Documented 06/24/21 10:19 Temp 36.1 Pulse 73 Resp 20 B/P (MAP) 125/74 (91) O2 Delivery Room Air (CHARY VERA) Vital Signs Capillary Refill : Less Than 3 Seconds (ULISES EMMANUEL) Height, Weight, BMI Height: 5'8.00" Weight: 176lbs. 0.0oz. 79.653046zo; 29.00 BMI Method:Stated General Appearance: WD/WN, no apparent distress Neck: non-tender, full range of motion Cardiovascular: normal peripheral pulses, no edema Hips: bilateral hip non-tender, bilateral hip normal range of motion Knees: left knee non-tender, left knee normal inspection, left knee normal range of motion, left knee no evidence of injury; right knee bone tenderness, right knee pain, right knee swelling (mild), right knee other (moderate tenderness to compression, significant pain to distraction over R medial aspect of anterior knee, negative appleys grind, no pain over patella, mild swelling, no erythema, significant tenderness overlying MCL on valgus testing and on palpation. ) Ankles: bilateral ankle non-tender, bilateral ankle normal inspection, bilateral ankle normal range of motion Feet: bilateral foot non-tender, bilateral foot normal inspection, bilateral foot normal range of motion Reflexes: 2+ ankle (R), 2+ ankle (L) Neurologic/Tendon: normal sensation, normal motor functions Skin: normal color, warm/dry (ULISES EMMANUEL MED STUDENT) Progress/Results/Core Measures Results/Orders My Orders Orders - CHARY VERA Knee, Right, 3 Views (06/24/21 10:45) Ketorolac Injection (Toradol Injection) (06/24/21 11:15) (CHARY VERA) Medications Given in ED Current Medications Medications Dose Ordered Sig/Samuel Route Start Time Stop Time Status Last Admin Dose Admin Ketorolac Tromethamine 60 mg ONCE ONCE IM 06/24/21 11:15 06/24/21 11:16 DC 06/24/21 12:30 60 MG (CHARY VERA) Vital Signs/I&O 06/24/21 10:19 Temp 36.1 Pulse 73 Resp 20 B/P (MAP) 125/74 (91) O2 Delivery Room Air (CHARY VERA) Blood Pressure Mean: 91 Progress Progress Note : Time: 12:30 Progress Note I attest that I saw this patient alongside the medical student and agree with his documented history, physical exam and review of systems except as otherwise noted. On examination patient does have some swelling on that right knee compared to left as well as tenderness along the medial collateral ligament and when put valgus pressure on the right knee it would increase his discomfort medially. Exam consistent with a sprain of the right knee. Plain film was unrevealing. Toradol was ordered for his discomfort. We will wrap him with an Virgil wrap encouraged him to use ice packs and follow-up with Dr. Chris who he is already known to (CHARY VERA) Diagnostic Imaging Diagonstic Imaging: Xray Plain Films/CT/US/NM/MRI: knee (r) Comments [facility]. [place], [place] NAME: [facility] REC#: [id number] PT STATUS: REG ER : 1990 PHYSICIAN: CHARY VERA MD ADMIT DATE: 06/24/21/ER Draft Date of Exam:06/24/21 KNEE, RIGHT, 3 VIEWS Indication: Right knee pain AP, oblique, and lateral views of the right knee are obtained. Comparison made with 06/14/2016 No fracture or acute bony abnormality seen. There is moderate medial joint space narrowing. Impression: 1. Moderate degenerative change of the medial compartment with no acute appearing abnormality. Dictated on workstation # [id number] Dict: 06/24/21 1107 Trans: 06/24/21 1109 [facility] [id number] Interpreted by: CEDRICK TRAN MD Electronically signed by: Reviewed: Reviewed by Me (CHARY VERA) Departure Impression Primary Impression: Sprain of knee Qualified Codes: S83.411A - Sprain of medial collateral ligament of right knee, initial encounter Disposition: HOME, SELF-CARE Condition: Stable Departure-Patient Inst. Decision time for Depature: 12:31 (CHARY VERA) [facility]errals: [facility] [place] (PCP/Family) Primary Care Physician ISAAC CHRIS MD Patient Instructions: Knee Sprain (DC) Add. Discharge Instructions: Ice 20 minutes on every 2 hours while awake for the first 2 to 3 days. Keep the knee wrapped with an Virgil wrap or neoprene sleeve for compression. Use the crutches as necessary and weightbearing as tolerated. Tylenol 1000 mg every 8 hours as needed for pain. Ibuprofen 800 mg every 8 hours as needed for pain. Follow-up with Dr. Chris by calling for an appointment. All discharge instructions reviewed with patient and/or family. Voiced understanding. Work/School Note: Work Release Form Date Seen in the Emergency Department: Jun 24, 2021 Return to Work: Jun 27, 2021 Restrictions: Need Release from Doctor Other Restrictions Listed Below: May use crutches and weightbearing as tolerated until 07/08/2021. Copy Copies To 1: ISAAC CHRIS MD, MATTHEW MED STUDENT Jun 24, 2021 11:03 CHARY VERA Jun 24, 2021 12:34
--- NOTE | 2021-06-24 11:10 | Diagnostic Imaging Report ---
Indication: Right knee pain AP, oblique, and lateral views of the right knee are obtained. Comparison made with 06/14/2016 No fracture or acute bony abnormality seen. There is moderate medial joint space narrowing. Impression: 1. Moderate degenerative change of the medial compartment with no acute appearing abnormality. Dictated by: Dictated on workstation # [id number]
[2021-06-24] MEDS ORDERED: KETOROLAC 60 MG/2 ML VIAL IM ONE (11:15)
== END 2021-06-24 12:58 | disposition home or self-care (01) ==
LOC: EDUNIT# 10:09 → ER 10:10
DX: S83.411A Sprain of medial collateral ligament of right knee, initial encounter (principal); X50.1XXA Overexertion from prolonged static or awkward postures, initial encounter
CPT/HCPCS: 73562

== ENCOUNTER 2021-07-23 19:46 | Emergency (ER) | payer BC ==
[~2021-07-23 19:46] MED LIST changes: +OMEP20TA56 PO; -OMEP20TA7 PO
[2021-07-23] MEDS ORDERED: PRD10T PO (20:23)
--- NOTE | 2021-07-23 20:23 | ED Integumentary General ---
General Chief Complaint: Bite-Animal/Human/Insect Stated Complaint: SPIDER BITE Nursing Triage Note: TO ED VIA POV AND AMBULATORY TO TRIAGE WITH C/O SPIDER BITE WITNESS BY S/O 30MIN HEAD OF GEOGRAPHY TO LEFT SIDE/FLANK. Source: patient Exam Limitations: no limitations History of Present Illness Date Seen by Provider: July 23, 2021 Time Seen by Provider: 20:03 Allergies and Home Medications Allergies Coded Allergies: No Known Drug Allergies (Unverified , 10/12/15) Patient Home Medication List Cyclobenzaprine HCl (Cyclobenzaprine HCl) 10 Mg Tablet, 10 MG PO HS PRN for SPASMS Prescribed by: VIKA DE on 11/03/20 1021 Omeprazole (Omeprazole) 20 Mg Tablet., 20 MG PO BID, (Reported) Entered as Reported by: BILLY RUDOLPH on 08/24/18 1421 Past Zsuhmvz-Zpsbym-Wejxld Hx Patient Social History Tobacco Use?: No Substance use?: No Alcohol Use?: No Immunizations Up To Date Tetanus Booster (TDap): Unknown PED Vaccines UTD: No Influenza Vaccine Up-to-Date: Yes; Up-to-Date First/Initial COVID19 Vaccinat: NO Second COVID19 Vaccination Zeeshan: NO Third COVID19 Vaccination Date: NO Seasonal Allergies Seasonal Allergies: No Past Medical History Surgery/Hospitalization HX: sx: gallbladder pmh: gerd Surgeries: Yes Gallbladder Respiratory: No Cardiac: No Neurological: Yes Headaches /Migraines Reproductive Disorders: No Sexually Transmitted Disease: No HIV/AIDS: No Genitourinary: Yes Kidney Infection Gastrointestinal: Yes Gastroesophageal Reflux, Gall Bladder Disease Musculoskeletal: Yes (CHRONIC RIGHT KNEE PAIN) Endocrine: No HEENT: No Cancer: No Psychosocial: No Integumentary: No Blood Disorders: No Adverse Reaction/Blood Tranf: No Family Medical History Patient reports no known family medical history. No Pertinent Family Hx Physical Exam Vital Signs Vital Signs - First Documented 07/23/21 19:58 Temp 36.9 Pulse 76 Resp 16 B/P (MAP) 145/83 (103) Pulse Ox 96 O2 Delivery Room Air Capillary Refill : Less Than 3 Seconds Progress/Results/Core Measures Results/Orders Vital Signs/I&O 07/23/21 19:58 Temp 36.9 Pulse 76 Resp 16 B/P (MAP) 145/83 (103) Pulse Ox 96 O2 Delivery Room Air Blood Pressure Mean: 103 Departure Impression Primary Impression: Spider bite Disposition: 01 HOME, SELF-CARE Condition: Improved Departure-Patient Inst. Decision time for Depature: 20:20 Referrals: [facility] [place] (PCP/Family) Primary Care Physician Patient Instructions: Spider Bites Add. Discharge Instructions: PLAN: 1. Use ice 20 minutes at a time to reduce swelling, redness. 2. If you develop "bruised" or purple center, start taking Prednisone. You have been provided with written prescription. 3. Follow up with your doctor for any persistent symptoms. 4. Return for any new, concerning, or worsening symptoms. All discharge instructions reviewed with patient and/or family. Voiced understanding. Scripts Prednisone (Prednisone) 10 Mg Tab 10 MG PO DAILY for 5 Days, #5 TAB 0 Refills Prov: ZULEMA MORGAN AIRCRAFT DISPATCHER 07/23/21 ZULEMA MORGAN AIRCRAFT DISPATCHER July 23, 2021 20:23
[2021-07-23 20:30] VITALS: BP 145/83
== END 2021-07-23 20:30 | disposition home or self-care (01) ==
LOC: EDUNIT# 19:46 → ER 19:49
DX: T63.301A Toxic effect of unspecified spider venom, accidental (unintentional), initial encounter (principal); Z28.310 Unvaccinated for COVID-19
CPT/HCPCS: 99283

== ENCOUNTER 2021-08-27 14:42 | Emergency (ER) | payer BC ==
[~2021-08-27] VITALS: Ht 172.7 cm; Wt 88.0 kg
[~2021-08-27 14:42] MED LIST changes: +PRD10T PO
[2021-08-27 15:01] VITALS: BP 153/87
[2021-08-27] MEDS ORDERED: KETOROLAC 30 MG/ML VIAL IM ONE (15:15)
[2021-08-27] MEDS ORDERED: ORPHENADRINE 60 MG/2 ML (NORFLEX) AMP (ED ONLY) IM ONE (15:15)
--- NOTE | 2021-08-27 15:16 | ED Neck-Back Pain/Injury ---
General Chief Complaint: Head/Cervical Problems Stated Complaint: NECK PAIN Nursing Triage Note: pt amb to ed with c/o neck pain. pt reports pain and hand tingling began 8 months ago, worse today. reports he had a ct of his head when it began to rule out a tumor. pt has been seeing a chiropractor without relief. denies dizziness, vision changes. Source of Information: Patient Exam Limitations: No Limitations (PHOEBE HUTCHINS) History of Present Illness Date Seen by Provider: Aug 27, 2021 Time Seen by Provider: 15:14 Initial Comments Patient is a 31-year-old male who presents ED with neck pain. Neck pain has been ongoing for the past year. Appears to be intermittent and exacerbated with movement. He does get some relief at night when he lays down. Patient states he has had no previous injury. He gets this sharp shooting pain from his neck up into the top part of his head and into his extremities bilateral. He de scribes it as a numbness and tingling pinprick sensation with some weakness. He states he has appropriate patternmaker strength and strength of the arm. He states he went to his primary care physician and they did not want to get an MRI. He states he scheduled follow-up with a different primary care physician later this month. Denies of any trauma resulting of the neck pain. Denies fever, chills, weight loss, drug use, bowel or urine incontinence, saddle paresthesia, chest pain, middle lower back pain. Has been taking anti-inflammatories without much improvement. (PHOEBE HUTCHINS) Allergies and Home Medications Allergies Coded Allergies: No Known Drug Allergies (Unverified , 10/12/15) Patient Home Medication List Home Medication List Reviewed: Yes (PHOEBE HUTCHINS) Cyclobenzaprine HCl (Cyclobenzaprine HCl) 10 Mg Tablet, 10 MG PO HS PRN for SPASMS Prescribed by: VIKA DE on 11/03/20 1021 Methocarbamol (Methocarbamol) 500 Mg Tablet, 1,000 MG PO QID Prescribed by: JOVITA CHAPIN on 08/27/21 1519 Methylprednisolone (Methylprednisolone Dose Pack) 4 Mg Tab.ds.pk, 4 MG PO UD Prescribed by: JOVITA CHAPIN on 08/27/21 1519 Naproxen (Naproxen) 500 Mg Tablet, 500 MG PO BID Prescribed by: JOVITA CHAPIN on 08/27/21 1519 Omeprazole (Omeprazole) 20 Mg Tablet.dr, 20 MG PO BID, (Reported) Entered as Reported by: BILLY RUDOLPH on 08/24/18 1421 Prednisone (Prednisone) 10 Mg Tab, 10 MG PO DAILY Prescribed by: ZULEMA MORGAN on 07/23/212022 Review of Systems Constitutional: No chills, No diaphoresis, No weakness EENTM: No hearing loss, No ear pain, No blurred vision Respiratory: No cough, No dyspnea on exertion Cardiovascular: No chest pain, No edema Gastrointestinal: No abdominal pain, No nausea, No vomiting Genitourinary: No decreased output, No discharge Musculoskeletal: No back pain; joint pain, neck pain Skin: No change in color, No change in hair/nails (PHOEBE HUTCHINS) All Other Systems Reviewed Negative Unless Noted: Yes (PHOEBE HUTCHINS) Past Nmsjzjj-Bkavhl-Ygiepk Hx Patient Social History Tobacco Use?: No Use of E-Cig and/or Vaping dev: No Substance use?: No Alcohol Use?: No Pt feels they are or have been: No (PHOEBE HUTCHINS) Immunizations Up To Date Tetanus Booster (TDap): Unknown PED Vaccines UTD: No Influenza Vaccine Up-to-Date: Yes; Up-to-Date First/Initial COVID19 Vaccinat: NO Second COVID19 Vaccination Zeeshan: NO Third COVID19 Vaccination Date: NO (PHOEBE HUTCHINS) Seasonal Allergies Seasonal Allergies: No (PHOEBE HUTCHINS) Past Medical History Surgery/Hospitalization HX: sx: gallbladder pmh: gerd Surgeries: Yes Gallbladder Respiratory: No Cardiac: No Neurological: Yes Headaches /Migraines Reproductive Disorders: No Sexually Transmitted Disease: No HIV/AIDS: No Genitourinary: Yes Kidney Infection Gastrointestinal: Yes Gastroesophageal Reflux, Gall Bladder Disease Musculoskeletal: Yes (CHRONIC RIGHT KNEE PAIN) Endocrine: No HEENT: No Cancer: No Psychosocial: No Integumentary: No Blood Disorders: No Adverse Reaction/Blood Tranf: No (PHOEBE HUTCHINS) Family Medical History Patient reports no known family medical history. No Pertinent Family Hx (PHOEBE HUTCHINS) Physical Exam Vital Signs Vital Signs - First Documented 08/27/21 15:01 Temp 36.8 Pulse 79 Resp 16 B/P (MAP) 153/87 (109) Pulse Ox 98 O2 Delivery Room Air (VIKA CONCEPCION MD) Vital Signs Capillary Refill : Less Than 3 Seconds (PHOEBE HUTCHINS) Height, Weight, BMI Height: 5'8.00" Weight: 176lbs. 0.0oz. 79.715156na; 29.00 BMI Method:Stated General Appearance: No Apparent Distress, WD/WN HEENT: PERRL/EOMI, TMs Normal, Normal ENT Inspection, Pharynx Normal Neck: Other (Cervical midline tenderness. Bilateral cervical paraspinal muscle tenderness. 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 Norm as Tested Skin: Normal Color, Warm/Dry (PHOEBE HUTCHINS) Progress/Results/Core Measures Results/Orders Medications Given in ED Current Medications Medications Dose Ordered Sig/Samuel Route Start Time Stop Time Status Last Admin Dose Admin Ketorolac Tromethamine 30 mg ONCE ONCE IM 08/27/21 15:15 08/27/21 15:16 DC 08/27/21 15:38 30 MG Orphenadrine Citrate 60 mg ONCE ONCE IM 08/27/21 15:15 08/27/21 15:16 DC 08/27/21 15:38 60 MG (VIKA CONCEPCION MD) Vital Signs/I&O 08/27/21 15:01 Temp 36.8 Pulse 79 Resp 16 B/P (MAP) 153/87 (109) Pulse Ox 98 O2 Delivery Room Air (VIKA CONCEPCION MD) Blood Pressure Mean: 109 Departure Communication (PCP) Patient with a history of chronic back pain. Patient with cervical radiculopathy. No recent trauma. Intermittent pain over the past year. More numbness and tingling sensation. Patient has appropriate patternmaker strength. Normal strength to his upper extremities. Negative Spurling sign. No fever, night sweats, history of cancer, bowel or urine incontinence or saddle paresthesia. No meningeal signs. Afebrile. No neurological red flag findings. Patient would likely benefit with outpatient MRI for further evaluation. Nerve conduction study test. 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 Discussed repetitive stress. Concerning possibly for bulging disc resulting of his radiculopathy type pain. Patient has no focal neural deficits, severe head pain. Pain does radiate to the top part of his head. Recommend primary care physician outpatient follow-up for further evaluation. Will discharge with anti-inflammatories and muscle relaxer and Medrol Dosepak. If any worsening symptoms return back to ED for further evaluation. Patient was given dose of Toradol and Norflex here in the ED (PHOEBE HUTCHINS) Impression Primary Impression: Neck pain Disposition: 01 HOME, SELF-CARE Condition: Stable Departure-Patient Inst. Decision time for Depature: 15:17 (PHOEBE HUTCHINS) Referrals: [facility] [place] (PCP/Family) Primary Care Physician Patient Instructions: Neck Pain Scripts Naproxen (Naproxen) 500 Mg Tablet 500 MG PO BID, #20 TAB Prov: PHOEBE HUTCHINS 08/27/21 Methocarbamol (Methocarbamol) 500 Mg Tablet 1000 MG PO QID for Back Pain, #20 TAB Prov: PHOEBE HUTCHINS 08/27/21 Methylprednisolone (Methylprednisolone Dose Pack) 4 Mg Tab.ds.pk 4 MG PO UD for 6 Days, #21 PKG PER DOSE PACK INSTRUCTIONS Prov: PHOEBE HUTCHINS 08/27/21 Work/School Note: Work Release Form Date Seen in the Emergency Department: Aug 27, 2021 Return to Work: Aug 30, 2021 ATTENDING PHYSICIAN NOTE: I was physically present as attending physician in the emergency department during the care of this patient, but I was not directly involved in the decision making or delivery of care for this patient. (BRUEGGEMANN,VIKAPHOEBE GREGORY Aug 27, 2021 15:16 VIKA CONCEPCION MD Aug 27, 2021 19:19
[2021-08-27] MEDS ORDERED: METH4TAB10 PO (15:19)
[2021-08-27] MEDS ORDERED: NAPR-915 PO (15:19)
[2021-08-27] MEDS ORDERED: METH-731 PO (15:19)
== END 2021-08-27 15:44 | disposition home or self-care (01) ==
LOC: EDUNIT# 14:42 → ER 14:43
DX: M54.12 Radiculopathy, cervical region (principal); Z28.310 Unvaccinated for COVID-19
CPT/HCPCS: 99284

== ENCOUNTER 2021-08-31 14:01 | Emergency (ER) | payer BC ==
[~2021-08-31] VITALS: Ht 172 cm; Wt 88.0 kg
[~2021-08-31 14:01] MED LIST changes: +METH-731 PO; +METH4TAB10 PO; +NAPR-915 PO
--- NOTE | 2021-08-31 14:43 | ED Headache ---
General Chief Complaint: Head/Cervical Problems Stated Complaint: GERMAIN Nursing Triage Note: PT AMB TO FT2 PT CO OF PAIN AND TOP OF HEAD, /10. CO OF BILATERAL ARM NUMBNESS AND WEAKNESS. WAS SEEN ON 08/27/21 BUT STATES IS A LITTLE WORSE. HAS BEEN GOING ON FOR A YEAR Source: patient Exam Limitations: no limitations History of Present Illness Date Seen by Provider: Aug 31, 2021 Time Seen by Provider: 14:28 Initial Comments Patient is a 31-year-old male who presents to the emergency department today with a chief complaint of headache, located at the top of his head, and he feels weak in his arms and has numbness tingling to his left hand. Patient states the symptoms have been ongoing for about a year. He states his primary care doctor has recommended ibuprofen and that she is "doing nothing" to help him. He states today his symptoms were more severe than usual so he decided to come to the emergency room. He has not taken anything for the headache today. His last dose of ibuprofen was yesterday. He denies excessive caffeine use. No recent heavy lifting or strenuous activity. No recent fevers, chills, productive cough. He states when he lays down at night he feels better and is able to sleep through the night. About an hour or 2 after he gets up and around his head hurts. He has not had a vision exam in over a year. Denies any vision changes, hearing changes or speech difficulties. All other review of systems reviewed and negative except as stated. Timing/Duration: other Severity/Quality: moderate Location: other (Top of his head) Prior Headaches/Recent Trauma: chronic headaches Modifying Factors: worse with exposure to light; improves with rest Associated Symptoms: stiff neck (Neck pain) Allergies and Home Medications Allergies Coded Allergies: No Known Drug Allergies (Unverified , 10/12/15) Patient Home Medication List Home Medication List Reviewed: Yes Cyclobenzaprine HCl (Cyclobenzaprine HCl) 10 Mg Tablet, 10 MG PO HS PRN for SPASMS Prescribed by: VIKA DE on 11/03/20 1021 Methocarbamol (Methocarbamol) 500 Mg Tablet, 1,000 MG PO QID Prescribed by: JOVITA CHAPIN on 08/27/21 1519 Methylprednisolone (Methylprednisolone Dose Pack) 4 Mg Tab.ds.pk, 4 MG PO UD Prescribed by: JOVITA CHAPIN on 08/27/21 1519 Naproxen (Naproxen) 500 Mg Tablet, 500 MG PO BID Prescribed by: JOVITA CHAPIN on 08/27/21 151 Omeprazole (Omeprazole) 20 Mg Tablet.dr, 20 MG PO BID, (Reported) Entered as Reported by: BILLY RUDOLPH on 08/24/18 1421 Prednisone (Prednisone) 10 Mg Tab, 10 MG PO DAILY Prescribed by: ZULEMA MORGAN on 07/23/212022 Review of Systems Review of Systems Constitutional: see HPI Eyes: No Symptoms Reported Ears, Nose, Mouth, Throat: no symptoms reported Respiratory: no symptoms reported Cardiovascular: no symptoms reported Gastrointestinal: no symptoms reported Genitourinary: no symptoms reported Musculoskeletal: neck pain Skin: no symptoms reported Psychiatric/Neurological: Headache Past Hstyzcz-Rxbjmb-Eosegt Hx Patient Social History Tobacco Use?: No Substance use?: No Alcohol Use?: No Pt feels they are or have been: No Immunizations Up To Date Tetanus Booster (TDap): Unknown PED Vaccines UTD: No Influenza Vaccine Up-to-Date: Yes; Up-to-Date First/Initial COVID19 Vaccinat: NO Second COVID19 Vaccination Zeeshan: NO Third COVID19 Vaccination Date: NO Seasonal Allergies Seasonal Allergies: No Past Medical History Surgery/Hospitalization HX: sx: gallbladder pmh: gerd Surgeries: Yes Gallbladder Respiratory: No Cardiac: No Neurological: Yes Headaches /Migraines Reproductive Disorders: No Sexually Transmitted Disease: No HIV/AIDS: No Genitourinary: Yes Kidney Infection Gastrointestinal: Yes Gastroesophageal Reflux, Gall Bladder Disease Musculoskeletal: Yes (CHRONIC RIGHT KNEE PAIN) Endocrine: No HEENT: No Cancer: No Psychosocial: No Integumentary: No Blood Disorders: No Adverse Reaction/Blood Tranf: No Family Medical History Patient reports no known family medical history. No Pertinent Family Hx Physical Exam Vital Signs Vital Signs - First Documented 08/31/21 14:23 Temp 36.5 Pulse 65 Resp 18 B/P (MAP) 120/70 (87) Pulse Ox 97 Capillary Refill : Less Than 3 Seconds Height, Weight, BMI Height: 5'8.00" Weight: 176lbs. 0.0oz. 79.843677ko; 29.00 BMI Method:Stated General Appearance: WD/WN, no apparent distress HEENT: PERRL/EOMI, TMs normal, pharynx normal Neck: full range of motion, supple, other (Mild midline tenderness) Cardiovascular: regular rate, rhythm Respiratory: lungs clear, normal breath sounds, no respiratory distress, no accessory muscle use Gastrointestinal: normal bowel sounds, non tender, soft Extremities: normal range of motion, non-tender, normal inspection, no pedal edema, no calf tenderness, normal capillary refill Psychiatric: alert, oriented x 3 Crainal Nerves: normal hearing, normal speech, PERRL Coordination/Gait: normal finger to nose, normal gait, negative Romberg's sign Motor/Sensory: no motor deficit, no sensory deficit, no pronator drift Skin: normal color, warm/dry, other (no rashes/lesions to the scalp.) Progress/Results/Core Measures Results/Orders My Orders Orders - VICKI ZIMMERMAN MD Ketorolac Injection (Toradol Injection) (08/31/21 14:45) Orphenadrine Inj (Ed Only) (Norflex Inje (08/31/21 14:45) Vital Signs/I&O 08/31/21 14:23 Temp 36.5 Pulse 65 Resp 18 B/P (MAP) 120/70 (87) Pulse Ox 97 Blood Pressure Mean: 87 Progress Progress Note : Time: 14:40 Progress Note After discussing history and review and physical exam with patient I advised him there were no acute neurologic deficits that would concern me enough to do an emergent CT of the head. Patient tells me that his primary care doctor is actually ordered an outpatient MRI of his head and cervical spine that he is having done on Thursday. I am going to give him a dose of Toradol and Norflex. Will recommend [id number] Aleve for headache treatment. Advised him to follow-up with his MRI make an appointment shortly after the MRI with his primary care for further management. He is also recommended to get a vision exam. He verbalized understanding. All questions are sought and answered. I did go back and ask him if he was seen 4-5 days ago and still had his steroids and muscle relaxers (as reflected in his visit history). He affirmed he did have some left - I advised him to finish them as directed. Departure Impression Primary Impression: Headache Qualified Codes: R51.9 - Headache, unspecified Disposition: 01 HOME, SELF-CARE Condition: Stable Departure-Patient Inst. Decision time for Depature: 14:43 Referrals: [facility] [place] (PCP/Family) Primary Care Physician Patient Instructions: Headache, Adult ED Add. Discharge Instructions: Drink plenty of fluids to stay well-hydrated. Keep your appointment for your MRI as scheduled. Please follow-up with your primary care doctor after the MRI for further management. Return to the emergency department for any new, concerning or emergent complaints. Finish out the steroid dose pack as previously prescribed. Copy Copies To 1: LUBA PORRAS KATHRYN M MD Aug 31, 2021 14:43
[2021-08-31] MEDS ORDERED: ORPHENADRINE 60 MG/2 ML (NORFLEX) AMP (ED ONLY) IM ONE (14:45)
[2021-08-31] MEDS ORDERED: KETOROLAC 60 MG/2 ML VIAL IM ONE (14:45)
[2021-08-31 14:51] VITALS: BP 120/70
== END 2021-08-31 15:02 | disposition home or self-care (01) ==
LOC: EDUNIT# 14:01 → ER 14:02
DX: R51.9 Headache, unspecified (principal); Z28.310 Unvaccinated for COVID-19
CPT/HCPCS: 99284

== ENCOUNTER → 2021-09-03 | Outpatient (CLI) | payer BC ==
--- NOTE | 2021-09-03 16:18 | Diagnostic Imaging Report ---
INDICATION: Neck pain. EXAMINATION: Cervical spine MRI on 09/03/2021. FINDINGS: There is normal height and alignment of the vertebral bodies with no fractures or subluxations appreciated. The visualized cord signal is preserved. The cervicomedullary junction is unremarkable. C2-C3: Unremarkable. C3-C4: There is a minimal spur/disc complex noted with bilateral facet hypertrophy. There is no central or neuroforaminal stenosis. C4-C5: There is bilateral facet hypertrophy with minimal bilateral neuroforaminal narrowing. The central canal is patent. C5-C6: Unremarkable. C6-C7: Unremarkable. C7-T1: Unremarkable. The prevertebral soft tissues are normal. There is a partially imaged retention polyp or cyst in the left maxillary sinus. The remaining visualized sinuses are unremarkable. IMPRESSION: Minimal degenerative findings within the mid cervical spine with no significant central stenosis and minimal neuroforaminal narrowing, predominantly involving the C3-C4 and C4-C5 levels as above. Dictated by: Dictated on workstation # [id number]
== END ==
LOC: RAD 14:45
PROVIDERS: ATTEND Nurse Practitioner Family
DX: M47.812 Spondylosis without myelopathy or radiculopathy, cervical region (principal)
CPT/HCPCS: 72141

== ENCOUNTER 2021-09-05 07:04 | Emergency (ER) | payer BC ==
[~2021-09-05] VITALS: Ht 172.7 cm; Wt 84.4 kg
[2021-09-05] MEDS ORDERED: ONDANSETRON 4 MG (ZOFRAN) ORAL DISSOLVE TAB SL ONE (07:45)
[2021-09-05] MEDS ORDERED: ANTACID SUSP 30 ML UDC (MYLANTA) PO ONE (07:45)
[2021-09-05] MEDS ORDERED: LIDOCAINE 2% VISCOUS 15 ML UDC PO ONE (07:45)
--- NOTE | 2021-09-05 07:53 | ED Chest Pain ---
General Chief Complaint: Chest Pain Stated Complaint: CP Nursing Triage Note: PT AMBULTE TO ROOM 06 WITH C/O CHEST PAIN X2 DAYS. PT REPORTS RECENT WEIGHT LOSS. 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 He has not identified any alleviating or exacerbating factors. He states pain improves some when he takes a deep breath in the exam room. He acknowledges history of GERD and states he has been off his GERD medications because he has not seen his primary care provider in about a year. He also reports recent evaluation for neck problems including MRI of the neck performed September 03. This was reviewed and there were no major findings, only mild neuroforaminal narrowing and disc disease. He denies associated symptoms of cough, fever, nausea, diaphoresis, fever, etc. Pain is reported as 6 out of 10. Allergies and Home Medications Allergies Coded Allergies: No Known Drug Allergies (Unverified , 10/12/15) Patient Home Medication List Home Medication List Reviewed: Yes Cyclobenzaprine HCl (Cyclobenzaprine HCl) 10 Mg Tablet, 10 MG PO HS PRN for SPASMS Prescribed by: VIKA DE on 11/03/20 1021 Methocarbamol (Methocarbamol) 500 Mg Tablet, 1,000 MG PO QID Prescribed by: JOVITA CHAPIN on 08/27/21 151 Methylprednisolone (Methylprednisolone Dose Pack) 4 Mg Tab.ds.pk, 4 MG PO UD Prescribed by: JOVITA CHAPIN on 08/27/21 151 Naproxen (Naproxen) 500 Mg Tablet, 500 MG PO BID Prescribed by: JOVITA CHAPIN on 08/27/21 151 Omeprazole (Omeprazole) 20 Mg Tablet.dr, 20 MG PO BID, (Reported) Entered as Reported by: BILLY RUDOLPH on 08/24/18 1421 Prednisone (Prednisone) 10 Mg Tab, 10 MG PO DAILY Prescribed by: ZULEMA MORGAN on 07/23/212022 Review of Systems Review of Systems Constitutional: no symptoms reported EENTM: No Symptoms Reported Respiratory: No Symptoms Reported Cardiovascular: See HPI Gastrointestinal: See HPI Genitourinary: No Symptoms Reported Musculoskeletal: see HPI Skin: no symptoms reported Psychiatric/Neurological: No Symptoms Reported Endocrine: No Symptoms Reported Hematologic/Lymphatic: No Symptoms Reported Past Uxkrmag-Cbgsuh-Jxzbta Hx Patient Social History Tobacco Use?: No Smoking Status: Never a Smoker Smokeless Tobacco Frequency: Never a User Use of E-Cig and/or Vaping dev: No Use of E-Cig and/or Vaping William: Never a User Substance use?: No Alcohol Use?: No Pt feels they are or have been: No Immunizations Up To Date Tetanus Booster (TDap): Unknown PED Vaccines UTD: No First/Initial COVID19 Vaccinat: NO Second COVID19 Vaccination Zeeshan: NO Third COVID19 Vaccination Date: NO Seasonal Allergies Seasonal Allergies: No Past Medical History Surgery/Hospitalization HX: sx: gallbladder pmh: gerd Surgeries: Yes Gallbladder Respiratory: No Cardiac: No Neurological: Yes Headaches /Migraines Reproductive Disorders: No Sexually Transmitted Disease: No HIV/AIDS: No Genitourinary: Yes Kidney Infection Gastrointestinal: Yes Gastroesophageal Reflux, Gall Bladder Disease Musculoskeletal: Yes (CHRONIC RIGHT KNEE PAIN) Endocrine: No HEENT: No Cancer: No Psychosocial: No Integumentary: No Blood Disorders: No Adverse Reaction/Blood Tranf: No Family Medical History Patient reports no known family medical history. No Pertinent Family Hx Physical Exam Vital Signs Vital Signs - First Documented 09/05/21 07:08 Temp 36.1 Pulse 65 Resp 13 B/P (MAP) 117/78 (91) O2 Delivery Room Air Capillary Refill : Less Than 3 Seconds Height, Weight, BMI Height: 5'8.00" Weight: 176lbs. 0.0oz. 79.291544ce; 28.00 BMI Method:Stated General Appearance: No Apparent Distress, WD/WN HEENT: Normal ENT Inspection Neck: Normal Inspection; No JVD Respiratory: Lungs Clear, Normal Breath Sounds, No Accessory Muscle Use, No Respiratory Distress, Other (Pain reproducible with palpation of the sternum and epigastric) Cardiovascular: Regular Rate, Rhythm, No Edema, No Murmur Gastrointestinal: Normal Bowel Sounds, Soft Rectal: Tenderness (Mild, epigastric) Extremity: Normal Inspection, Non Tender, No Calf Tenderness, No Pedal Edema Neurologic/Psychiatric: Alert, Oriented x3, No Motor/Sensory Deficits, Normal Mood/Affect Skin: Normal Color, Warm/Dry Progress/Results/Core Measures Results/Orders My Orders Orders - VIKA CONCEPCION MD Ekg Tracing (09/05/21 07:13) Ondansetron Oral Dissolve Tab (Zofran (09/05/21 07:45) Lidocaine 2% Viscous 15 Ml (Xylocaine Vi (09/05/21 07:45) Antacid Suspension (Mylanta Suspension (09/05/21 07:45) Medications Given in ED Current Medications Medications Dose Ordered Sig/Samuel Route Start Time Stop Time Status Last Admin Dose Admin Al Hydrox/Mg Hydrox/Simethicone 30 ml ONCE ONCE PO 09/05/21 07:45 09/05/21 07:46 DC 09/05/21 07:43 30 ML Lidocaine HCl 15 ml ONCE ONCE PO 09/05/21 07:45 09/05/21 07:46 DC 09/05/21 07:43 15 ML Ondansetron HCl 4 mg ONCE ONCE SL 09/05/21 07:45 09/05/21 07:46 DC 09/05/21 07:42 4 MG Vital Signs/I&O 09/05/21 07:08 Temp 36.1 Pulse 65 Resp 13 B/P (MAP) 117/78 (91) O2 Delivery Room Air Blood Pressure Mean: 91 Progress Progress Note #1: Time: 07:55 Progress Note Symptoms consistent with GERD. Patient has history of GERD and is not presently being treated. GI cocktail was administered. We will monitor her progress. Progress Note #2: Time: 08:02 Progress Note Symptoms improved with GI cocktail. Patient informed me he has been back on Pepcid for 2 days. He is presently taking it once a day. I have suggested he increase to twice a day. See discharge instructions. Initial ECG Impression Date: Sep 05, 2021 Initial ECG Impression Time: 07:16 Initial ECG Rate: 62 Initial ECG Rhythm: Normal Sinus Initial ECG Intervals: Normal Initial ECG Impression: Normal Comment Normal sinus rhythm with no ST elevation or depression. No abnormal intervals or axis deviation. Departure Impression Primary Impression: Atypical chest pain Additional Impression: Gastroesophageal reflux Qualified Codes: K21.9 - Gastro-esophageal reflux disease without esophagitis Disposition: 01 HOME, SELF-CARE Condition: Improved Departure-Patient Inst. Decision time for Depature: 08:03 Referrals: [facility] (PCP/Family) Primary Care Physician Patient Instructions: Acid Reflux and Gastroesophageal Reflux Disease in Adults Add. Discharge Instructions: It is likely your pain is caused by acid reflux disease. Increase your Pepcid (famotidine) to twice daily dosing until symptoms are under control. Follow-up with your primary care provider in a couple of weeks. Avoid the following: Eating large meals, eating close to bedtime, caffeine, chocolate, carbonation, tomato products, citrus fruits and juices, tobacco, mints, alcohol, spicy foods, fatty/greasy foods, NSAID medications such as ibuprofen or naproxen, or anything else you know irritate your stomach. Elevating your head or the entire head of your bed when lying down to sleep may also help reduce acid reflux symptoms. Return to care if you have worsening symptoms despite following these instructions. All discharge instructions reviewed with patient and/or family. Voiced understanding. Copy Copies To 1: MARQUIS DE LA CRUZ JOSHUA T MD Sep 05, 2021 07:53
[2021-09-05 08:11] VITALS: BP 137/83
== END 2021-09-05 08:12 | disposition home or self-care (01) ==
LOC: EDUNIT# 07:04 → ER 07:05
DX: K21.9 Gastro-esophageal reflux disease without esophagitis (principal); Z28.310 Unvaccinated for COVID-19
CPT/HCPCS: 93005

== ENCOUNTER 2021-09-11 21:49 | Emergency (ER) | payer BC ==
[~2021-09-11] VITALS: Ht 172.7 cm; Wt 84.4 kg
[2021-09-11 21:53] VITALS: BP 130/94
[2021-09-11] MEDS ORDERED: FAMO-119 PO (21:58)
[2021-09-11] MEDS ORDERED: IBUPROFEN 800 MG (MOTRIN) TAB PO STA (22:10)
--- NOTE | 2021-09-11 22:13 | ED Headache ---
General Chief Complaint: Head/Cervical Problems Stated Complaint: HEADACHE Nursing Triage Note: C/O PAIN TO TOP OF HEAD WHEN HE TOUCHES THE TOP OF HIS HEAD X3 WEEKS (SERA GUERRERO) History of Present Illness Date Seen by Provider: Sep 11, 2021 Time Seen by Provider: 21:55 Initial Comments 31-year-old male presents for head tenderness to palpation, chronic neck pain, and intermittent headaches. MRI of C-spine was completed 09/03/21 and he was referred to PT at [facility]. Patient concerned about the head tenderness, he took Tylenol this morning. He sleeps without discomfort and is able to work. States head pain is relieved when he is lying. Several evaluations for similar complaints in this ED recently. He is concerned that he could have a brain tumor, after reviewing symptoms on [employer]. CT head 11/03/20 was normal. He has intermittent radicular symptoms in his upper and lower extremities. No vision changes, no eye exam in 15 years. Timing/Duration: episodic Severity/Quality: mild Location: parietal Prior Headaches/Recent Trauma: no recent headache/trauma Associated Symptoms: No confusion, No facial pain, No loss of consciousness, No nausea/vomiting, No nasal congestion, No nasal drainage, No seizures, No sinus infection, No vision changes (SERA GUERRERO) Allergies and Home Medications Allergies Coded Allergies: No Known Drug Allergies (Unverified , 10/12/15) Patient Home Medication List Home Medication List Reviewed: Yes (SERA GUERRERO) Famotidine (Pepcid) 20 Mg Tablet, Unknown Dose PO, (Reported) Entered as Reported by: ANGELI WU on 09/11/212157 Last Action: New Order Discontinued Medications Cyclobenzaprine HCl (Cyclobenzaprine HCl) 10 Mg Tablet, 10 MG PO HS PRN for SPASMS Discontinued Reason: No Longer Taking Prescribed by: VIKA DE on 11/03/20 1021 Last Action: Discontinued Methocarbamol (Methocarbamol) 500 Mg Tablet, 1,000 MG PO QID Discontinued Reason: No Longer Taking Prescribed by: JOVITA CHAPIN on 08/27/21 1519 Last Action: Discontinued Methylprednisolone (Methylprednisolone Dose Pack) 4 Mg Tab.ds.pk, 4 MG PO UD Discontinued Reason: No Longer Taking Prescribed by: JOVITA CHAPIN on 08/27/211518 Last Action: Discontinued Naproxen (Naproxen) 500 Mg Tablet, 500 MG PO BID Discontinued Reason: No Longer Taking Prescribed by: JOVITA CHAPIN on 08/27/211518 Last Action: Discontinued Omeprazole (Omeprazole) 20 Mg Tablet.dr, 20 MG PO BID, (Reported) Discontinued Reason: No Longer Taking Entered as Reported by: BILLY RUDOLPH on 08/24/18 1421 Last Action: Discontinued Prednisone (Prednisone) 10 Mg Tab, 10 MG PO DAILY Discontinued Reason: No Longer Taking Prescribed by: ZULEMA MORGAN on 07/23/212022 Last Action: Discontinued Review of Systems Review of Systems Constitutional: no symptoms reported, see HPI Musculoskeletal: see HPI, neck pain Skin: no symptoms reported, see HPI Psychiatric/Neurological: See HPI, Headache (SERA GUERRERO) All Other Systems Reviewed Negative Unless Noted: Yes (SERA GUERRERO) Past Otvakqe-Xcndau-Avtent Hx Patient Social History Tobacco Use?: No Substance use?: No Alcohol Use?: No Pt feels they are or have been: No (SERA GUERRERO) Immunizations Up To Date Tetanus Booster (TDap): Unknown PED Vaccines UTD: No First/Initial COVID19 Vaccinat: NO Second COVID19 Vaccination Zeeshan: NO Third COVID19 Vaccination Date: NO (SERA GUERRERO) Seasonal Allergies Seasonal Allergies: No (SERA GUERRERO) Past Medical History Surgery/Hospitalization HX: sx: gallbladder pmh: gerd Surgeries: Yes Gallbladder Respiratory: No Cardiac: No Neurological: Yes Headaches /Migraines Reproductive Disorders: No Sexually Transmitted Disease: No HIV/AIDS: No Genitourinary: Yes Kidney Infection Gastrointestinal: Yes Gastroesophageal Reflux, Gall Bladder Disease Musculoskeletal: Yes (CHRONIC RIGHT KNEE PAIN) Endocrine: No HEENT: No Cancer: No Psychosocial: No Integumentary: No Blood Disorders: No Adverse Reaction/Blood Tranf: No (SERA GUERRERO) Family Medical History Reviewed Nursing Family Hx (SERA GUERRERO) Patient reports no known family medical history. No Pertinent Family Hx (SERA GUERRERO) Physical Exam Vital Signs Vital Signs - First Documented 09/11/21 21:53 Temp 36.6 Pulse 89 Resp 18 B/P (MAP) 130/94 (106) Pulse Ox 97 O2 Delivery Room Air (VIKA CONCEPCION MD) Vital Signs Capillary Refill : Less Than 3 Seconds (SERA GUERRERO) Height, Weight, BMI Height: 5'8.00" Weight: 176lbs. 0.0oz. 79.534024mq; 28.00 BMI Method:Stated General Appearance: WD/WN, no apparent distress HEENT: PERRL/EOMI, normal ENT inspection, TMs normal, pharynx normal Neck: non-tender, full range of motion, supple, normal inspection, other (power V/V bilat UEs) Cardiovascular: normal peripheral pulses, regular rate, rhythm Respiratory: chest non-tender, lungs clear, normal breath sounds Psychiatric: alert, oriented x 3 Crainal Nerves: normal hearing, normal speech, PERRL Coordination/Gait: No abnormal gait Motor/Sensory: no motor deficit, no sensory deficit Skin: normal color, warm/dry, other (no skin irritation, abscess or folliculitis to scalp) (SERA GUERRERO) Progress/Results/Core Measures Results/Orders Vital Signs/I&O 09/11/21 21:53 Temp 36.6 Pulse 89 Resp 18 B/P (MAP) 130/94 (106) Pulse Ox 97 O2 Delivery Room Air (VIKA CONCEPCION MD) Blood Pressure Mean: 106 Departure Impression Primary Impression: Neck pain Additional Impression: Headache Qualified Codes: R51.9 - Headache, unspecified Disposition: 01 HOME, SELF-CARE Condition: Improved Departure-Patient Inst. Decision time for Depature: 22:05 (SERA GUERRERO) Referrals: [facility] (PCP/Family) Primary Care Physician Patient Instructions: Headache, Adult (DC), Chronic Neck Pain (DC) Add. Discharge Instructions: Take Excedrin at onset of headache, you may alternate with ibuprofen 600 mg as needed. Follow-up with your primary care provider at [facility] if symptoms or not improving or worsen. Follow-up with your physical therapy. Schedule appt to see an eye doctor. Return to the emergency department for new, urgent healthcare needs. All discharge instructions reviewed with patient and/or family. Voiced understanding. ATTENDING PHYSICIAN NOTE: I was physically present as attending physician in the emergency department during the care of this patient, but I was not directly involved in the decision making or delivery of care for this patient. (VIKA CONCEPCION MD) Copy Copies To 1: MARQUIS DE LA CRUZ AMY ARNP Sep 11, 2021 22:13 VIKA CONCEPCION MD Sep 12, 2021 05:07
== END 2021-09-11 22:16 | disposition home or self-care (01) ==
LOC: EDUNIT# 21:49 → ER 21:51
DX: M54.2 Cervicalgia (principal); R51.9 Headache, unspecified; Z86.69 Personal history of other diseases of the nervous system and sense organs; Z28.310 Unvaccinated for COVID-19
CPT/HCPCS: 99283

== ENCOUNTER 2021-12-28 11:56 | Emergency (ER) | payer SELFPAY ==
[~2021-12-28] VITALS: Ht 172.7 cm; Wt 88.0 kg
[~2021-12-28 11:56] MED LIST changes: +FAMO-119 PO
--- NOTE | 2021-12-28 12:23 | ED Headache ---
General Chief Complaint: Head/Cervical Problems Stated Complaint: HEAD PAIN Nursing Triage Note: pt ambulatory to room. states he has had "head pain" for about 2 weeks. states it is mainly in the back middle of his head and sometimes into his temples. pt states he has taken tylenol and ibuprofen in the last couple weeks but it hasn't helped so he has not had any for a couple days. Source: patient Exam Limitations: no limitations History of Present Illness Date Seen by Provider: Dec 28, 2021 Time Seen by Provider: 12:15 Initial Comments Patient is a 31-year-old male who presents to the emergency department with approximately 2 weeks of head pain. He states he does have some mild sensit ivity to light. He states he had some "bumps on his head" approximately 1-1/2 years ago and had a CT of his head at that time that was reportedly negative. Denies any focal weakness, vision loss, difficulty walking. States he has taken Tylenol and ibuprofen intermittently for the symptoms with minimal improvement. He has not taken anything for the headache in the last 48 hours. He states he primarily came to the ER as he had been looking up his symptoms on the Internet and was concerned that possible brain tumor was listed as a cause of headaches. Location: temporal, occipital Modifying Factors: worse with exposure to light Allergies and Home Medications Allergies Coded Allergies: No Known Drug Allergies (Unverified , 10/12/15) Patient Home Medication List Home Medication List Reviewed: Yes Famotidine (Pepcid) 20 Mg Tablet, Unknown Dose PO, (Reported) Entered as Reported by: ANGELI WU on 09/11/21 5359 Review of Systems Review of Systems Constitutional: no symptoms reported Eyes: No Symptoms Reported Ears, Nose, Mouth, Throat: no symptoms reported Respiratory: no symptoms reported Cardiovascular: no symptoms reported Gastrointestinal: no symptoms reported Genitourinary: no symptoms reported Musculoskeletal: no symptoms reported Skin: no symptoms reported Psychiatric/Neurological: Headache Past Xkzekrh-Gcvlhn-Rksnch Hx Patient Social History Tobacco Use?: No Substance use?: No Alcohol Frequency: Rarely Immunizations Up To Date Tetanus Booster (TDap): Unknown PED Vaccines UTD: No Influenza Vaccine Up-to-Date: No; Not Current First/Initial COVID19 Vaccinat: NO Second COVID19 Vaccination Zeeshan: NO Third COVID19 Vaccination Date: NO Seasonal Allergies Seasonal Allergies: No Past Medical History Surgery/Hospitalization HX: sx: gallbladder pmh: gerd Surgeries: Yes Gallbladder Respiratory: No Cardiac: No Neurological: Yes Headaches /Migraines Reproductive Disorders: No Sexually Transmitted Disease: No HIV/AIDS: No Genitourinary: Yes Kidney Infection Gastrointestinal: Yes Gastroesophageal Reflux, Gall Bladder Disease Musculoskeletal: Yes (CHRONIC RIGHT KNEE PAIN) Endocrine: No HEENT: No Cancer: No Psychosocial: No Integumentary: No Blood Disorders: No Adverse Reaction/Blood Tranf: No Family Medical History Patient reports no known family medical history. No Pertinent Family Hx Physical Exam Vital Signs Vital Signs - First Documented 12/28/21 12:01 Temp 36.0 Pulse 84 Resp 18 B/P (MAP) 130/82 (98) Pulse Ox 98 Capillary Refill : Height, Weight, BMI Height: 5'8.00" Weight: 176lbs. 0.0oz. 79.001649cz; 29.00 BMI Method:Stated General Appearance: WD/WN, no apparent distress HEENT: PERRL/EOMI, normal ENT inspection, TMs normal, pharynx normal Neck: non-tender, full range of motion, supple, normal inspection Cardiovascular: regular rate, rhythm, no edema, no gallop, no JVD, no murmur Respiratory: chest non-tender, lungs clear, normal breath sounds, no respiratory distress, no accessory muscle use Gastrointestinal: normal bowel sounds, non tender, soft, no organomegaly, no pulsatile mass Back: normal inspection, no vertebral tenderness Extremities: normal range of motion, non-tender, normal inspection, no pedal edema, no calf tenderness Skin: normal color, warm/dry Progress/Results/Core Measures Results/Orders My Orders Orders - LIANNA LONGORIA APRN Prochlorperazine Injection (Compazine In (12/28/21 12:30) Ketorolac Injection (Toradol Injection) (12/28/21 12:30) Vital Signs/I&O 12/28/21 12:01 Temp 36.0 Pulse 84 Resp 18 B/P (MAP) 130/82 (98) Pulse Ox 98 Blood Pressure Mean: 98 Progress Progress Note : Progress Note Patient is nontoxic and well-hydrated on exam. No focal neurologic deficits appreciated. Pupils are equal round reactive to light and extraocular movements are intact. Patient is ambulatory without ataxia. Cerebellar function appears normal with intact nose to finger and [id number]. No indication at this time for cross-sectional imaging of the head as there has been no recent head trauma and space-occupying lesion is unlikely given lack of other neurologic symptoms. Patient given intramuscular injections of Compazine and ketorolac as headache abortive therapy. Discussed importance of rest and hydration at home. Patient will be discharged home with p.o. versions of the same medicines. Discussed importance of taking medications as prescribed. Follow-up with PCP in 2 to 3 days if there is no marked improvement/resolution of symptoms. Return precautions for urgent symptomology discussed. Patient verbalized understanding. Departure Impression Primary Impression: Headache Qualified Codes: R51.9 - Headache, unspecified Disposition: HOME, SELF-CARE Condition: Stable Departure-Patient Inst. Decision time for Depature: 12:27 Referrals: [facility] [place] Primary Care Physician Patient Instructions: Headache, Adult (DC) Scripts Ketorolac Tromethamine (Ketorolac Tromethamine) 10 Mg Tablet 10 MG PO QID PRN for HEADACHE for 5 Days, #15 TAB Prov: LIANNA LONGORIA APRN 12/28/21 Prochlorperazine Maleate (Compazine) 10 Mg Tablet 10 MG PO Q8H PRN for HEADACHE for 5 Days, #15 TAB Prov: LIANNA LONGORIA APRN 12/28/21 LIANNA LONGORIA APRN Dec 28, 2021 12:23
[2021-12-28] MEDS ORDERED: KETO10TA PO (12:29)
[2021-12-28] MEDS ORDERED: PROC-1 PO (12:29)
[2021-12-28] MEDS ORDERED: PROCHLORPERAZINE 10 MG/2ML INJ (COMPAZINE) IM ONE (12:30)
[2021-12-28] MEDS ORDERED: KETOROLAC 30 MG/ML VIAL IM ONE (12:30)
[2021-12-28 12:49] VITALS: BP 130/82
== END 2021-12-28 12:49 | disposition home or self-care (01) ==
LOC: EDUNIT# 11:56 → ER 11:58
DX: R51.9 Headache, unspecified (principal); Z86.69 Personal history of other diseases of the nervous system and sense organs; Z28.310 Unvaccinated for COVID-19
CPT/HCPCS: 99284

== ENCOUNTER 2022-01-06 06:38 | Emergency (ER) | payer SELFPAY ==
[~2022-01-06 06:38] MED LIST changes: +KETO10TA PO; +PROC-1 PO
--- NOTE | 2022-01-06 08:11 | ED Headache ---
General Chief Complaint: Head/Cervical Problems Stated Complaint: HEADACHE Nursing Triage Note: DULL HEADACHE X2 WEEKS. PATIENT WAS TOLD TO COME BACK HERE IF HE COULDN'T GET INTO PCP. PAIN IS 5/10 AND IN POSTERIOR HEAD. Source: patient, old records Exam Limitations: no limitations History of Present Illness Date Seen by Provider: Jan 06, 2022 Time Seen by Provider: 07:40 Initial Comments Has had bilateral paresthesias in his hands for the past few months intermittently presumed to be related to repetitive hand gripping and movements at work. No advancing focal neurologic deficits are noted. Patient has mild cervical disc disease based on MRI from August of this year. He had CT of the hea d in October 2020 which was unremarkable. Headaches occur primarily in the morning and tend to decrease throughout the day. They are generally occipital. He does have some sneezing and congestion on a regular basis. He does use a nasal steroid spray daily. He has not been tested for sleep apnea but his significant other reports he snores. Allergies and Home Medications Allergies Coded Allergies: No Known Drug Allergies (Unverified , 10/12/15) Patient Home Medication List Famotidine (Pepcid) 20 Mg Tablet, Unknown Dose PO, (Reported) Entered as Reported by: ANGELI WU on 09/11/212157 Ketorolac Tromethamine (Ketorolac Tromethamine) 10 Mg Tablet, 10 MG PO QID PRN for HEADACHE Prescribed by: Hema Maciel on 12/28/21 1229 Prochlorperazine Maleate (Compazine) 10 Mg Tablet, 10 MG PO Q8H PRN for HEADACHE Prescribed by: Hema Maciel on 12/28/21 1229 Past Lzhttmg-Wthsrm-Zoqwvz Hx Patient Social History Tobacco Use?: No Use of E-Cig and/or Vaping dev: No Substance use?: No Alcohol Use?: No Pt feels they are or have been: No Immunizations Up To Date Tetanus Booster (TDap): Unknown PED Vaccines UTD: No Influenza Vaccine Up-to-Date: Yes; Up-to-Date First/Initial COVID19 Vaccinat: NO Second COVID19 Vaccination Zeeshan: NO Third COVID19 Vaccination Date: NO Seasonal Allergies Seasonal Allergies: No Past Medical History Surgery/Hospitalization HX: sx: gallbladder pmh: gerd Surgeries: Yes Gallbladder Respiratory: No Cardiac: No Neurological: Yes Headaches /Migraines Reproductive Disorders: No Sexually Transmitted Disease: No HIV/AIDS: No Genitourinary: Yes Kidney Infection Gastrointestinal: Yes Gastroesophageal Reflux, Gall Bladder Disease Musculoskeletal: Yes (CHRONIC RIGHT KNEE PAIN) Endocrine: No HEENT: No Cancer: No Psychosocial: No Integumentary: No Blood Disorders: No Adverse Reaction/Blood Tranf: No Family Medical History Patient reports no known family medical history. No Pertinent Family Hx Physical Exam Vital Signs Vital Signs - First Documented 01/06/22 06:51 Temp 36.3 Pulse 60 Resp 16 B/P (MAP) 124/77 (93) Pulse Ox 98 O2 Delivery Room Air Capillary Refill : Less Than 3 Seconds Height, Weight, BMI Height: 5'8.00" Weight: 176lbs. 0.0oz. 79.552024pk; 29.00 BMI Method:Stated Progress/Results/Core Measures Results/Orders Vital Signs/I&O 01/06/22 06:51 Temp 36.3 Pulse 60 Resp 16 B/P (MAP) 124/77 (93) Pulse Ox 98 O2 Delivery Room Air Blood Pressure Mean: 93 Departure Impression Primary Impression: Occipital headache Additional Impression: Hand paresthesia Qualified Codes: R20.2 - Paresthesia of skin Disposition: 01 HOME, SELF-CARE Condition: Stable Departure-Patient Inst. Decision time for Depature: 08:08 Referrals: [facility] [place] Primary Care Physician Patient Instructions: Headache, Adult Add. Discharge Instructions: For treatment of acute headaches you may continue using ibuprofen up to 600 mg every 6 hours as needed and/or Tylenol (acetaminophen) up to 1000 mg every 6 hours as needed. Take ibuprofen with food or milk to avoid stomach upset. You may try cyclobenzaprine as prescribed at bedtime to help avoid neck tension. Continue treating your allergies with a nasal steroid spray such as Flonase (fluticasone) 2 sprays in each nostril daily as well as a daily allergy pill such as Claritin (loratadine) or Zyrtec (cetirizine). Follow-up with your primary care provider soon as possible. Please call today to schedule an appointment. At that appointment discussed possible causes for your headache which may include muscle tension, cervical disc disease, strain from her occupation, sleep apnea, etc. Based on that discussion, further work-up may be warranted and can be discussed with Dr. De La Cruz. Such work-up might include testing for sleep apnea, MRI of the brain, etc. at her discretion. The intermittent numb sensation you have in your hands is likely due to occupational strain and perhaps carpal tunnel syndrome. You may use an menh-yvc-lanemke wrist brace to help support your wrist while working. Discuss this further with your primary care provider in follow-up. If you have worsening condition despite following these instructions, return to the emergency room. All discharge instructions reviewed with patient and/or family. Voiced understanding. Scripts Cyclobenzaprine HCl (Cyclobenzaprine HCl) 5 Mg Tablet 5 MG PO HS PRN for PAIN-BREAKTHROUGH, #10 TAB For tension headache or muscle spasms. Prov: VIKA CONCEPCION MD 01/06/22 Copy Copies To 1: MARQUIS DE LA CRUZ JOSHUA T MD Jan 06, 2022 08:11
[2022-01-06] MEDS ORDERED: CYCL5TAB PO (08:12)
[2022-01-06 08:27] VITALS: BP 117/86
== END 2022-01-06 08:27 | disposition home or self-care (01) ==
LOC: ER 06:38 → EDUNIT# 06:38 → ER 08:27
DX: R51.9 Headache, unspecified (principal); R20.2 Paresthesia of skin; Z28.310 Unvaccinated for COVID-19
CPT/HCPCS: 99281

== ENCOUNTER 2022-01-16 06:40 | Emergency (ER) | payer BC ==
[~2022-01-16] VITALS: Ht 172 cm; Wt 88.0 kg
[~2022-01-16 06:40] MED LIST changes: +CYCL5TAB PO
[2022-01-16] MEDS ORDERED: ORPHENADRINE 60 MG/2 ML (NORFLEX) AMP (ED ONLY) IM STA (07:28)
[2022-01-16] MEDS ORDERED: KETOROLAC 60 MG/2 ML VIAL IM STA (07:28)
--- NOTE | 2022-01-16 07:50 | ED Headache ---
General Chief Complaint: Head/Cervical Problems Stated Complaint: PAIN IN BACK OF HEAD Nursing Triage Note: PT CO OF [place], STATES IN BACK OF HEAD PRESSURE IS ABLE TO SLEEP BUT DOES NOT GET BETTER. RATES PAIN 7/10 CO OF SL STIFFNESS IN NECK STATES HAS BEEN GOING ON FOR ABOUT 2 WEEKS Source: patient Exam Limitations: no limitations History of Present Illness Date Seen by Provider: Jan 16, 2022 Time Seen by Provider: 07:18 Initial Comments Here with posterior headache that radiates to the front that has been going on for a couple of weeks. He has had this intermittently at least over the last year. He has had MRI of the cervical spine which did not reveal any significant pathology except for some mild degenerative changes in C3-C4 and C4-C5. Patient was seen recently for the same headache. He had a couple of shots that he said did not significantly help and did get a prescription that he says did not really help much either. After further conversation, patient admits that he has been reading [employer] and he is worried about brain tumor. He does admit to quite a bit of stress in his life and his job does require strenuous activity. States ibuprofen and Tylenol are not helping. Severity/Quality: moderate, pressure Location: occipital Prior Headaches/Recent Trauma: frequent headaches Modifying Factors: worse with movement; improves with rest Associated Symptoms: No confusion, No fever/chills, No loss of consciousness, No nausea/vomiting, No numbness in legs/feet, No seizures, No sinus infection, No stiff neck, No vision changes, No weakness Allergies and Home Medications Allergies Coded Allergies: No Known Drug Allergies (Unverified , 10/12/15) Patient Home Medication List Home Medication List Reviewed: Yes Discontinued Medications Cyclobenzaprine HCl (Cyclobenzaprine HCl) 5 Mg Tablet, 5 MG PO HS PRN for PAIN- BREAKTHROUGH Discontinued Reason: No Longer Taking Prescribed by: VIKA DE on 01/06/22 0812 Last Action: Discontinued Famotidine (Pepcid) 20 Mg Tablet, Unknown Dose PO, (Reported) Discontinued Reason: No Longer Taking Entered as Reported by: ANGELI WU on 09/11/21 400 Last Action: Discontinued Ketorolac Tromethamine (Ketorolac Tromethamine) 10 Mg Tablet, 10 MG PO QID PRN for HEADACHE Discontinued Reason: No Longer Taking Prescribed by: Hema Maciel on 12/28/211228 Last Action: Discontinued Prochlorperazine Maleate (Compazine) 10 Mg Tablet, 10 MG PO Q8H PRN for HEADACHE Discontinued Reason: No Longer Taking Prescribed by: Hema Maciel on 12/28/211228 Last Action: Discontinued Review of Systems Review of Systems Constitutional: No chills, No fever Eyes: Denies Decreased Acuity, Denies Pain Ears, Nose, Mouth, Throat: no symptoms reported Respiratory: No cough, No short of breath Cardiovascular: no symptoms reported Gastrointestinal: No nausea; vomiting (X1 yesterday morning with no apparent cause) Genitourinary: no symptoms reported Musculoskeletal: No back pain, No muscle pain, No neck pain Skin: no symptoms reported All Other Systems Reviewed Negative Unless Noted: Yes Past Nxwomaw-Vgamcn-Dhzfch Hx Patient Social History Tobacco Use?: No Substance use?: No Alcohol Use?: No Immunizations Up To Date Tetanus Booster (TDap): Unknown PED Vaccines UTD: No Influenza Vaccine Up-to-Date: Yes; Up-to-Date First/Initial COVID19 Vaccinat: NO Second COVID19 Vaccination Zeeshan: NO Third COVID19 Vaccination Date: NO Seasonal Allergies Seasonal Allergies: No Past Medical History Surgery/Hospitalization HX: GALLBLADDER Surgeries: Yes Gallbladder Respiratory: No Cardiac: No Neurological: Yes Headaches /Migraines Reproductive Disorders: No Sexually Transmitted Disease: No HIV/AIDS: No Genitourinary: Yes Kidney Infection Gastrointestinal: Yes Gastroesophageal Reflux, Gall Bladder Disease Musculoskeletal: Yes (CHRONIC RIGHT KNEE PAIN) Endocrine: No HEENT: No Cancer: No Psychosocial: No Integumentary: No Blood Disorders: No Adverse Reaction/Blood Tranf: No Family Medical History Reviewed Nursing Family Hx Patient reports no known family medical history. No Pertinent Family Hx Physical Exam Vital Signs Vital Signs - First Documented 01/16/22 07:15 Temp 35.8 Pulse 78 Resp 18 B/P (MAP) 134/90 (105) Pulse Ox 99 Capillary Refill : Less Than 3 Seconds Height, Weight, BMI Height: 5'8.00" Weight: 176lbs. 0.0oz. 79.023154kk; 29.00 BMI Method:Stated General Appearance: WD/WN, no apparent distress HEENT: PERRL/EOMI, TMs normal, pharynx normal Neck: non-tender, full range of motion, supple, normal inspection Cardiovascular: regular rate, rhythm, no murmur Respiratory: lungs clear, normal breath sounds Gastrointestinal: non tender, soft Psychiatric: alert, oriented x 3 Crainal Nerves: normal speech, PERRL Coordination/Gait: normal gait Motor/Sensory: no motor deficit Skin: normal color, warm/dry Progress/Results/Core Measures Results/Orders My Orders Orders - PAULIE FORREST MD Ct Head Wo (01/16/22 07:28) Ketorolac Injection (Toradol Injection) (01/16/22 07:28) Orphenadrine Inj (Ed Only) (Norflex Inje (01/16/22 07:28) Vital Signs/I&O 01/16/22 07:15 Temp 35.8 Pulse 78 Resp 18 B/P (MAP) 134/90 (105) Pulse Ox 99 Blood Pressure Mean: 105 Progress Progress Note : Progress Note Seen and evaluated. I have reviewed his records including MRI done on September 03 which showed only mild degenerative changes. This was done for neck pain and tingling of his hands and feet which she is still has occasionally that do not last. He has not had a CT scan of his head since last year. Given persistence of symptoms and second visit for same, we will go ahead and do CT of the head to evaluate for gross intracranial pathology. Toradol 60 mg IM and Norflex 60 mg IM ordered. Monitor patient. 0807: CT head is negative for any acute pathology. I did discuss this with the patient and he is greatly reassured. Discharged home with return precautions. Patient verbalized understanding of instructions and agreement with plan. Diagnostic Imaging Diagonstic Imaging: CT Plain Films/CT/US/NM/MRI: head Comments [facility], [place] NAME: VIKA [facility] REC#: [id number] PT STATUS: REG ER : 1990 PHYSICIAN: PAULIE FORREST MD ADMIT DATE: 01/16/22/ER Draft Date of Exam:01/16/22 CT HEAD WO PROCEDURE: CT head without contrast. TECHNIQUE: Multiple contiguous axial images were obtained through the brain without the use of intravenous contrast. Auto Exposure Controls were utilized during the CT exam to meet ALARA standards for radiation dose reduction. INDICATION: Headache. Comparison is made with prior exam of 11/03/2020. FINDINGS: The ventricles and sulci are within normal limits. There is no hydrocephalus or cerebral edema. There is no midline shift or mass effect. There is no intracranial mass, hemorrhage, or extra-axial fluid collection. The visualized paranasal sinuses and mastoid air cells are clear. There are no regional areas of decreased attenuation appreciated to suggest an acute CVA. IMPRESSION: No acute intracranial abnormality. Dictated on workstation # [id number] Dict: 01/16/22 0751 Trans: 01/16/22 0755 [facility] [id number] Interpreted by: NILO BALDWIN MD Electronically signed by: Departure Impression Primary Impression: Muscle tension headache Disposition: HOME, SELF-CARE Condition: Stable Departure-Patient Inst. Decision time for Depature: 08:08 Referrals: MARQUIS DE LA CRUZ DO (PCP/Family) Primary Care Physician Patient Instructions: Tension Headache (DC) Add. Discharge Instructions: All discharge instructions reviewed with patient and/or family. Voiced understanding. You may use ibuprofen 600 mg every 8 hours as needed for pain. You may use Tylenol/acetaminophen 1000 mg every 6-8 hours as needed for pain. You may use topical creams such as icy hot with lidocaine or Salonpas with lidocaine to the neck to see if that helps out with your pain. Follow-up with your doctor in a few days for recheck. Return for worse pain, weakness, vision or balance problems or other concerns as needed. PAULIE FORREST MD Jan 16, 2022 07:50
--- NOTE | 2022-01-16 07:56 | Diagnostic Imaging Report ---
PROCEDURE: CT head without contrast. TECHNIQUE: Multiple contiguous axial images were obtained through the brain without the use of intravenous contrast. Auto Exposure Controls were utilized during the CT exam to meet ALARA standards for radiation dose reduction. INDICATION: Headache. Comparison is made with prior exam of 11/03/2020. FINDINGS: The ventricles and sulci are within normal limits. There is no hydrocephalus or cerebral edema. There is no midline shift or mass effect. There is no intracranial mass, hemorrhage, or extra-axial fluid collection. The visualized paranasal sinuses and mastoid air cells are clear. There are no regional areas of decreased attenuation appreciated to suggest an acute CVA. IMPRESSION: No acute intracranial abnormality. Dictated by: Dictated on workstation # [id number]
[2022-01-16 08:26] VITALS: BP 134/90
== END 2022-01-16 08:29 | disposition home or self-care (01) ==
LOC: EDUNIT# 06:40 → ER 06:45
DX: G44.209 Tension-type headache, unspecified, not intractable (principal); Z28.310 Unvaccinated for COVID-19
CPT/HCPCS: 70450

== ENCOUNTER 2022-02-03 08:05 | Emergency (ER) | payer BC ==
[~2022-02-03] VITALS: Ht 172 cm; Wt 86.0 kg
[2022-02-03] MEDS ORDERED: ERYT1OIN6 OP (08:21)
--- NOTE | 2022-02-03 08:21 | ED EENT ---
History of Present Illness General Chief Complaint: Eye Problems Stated Complaint: CONJUNCTIVITIS Source: patient Exam Limitations: no limitations History of Present Illness Date Seen by Provider: Feb 03, 2022 Time Seen by Provider: 08:07 Initial Comments 31-year-old male with no pertinent past medical history coming in due to concern for pinkeye. Left eye started being that way Thursday, has a child with it as well. Thursday went to his doctor and was started on antibiotic eyedrops. Moved over to the right eye yesterday, now it is burning, itching. Denies any fever, vision changes, pain with movement of his eye, headache, neck stiffness, or any other concerns. Allergies and Home Medications Allergies Coded Allergies: No Known Drug Allergies (Unverified , 10/12/15) Patient Home Medication List Home Medication List Reviewed: Yes Review of Systems Review of Systems Constitutional: No fever Eyes: See HPI Ears: No Symptoms Reported Nose: no symptoms reported Mouth: no symptoms reported Throat: no symptoms reported Respiratory: no symptoms reported Cardiovascular: no symptoms reported Gastrointestinal: no symptoms reported Musculoskeletal: no symptoms reported Skin: no symptoms reported Neurological: No Symptoms Reported Hematologic/Lymphatic: No Symptoms Reported Immunological/Allergic: no symptoms reported All Other Systems Reviewed Negative Unless Noted: Yes Past Pdzfnnm-Yfhbvn-Jlmmok Hx Patient Social History Tobacco Use?: No Immunizations Up To Date Tetanus Booster (TDap): Unknown PED Vaccines UTD: No First/Initial COVID19 Vaccinat: NO Second COVID19 Vaccination Zeeshan: NO Third COVID19 Vaccination Date: NO Seasonal Allergies Seasonal Allergies: No Past Medical History Surgery/Hospitalization HX: GALLBLADDER Surgeries: Yes Gallbladder Respiratory: No Cardiac: No Neurological: Yes Headaches /Migraines Reproductive Disorders: No Sexually Transmitted Disease: No HIV/AIDS: No Genitourinary: Yes Kidney Infection Gastrointestinal: Yes Gastroesophageal Reflux, Gall Bladder Disease Musculoskeletal: Yes (CHRONIC RIGHT KNEE PAIN) Endocrine: No HEENT: No Cancer: No Psychosocial: No Integumentary: No Blood Disorders: No Adverse Reaction/Blood Tranf: No Family Medical History Patient reports no known family medical history. No Pertinent Family Hx Physical Exam Height, Weight, BMI Height: 5'8.00" Weight: 176lbs. 0.0oz. 79.881185yc; 29.00 BMI Method:Stated General Appearance: WD/WN, no apparent distress Eyes: right eye other (Erythematous conjunctive a on the right with cobblestoning, some drainage noted) Ears: bilateral ear auricle normal Nose: normal inspection Mouth/Throat: normal mouth inspection, pharynx normal Neck: non-tender, full range of motion, supple, normal inspection Cardiovascular: regular rate, rhythm, no edema, no murmur Respiratory: chest non-tender, lungs clear, normal breath sounds, no respiratory distress, no accessory muscle use Gastrointestinal: normal bowel sounds, non tender, soft; No distended, No guarding, No rebound Neurologic/Psychiatric: no motor/sensory deficits, alert, normal mood/affect Skin: normal color, warm/dry Progress/Results/Core Measures Progress Progress Note : Progress Note 31-year-old male with above history coming in due to concerns for pinkeye in the right eye. ABCs were intact and vitals were stable on presentation. Physical exam with what appears to be conjunctivitis on the right eye. He is on polymy vibha drops which are burning for him. We will switch him over to erythromycin ointment since it might be more soothing. Departure Impression Primary Impression: Conjunctivitis Qualified Codes: H10.31 - Unspecified acute conjunctivitis, right eye Disposition: HOME, SELF-CARE Condition: Stable Departure-Patient Inst. Decision time for Depature: 08:20 Referrals: MARQUIS DE LA CRUZ DO (PCP/Family) Primary Care Physician Patient Instructions: Conjunctivitis ([facility]) ED Add. Discharge Instructions: blade groover to the erythromycin ointment. Put a quarter to half an inch on your lower eyelid and then blink. You can do this every 4-6 hours for the next week. Take ibuprofen as needed for pain. Scripts Erythromycin Base (Erythromycin Opthalmic Ointment) 5 Mg/Gram (0.5 %) Oint...g. 0 OP Q4H for 7 Days, #1 EA 1/2 inch Prov: PHOEBE ACOSTA MD 02/03/22 Work/School Note: Work Release Form Date Seen in the Emergency Department: Feb 03, 2022 Return to Work: Feb 04, 2022 Restrictions: No Restrictions PHOEBE ACOSTA MD Feb 03, 2022 08:21
[2022-02-03 08:24] VITALS: BP 142/87
== END 2022-02-03 08:25 | disposition home or self-care (01) ==
LOC: EDUNIT# 08:05 → ER 08:07
DX: H10.9 Unspecified conjunctivitis (principal); Z28.310 Unvaccinated for COVID-19
CPT/HCPCS: 99281

== ENCOUNTER 2022-02-05 19:33 | Emergency (ER) | payer BC ==
[~2022-02-05] VITALS: Ht 173 cm; Wt 86.6 kg
[~2022-02-05 19:33] MED LIST changes: +ERYT1OIN6 OP
--- NOTE | 2022-02-05 20:09 | ED EENT ---
History of Present Illness General Chief Complaint: Eye Problems Stated Complaint: RIGHT EYE PAIN Nursing Triage Note: PT AMB TO ED BY POV WITH C/O REDNESS AND BURNING IN R EYE SINCE THURSDAY. PT IS CONCERNED HE POPPED A BLOOD VESSEL IN EYE. PT HAD PINK EYE IN L EYE LAST WEEK. Source: patient Exam Limitations: no limitations Allergies and Home Medications Allergies Coded Allergies: No Known Drug Allergies (Unverified , 10/12/15) Patient Home Medication List Erythromycin Base (Erythromycin Opthalmic Ointment) 5 Mg/Gram (0.5 %) Oint...g., 0 OP Q4H Prescribed by: PHOEBE ACOSTA on 02/03/22 0821 Past Cbzppds-Afbezs-Uhviei Hx Patient Social History Tobacco Use?: No Use of E-Cig and/or Vaping dev: No Substance use?: No Alcohol Use?: No Pt feels they are or have been: No Immunizations Up To Date Tetanus Booster (TDap): Unknown PED Vaccines UTD: No Influenza Vaccine Up-to-Date: No; Not Current First/Initial COVID19 Vaccinat: NO Second COVID19 Vaccination Zeeshan: NO Third COVID19 Vaccination Date: NO Seasonal Allergies Seasonal Allergies: No Past Medical History Surgery/Hospitalization HX: MARILUZ Surgeries: Yes Gallbladder Respiratory: No Cardiac: No Neurological: Yes Headaches /Migraines Reproductive Disorders: No Sexually Transmitted Disease: No HIV/AIDS: No Genitourinary: Yes Kidney Infection Gastrointestinal: Yes Gastroesophageal Reflux, Gall Bladder Disease Musculoskeletal: Yes (CHRONIC RIGHT KNEE PAIN) Endocrine: No HEENT: No Cancer: No Psychosocial: No Integumentary: No Blood Disorders: No Adverse Reaction/Blood Tranf: No Family Medical History Patient reports no known family medical history. No Pertinent Family Hx Physical Exam Vital Signs Vital Signs - First Documented 02/05/22 19:52 Temp 37.1 Pulse 79 Resp 16 B/P (MAP) 138/86 (103) Pulse Ox 98 O2 Delivery Room Air Height, Weight, BMI Height: 5'8.00" Weight: 176lbs. 0.0oz. 79.899561ks; 28.00 BMI Method:Stated Progress/Results/Core Measures Results/Orders My Orders Orders - ZULEMA MORGAN APRN Tetracaine 0.5% Ophth Radha Sdv (Tetracai (02/05/22 20:15) Fluorescein Strips (Vvbte-N-Xihhao) (02/05/22 20:15) Balanced Salt Irrigation Soln (Bss Irrig (02/05/22 20:15) Medications Given in ED Current Medications Medications Dose Ordered Sig/Samuel Route Start Time Stop Time Status Last Admin Dose Admin Balanced Salt Solution 15 ml ONCE ONCE IR 02/05/22 20:15 02/05/22 20:16 DC 02/05/22 20:22 15 ML Fluorescein Sodium 1 mg ONCE ONCE OU 02/05/22 20:15 02/05/22 20:16 DC 02/05/22 20:22 1 MG Tetracaine HCl 4 ml ONCE ONCE OU 02/05/22 20:15 02/05/22 20:16 DC 02/05/22 20:22 4 ML Vital Signs/I&O 02/05/22 19:52 Temp 37.1 Pulse 79 Resp 16 B/P (MAP) 138/86 (103) Pulse Ox 98 O2 Delivery Room Air Blood Pressure Mean: 103 Departure Impression Primary Impression: Corneal abrasion Disposition: HOME, SELF-CARE Condition: Improved Departure-Patient Inst. Decision time for Depature: 20:32 Referrals: MARQUIS DE LA CRUZ DO (PCP/Family) Primary Care Physician Patient Instructions: Corneal Abrasion ED Add. Discharge Instructions: Plan: 1. Use antibiotic drops 2 drops in your right eye every 4 hours for 24 hours, then use 2 drops 4x daily. 2. Follow up with eye physician of choice. I have provided contact information for Dr. English office. 3. Return for any new, concerning, or worsening symptoms. All discharge instructions reviewed with patient and/or family. Voiced understanding. ZULEMA MORGAN IRRIGATION LABORER Feb 05, 2022 20:09
[2022-02-05] MEDS ORDERED: BSS 15 ML IR ONE (20:15)
[2022-02-05] MEDS ORDERED: FLUORESCEIN (FLUOR-I-STRIPS) 1 MG STRP OU ONE (20:15)
[2022-02-05] MEDS ORDERED: TETRACAINE 0.5% OPHTH SOLN 4 ML BTL (SINGLE DOSE ONLY) OU ONE (20:15)
[2022-02-05] MEDS ORDERED: RX-TOBRAMYCIN 0.3% OPHTH (TOBREX) SOLN 5 ML BTL OP STA (20:31)
[2022-02-05 21:03] VITALS: BP 128/82
== END 2022-02-05 21:03 | disposition home or self-care (01) ==
LOC: EDUNIT# 19:33 → ER 19:34
DX: S05.01XA Injury of conjunctiva and corneal abrasion without foreign body, right eye, initial encounter (principal); Z28.310 Unvaccinated for COVID-19; X58.XXXA Exposure to other specified factors, initial encounter
CPT/HCPCS: 99281

== ENCOUNTER 2022-03-12 15:44 | Emergency (ER) | payer BC ==
[~2022-03-12] VITALS: Ht 172 cm; Wt 87.0 kg
[2022-03-12 16:27] LABS: BILIRUBIN,URINE NEGATIVE (NEGATIVE); CLARITY,URINE CLEAR; COLOR,URINE YELLOW; GLUCOSE, URINE (UA) NEGATIVE (NEGATIVE); KETONES,URINE NEGATIVE (NEGATIVE); LEUKOCYTE ESTERASE ,URINE NEGATIVE (NEGATIVE); NITRITE,URINE NEGATIVE (NEGATIVE); PROTEIN,URINE NEGATIVE (NEGATIVE)
[2022-03-12 16:37] LABS: BASOPHILS % (AUTO) 0 % (0-10); EOSINOPHILS # (AUTO) 0.1 10^3/uL (0.0-0.3); EOSINOPHILS % (AUTO) 2 % (0-10); HEMATOCRIT 48 % (40-54); HEMOGLOBIN 15.4 g/dL (13.3-17.7); LYMPHOCYTES # (AUTO) 1.4 X 10^3 (1.0-4.0); LYMPHOCYTES % (AUTO) 19 % (12-44); MEAN CORPUSCULAR HEMOGLOBIN 28 pg (25-34); MEAN CORPUSCULAR HGB CONC 32 g/dL (32-36); MEAN CORPUSCULAR VOLUME 88 fL (80-99); MEAN PLATELET VOLUME 9.2 fL (9.0-12.2); MONOCYTES # (AUTO) 0.7 X 10^3 (0.0-1.0); MONOCYTES % (AUTO) 10 % (0-12); NEUTROPHILS # (AUTO) 5.1 X 10^3 (1.8-7.8); NEUTROPHILS % (AUTO) 68 % (42-75); PLATELET COUNT 252 10^3/uL (130-400); WHITE BLOOD COUNT 7.4 10^3/uL (4.3-11.0)
[2022-03-12 16:42] LABS: BACTERIA,URINE NEGATIVE /HPF
[2022-03-12 16:53] LABS: ALBUMIN 4.4 GM/DL (3.2-4.5); POTASSIUM 3.7 MMOL/L (3.6-5.0)
[2022-03-12 16:54] LABS: CALCIUM 9.4 MG/DL (8.5-10.1)
[2022-03-12 16:55] LABS: TOTAL PROTEIN 7.6 GM/DL (6.4-8.2)
[2022-03-12 16:57] LABS: BILIRUBIN,TOTAL 0.4 MG/DL (0.1-1.0)
[2022-03-12 16:59] LABS: CREATININE SERUM 1.13 MG/DL (0.60-1.30)
[2022-03-12] MEDS ORDERED: IBUP-1773 PO (17:08)
--- NOTE | 2022-03-12 17:09 | ED General ---
General Chief Complaint: General Problems/Pain Stated Complaint: ABD PAIN BOTH SIDES Nursing Triage Note: Pt ambulates to ER w c/o pain in Right and Left side. Started last week. Laying on both sides relieves the pain. Source of Information: Patient Exam Limitations: No Limitations History of Present Illness Date Seen by Provider: Mar 12, 2022 Time Seen by Provider: 15:52 Initial Comments History obtained from patient. Patient is a 31-year-old male who presents to the emergency department for evaluation of bilateral side pain that has been present for 2 weeks. States the pain is worse when he lifts weights. Denies any other aggravating or alleviating factors. He has not been taking anything for the symptoms. Endorses a history of kidney infection in the past and is afraid his kidneys may be the source of his pain at this time. Denies any urinary symptoms. No fever. No recent trauma. Allergies and Home Medications Allergies Coded Allergies: No Known Drug Allergies (Unverified , 10/12/15) Patient Home Medication List Home Medication List Reviewed: Yes Erythromycin Base (Erythromycin Opthalmic Ointment) 5 Mg/Gram (0.5 %) Oint...g., 0 OP Q4H Prescribed by: PHOEBE ACOSTA on 02/03/22 0821 Review of Systems Review of Systems Constitutional: no symptoms reported EENTM: no symptoms reported Respiratory: no symptoms reported Cardiovascular: no symptoms reported Gastrointestinal: no symptoms reported, see HPI Genitourinary: no symptoms reported Musculoskeletal: no symptoms reported Skin: no symptoms reported Psychiatric/Neurological: No Symptoms Reported Hematologic/Lymphatic: No Symptoms Reported Immunological/Allergic: no symptoms reported Past Oibidae-Skhkex-Iqhkmb Hx Immunizations Up To Date Tetanus Booster (TDap): Unknown PED Vaccines UTD: No First/Initial COVID19 Vaccinat: NO Second COVID19 Vaccination Zeeshan: NO Third COVID19 Vaccination Date: NO Seasonal Allergies Seasonal Allergies: No Past Medical History Surgery/Hospitalization HX: [facility] Surgeries: Yes Gallbladder Respiratory: No Cardiac: No Neurological: Yes Headaches /Migraines Reproductive Disorders: No Sexually Transmitted Disease: No HIV/AIDS: No Genitourinary: Yes Kidney Infection Gastrointestinal: Yes Gastroesophageal Reflux, Gall Bladder Disease Musculoskeletal: Yes (CHRONIC RIGHT KNEE PAIN) Endocrine: No HEENT: No Cancer: No Psychosocial: No Integumentary: No Blood Disorders: No Adverse Reaction/Blood Tranf: No Family Medical History Patient reports no known family medical history. No Pertinent Family Hx Physical Exam Vital Signs Vital Signs - First Documented 03/12/22 15:51 Temp 36.9 Pulse 77 Resp 18 B/P (MAP) 127/86 (100) Pulse Ox 98 O2 Delivery Room Air Capillary Refill : Less Than 3 Seconds Height, Weight, BMI Height: 5'8.00" Weight: 176lbs. 0.0oz. 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 Norm as Tested Skin: Normal Color, Warm/Dry Progress/Results/Core Measures Suspected Sepsis SIRS Temperature: Pulse: 77 Respiratory Rate: 18 Laboratory Tests 03/12/22 16:30: White Blood Count 7.4 Blood Pressure 127 /86 Mean: 100 Laboratory Tests 03/12/22 16:30: Creatinine 1.13, Platelet Count 252, Total Bilirubin 0.4 Results/Orders Lab Results Laboratory Tests Test 03/12/22 16:16 03/12/22 16:30 Range/Units Urine Color YELLOW Urine Clarity CLEAR Urine pH 6.0 5-9 Urine Specific [place] 1.010 L 1.016-1.022 Urine Protein NEGATIVE NEGATIVE Urine Glucose (UA) NEGATIVE NEGATIVE Urine Ketones NEGATIVE NEGATIVE Urine Nitrite NEGATIVE NEGATIVE Urine Bilirubin NEGATIVE NEGATIVE Urine Urobilinogen 0.2 < = 1.0 MG/DL Urine Leukocyte Esterase NEGATIVE NEGATIVE Urine RBC (Auto) NEGATIVE NEGATIVE Urine RBC NONE /HPF Urine WBC NONE /HPF Urine Crystals NONE /LPF Urine Bacteria NEGATIVE /HPF Urine Casts NONE /LPF Urine Mucus NEGATIVE /LPF Urine Culture Indicated NO White Blood Count 7.4 4.3-11.0 10^3/uL Red Blood Count 5.44 4.30-5.52 10^6/uL Hemoglobin 15.4 13.3-17.7 g/dL Hematocrit 48 40-54 % Mean Corpuscular Volume 88 80-99 fL Mean Corpuscular Hemoglobin 28 25-34 pg Mean Corpuscular Hemoglobin Concent 32 32-36 g/dL Red Cell Distribution Width 13.2 10.0-14.5 % Platelet Count 252 130-400 10^3/uL Mean Platelet Volume 9.2 9.0-12.2 fL Immature Granulocyte % (Auto) 0 % Neutrophils (%) (Auto) 68 42-75 % Lymphocytes (%) (Auto) 19 12-44 % Monocytes (%) (Auto) 10 0-12 % Eosinophils (%) (Auto) 2 0-10 % Basophils (%) (Auto) 0 0-10 % Neutrophils # (Auto) 5.1 1.8-7.8 X 10^3 Lymphocytes # (Auto) 1.4 1.0-4.0 X 10^3 Monocytes # (Auto) 0.7 0.0-1.0 X 10^3 Eosinophils # (Auto) 0.1 0.0-0.3 10^3/uL Basophils # (Auto) 0.0 0.0-0.1 10^3/uL Immature Granulocyte # (Auto) 0.0 0.0-0.1 10^3/uL Sodium Level 140 135-145 MMOL/L Potassium Level 3.7 3.6-5.0 MMOL/L Chloride Level 105 98-107 MMOL/L Carbon Dioxide Level 24 21-32 MMOL/L Anion Gap 11 5-14 MMOL/L Blood Urea Nitrogen 11 7-18 MG/DL Creatinine 1.13 0.60-1.30 MG/DL Estimat Glomerular Filtration Rate 90 BUN/Creatinine Ratio 10 Glucose Level 93 70-105 MG/DL Calcium Level 9.4 8.5-10.1 MG/DL Corrected Calcium 9.1 8.5-10.1 MG/DL Total Bilirubin 0.4 0.1-1.0 MG/DL Aspartate Amino Transf (AST/SGOT) 40 H 5-34 U/L Alanine Aminotransferase (ALT/SGPT) 133 H 0-55 U/L Alkaline Phosphatase 190 H 40-136 U/L Total Protein 7.6 6.4-8.2 GM/DL Albumin 4.4 3.2-4.5 GM/DL My Orders Orders - LIANNA LONGORIA APRN Urinalysis (03/12/22 16:19) Cbc With Automated Diff (03/12/22 16:19) Comprehensive Metabolic Panel (03/12/22 16:19) Vital Signs/I&O 03/12/22 15:51 Temp 36.9 Pulse 77 Resp 18 B/P (MAP) 127/86 (100) Pulse Ox 98 O2 Delivery Room Air Capillary Refill : Less Than 3 Seconds Blood Pressure Mean: 100 Progress Note : Progress Note Patient is nontoxic and well-hydrated on exam. Vital signs are reassuring. No tenderness to palpation to the abdomen or either flank. Patient was ambulatory in the room without issue. Orders placed for CBC, CMP, urinalysis. CBC unremarkable. CMP notable for mild transaminitis which patient states is not new and is being monitored. Urinalysis unremarkable. Specifically there is no evidence of kidney dysfunction or urine infection at this time. I have low suspicion for any significant intra-abdominal pathology given complete lack of tenderness to palpation and reassuring laboratory evaluation. Kidney stone is also very unlikely as the symptoms are bilateral and there is no CVA tenderness. Will discharge home with recommendations for supportive care and close follow-up with PCP. Return precautions for urgent symptomology discussed. Patient verbalized understanding. Departure Impression Primary Impression: Bilateral flank pain Disposition: HOME, SELF-CARE Condition: Stable Departure-Patient Inst. Decision time for Depature: 17:05 Referrals: MARQUIS DE LA CRUZ DO (PCP/Family) Primary Care Physician Patient Instructions: Flank Pain ED Scripts Ibuprofen (Ibuprofen) 600 Mg Tablet 600 MG PO Q6H PRN for PAIN-MILD for 5 Days, #20 TAB 0 Refills Prov: LIANNA LONGORIA APRN 03/12/22 LIANNA LONGORIA APRN Mar 12, 2022 17:09
[2022-03-12 17:20] VITALS: BP 127/86
== END 2022-03-12 17:20 | disposition home or self-care (01) ==
LOC: EDUNIT# 15:44 → ER 15:46
DX: R10.9 Unspecified abdominal pain (principal); R74.01 Elevation of levels of liver transaminase levels; Z87.19 Personal history of other diseases of the digestive system; Z87.440 Personal history of urinary (tract) infections
CPT/HCPCS: 36415; 80053; 81000; 85025

== ENCOUNTER 2022-05-06 06:55 | Emergency (ER) | payer BC ==
[~2022-05-06] VITALS: Ht 172 cm; Wt 86.0 kg
[~2022-05-06 06:55] MED LIST changes: +IBUP-1773 PO
--- NOTE | 2022-05-06 07:22 | ED General ---
General Chief Complaint: General Problems/Pain Stated Complaint: SORE THROAT,CP Nursing Triage Note: ARRIVED VIA AMB WITH COMPLAINTS OF A SORE THROAT AND CHEST PAIN X1 WEEK. Source of Information: Patient Exam Limitations: No Limitations History of Present Illness Date Seen by Provider: May 06, 2022 Time Seen by Provider: 07:10 Initial Comments Patient is a 31-year-old male who presents to the emergency room with chest discomfort, sore throat. He started getting symptoms about a week ago, had them for several days with hoarse voice and then improved. Then 2 or 3 days ago symptoms returned. He was seen at [facility] urgent care on Thursday, 2 days ago swabbed for strep throat which she reports was negative. He has been taking ibuprofen for the pain, last dose was last night. Patient states his cough is productive of green sputum. He is not short of breath. No nausea vomiting. He does endorse some urinary hesitancy for which he has been evaluated at [facility]. No dysuria. No penile discharge. No concerns for STD. Non-smoker. No daily medications All other review of systems reviewed and negative except as stated Timing/Duration: 1 Week Severity: Moderate Associated Systoms: Cough, Other (sputum) Allergies and Home Medications Allergies Coded Allergies: No Known Drug Allergies (Unverified , 10/12/15) Patient Home Medication List Home Medication List Reviewed: Yes Discontinued Medications Erythromycin Base (Erythromycin Opthalmic Ointment) 5 Mg/Gram (0.5 %) Oint...g., 0 OP Q4H Discontinued Reason: No Longer Taking Prescribed by: PHOEBE ACOSTA on 02/03/22 0821 Last Action: Discontinued Ibuprofen (Ibuprofen) 600 Mg Tablet, 600 MG PO Q6H PRN for PAIN-MILD Discontinued Reason: No Longer Taking Prescribed by: Hema Maciel on 03/12/22 1708 Last Action: Discontinued Review of Systems Review of Systems Constitutional: see HPI EENTM: throat pain Respiratory: cough Cardiovascular: no symptoms reported Genitourinary: hesitancy Musculoskeletal: no symptoms reported Skin: no symptoms reported Psychiatric/Neurological: No Symptoms Reported All Other Systems Reviewed Negative Unless Noted: Yes Past Rtdlrqb-Cjvbgr-Orycrb Hx Patient Social History Tobacco Use?: No Substance use?: No Alcohol Use?: No Immunizations Up To Date Tetanus Booster (TDap): Unknown PED Vaccines UTD: No First/Initial COVID19 Vaccinat: NO Second COVID19 Vaccination Zeeshan: NO Third COVID19 Vaccination Date: NO Seasonal Allergies Seasonal Allergies: No Past Medical History Surgery/Hospitalization HX: MARILUZ Surgeries: Yes Gallbladder Respiratory: No Cardiac: No Neurological: Yes Headaches /Migraines Reproductive Disorders: No Sexually Transmitted Disease: No HIV/AIDS: No Genitourinary: Yes Kidney Infection Gastrointestinal: Yes Gastroesophageal Reflux, Gall Bladder Disease Musculoskeletal: Yes (CHRONIC RIGHT KNEE PAIN) Endocrine: No HEENT: No Cancer: No Psychosocial: No Integumentary: No Blood Disorders: No Adverse Reaction/Blood Tranf: No Family Medical History Patient reports no known family medical history. No Pertinent Family Hx Physical Exam Vital Signs Vital Signs - First Documented 05/06/22 07:00 Temp 36.4 Pulse 60 Resp 16 B/P (MAP) 129/69 (89) Pulse Ox 97 O2 Delivery Room Air Capillary Refill : Less Than 3 Seconds Height, Weight, BMI Height: 5'8.00" Weight: 176lbs. 0.0oz. 79.498479xz; 29.00 BMI Method:Stated General Appearance: No Apparent Distress, WD/WN Eyes: Bilateral Eye Normal Inspection, Bilateral Eye PERRL, Bilateral Eye EOMI HEENT: PERRL/EOMI, TMs Normal, Normal ENT Inspection, Pharyngeal Erythema (minimal) Neck: Normal Inspection, Non Tender, Supple Respiratory: Lungs Clear, Normal Breath Sounds, No Accessory Muscle Use, No Respiratory Distress Cardiovascular: Regular Rate, Rhythm Gastrointestinal: Non Tender, Soft Extremity: Normal Inspection, Normal Range of Motion Neurologic/Psychiatric: Alert, Oriented x3, No Motor/Sensory Deficits, Normal Mood/Affect Skin: Normal Color, Warm/Dry Progress/Results/Core Measures Suspected Sepsis SIRS Temperature: Pulse: 60 Respiratory Rate: 16 Blood Pressure 129 /69 Mean: 89 Results/Orders Lab Results Laboratory Tests Test 05/06/22 07:21 05/06/22 08:14 Range/Units Influenza Type A (RT-PCR) Not Detected Not Detecte Influenza Type B (RT-PCR) Not Detected Not Detecte SARS-CoV-2 RNA (RT-PCR) Not Detected Not Detecte Urine Color YELLOW Urine Clarity SL CLOUDY Urine pH 6.5 5-9 Urine Specific [place] 1.015 L 1.016-1.022 Urine Protein NEGATIVE NEGATIVE Urine Glucose (UA) NEGATIVE NEGATIVE Urine Ketones NEGATIVE NEGATIVE Urine Nitrite NEGATIVE NEGATIVE Urine Bilirubin NEGATIVE NEGATIVE Urine Urobilinogen 0.2 < = 1.0 MG/DL Urine Leukocyte Esterase NEGATIVE NEGATIVE Urine RBC (Auto) NEGATIVE NEGATIVE Urine RBC NONE /HPF Urine WBC NONE /HPF Urine Squamous Epithelial Cells RARE /HPF Urine Crystals NONE /LPF Urine Amorphous Sediment MOD AMANDA URATES H /LPF Urine Bacteria TRACE /HPF Urine Casts NONE /LPF Urine Mucus SMALL H /LPF Urine Culture Indicated NO My Orders Orders - VICKI ZIMMERMAN MD Covid 19 Inhouse Test (05/06/22 07:21) Influenza A And B By Pcr (05/06/22 07:21) Isolation Central Supply Req (05/06/22 07:21) Ibuprofen Tablet (Motrin Tablet) (05/06/22 07:30) Ua Culture If Indicated (05/06/22 08:11) Bladder Scan (05/06/22 09:02) Medications Given in ED Vital Signs/I&O 05/06/22 05/06/22 07:00 09:18 Temp 36.4 Pulse 60 77 Resp 16 16 B/P (MAP) 129/69 (89) 126/69 Pulse Ox 97 98 O2 Delivery Room Air Room Air Capillary Refill : Less Than 3 Seconds Blood Pressure Mean: 89 Progress Note : Time: 09:12 Progress Note Patient seen and evaluated. Eval today includes covid/flu swab and UA. Patients physical exam pertinent for nasal mucosal congestion, otherwise normal HEENT exam. Clear lungs, regular rhythm. Soft abdomen. VSS. DDx includes flu/covid, viral bronshitis, mild sinusitis, UTI, prostatomegaly. Labs reviewed - neg covid, flu and UA. Strongly encouraged the patient to follow up with his PCP possibly seek Urology referral for urinary issues. Recc OTC cold medications for viral syndrome. He has not been persistently coughing in the ED, isnot wheezing and no clinical or objective findings concerning for pneumonia/bronchitis. No evidence of UTI or suspicion for prostatitis. He is comfortable with plan of care. All questions are sought and answered. Stable for discharge. Departure Impression Primary Impression: Viral syndrome Additional Impression: Urinary hesitancy Disposition: 01 HOME, SELF-CARE Condition: Stable Departure-Patient Inst. Decision time for Depature: 09:10 Referrals: MARQUIS DE LA CRUZ DO (PCP/Family) Primary Care Physician Patient Instructions: Viral Syndrome (DC) Add. Discharge Instructions: Please call and follow up with Dr De La Cruz at [facility] for your urinary complaints. You can take over the counter Dayquil/nyquil for cough/congestion symptoms. Ibuprofen 3 pills (600mg) every 6 hours with food as needed for pain. If you develop a fever, worsening shortness of breath or any other emergent, concerning symptoms, please come back to the Emergency Department for re- evaluation. Work/School Note: Work Release Form Date Seen in the Emergency Department: May 06, 2022 Return to Work: May 07, 2022 Copy Copies To 1: MARQUIS DE LA CRUZ KATHRYN M MD May 06, 2022 07:22
[2022-05-06] MEDS ORDERED: IBUPROFEN 600 MG (MOTRIN) TAB PO ONE (07:30)
[2022-05-06 08:23] LABS: BILIRUBIN,URINE NEGATIVE (NEGATIVE); CLARITY,URINE SL CLOUDY; COLOR,URINE YELLOW; GLUCOSE, URINE (UA) NEGATIVE (NEGATIVE); KETONES,URINE NEGATIVE (NEGATIVE); LEUKOCYTE ESTERASE ,URINE NEGATIVE (NEGATIVE); NITRITE,URINE NEGATIVE (NEGATIVE); PH,URINE 6.5 (5-9); PROTEIN,URINE NEGATIVE (NEGATIVE)
[2022-05-06 08:56] LABS: AMORPHOUS SEDIMENT,UR MOD AMOR URATES /LPF; BACTERIA,URINE TRACE /HPF; SQUAMOUS EPITHELIAL CELL,UR RARE /HPF
[2022-05-06 09:18] VITALS: BP 126/69
== END 2022-05-06 09:16 | disposition home or self-care (01) ==
LOC: EDUNIT# 06:55 → ER 06:58
DX: B34.9 Viral infection, unspecified (principal); R39.11 Hesitancy of micturition; R07.89 Other chest pain; R09.3 Abnormal sputum; Z28.310 Unvaccinated for COVID-19; Z20.822 Contact with and (suspected) exposure to COVID-19
CPT/HCPCS: 81000; 87636; 99285

== ENCOUNTER 2022-11-20 17:31 | Emergency (ER) | payer BC ==
[~2022-11-20] VITALS: Ht 172 cm; Wt 88.6 kg
[2022-11-20] MEDS ORDERED: FAMOTIDINE 20 MG TABLET PO STA (18:10)
--- NOTE | 2022-11-20 18:10 | ED EENT ---
History of Present Illness General Chief Complaint: Oral/Throat Problems Stated Complaint: HARD TO SWALLOW Nursing Triage Note: PT STATES HE FEELS LIKE HE HAS OMETHING STUCK IN HIS THROAT FOR A COUPLE DAYS. IS ABLE TO EAT AND DRINK, DENIES SOA. STATES HE DOES NOT RECALL ANYTHING GETTING STUCK HE JUST FEELS IF THERE IS SOMETHING IN THERE. Source: patient Exam Limitations: no limitations History of Present Illness Date Seen by Provider: Nov 20, 2022 Time Seen by Provider: 17:40 Initial Comments 32-year-old male with PMH of GERD coming in feeling like he has something in his throat. Started yesterday, does not recall really swallowing anything and getting stuck. Feels worse at night, better during the daytime. He states he is able to swallow and breathe without difficulty. Is not really painful. He states he has been clearing his throat quite a bit to try to help with it. Has never had anything like this happen before. Otherwise denying any other acute complaints including cough, fever, chills, or any other concerns. Allergies and Home Medications Allergies Coded Allergies: No Known Drug Allergies (Unverified , 10/12/15) Patient Home Medication List Home Medication List Reviewed: Yes Review of Systems Review of Systems Constitutional: No fever Eyes: No Symptoms Reported Ears: No Symptoms Reported Nose: no symptoms reported Mouth: no symptoms reported Throat: see HPI Respiratory: no symptoms reported Cardiovascular: no symptoms reported Gastrointestinal: no symptoms reported Musculoskeletal: no symptoms reported Skin: no symptoms reported Neurological: No Symptoms Reported Hematologic/Lymphatic: No Symptoms Reported Past Dzytyvl-Kyxuyi-Usqyml Hx Patient Social History Tobacco Use?: No Substance use?: No Alcohol Use?: Yes Alcohol Frequency: Once in a while Immunizations Up To Date Tetanus Booster (TDap): Unknown PED Vaccines UTD: No First/Initial COVID19 Vaccinat: NO Second COVID19 Vaccination Zeeshan: NO Third COVID19 Vaccination Date: NO Seasonal Allergies Seasonal Allergies: No Past Medical History Surgery/Hospitalization HX: [facility] Surgeries: Yes Gallbladder Respiratory: No Cardiac: No Neurological: Yes Headaches /Migraines Reproductive Disorders: No Sexually Transmitted Disease: No HIV/AIDS: No Genitourinary: Yes Kidney Infection Gastrointestinal: Yes Gastroesophageal Reflux, Gall Bladder Disease Musculoskeletal: Yes (CHRONIC RIGHT KNEE PAIN) Endocrine: No HEENT: No Cancer: No Psychosocial: No Integumentary: No Blood Disorders: No Adverse Reaction/Blood Tranf: No Family Medical History Patient reports no known family medical history. No Pertinent Family Hx Physical Exam Vital Signs Vital Signs - First Documented 11/20/22 17:44 Temp 36.6 Pulse 74 Resp 16 B/P (MAP) 138/84 (102) Pulse Ox 96 Height, Weight, BMI Height: 5'8.00" Weight: 176lbs. 0.0oz. 79.441986am; 29.00 BMI Method:Stated General Appearance: WD/WN, no apparent distress Eyes: bilateral eye normal inspection Ears: bilateral ear auricle normal Nose: normal inspection Mouth/Throat: normal mouth inspection, pharynx normal; No dental tenderness, No excessive drooling, No foreign body, No mandibular swelling, No tonsillar swelling, No trismus, No uvula swelling, No voice changes Neck: non-tender, full range of motion, supple, normal inspection Cardiovascular: regular rate, rhythm, no edema, no murmur Respiratory: chest non-tender, lungs clear, normal breath sounds, no respiratory distress, no accessory muscle use Gastrointestinal: normal bowel sounds, non tender, soft; No distended, No guarding, No rebound Neurologic/Psychiatric: no motor/sensory deficits, alert, normal mood/affect Skin: normal color, warm/dry Progress/Results/Core Measures Results/Orders My Orders Orders - PHOEBE ACOSTA MD Soft Tissue Neck (11/20/22 18:06) Lidocaine 2% Viscous 15 Ml (Xylocaine Vi (11/20/22 18:15) Famotidine Tablet (Famotidine Tablet) (11/20/22 18:10) Antacid Suspension (Antacid Suspension (11/20/22 18:15) Medications Given in ED Current Medications Medications Dose Ordered Sig/Samuel Route Start Time Stop Time Status Last Admin Dose Admin Al Hydrox/Mg Hydrox/Simethicone 30 ml ONCE ONCE PO 11/20/22 18:15 11/20/22 18:16 DC 11/20/22 18:14 30 ML Lidocaine HCl 15 ml ONCE ONCE PO 11/20/22 18:15 11/20/22 18:16 DC 11/20/22 18:14 15 ML Vital Signs/I&O 11/20/22 17:44 Temp 36.6 Pulse 74 Resp 16 B/P (MAP) 138/84 (102) Pulse Ox 96 Blood Pressure Mean: 102 Progress Progress Note : Progress Note 32-year-old male with above history coming in due to feel like something is in his throat. There is no clinical history of him swallowing anything and getting stuck. This just occurred. He states he has a history of bad GERD and has had an upper GI scope in the past by Dr. Barajas. He states this feels somewhat similar with that irritation where he has to clear his throat. CT soft tissue neck ordered and interpreted by me showing no radiopaque foreign body or obvious mass. Additionally, on physical exam I do not feel any mass, he has no trismus, swallowing normally without difficulty, breathing normally, and overall well- appearing. We tried drinking some Sprite as well as a GI cocktail which improved his symptoms. I suspect this is related to GERD. Very low likelihood of esophageal food bolus. Very low likelihood of significant mass in his neck based on his exam. I will have him follow back up with the surgeon for repeat evaluation. Diagnostic Imaging Diagonstic Imaging: Xray (soft tissue neck) Comments NAME: VIKA SULLIVAN [facility] REC#: [id number] PT STATUS: REG ER : 1990 PHYSICIAN: PHOEBE ACOSTA MD ADMIT DATE: 11/20/22/ER Draft Date of Exam:11/20/22 SOFT TISSUE NECK CLINICAL HISTORY: Feels like something is stuck in the throat. COMPARISON: None. TECHNIQUE: 2 views of the soft tissues of the neck. FINDINGS: No evidence of airway compromise. No radiopaque foreign bodies in the airway. The prevertebral soft tissues are normal. No acute fracture in the cervical spine. The included lungs are clear. IMPRESSION: 1. No evidence of airway compromise. No radiopaque foreign bodies in the airway. Dictated on workstation # [id number] Dict: 11/20/22 1834 Trans: 11/20/22 1836 [facility] [id number] Interpreted by: ANNE BECK DO Electronically signed by: Departure Impression Primary Impression: Sensation of foreign body in esophagus Disposition: 01 HOME, SELF-CARE Condition: Stable Departure-Patient Inst. Decision time for Depature: 18:50 Referrals: KATIE BARAJAS CASEY V DO (PCP/Family) Primary Care Physician Patient Instructions: Acid Reflux and GERD in Adults (DC) Add. Discharge Instructions: The x-ray of the neck is normal. Additionally the physical exam of your neck was normal. At this point, it is very unlikely something is actually stuck in your throat. We also didn't see or feel any mass in your throat. It is much more likely that your esophagus is just irritated and you have a foreign body s ensation. We recommend taking [id number] Maalox and Pepcid if you are able. We recommend following up with Dr. Barajas as soon as possible for an evaluation. Work/School Note: Work Release Form Date Seen in the Emergency Department: Nov 20, 2022 Return to Work: Nov 21, 2022 Restrictions: No Restrictions PHOEBE ACOSTA MD Nov 20, 2022 18:10
[2022-11-20] MEDS ORDERED: LIDOCAINE 2% VISCOUS 15 ML UDC PO ONE (18:15)
[2022-11-20] MEDS ORDERED: ANTACID SUSPENSION 30 ML UDC PO ONE (18:15)
--- NOTE | 2022-11-20 18:37 | Diagnostic Imaging Report ---
CLINICAL HISTORY: Feels like something is stuck in the throat. COMPARISON: None. TECHNIQUE: 2 views of the soft tissues of the neck. FINDINGS: No evidence of airway compromise. No radiopaque foreign bodies in the airway. The prevertebral soft tissues are normal. No acute fracture in the cervical spine. The included lungs are clear. IMPRESSION: 1. No evidence of airway compromise. No radiopaque foreign bodies in the airway. Dictated by: Dictated on workstation # [id number]
[2022-11-20 18:50] VITALS: BP 138/84
== END 2022-11-20 18:50 | disposition home or self-care (01) ==
LOC: EDUNIT# 17:31 → ER 17:32
DX: T18.108A Unspecified foreign body in esophagus causing other injury, initial encounter (principal); Z28.310 Unvaccinated for COVID-19
CPT/HCPCS: 70360

== ENCOUNTER 2022-12-16 19:19 | Emergency (ER) | payer BC ==
[~2022-12-16] VITALS: Ht 172.7 cm; Wt 89.0 kg
[2022-12-16 19:25] VITALS: BP 123/76
[2022-12-16] MEDS ORDERED: OMEP20TA56 PO (20:07)
--- NOTE | 2022-12-16 20:07 | ED EENT ---
History of Present Illness General Chief Complaint: Oral/Throat Problems Stated Complaint: NECK PAIN Nursing Triage Note: Pt presents with c/o a feeling of "flapping" in his throat. Pt states he was here approx 1 week ago for similar problem, x-ray showed nothing and he has a follow up with Dr. Duke in 2 days. Pt states nothing has changed since last visit, however he feels he can not wait until his appointment to find out the problem. Source: patient Exam Limitations: no limitations (BECCA BERGERON APRN) History of Present Illness Date Seen by Provider: Dec 16, 2022 Time Seen by Provider: 19:50 Initial Comments 32-year-old male presents to the ER with complaint of feeling something in his throat. He states that he feels something sitting there. States that he feels like "it goes down when he swallows and then goes back up." He states he does not feel like he has food stuck in his throat. Patient was seen here on November 20 for the same complaint. He denies any change in this pain, states he came in today because it is just bothering him. When he was seen here on 11/20, an x-ray of his neck was obtained showing no foreign body. The provider treated him with a GI cocktail and he had improved symptoms. The ER provider believed that his symptoms likely related to his history of GERD. Patient reports that he has not been taking his gastric reflux medication. He reports that Pepcid and Protonix seem to make the symptoms worse. He does report some tenderness when he pushes on his Yahir's apple. Denies fevers and shortness of air. He is scheduled to see Dr. Duke in 2 days to evaluate this. (BECCA BERGERON APRN) Allergies and Home Medications Allergies Coded Allergies: No Known Drug Allergies (Unverified , 10/12/15) Patient Home Medication List Home Medication List Reviewed: Yes (BECCA BERGERON APRN) Omeprazole (Omeprazole) 20 Mg Tablet., 20 MG PO DAILY Prescribed by: Becca Damon on 12/16/22 2007 Review of Systems Review of Systems Constitutional: see HPI (BECCA BERGERON APRN) Past Jjfidas-Tbsbjq-Gsvjac Hx Immunizations Up To Date Tetanus Booster (TDap): Unknown PED Vaccines UTD: No First/Initial COVID19 Vaccinat: NO Second COVID19 Vaccination Zeeshan: NO Third COVID19 Vaccination Date: NO (BECCA BERGERON APRN) Seasonal Allergies Seasonal Allergies: No (BECCA BERGERON APRN) Past Medical History Surgery/Hospitalization HX: [facility] Surgeries: Yes Gallbladder Respiratory: No Cardiac: No Neurological: Yes Headaches /Migraines Reproductive Disorders: No Sexually Transmitted Disease: No HIV/AIDS: No Genitourinary: Yes Kidney Infection Gastrointestinal: Yes Gastroesophageal Reflux, Gall Bladder Disease Musculoskeletal: Yes (CHRONIC RIGHT KNEE PAIN) Endocrine: No HEENT: No Cancer: No Psychosocial: No Integumentary: No Blood Disorders: No Adverse Reaction/Blood Tranf: No (BECCA BERGERON APRN) Family Medical History Patient reports no known family medical history. No Pertinent Family Hx (BECCA BERGERON APRN) Physical Exam Vital Signs Vital Signs - First Documented 12/16/22 19:25 Temp 36.8 Pulse 86 Resp 16 B/P (MAP) 123/76 (92) (VIKA CONCEPCION MD) Height, Weight, BMI Height: 5'8.00" Weight: 176lbs. 0.0oz. 79.565022nt; 29.00 BMI Method:Stated General Appearance: WD/WN, no apparent distress Mouth/Throat: normal mouth inspection, pharynx normal Neck: full range of motion, supple, normal inspection; No thyromegaly (No thyroid nodules palpated); other (Mild tenderness with palpation of Thomas apple) Cardiovascular: regular rate, rhythm Respiratory: lungs clear, normal breath sounds, no respiratory distress, no accessory muscle use Neurologic/Psychiatric: alert, normal mood/affect Skin: normal color, warm/dry (BCECA BERGERON APRN) Progress/Results/Core Measures Results/Orders Medications Given in ED Current Medications Medications Dose Ordered Sig/Samuel Route Start Time Stop Time Status Last Admin Dose Admin Al Hydrox/Mg Hydrox/Simethicone 30 ml ONCE ONCE PO 12/16/22 20:15 12/16/22 20:14 DC 12/16/22 20:05 30 ML Lidocaine HCl 15 ml ONCE ONCE PO 12/16/22 20:15 12/16/22 20:14 DC 12/16/22 20:05 15 ML (VIKA CONCEPCION MD) Vital Signs/I&O 12/16/22 19:25 Temp 36.8 Pulse 86 Resp 16 B/P (MAP) 123/76 (92) (VIKA CONCEPCION MD) Blood Pressure Mean: 92 Progress Progress Note : Progress Note Patient seen and evaluated, resting comfortably in recliner, no acute distress. I discussed with the patient the option of a CT scan to further evaluate the sensation he is having. I discussed the risks versus benefits of CT scan including radiation, contrast dye, and cost. Also gave the option of treating his symptoms with gastric reflux medication and having him see Dr. Duke in 2 days as scheduled. Patient chose to decline the CT scan. I gave him a GI cocktail. Will discharge with prescription for omeprazole. Patient instructed to also try Mylanta, Maalox, or Tums [id number]. Patient stable for discharge. Discharge instructions and return precautions provided. (BECCA BERGERON APRN) Departure Impression Primary Impression: GERD (gastroesophageal reflux disease) Disposition: HOME, SELF-CARE Condition: Stable Departure-Patient Inst. Decision time for Depature: 20:04 (BECCA BERGERON APRN) Referrals: MARQUIS DE LA CRUZ DO (PCP/Family) Primary Care Physician Patient Instructions: Acid Reflux and GERD in Adults (DC) Add. Discharge Instructions: Take omeprazole once a day. You may also try [id number] Maalox, Mylanta, or Tums. Avoid spicy foods, acidic foods, caffeine, tobacco. Make sure you sit up for at least 30 minutes after a meal. Follow-up with Dr. Duke in 2 days as scheduled. Return for any new, concerning, or worsening symptoms. All discharge instructions reviewed with patient and/or family. Voiced understanding. Scripts Omeprazole (Omeprazole) 20 Mg Tablet. 20 MG PO DAILY, #30 TAB 0 Refills Prov: BECCA BERGERON APRN 12/16/22 ATTENDING PHYSICIAN NOTE: I was physically present as attending physician in the emergency department dur ng the care of this patient. I discussed the patient's clinical presentation with Becca Bergeron NP. We discussed options for work-up. She then discussed options with the patient. I did not personally interview or examine this patient. I was otherwise not directly involved in the decision making or delivery of care for this patient. (VIKA CONCEPCION MD) BECCA BERGERON APRN Dec 16, 2022 20:07 VIKA CONCEPCION MD Dec 17, 2022 03:58
[2022-12-16] MEDS ORDERED: LIDOCAINE 2% VISCOUS 15 ML UDC PO ONE (20:15)
[2022-12-16] MEDS ORDERED: ANTACID SUSPENSION 30 ML UDC PO ONE (20:15)
== END 2022-12-16 20:14 | disposition home or self-care (01) ==
LOC: EDUNIT# 19:19 → ER 19:22
DX: K21.9 Gastro-esophageal reflux disease without esophagitis (principal); Z28.310 Unvaccinated for COVID-19
CPT/HCPCS: 99283

== ENCOUNTER → 2023-01-09 | Outpatient (CLI) | payer BC ==
--- NOTE | 2023-01-09 13:25 | Diagnostic Imaging Report ---
EXAMINATION: Modified barium swallow. INDICATION: Dysphagia. There are no prior studies available for comparison. This exam was performed in the presence of the speech pathologistZainab. The patient was given barium in different substances to swallow. This included thin liquid, applesauce, banana, barium on a cracker, and then repeat thin liquid swallow. The patient was able to swallow all the materials without difficulty. There was no evidence for aspiration or penetration. A 65 seconds of fluoroscopic time was utilized. The cumulative dose (air kerma) was 5.60 mGy. IMPRESSION: The swallowing mechanism is within normal limits. There is no evidence for aspiration or penetration. Dictated by: Dictated on workstation # [id number]
== END ==
LOC: RAD 09:32
PROVIDERS: ATTEND Surgery
DX: R13.10 Dysphagia, unspecified (principal)
CPT/HCPCS: 74230